=== PATIENT | male | born 1945 | race Caucasian/White ===

== ENCOUNTER 2024-02-25 10:53 | Outpatient (AMB) | payer OTHER, SELFPAY ==
--- NOTE | 2024-02-25 10:57 | A.OFFVIS_ITS ---
Vital Signs 02/25/24 11:17 Height 5 ft 10.5 in Weight 240 lb 2 oz BMI 34.0 BP 127/60 Blood Pressure Location Lt brachial Position Sitting Pulse 91 Pulse Source Pulse Oximeter Pulse Oximetry (%) 98 Oxygen Delivery Method Room Air Intake Visit Reasons: Back Pain Intake Note: Pain today 2 Imposer Required: No Accompanied by: Self / Same As Patient Allergies No Known Allergies Allergy (Verified 02/25/24 11:16) HPI HPI Back Pain: Details: Patient is a pleasant 78 years old male with history of osteoarthritis, obesity, back pain, bilateral total knee replacements, LUCIO with CPAP use, presents today for initial evaluation for low back pain. This is a Worker Comp case #[id number] due to poor work ergonomic chair without lumbosacral support. 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 Patient reports his low back pain has been increasing since December 2023 with increased stiffness and spasming and pain with prolonged sitting and range of motion, as well we prolonged walking or standing. He attributes this to inadequate support from his work chair. Patient states he requested a new chair from his workplace with lumbar support but this has not been arranged as of yet. Pain affects his daily activities and functioning, work, sleep, mobility, social interactions and quality of life. Pain came on gradually and currently has been intermittent with pain intensity ranging 2-4/10, with pain most severe late afternoon and morning and less severe in the late morning. Denies previous spine injections or surgery. Patient reports remote chiropractic adjustments but denies any recent formal physical therapy, TENS unit, acupuncture, massage therapy, or aqua therapy. He tried activity modifications and muscle relaxant with continued symptoms. He avoids NSAIDs and Tylenol due to adverse effects. Denies any fever or chills, abdominal or groin pain, weakness, foot drop, bladder or bowel dysfunction, or saddle anesthesia. Oswestry Low Back Pain Disability Score=12 (mild disability) Onset: 01/02/24 Location: Lower back pain, non-radiating Duration: 2 months Characteristics of symptom or complaint: Aching, dull, sore, hurting, aching, heavy Aggravating or associated factors: Prolonged sitting, bending forward, prolonged standing or walking, sleep Relieving factors: Resting, activity modifications, back support, tried muscle relaxant Treatment: None [facility] Medical History (Updated 02/25/24 @ 13:06 by JEANNINE Asher) LUCIO on CPAP Hx of colonic polyps History of adenomatous polyp of colon Hypertension Morbid obesity Osteoarthritis History of prostatism Contusion of rib on right side Eczema Back pain Anemia Nasal congestion Sleep apnea Surgical History H/O arthroscopic knee surgery History of knee replacement (~12/2019) Social History Alcohol intake: current Alcohol type: beer Patient Tobacco Use Status: Former Tobacco user Review of Systems Const All systems reviewed & are unremarkable except as noted in HPI and below Physical Exam Vital Signs: Last Vital Signs Pulse 91 02/25/24 11:17 BP 127/60 02/25/24 11:17 Pulse Ox 98 02/25/24 11:17 Oxygen Delivery Method Room Air 02/25/24 11:17 BMI result Body Mass Index 34.0 General: Appears afebrile. Alert and oriented. Mood and affect appropriate. Follows and participates in conversation appropriately. Respiratory effort is unlabored. No cough. Able to transition from sit to stand unassisted. Ambulates with bilaterally normal heel strike and toe off. General: Yes no CVA tenderness Back/Spine/Pelvis Other: Limited lumbar ROM due to pain. Non-antalgic gait. Mild limping. Lumbar flexion, axial rotations and extension is intact but reproduce moderate pain, worse with extension. No midline tenderness to palpation in the thoracic or lumbar spine. Demonstrates 5/5 strength of quadriceps bilaterally as well as flexion/dorsiflexion of bilateral feet against resistance. 2+ pedal pulses bilaterally. Straight leg rise with dorsiflexion negative bilaterally. Diminished patellar and achilles reflexes bilaterally. Facet loading test positive bilaterally. Raymond sign is negative bilaterally. Back: no CVA tenderness Cervical Spine: cervical ROM normal, cervical muscular tenderness and No Cervical spine tenderness Thoracic/Lumbar Spine: thoracic and lumbar spine normal to inspection, No Thoracic/lumbar spine scar(s), Lasegue's sign negative, straight leg raise negative bilaterally, kyphosis, pain with thoraco-lumbar ROM, paraspinal muscle tenderness, thoraco-lumbar ROM limited, No thoracic spinal tenderness and lumbar spinal tenderness at L4 and at L5 Pelvis: no buttock tenderness Sacroiliac joints: bilaterally nontender Extrem General: Yes capillary refill normal, Yes no clubbing, cyanosis or edema and Yes no calf tenderness Results Reviewed Results Reviewed: No imaging reports are available for review. Assessment & Plan Assessment & Plan (1) Lumbosacral spondylosis: Code(s): M47.817 - Spondylosis without myelopathy or radiculopathy, lumbosacral region Category: Medical (2) Low back pain: Code(s): M54.50 - Low back pain, unspecified Category: Medical (3) Muscle spasm of back: Code(s): M62.830 - Muscle spasm of back Category: Medical Plan Lumbar spine imaging to assess degree of degenerative changes, any subluxation, listhesis, compression fractures or pars defects. Discussed interventional treatments for axial low back pain, including diagnostic and therapeutic injections, neuromodulation therapy with Sprint PNS trial and lumbar medial branch RFA procedures. Informational pamphlets were provided to patient. Recommend formal physical therapy and establishment of home exercise program to reduce pain and optimize mobility, improve strength, proprioception, and neuromuscular coordination. Script provided [facility] therapy per patient's request as he previously completed PT for bilateral knee pain there. Discussed adjusting his work ergonomics and pursuing suitable work chair with lumbar support. Patient is retiring soon and is not considering it at this time. All questions and concerns have been answered and patient agreed with the treatment plan. Follow up for xray results/PT therapy and sooner as needed. Orders: Orders PT Evaluation and Treatment Today M47.817 - Spondylosis without myelopathy or radiculopathy, lumbosacral region, M54.50 - Low back pain, unspecified XR lumbar spine 4V min Today M47.817 - Spondylosis without myelopathy or radiculopathy, lumbosacral region, M54.50 - Low back pain, unspecified Medications: New lidocaine 5% 1 patch topically; 30 days 30 ea 0RF pain M47.817 - Spondylosis without myelopathy or radiculopathy, lumbosacral region, M54.50 - Low back pain, unspecified Coding Level of Care Code New Pt Level 4 (05388) Complex EM visit Add On G2211 Diagnoses Lumbosacral spondylosis M47.817 Low back pain M54.50 Muscle spasm of back M62.830
[2024-02-25 11:17] VITALS: BP 127/60; PULSE 91; O2SAT 98; BMI 34.0
--- OUTSIDE RECORDS SUMMARY | 2024-02-25 12:51 | XMS_ITS | Encounter Summary ---
Author Name [facility] [place] Address [address] [place] [address] Care Team Providers Care Pet House Sitter Name Role Phone JESUS WARREN Primary Care Provider Unavailabl e Insurance Providers: All historical and current Section Date Range: From patient's date of to the date document was created. This section includes the names of all active insurance providers for the patient. Insurance Provider Type of Coverage Plan Name Start of Policy Coverage End of Policy Coverage Group Number Member ID Insurance Provider's Telephone Number Policy Chan's Name Patient's Relationship to Policy Chan [facility] Apr 11, 2017 [id number] MADONNA CASILLAS PATIENT [employer] ([id number]) [facility] Aug 11, 2017 [id number] [phone] MADONNA CASILLAS PATIENT [employer] ([id number]) [facility] Aug 11, 2017 [id number] [phone] MADONNA CASILLAS PATIENT MEDICARE (WNR) MEDICARE (M) PART A Sep 12, 2011 PART A [id number] MADONNA CASILLAS PATIENT MEDICARE (WNR) MEDICARE (M) PART A Sep 12, 2011 PART A [id number] MADONNA CASILLAS PATIENT UNICARE PREFERRED PROVIDER ORGANIZAT TRACI (PPO) [employer] [place] [employer] * Aug 11, 2009 [id number] MADONNA CASILLAS PATIENT Selected Encounter This section includes the information on record at [place] for the Encounter. Date/Time Encounter Type Encounter Description Reason Pro vider Source Mar 01, 2023 12:00 PM Outpatient Encounter EVENT (HISTORICAL) IHE Encounter Template Text not used by [place] Plan of Treatment: Future Appointments (+ 6 months) and Future Tests (+/- 45 days) The Plan of Treatment section includes future care activities for the patient from all [place] treatmentfacilities. This section includes future appointments and future orders which are active, pending or scheduled. Future Appointments This section includes appointments that were scheduled to occur 6 months from the date of the Encounter, up to a maximum of 20 appointments. The data comes from all [place] treatment facilities. Appointment Date/Time Appointment Type Appointme nt Facility Name Apr 23, 2023 02:00 PM AMBULATORY - MEDICINE [facility] May 30, 2023 10:00 AM AMBULATORY - NONE [facility] July 04, 2023 02:00 PM AMBULATORY NONE [facility] July 10, 2023 11:00 AM AMBULATORY - PSYCHIATRY [facility] Aug 07, 2023 01:00 PM AMBULATORY - PSYCHIATRY [facility] Social History: Smoking Status (Most current) and Tobacco Use (All prior to encounter date) This section includes the most current, and the historical, smoking and tobacco- related health factors from the [place] facility where the Encounter took place. Current Smoking Status This section includes the most current smoking, or tobacco-related health factor, from the [place] facility where the Encounter took place. Date/Time Current Smoking Status Comment Facil ity Aug 07, 2019 01:20 PM [place]-TOBACCO QUIT 15 YRS OR MORE [facility] Tobacco Use History This section includes a history of the smoking, or tobacco-related health factors, that were collected on or before the date of the Encounter. The data comes from the [place] facility where the Encounter took place. Date/Time Smoking Status/Tobacco Use Comment F acility Aug 07, 2019 01:20 PM VA-TOBACCO QUIT 15 YRS OR MORE [facility] Encounter Notes: All associated encounter notes This section contains the clinical notes associated to the Encounter. Date/Time Encounter Note(s) Provider Source Mar 01, 2023 12:00 PM NONVA NOTE: LOCAL TITLE: NON-VA OUTPATIENT NOTES STANDARD TITLE: NONVA NOTE DATE OF NOTE: MAR 01, 2023@12:00 ENTRY DATE: APR 30, 2023@15:17:51 AUTHOR: JS BROWN EXP COSIGNER: URGENCY: STATUS: COMPLETED VistA Imaging - Scanned Document SCANNED DOCUMENT SIGNATURE NOT REQUIRED Electronically Filed: 04/30/2023 by: JS VALERIO [facility]
--- OUTSIDE RECORDS SUMMARY | 2024-02-25 12:51 | XMS_ITS | Encounter Summary ---
Author Name [facility] [place] Address [address] [place] [address] Care Team Providers Care Career Law Clerk Name Role Phone JESUS WARREN Primary Care [...] Chan's Name Patient's Relationship to Policy Chan [facility] Apr 11, 2017 [id number] [phone] MADONNA CASILLAS PATIENT [employer] ([id number]) [facility] Aug 11, 2017 [id number] MADONNA CASILLAS PATIENT [employer] ([id number]) [facility] Aug 11, 2017 [id number] MADONNA CASILLAS PATIENT MEDICARE (WNR) MEDICARE (M) PART A Sep 12, 2011 PART A [id number] MADONNA CASILLAS PATIENT MEDICARE (WNR) MEDICARE (M) PART A Sep 12, 2011 PART A [id number] MADONNA CASILLAS PATIENT UNICARE PREFERRED PROVIDER ORGANIZAT TRACI (PPO) [place] [employer] * Aug 11, 2009 [id number] MADONNA CASILLAS PATIENT Selected Encounter This section includes the information on record at [place] for the Encounter. Date/Time Encounter Type Encounter Description Reason Pro vider Source May 08, 2023 03:35 PM Outpatient Encounter ADMIN PAT ACTIVTIES (MASNONCT) IHE Encounter Template Text not used by [place] Plan of Treatment: Future Appointments (+ 6 months) and Future Tests (+/- 45 days) The Plan of Treatment section includes future care activities for the patient from all [place] [facility]. This section includes future appointments and future orders which are active, pending or scheduled. Future Appointments This section includes appointments that were scheduled to occur 6 months from the date of the Encounter, up to a maximum of 20 appointments. The data comes from all [place] treatment facilities. Appointment Date/Time Appointment Type Appointme nt Facility Name May 30, 2023 10:00 [facility] July 04, 2023 02:00 PM [facility]ONE [facility] July 10, 2023 11:00 AM AMBULATORY - PSYCHIATRY [facility] Aug 07, 2023 01:00 PM AMBULATORY - PSYCHIATRY [facility] Sep 27, 2023 01:00 PM AMBULATORY - MEDICINE [facility] Oct 17, 2023 09:00 AM AMBULATORY - MEDICINE [facility] NTRL [facility] Nov 07, 2023 01:30 PM AMBULATORY - MEDICINE [facility] Social History: Smoking Status (Most current) and Tobacco Use (All prior to encounter date) This section includes the most current, and the historical, smoking and tobacco- related health factors from the [place] facility where the Encounter took place. Current Smoking Status This section includes the most current smoking, or tobacco-related health factor, from the [place] facility where the Encounter took place. Date/Time Current Smoking Status Eran cary Aug 07, 2019 01:20 PM VA-TOBACCO QUIT 15 YRS OR MORE [facility] Tobacco Use History This section includes a history of the smoking, or tobacco-related health factors, that were collected on or before the date of the Encounter. The data comes from the [place] facility where the Encounter took place. Date/Time Smoking Status/Tobacco Use Comment F acility Aug 07, 2019 01:20 PM [place]-TOBACCO QUIT 15 YRS OR MORE [facility] Encounter Notes: All associated encounter notes This section contains the clinical notes associated to the Encounter. Date/Time Encounter Note(s) Provider Source May 08, 2023 03:35 PM ADMINISTRATIVE NOTE: LOCAL TITLE: CCC: SCHEDULING ADMINISTRATION STANDARD TITLE: ADMINISTRATIVE NOTE DATE OF NOTE: MAY 08, 2023@15:35:24 ENTRY DATE: MAY 08, 2023@15:35:24 AUTHOR: NEO LEDEZMA EXP COSIGNER: URGENCY: STATUS: COMPLETED CCC: SCHEDULING ADMINISTRATION Has ADDENDA Patient Demographics Patient Name: EMILIE CASILLAS Patient Primary Phone: [phone] Patient Primary Address[address] [address] [place] [address] Patient : 1945 Patient Age: 77 Call Back Number: [phone] Caller/Recipient Relation to Patient: Self Administrative Administrative Note Reason: Other Administrative Note Comments: PT IS REQUESTING A CALL BACK TO DISCUSS THE STATUS OF APPROVAL FOR A CPAP. PT CAN BE REACHED AT ABOVE # /emmett/ NEO LEDEZMA VISN1 [facility] AMSA Signed: 05/08/2023 15:35 Receipt Acknowledged By: 05/09/2023 09:14 /es/ LAUREN HERNANDEZ RN REGISTERED NURSE 05/09/2023 09:09 /es/ CLARISSA GRUBER LPN PACT 10 05/09/2023 ADDENDUM STATUS: COMPLETED Senior Project Accountant called Vet and let him know that he has a follow up with Respiratory to talk about the CPAP. /emmett/ CLARISSA GRUBER LPN PACT 10 Signed: 05/09/2023 09:11 NEO LEDEZMA [facility]
--- OUTSIDE RECORDS SUMMARY | 2024-02-25 12:51 | XMS_ITS | Encounter Summary ---
Author Name [place] Address [address] [place] [address] Care Team Providers Care Senior Staff Specialized Employment Name Role Phone JESUS WARREN Primary Care [...] Chan's Name Patient's Relationship to Policy Chan [facility] Apr 11, 2017 [id number] [phone] MADONNA CASILLAS PATIENT [employer] ([id number]) [facility] Aug 11, 2017 [id number] MADONNA CASILLAS PATIENT [employer] ([id number]) [facility] Aug 11, 2017 [id number] [phone] MADONNA CASILLAS PATIENT MEDICARE (WNR) MEDICARE (M) PART A Sep 12, 2011 PART A [id number] MADONNA CASILLAS PATIENT MEDICARE (WNR) MEDICARE (M) PART A Sep 12, 2011 PART A [id number] MADONNA CASILLAS PATIENT UNICARE PREFERRED PROVIDER ORGANIZAT ION (PPO) [place] [employer] * Aug 11, 2009 [id number] MADONNA CASILLAS PATIENT Selected Encounter This section includes the information on record at [place] for the Encounter. Date/Time Encounter Type Encounter Description Reason Provider Source Jun 03, 2023 12:35 PM SPECIAL SUPPLIES PHYS/QHP TELEPHONE/MEDICIN E ICD-10-CM G47.33 Obstructive sleep apnea (adult) (pediatric) KASEY BEY IHE Encounter Template Text not used by CT Assessments - Encounter Diagnoses This section includes the primary and secondary diagnoses documented for the Encounter. Date/Time Primary/Secondary Diagnosis Diagnosis Name Provider Source Jun 03, 2023 12:35 PM PRIMARY Obstructive sleep apnea (adult) (pediatric) [facility] Plan of Treatment: Future Appointments (+ 6 months) and Future Tests (+/- 45 days) The Plan of Treatment section includes future care activities for the patient from all [place] treatmentfacilities. This section includes future appointments and future orders which are active, pending or scheduled. Future Appointments This section includes appointments that were scheduled to occur 6 months from the date of the Encounter, up to a maximum of 20 appointments. The data comes from all [place] treatment facilities. Appointment Date/Time Appointment Type Appointme nt Facility Name July 04, 2023 02:00 PM AMBULATORY - NONE [facility] [place] [facility] July 10, 2023 11:00 AM AMBULATORY - PSYCHIATRY [facility] Aug 07, 2023 01:00 PM AMBULATORY - PSYCHIATRY [facility] Sep 27, 2023 01:00 PM AMBULATORY - MEDICINE [facility] Oct 17, 2023 09:00 AM AMBULATORY - MEDICINE CT C [facility]L [facility] [place] [facility] Nov 07, 2023 01:30 PM AMBULATORY - MEDICINE CT C [facility]TRL [facility] [place] [facility] Nov 27, 2023 10:00 AM AMBULATORY - NONE [facility] [place] [facility] Social History: Smoking Status (Most current) and Tobacco Use (All prior to encounter date) This section includes the most current, and the historical, smoking and tobacco- related health factors from the [place] facility where the Encounter took place. Current Smoking Status This section includes the most current smoking, or tobacco-related health factor, from the [place] facility where the Encounter took place. Date/Time Current Smoking Status Comment Facil ity Aug 07, 2019 01:[address]-TOBACCO QUIT 15 YRS OR MORE [facility] Tobacco Use History This section includes a history of the smoking, or tobacco-related health factors, that were collected on or before the date of the Encounter. The data comes from the [place] facility where the Encounter took place. Date/Time Smoking Status/Tobacco Use Comment F acility Aug 07, 2019 01:[address]-TOBACCO QUIT 15 YRS OR MORE [facility] Encounter Notes: All associated encounter notes This section contains the clinical notes associated to the Encounter. Date/Time Encounter Note(s) Provider Source Jun 03, 2023 12:35 PM RESPIRATORY THERAP Y NOTE: LOCAL TITLE: RESPIRATORY THERAPY NOTE(BLANK) STANDARD TITLE: RESPIRATORY THERAPY NOTE DATE OF NOTE: JUN 03, 2023@12:35 ENTRY DATE: JUN 03, 2023@12:35:11 AUTHOR: KASEY BEY EXP COSIGNER: URGENCY: STATUS: COMPLETED RESPIRATORY THERAPY NOTE(BLANK) Has ADDENDA Telephone Coding and Documentation: Diagnosis: sleep apnea Actual time spent with Patient via telephone: 12 minutes. Gonzales diagnosed with sleep apnea reports he received his CPAP device and used it for the first time last PM. is encouraged by how well it went. feedback from the ap was positive. states he will call with any issues or problems. /emmett/ KASEY BEY RESPIRATORY THERAPIST Signed: 06/03/2023 12:41 06/11/2023 ADDENDUM STATUS: COMPLETED Call 4 minutes. Gonzales diagnosed with sleep panea requests nasal pillow which will be ordered via [facility]. /milka BEY RESPIRATORY THERAPIST Signed: 06/11/2023 16:08 KASEY BEY [facility]
--- OUTSIDE RECORDS SUMMARY | 2024-02-25 12:51 | XMS_ITS | Encounter Summary ---
Author Name [facility] [place] Organization [facility] [place] Address [address] [place] [address] Care Team Providers Care Electrolog Operator Name Role Phone JESUS WARREN Primary Care [...] Name Patient's Relationship to Policy Chan [facility] Apr 11, 2017 [id number] MADONNA CASILLAS PATIENT EXPRESS SCRIPTS ([id number]) [facility]CRIPT [facility] Aug 11, 2017 [id number] [phone] MADONNA CASILLAS PATIENT EXPRESS SCRIPTS ([id number]) [facility] Aug 11, 2017 [id number] MADONNA CASILLAS PATIENT MEDICARE (WNR) MEDICARE (M) PART A Sep 12, 2011 PART A [id number] [phone] MADONNA CASILLAS PATIENT MEDICARE (WNR) MEDICARE (M) PART A Sep 12, 2011 PART A [id number] MADONNA CASILLAS PATIENT UNICARE PREFERRED PROVIDER ORGANIZAT TRACI (PPO) UNICDwight STATE INDEM * Aug 11, 2009 [id number] MADONNA CASILLAS PATIENT Selected Encounter This section includes the information on record at [place] for the Encounter. Date/Time Encounter Type Encounter Description Reason Pro vider Source Apr 24, 2023 10:39 AM Outpatient Encounter SLEEP MEDICINE IHE Encounter Template Text not used by [place] Plan of Treatment: Future Appointments (+ 6 months) and Future Tests (+/- 45 days) The Plan of Treatment section includes future care activities for the patient from all [place] [facility]. This section includes future appointments and future orders which are active, pending or scheduled. Future Appointments This section includes appointments that were scheduled to occur 6 months from the date of the Encounter, up to a maximum of 20 appointments. The data comes from all [place] treatment facilities. Appointment Date/Time Appointment Type Appointme nt Facility Name May 30, 2023 10:00 AM AMBULATORY - NONE [facility] July 04, 2023 02:00 PM AMBULATORY NONE [facility] July 10, 2023 11:00 AM AMBULATORY - PSYCHIATRY [facility] Aug 07, 2023 01:00 PM AMBULATORY - PSYCHIATRY [facility] Sep 27, 2023 01:00 PM AMBULATORY - MEDICINE [facility] Oct 17, 2023 09:00 AM AMBULATORY - MEDICINE [facility] Social History: Smoking Status (Most current) and Tobacco Use (All prior to encounter date) This section includes the most current, and the historical, smoking and tobacco- related health factors from the [place] facility where the Encounter took place. Current Smoking Status This section includes the most current smoking, or tobacco-related health factor, from the [place] facility where the Encounter took place. Date/Time Current Smoking Status Comment Sarah cary Aug 07, 2019 01:20 PM ME-TOBACCO QUIT 15 YRS OR MORE [facility] Tobacco Use History This section includes a history of the smoking, or tobacco-related health factors, that were collected on or before the date of the Encounter. The data comes from the [place] facility where the Encounter took place. Date/Time Smoking Status/Tobacco Use Comment F acility Aug 07, 2019 01:20 PM [facility]-TOBACCO [facility]IT [facility] [place] [facility] Encounter Notes: All associated encounter notes This section contains the clinical notes associated to the Encounter. Date/Time Encounter Note(s) Provider Source Apr 24, 2023 10:39 AM LETTERS: LOCAL TITLE: PATIENT LETTER (B) STANDARD TITLE: LETTERS DATE OF NOTE: APR 24, 2023@10:39 ENTRY DATE: APR 24, 2023@10:39:27 AUTHOR: ALEXIS NUNEZ EXP COSIGNER: URGENCY: STATUS: COMPLETED APR 24, 2023 EMILIE CASILLAS [address], [place] [address] Dear EMILIE CASILLAS We would like to assist you in scheduling a RESPIRATORY THERAPY appointment at the [place]. We have been unable to reach you by phone. To schedule this appointment please call toll free Ext [phone]. Our booking appointment hours are Saturday through Saturday from 8:00 am to 4:00 pm. Please leave a message if you receive voicemail and let us know a good time and telephone number where we can reach you. If we dont hear back from you within 14 days from the date of this letter we will discontinue the request. If you have already scheduled this appointment, please disregard this letter. Your health is important to us. Sincerely, [facility] [address] [facility] [address] [place] [address] [place] [address] ext. [phone] [facility] [address] [place] [address] [place] [address] [phone] [facility] [address] [facility] [address] [place] [address] [place] [address] ext. [phone] [facility] [address] [place] [address] ext. [phone] ALEXIS NUNEZ [facility]
--- OUTSIDE RECORDS SUMMARY | 2024-02-25 12:51 | XMS_ITS | Encounter Summary ---
Author Name [facility] [place] Address [address] [place] [address] Care Team Providers Care Bicycle Repair Technician Name Role Phone JESUS WARREN Primary Care [...] Chan's Name Patient's Relationship to Policy Chan [facility] Apr 11, 2017 [id number] MADONNA CASILLAS PATIENT EXPRESS SCRIPTS ([id number]) PRESCRIPT ION [facility] Aug 11, 2017 [id number] [phone] MADONNA CASILLAS PATIENT EXPRESS SCRIPTS ([id number]) PRESCRIPT ION [facility] Aug 11, 2017 [id number] [phone] MADONNA CASILLAS PATIENT MEDICARE (WNR) MEDICARE (M) PART A Sep 12, 2011 PART A [id number] MADONNA CASILLAS PATIENT MEDICARE (WNR) MEDICARE (M) PART A Sep 12, 2011 PART A [id number] [phone] MADONNA CASILLAS PATIENT UNICARE PREFERRED PROVIDER ORGANIZAT ION (PPO) UNICDwight [facility] INDEM * Aug 11, 2009 [id number] MADONNA CASILLAS PATIENT Selected Encounter This section includes the information on record at [place] for the Encounter. Date/Time Encounter Type Encounter Description Reason Provider Source Apr 23, 2023 02:00 PM OFFICE O/P EST LOW 20 MIN PODIATRY ICD-10-CM L60.3 Nail dystrophy FOREIGN JAUREGUI [place] Encounter Template Text not used by [place] Assessments - Encounter Diagnoses This section includes the primary and secondary diagnoses documented for the Encounter. Date/Time Primary/Secondary Diagnosis Diagnosis Name Provider Source May 17, 2023 03:42 PM PRIMARY Nail dystrophy FOREIGN JAUREGUI KRYSTIAN May 17, 2023 03:42 PM SECONDARY Corns and callosities FOREIGN JAUREGUI KRYSTIAN May 17, 2023 03:42 PM SECONDARY Pain in left foot FOREIGN JAUREGUI KRYSTIAN May 17, 2023 03:42 PM SECONDARY Pain in left toe(s) FOREIGN JAUREGUI KRYSTIAN May 17, 2023 03:42 PM SECONDARY Pain in right foot FOREIGN JAUREGUI KRYSTIAN May 17, 2023 03:42 PM SECONDARY Pain in right toe(s) [facility] JA[facility] May 17, 2023 03:42 PM SECONDARY Peripheral vascular disease, unspecified FOREIGN JAUREGUI Plan of Treatment: Future Appointments (+ 6 months) and Future Tests (+/- 45 days) The Plan of Treatment section includes future care activities for the patient from all [place] treatmentfacilities. This section includes future appointments and future orders which are active, pending or scheduled. Future Appointments This section includes appointments that were scheduled to occur 6 months from the date of the Encounter, up to a maximum of 20 appointments. The data comes from all [place] treatment facilities. Appointment Date/Time Appointment Type Appointme nt Facility Name May 30, 2023 10:00 AM AMBULATORY - NONE [place] [facility] [place] [facility] July 04, 2023 02:00 PM AMBULATORY - NONE [place] [facility] [place] [facility] July 10, 2023 11:00 AM AMBULATORY - PSYCHIATRY [facility] Aug 07, 2023 01:00 PM AMBULATORY - PSYCHIATRY [facility] Sep 27, 2023 01:00 PM AMBULATORY - MEDICINE [facility] Oct 17, 2023 09:00 AM AMBULATORY - MEDICINE [place] [facility] [place] [facility] Social History: Smoking Status (Most current) and Tobacco Use (All prior to encounter date) This section includes the most current, and the historical, smoking and tobacco- related health factors from the [place] facility where the Encounter took place. Current Smoking Status This section includes the most current smoking, or tobacco-related health factor, from the [place] facility where the Encounter took place. Date/Time Current Smoking Status Comment Facil ity Nov 07, 2022 01:30 PM VA-TOBACCO FORMER USER [facility] Tobacco Use History This section includes a history of the smoking, or tobacco-related health factors, that were collected on or before the date of the Encounter. The data comes from the [place] facility where the Encounter took place. Date/Time Smoking Status/Tobacco Use Comment F acility Nov 07, 2022 01:30 PM VA-TOBACCO QUIT 15 YRS OR MORE [facility] Nov 09, 2021 09:00 AM VA-TOBACCO FORMER USER [facility] Nov 09, 2021 09:00 AM VA-TOBACCO QUIT 15 YRS OR MORE [facility] Nov 09, 2020 03:00 PM VA-TOBACCO FORMER USER [facility] Nov 09, 2020 03:00 PM VA-TOBACCO QUIT 15 YRS OR MORE [facility] Encounter Notes: All associated encounter notes This section contains the clinical notes associated to the Encounter. Date/Time Encounter Note(s) Provider Source Apr 23, 2023 08:47 AM PODIATRY NOTE: LOCAL TITLE: PODIATRY NOTE STANDARD TITLE: PODIATRY NOTE DATE OF NOTE: APR 23, 2023@08:47 ENTRY DATE: APR 23, 2023@08:47:08 AUTHOR: FOREIGN JAUREGUI EXP COSIGNER: URGENCY: STATUS: COMPLETED PATIENT IS A 1ST RESPONDER AND HAS RECEIVED BOTH VACCINES + BOOSTER THROUGH WORK WITH THE [facility] LAST SEEN FOR TREATMENT: 12/18/2022 S: Pt. is a 77 yo alert WDWN CAUC MALE who presents for continued podiatric EVALUATION & care for treatment of a presenting complaint of painful thick ingrown toenails 1-2-3-4-5 BILATERAL, DRY SKIN AND HYPERKERATOSIS HEELS AND TOES. Patient has PVD & is at risk of injury with self or other non-professional care. Patient has been referred by: DR. WARREN Location of symptoms are: NAILS 1-2-3-4-5 BILATERAL Onset of symptoms has been several days due to this being a recurrent condition that has been exacerbating over the past few weeks. Duration of symptoms is daily with periods of exacerbation and remission. Description of symptoms is of an aching nature. Contributing factors are: shoes and increased activity. PMH: Active problems - Computerized Problem List is the source for the following: *NOTE: REVIEWED ABOVE NOTING NO CHANGES SINCE PREVIOUS VISIT *PLEASE SEE PROBLEM LIST TEMPLATE FOR COMPLETE LIST NEEDED. Family History: Non-contributory Social History: N/A *DENIES ANY RECENT CHANGES IN MEDS upon questioning today- SEE RECONCILIATION PERFORMED THIS DATE BELOW TOBACCO USE = NONE Allergies:Patient has answered NKA Previous Surgery/Hospitalization: N/A HEIGHT:221 lb [100.5 kg] (08/11/2019 13:34) WEIGHT:69.685 in [177.0 cm] (08/11/2019 13:34) REVIEW OF SYSTEMS: DEFERRED BEING NON-CONTRIBUTORY TO THE CC & I HAVE REVIEWED THE PCP NOTES & PMH O: DERMATOLOGICAL: Exam reveals skin color, temp & text to be WNL. There is absence of hair noted. Nails are thickened yellow-brown discolored and displaying flakiness, crumbling, sub-ungual debris and rubor in the affected nail grooves. The affected nails are 1-2-3-4-5 bilat. There are superficial painful hyperkeratotic lesions noted at this time periphery of heel bilateral, medial hallux bilateral plantar 1st MPJ bilateral and distal RT hallux. There are no rashes, ulcers, indurations or nodules noted. *PAIN LEVEL IS 2-3/10 PRIOR TO TREATMENT AND 0/10 AFTER. VASCULAR: Exam reveals DP & PT pulses to be absent non-palpable bilateral. CFT is < 3 sec x 10. There are no superficial varices noted and there is +2 edema noted. MUSCULOSKELETAL: Exam reveals muscle strength and tone to be equal & symmetrical bilaterally & WNL for an individual of this age and present physical-medical condition. There is pain free ROM at all joints distal to and including the ankle. *NEW COMPLAINT OF A PAINFUL 5TH RT DIGIT IN SHOES-NOTING MILD HYPERKERATOSIS DIPJ & DISPENSED TUBEFOAM FOR THIS PROBLEM AND HE WILL CALL IF NOT IMPROVED NEUROLOGICAL: Exam reveals S/D, vibratory, light touch & proprioception sensations to be equal & symmetrical bilaterally & WNL for an individual of this age and present physical-medical status. Protective sensation utilizing a [place] [employer] lOg monofilament is 05/10 bilateral. BIOMECHANICAL: Exam is deferred at this time as non-contributory to the cc . A: Clinical Impression is painful onychocryptic clinically mycotic dystrophic nails 1-2-3-4-5 bilateral & multiple hypekeratosis in the presence of PVD. P: Treatment consists of debridement-reduction of all nails via manual & electric means with excision of the offending nail borders and thinning of the nail plates to the point of imminent bleeding and paring-debridement of all hyperkeratosis utilizing a sterile # 10 scalpel. All care rendered without complications & the patient is progressing well after podiatric care this date and will be scheduled for periodic podiatric care in an attempt to prevent future complications due to the underlying medical conditions. Treatment by a non-professional could be extremely hazardous to the patient's wellbeing due to the underlying medical conditions. *TUBE FOAM 5TH RT RTC: 24 Weeks *DISCUSSED NEW PROTOCOLS AND CALLED GREGORY ALBRECHT I DISCUSSED THE FINDINGS & PLAN WITH PATIENT (UNCHANGED SINCE PREVIOUS VISIT) &PATIENT AGREES AND UNDERSTANDS PLAN ORDERED AMMONIUMLACTATE 122% BEFORE DISCUSSED A VARIETY OF SOCIAL CONCERNS SUCH EDUCATION, LOSS OF PERSONNEL IN THE MEDICAL PROFESSION, ETC Medication Reconciliation: PERFORMED TODAY - SEE BELOW. Outpatient: Has the patient been taking medications as documented in the EMLR? YES: The patient has been taking medications as documented in the EMLR. Essential Medication List for Review used to complete this medication reconciliation. INCLUDED IN THIS LIST: Alphabetical list of active outpatient prescriptions dispensed from this VA (local) and dispensed from another [place] or Do[place] facility (remote) as well as inpatient orders (local, pending and active), local clinic medications, locally documented non-VA medications, and local prescriptions that have or been discontinued in the past 90 days. - All changes in medications, including all non-VA/Herbal/OTC medications were entered into CPRS. - If there were any medications the patient should no longer take, they were discontinued. - The patient/caregiver was instructed to update this list, discard old lists, and take this list to the next appointment, whether with a VA or non-VA provider. JLV Link Data on this list may not be complete. Please check JLV. Allergies/ADRs (Tool #5) FACILITY ALLERGY/ADR -------- No Remote Allergy/ADR Data available for this patient [place] [facility] No Known Allergies Med Recon NoGloary (Tool #1) INCLUDED IN THIS LIST: Alphabetical list of active outpatient prescriptions dispensed from this [place] (local) and dispensed from another VA or DoD facility (remote) as well as inpatient orders (local pending and active), local clinic medications, locally documented non-VA medications, and local prescriptions that have or been discontinued in the past 90 days. Non-VA Meds Last Documented On: Nov 07, 2022 NOTE The display of VA prescriptions dispensed from another VA or DoD facility (remote) is limited to active outpatient prescription entries matched to National Drug File at the originating site and may not include some items such as investigational drugs, compounds, etc. NOT INCLUDED IN THIS LIST: Medications self-entered by the patient into personal health records (i.e. [employer]) are NOT included in this list. Non-VA medications documented outside this [place], remote inpatient orders (regardless of status) and remote clinic medications are NOT included in this list. The patient and provider must always discuss medications the patient is taking, regardless of where the medication was dispensed or obtained. OUTPT AMMONIUM LACTATE 12% LOTION (Status = ) APPLY SMALL AMOUNT TOPICALLY TWICE DAILY FOR DRY IRRITATED SKIN Rx# [id number] Last Released: 04/18/22 Qty/Days Supply: 240/90 Rx Expiration Date: 04/17/23 Refills Remainin Indication: FOR DRY SKIN Non-VA CLOBETASOL PROPIONATE 0.05% OINT APPLY THIN LAYER TOPICALLY TWICE DAILY Non-VA FLUTICASONE PROP 50MCG 120D NASAL INHL INSTILL 2 SPRAYS INTO EACH NOSTRIL ONCE DAILY Non-VA LOSARTAN 100MG TAB TAKE ONE TABLET BY MOUTH ONCE DAILY Non-VA medication not recommended by VA provider. Medication prescribed by Non-VA provider. Non-VA METOPROLOL SUCCINATE 25MG SA TAB TAKE ONE TABLET BY MOUTH ONCE DAILY Non-VA TAMSULOSIN HCL 0.4MG CAP TAKE 1 CAPSULE BY MOUTH ONCE DAILY SUPPLIES /emmett/ FOREIGN JAUREGUI DPM BOW MAKER Signed: 04/23/2023 14:29 FOREIGN JAUREGUI [facility]
--- OUTSIDE RECORDS SUMMARY | 2024-02-25 12:51 | XMS_ITS | Encounter Summary ---
Author Name [facility] [place] Organization [place] Address [address] [place] [address] Care Team Providers Care Stock Shipper Name Role Phone JESUS WARREN Primary Care [...] Chan's Name Patient's Relationship to Policy Chan [facility] Apr 11, 2017 [id number] [phone] MADONNA CASILLAS PATIENT EXPRESS SCRIPTS ([id number]) PRESCRIPT ION [facility] Aug 11, 2017 [id number] MADONNA CASILLAS PATIENT EXPRESS SCRIPTS ([id number]) PRESCRIPT ION [facility] Aug 11, 2017 [id number] MADONNA CASILLAS PATIENT MEDICARE (WNR) MEDICARE (M) PART A Sep 12, 2011 PART A [id number] MADONNA CASILLAS PATIENT MEDICARE (WNR) MEDICARE (M) PART A Sep 12, 2011 PART A [id number] MADONNA CASILLAS PATIENT UNICARE PREFERRED PROVIDER ORGANIZAT ION (PPO) [place] STATE INDEM * Aug 11, 2009 [id number] MADONNA CASILLAS PATIENT Selected Encounter This section includes the information on record at [place] for the Encounter. Date/Time Encounter Type Encounter Description Reason Pro vider Source Apr 29, 2023 02:55 PM Outpatient Encounter ADMIN PAT ACTIVTIES (MASNONCT) IHE Encounter Template Text not used by [place] Plan of Treatment: Future Appointments (+ 6 months) and Future Tests (+/- 45 days) The Plan of Treatment section includes future care activities for the patient from all [place] [facility] This section includes future appointments and future orders which are active, pending or scheduled. Future Appointments This section includes appointments that were scheduled to occur 6 months from the date of the Encounter, up to a maximum of 20 appointments. The data comes from all [place] treatment facilities. Appointment Date/Time Appointment Type Appointme nt Facility Name May 30, 2023 10:00 AM [facility] July 04, 2023 02:00 PM [facility] [place] [facility] July 10, 2023 11:00 AM AMBULATORY - PSYCHIATRY [facility] Aug 07, 2023 01:00 PM AMBULATORY - PSYCHIATRY [facility] Sep 27, 2023 01:00 PM AMBULATORY - MEDICINE [facility] Oct 17, 2023 09:00 AM AMBULATORY - MEDICINE [facility] Social History: Smoking Status (Most current) and Tobacco Use (All prior to encounter date) This section includes the most current, and the historical, smoking and tobacco- related health factors from the [place] facility where the Encounter took place. Current Smoking Status This section includes the most current smoking, or tobacco-related health factor, from the [place] facility where the Encounter took place. Date/Time Current Smoking Status Eran cary Aug 07, 2019 01:20 PM [place]-TOBACCO QUIT 15 YRS OR MORE [facility] Tobacco Use History This section includes a history of the smoking, or tobacco-related health factors, that were collected on or before the date of the Encounter. The data comes from the [place] facility where the Encounter took place. Date/Time Smoking Status/Tobacco Use Comment F acility Aug 07, 2019 01:20 PM [place]-TOBACCO QUIT 15 YRS OR MORE [facility] Encounter Notes: All associated encounter notes This section contains the clinical notes associated to the Encounter. Date/Time Encounter Note(s) Provider Source Apr 29, 2023 02:55 PM ADMINISTRATIVE NOT E: LOCAL TITLE: CCC: SCHEDULING ADMINISTRATION STANDARD TITLE: ADMINISTRATIVE NOTE DATE OF NOTE: APR 29, 2023@14:55:17 ENTRY DATE: APR 29, 2023@14:55:17 AUTHOR: BELIA ALFARO EXP COSIGNER: URGENCY: STATUS: COMPLETED CCC: SCHEDULING ADMINISTRATION Has ADDENDA Patient Demographics Patient Name: EMILIE CASILLAS Patient Primary Phone: [phone] Patient Primary Address: [address] [place] [address] Patient : 1945 Patient Age: 77 Current Location: Call Back Number: [phone] DAY Caller/Recipient Relation to Patient: Self Scheduling Patient Expects Callback: No Administrative Administrative Note Reason: Medical Equipment Request Administrative Note Comments: REQUESTING RETURN CALL RE: Reorder of compression stockings- needs to be another size /es/ BELIA ALFARO CDA/AMSA Signed: 04/29/2023 14:55 Receipt Acknowledged By: 04/29/2023 15:12 /emmett/ LAUREN HERNANDEZ RN REGISTERED NURSE 04/29/2023 15:08 /emmett/ CLARISSA GRUBER LPN PACT 10 04/29/2023 ADDENDUM STATUS: COMPLETED Spoke with the and he needed the next size up. Consult placed. /emmett/ LAUREN HERNANDEZ RN REGISTERED NURSE Signed: 04/29/2023 15:12 BELIA ALFARO [place] [facility]
--- OUTSIDE RECORDS SUMMARY | 2024-02-25 12:51 | XMS_ITS | Encounter Summary ---
Author Name [facility] [place] Address [address] [place] [address] Care Team Providers Care Timber Cruiser Name Role Phone JESUS WARREN Primary Care [...] Chan's Name Patient's Relationship to Policy Chan [facility] Apr 11, 2017 [id number] MADONNA CASILLAS PATIENT EXPRESS SCRIPTS ([id number]) PRESCRIPT ION [facility] Aug 11, 2017 [id number] MADONNA CASILLAS PATIENT EXPRESS SCRIPTS ([id number]) PRESCRIPT ION [facility] Aug 11, 2017 [id number] MADONNA CASILLAS PATIENT MEDICARE (WNR) MEDICARE (M) PART A Sep 12, 2011 PART A [id number] MADONNA CASILLAS PATIENT MEDICARE (WNR) MEDICARE (M) PART A Sep 12, 2011 PART A [id number] MADONNA CASILLAS PATIENT UNICARE PREFERRED PROVIDER ORGANIZAT TRACI (PPO) KALLI STATE INDEM * Aug 11, 2009 [id number] MADONNA CASILLAS PATIENT Selected Encounter This section includes the information on record at [place] for the Encounter. Date/Time Encounter Type Encounter Description Reason Pro vider Source May 31, 2023 03:48 PM Outpatient Encounter SLEEP MEDICINE IHE Encounter Template Text not used by [place] Plan of Treatment: Future Appointments (+ 6 months) and Future Tests (+/- 45 days) The Plan of Treatment section includes future care activities for the patient from all [place] treatmentfacilities. This section includes future appointments and future orders which are active, pending or scheduled. Future Appointments This section includes appointments that were scheduled to occur 6 months from the date of the Encounter, up to a maximum of 20 appointments. The data comes from all [place] treatment facilities. Appointment Date/Time Appointment Type Appointme nt Facility Name July 04, 2023 02:00 PM [facility] July 10, 2023 11:00 AM AM[facility]ULAT[facility] - [facility]RY [facility] Aug 07, 2023 01:00 PM AMBULATORY - PSYCHIATRY [facility] Sep 27, 2023 01:00 PM AMBULATORY - MEDICINE [facility] Oct 17, 2023 09:00 AM AM[facility]UL[facility]ORY - [facility]INE [facility] Nov 07, 2023 01:30 PM [facility] Nov 27, 2023 10:00 AM AMBULATORY - NONE [facility] Social History: Smoking Status (Most current) and Tobacco Use (All prior to encounter date) This section includes the most current, and the historical, smoking and tobacco- related health factors from the [place] facility where the Encounter took place. Current Smoking Status This section includes the most current smoking, or tobacco-related health factor, from the [place] facility where the Encounter took place. Date/Time Current Smoking Status Comment Facil [facility] Aug 07, 2019 01:20 PM [place]-TO[place]ACCO QUIT 15 YRS OR MORE [facility] Tobacco Use History This section includes a history of the smoking, or tobacco-related health factors, that were collected on or before the date of the Encounter. The data comes from the [place] facility where the Encounter took place. Date/Time Smoking Status/Tobacco Use Comment F acility Aug 07, 2019 01:20 PM [place]-TOBACCO QUIT 15 YRS OR MORE [facility] Encounter Notes: All associated encounter notes This section contains the clinical notes associated to the Encounter. Date/Time Encounter Note(s) Provider Source May 31, 2023 03:48 PM ADMINISTRATIVE NOT E: LOCAL TITLE: ADMINISTRATIVE NOTE STANDARD TITLE: ADMINISTRATIVE NOTE DATE OF NOTE: MAY 31, 2023@15:48 ENTRY DATE: MAY 31, 2023@15:48:11 AUTHOR: GREGORY DELACRUZ EXP COSIGNER: URGENCY: STATUS: COMPLETED [place] would like a phone call back to see if it's okay to start using CPAP device before his follow up appointment (07/04/2023). Please outreach and advise. Thank you! /emmett/ GREGORY SCHWARTZ Signed: 05/31/2023 15:48 Receipt Acknowledged By: 06/03/2023 12:34 /emmett/ KASEY BEY RESPIRATORY THERAPIST 06/03/2023 16:07 /emmett/ [place], ON AIR TALENT RESPIRATORY THERAPIST GREGORY DELACRUZ [facility]
--- OUTSIDE RECORDS SUMMARY | 2024-02-25 12:51 | XMS_ITS | Encounter Summary ---
Author Name [facility] [place] [facility] [place] Address [address] [place] [address] Care Team Providers Care Rumper Name Role Phone JESUS WARREN Primary Care [...] Chan's Name Patient's Relationship to Policy Chan [facility] Apr 11, 2017 [id number] MADONNA CASILLAS PATIENT EXPRESS SCRIPTS ([id number]) PRESCRIPT ION [facility] Aug 11, 2017 [id number] MADONNA CASILLAS PATIENT EXPRESS SCRIPTS ([id number]) PRESCRIPT ION [facility] Aug 11, 2017 [id number] MADONNA CASILLAS PATIENT MEDICARE (WNR) MEDICARE (M) PART A Sep 12, 2011 PART A [id number] MADONNA CASILLAS PATIENT MEDICARE (WNR) MEDICARE (M) PART A Sep 12, 2011 PART A [id number] MADONNA CASILLAS PATIENT UNICARE PREFERRED PROVIDER ORGANIZAT ION (PPO) [place] RE STATE INDEM * Aug 11, 2009 [id number] MADONNA CASILLAS PATIENT Selected Encounter This section includes the information on record at [place] for the Encounter. Date/Time Encounter Type Encounter Description Reason Provider Source May 30, 2023 10:00 AM POS AIRWAY PRESSURE FILTER SLEEP MEDICINE ICD-10-CM G47.33 Obstructive sleep apnea (adult) (pediatric) KASEY BEY IHE Encounter Template Text not used by [place] Assessments - Encounter Diagnoses This section includes the primary and secondary diagnoses documented for the Encounter. Date/Time Primary/Secondary Diagnosis Diagnosis Name Provider Source Oct 21, 2023 10:32 AM PRIMARY Obstructive sleep apnea (adult) (pediatric) KASEY BEY [facility] Plan of Treatment: Future Appointments (+ 6 months) and Future Tests (+/- 45 days) The Plan of Treatment section includes future care activities for the patient from all [place] treatmentfacilities. This section includes future appointments and future orders which are active, pending or scheduled. Future Appointments This section includes appointments that were scheduled to occur 6 months from the date of the Encounter, up to a maximum of 20 appointments. The data comes from all [place] treatment facilities. Appointment Date/Time Appointment Type Appointme nt Facility Name July 04, 2023 02:00 PM [facility] [place] [facility] July 10, 2023 11:00 AM AMBULATORY - PSYCHIATRY [facility] Aug 07, 2023 01:00 PM AMBULATORY - PSYCHIATRY [facility] Sep 27, 2023 01:00 PM AMBULATORY - MEDICINE [facility] Oct 17, 2023 09:00 AM AMBULATORY - MEDICINE [facility]L [place] [facility] Nov 07, 2023 01:30 PM AMBULATORY - MEDICINE [place] [facility] [place] [facility] Nov 27, 2023 10:00 AM [facility] [place] [facility] Social History: Smoking Status (Most current) and Tobacco Use (All prior to encounter date) This section includes the most current, and the historical, smoking and tobacco- related health factors from the [place] facility where the Encounter took place. Current Smoking Status This section includes the most current smoking, or tobacco-related health factor, from the [place] facility where the Encounter took place. Date/Time Current Smoking Status Comment Sarah ity Aug 07, 2019 01:20 PM [place]-TOBACCO QUIT 15 YRS OR MORE [facility] Tobacco Use History This section includes a history of the smoking, or tobacco-related health factors, that were collected on or before the date of the Encounter. The data comes from the [place] facility where the Encounter took place. Date/Time Smoking Status/Tobacco Use Comment F acility Aug 07, 2019 01:20 PM [place]-TOBACCO QUIT 15 YRS OR MORE [facility] Encounter Notes: All associated encounter notes This section contains the clinical notes associated to the Encounter. Date/Time Encounter Note(s) Provider Source May 30, 2023 09:59 AM RESPIRATORY THERAPY CONSULT: LOCAL TITLE: CONSULT REPORT/RESPIRATORY THERAPY STANDARD TITLE: RESPIRATORY THERAPY CONSULT DATE OF NOTE: MAY 30, 2023@09:59 ENTRY DATE: MAY 30, 2023@10:00 AUTHOR: KASEY BEY COSIGNER: URGENCY: STATUS: COMPLETED diagnosed with sleep apnea had VVC visit to discuss recommendations from sleep specialist. [place] was offered and is agreeable to VVC visit. [place] had a HST at [facility] on 03/01/2023 and has an HST-RYU 39 with recommendations from [facility] sleep specialist for APAP 8-20 cmH2O. We discussed sleep study findings and the dangers of untreated sleep apnea. is agreeable to begin therapy. A ResMed Airsense 11 set to APAP 8-20 cmH2O with filters, N30-i with chinstrap will be shipped to [facility]. [place] has follow up at [facility] sleep clinic [place] gives consent for appointment. Equipment properly set and sized during this phone call will be sent to 's address, phone and email confirmed Time: [facility] to call and schedule follow-up will need to purchase distilled water [place] will be sent e-mail link for VVC visit [place] will receive an invitation to [facility] Video Connect (VVC) Standard Documentation VVC Clinician Resources Only: E911 (Emergency Call Relay Center): [phone] National Veterans Crisis Line - 988 then press #1. PRABHJOT Suicide Coordinator [phone], Ext. [phone]; Back-up Ext. [phone] [place] Police, [place] RICK [phone] Introduction: Visit is being conducted by [place] Video Connect. identified with 2 identifiers: [X] Full Name [X] Date of [ ] VA ID Card Emergency Plan: [place] confirmed and/or provided the following information in case of emergency or technology failure. PATIENT PHONE - [phone] PHONE NUMBER [CELLULAR] - Is patient phone number correct, if not, enter below: [place]'s phone number: EMILIE CASILLAS [address], [place], [address] [place]'s present location and address for appointment: as above 's emergency contact name and phone number: Mariah Lozano [phone] [place] reported that location is private and safe: Yes Informed Consent: [place] informed of the risks and benefits of Telehealth video care. [place] has the right to refuse video services. If refuses video visit, a tpan-yg-edac visit will be scheduled. [place] verbalized consent for this video visit: Yes [place] provided consent for any other persons present for visit: Yes If yes, who and relationship to patient: Secure visit: Visit was locked for security and privacy:Yes /emmett/ KASEY BEY RESPIRATORY THERAPIST Signed: 05/30/2023 10:43 KASEY BEY [facility]
--- OUTSIDE RECORDS SUMMARY | 2024-02-25 12:51 | XMS_ITS ---
Author Name [facility] [place] Address [address] [place] [address] Care Team Providers Care Mold Breaker Name Role Phone JESUS WARREN Primary Care [...] Chan's Name Patient's Relationship to Policy Chan [facility] Apr 11, 2017 [id number] MADONNA CASILLAS PATIENT EXPRESS SCRIPTS ([id number]) PRESCRIPT ION [facility] Aug 11, 2017 [id number] [phone] MADONNA CASILLAS PATIENT EXPRESS SCRIPTS ([id number]) PRESCRIPT ION [facility] Aug 11, 2017 [id number] MADONNA CASILLAS PATIENT MEDICARE (WNR) MEDICARE (M) PART A Sep 12, 2011 PART A [id number] MADONNA CASILLAS PATIENT MEDICARE (WNR) MEDICARE (M) PART A Sep 12, 2011 PART A [id number] MADONNA CASILLAS PATIENT UNICARE PREFERRED PROVIDER ORGANIZAT TRACI (PPO) [place]I STATE INDEM * Aug 11, 2009 [id number] MADONNA CASILLAS PATIENT Selected Encounter This section includes the information on [place] for the Encounter. Date/Time Encounter Type Encounter Description Reason Pro vider Source Apr 10, 2023 01:57 PM Outpatient Encounter COMMUNITY CARE CONSULT IHE Encounter Template Text not used by [place] Plan of Treatment: Future Appointments (+ 6 months) and Future Tests (+/- 45 days) The Plan of Treatment section includes future care activities for the [facility] [place] [facility] This section includes future appointments and future orders which are active, pending or scheduled. Future Appointments This section includes appointments that were scheduled to occur 6 months from the date of the Encounter, up to a maximum of 20 appointments. The data comes from all [facility] facilities. Appointment Date/Time Appointment Type Appointme nt Facility Name Apr 23, 2023 02:00 PM AMBULATORY - MEDICINE [facility] May 30, 2023 10:00 AM AMBULATORY - NONE [facility] July 04, 2023 02:00 PM AMBULATORY NONE [facility] July 10, 2023 11:00 AM AMBULATORY - PSYCHIATRY [facility] Aug 07, 2023 01:00 PM AMBULATORY - PSYCHIATRY [facility] Sep 27, 2023 01:00 PM AMBULATORY - MEDICINE [facility] Social History: Smoking Status (Most current) and Tobacco Use (All prior to encounter date) This section includes the most current, and the historical, smoking and tobacco- related health factors from the [place] facility where the Encounter took place. Current Smoking Status This section includes the most current smoking, or tobacco-related health factor, from the [place] facility where the Encounter took place. Date/Time Current Smoking Status Comment Facil ity Aug 07, 2019 01:20 PM [place]-TOBACCO QUIT 15 YRS OR MORE [facility] Tobacco Use History This section includes a history of the smoking, or tobacco-related health factors, that were collected on or before the date of the Encounter. The data comes from the [place] facility where the Encounter took place. Date/Time Smoking Status/Tobacco Use Comment F acility Aug 07, 2019 01:20 PM [place]-TO[place]ACCO [place] 15 [place]RS [place] MORE [place] [facility] [facility] [place] [facility] Encounter Notes: All associated encounter notes This section contains the clinical notes associated to the Encounter. Date/Time Encounter Note(s) Provider Source Apr 11, 2023 08:54 AM ADDENDUM: LOCAL TITLE: Addendum STANDARD TITLE: ADDENDUM DATE OF NOTE: APR 11, 2023@08:54:52 ENTRY DATE: APR 11, 2023@08:54:53 AUTHOR: KASEY BEY EXP COSIGNER: URGENCY: STATUS: COMPLETED A consult will need to be placed for CPAP set up and the sleep study will need to be available in [place]. /emmett/ KASEY BEY RESPIRATORY THERAPIST Signed: 04/11/2023 08:59 Receipt Acknowledged By: 04/11/2023 09:22 /emmett/ LAUREN HERNANDEZ RN REGISTERED NURSE 04/11/2023 09:43 /es/ JESUS WARREN MD Primary Care Physician --- Original Document --- 04/10/23 ADMINISTRATIVE NOTE: [facility] is trying to fax CPAP orders. Please contact Cristal at [phone] to joeiss. Thank you. /emmett/ ASHKAN HUNTER [facility] Care RN Signed: 04/10/2023 14:00 Receipt Acknowledged By: 04/10/2023 14:51 /milka HERNANDEZ RN REGISTERED NURSE 04/11/2023 08:06 /emmett/ CLARISSA GRUBER LPN PACT 10 04/10/2023 ADDENDUM STATUS: COMPLETED Left a secure VM with Cristal stating that the provider did not order this sleep study and the orders should go to the 's Non-VA PCP as that provider most likely ordered the study. /emmett/ LAUREN HERNANDEZ RN REGISTERED NURSE Signed: 04/10/2023 14:53 04/10/2023 ADDENDUM STATUS: COMPLETED [place] [facility] of [facility] however he is looking to have [place]AP provided by [place]. I will alert [place] Resp. to advise. /emmett/ ASHKAN HUNTER [facility] RN Signed: 04/10/2023 15:13 Receipt Acknowledged By: 04/11/2023 08:54 /milka BEY RESPIRATORY THERAPIST * AWAITING SIGNATURE * [place] 04/10/2023 15:34 /emmett/ LAUREN HERNANDEZ RN REGISTERED NURSE 04/11/2023 ADDENDUM STATUS: COMPLETED Consult placed and held for provider signature. /emmett/ LAUREN HERNANDEZ RN REGISTERED NURSE Signed: 04/11/2023 09:22 [facility] [place] [facility] Apr 10, 2023 03:11 PM ADDENDUM: LOCAL TITLE: Addendum STANDARD TITLE: ADDENDUM DATE OF NOTE: APR 10, 2023@15:11:38 ENTRY DATE: APR 10, 2023@15:11:39 AUTHOR: ASHKAN HUNTER COSIGNER: URGENCY: STATUS: COMPLETED [place] [facility] done [facility] of [facility] however he is looking [place] provided by [place]. I will alert [place] Resp[place] to advise. /emmett/ ASHKAN HUNTER [facility] Care RN Signed: 04/10/2023 15:13 Receipt Acknowledged By: 04/11/2023 08:54 /milka BEY RESPIRATORY THERAPIST 04/12/2023 09:44 /emmett/ GREY [place] CRT RESPIRATORY THERAPIST 04/10/2023 15:34 /milka HERNANDEZ RN REGISTERED NURSE --- Original Document --- 04/10/23 ADMINISTRATIVE NOTE: [facility] is trying to fax CPAP orders. Please contact Cristal at [phone] to assiss. Thank you. /milka HUNTER [facility] Care RN Signed: 04/10/2023 14:00 Receipt Acknowledged By: 04/10/2023 14:51 /milka HERNANDEZ RN REGISTERED NURSE 04/11/2023 08:06 /emmett/ CLARISSA GRUBER, BARBERING INSTRUCTOR PACT 10 04/10/2023 ADDENDUM STATUS: COMPLETED Left a secure VM with Cristal stating that the provider did not order this sleep study and the orders should go to the 's Non-VA PCP as that provider most likely ordered the study. /milka HERNANDEZ RN REGISTERED NURSE Signed: 04/10/2023 14:53 04/11/2023 ADDENDUM STATUS: COMPLETED A consult will need to be placed for CPAP set up and the sleep study will need to be available in [place]. /emmett/ KASEY BEY RESPIRATORY THERAPIST Signed: 04/11/2023 08:59 Receipt Acknowledged By: 04/11/2023 09:22 /milka HERNANDEZ RN REGISTERED NURSE 04/11/2023 09:43 /emmett/ JESUS WARREN MD Primary Care Physician 04/11/2023 ADDENDUM STATUS: COMPLETED Consult placed and held for provider signature. /milka HERNANDEZ RN REGISTERED NURSE Signed: 04/11/2023 09:22 ASHKAN HUNTER [place] [facility] [facility] Apr 10, 2023 01:57 PM ADMINISTRATIVE NOTE: LOCAL TITLE: ADMINISTRATIVE NOTE STANDARD TITLE: ADMINISTRATIVE NOTE DATE OF NOTE: APR 10, 2023@13:57 ENTRY DATE: APR 10, 2023@13:57:47 AUTHOR: ASHKAN HUNTER [facility] EXP COSIGNER: URGENCY: STATUS: COMPLETED ADMINISTRATIVE NOTE Has ADDENDA [facility] is trying to fax CPAP orders. Please contact Cristal at [phone] to gloria. Thank you. /milka HUNTER [facility] Care RN Signed: 04/10/2023 14:00 Receipt Acknowledged By: 04/10/2023 14:51 /milka HERNANDEZ RN REGISTERED NURSE 04/11/2023 08:06 /emmett/ CLARISSA GRUBER, BARBERING INSTRUCTOR PACT 10 04/10/2023 ADDENDUM STATUS: COMPLETED Left a secure VM with Cristal stating that the provider did not order this sleep study and the orders should go to the 's Non-VA PCP as that provider most likely ordered the study. /milka HERNANDEZ RN REGISTERED NURSE Signed: 04/10/2023 14:53 04/10/2023 ADDENDUM STATUS: COMPLETED had sleep study done outside of [facility] however he is looking [place] provided by [place]. I will alert [place] Resp. to advise. /emmett/ ASHKAN HUNTER [facility] RN Signed: 04/10/2023 15:13 Receipt Acknowledged By: 04/11/2023 08:54 /milka BEY RESPIRATORY THERAPIST * AWAITING SIGNATURE * [place] 04/10/2023 15:34 /emmett/ LAUREN HERNANDEZ RN REGISTERED NURSE 04/11/2023 ADDENDUM STATUS: COMPLETED A consult will need to be placed for CPAP set up and the sleep study will need to be available in [place]. /milka BEY RESPIRATORY THERAPIST Signed: 04/11/2023 08:59 Receipt Acknowledged By: 04/11/2023 09:22 /emmett/ LAUREN HERNANDEZ RN REGISTERED NURSE * AWAITING SIGNATURE * JESUS WARREN 04/11/2023 ADDENDUM STATUS: COMPLETED Consult placed and held for provider signature. /milka HERNANDEZ RN REGISTERED NURSE Signed: 04/11/2023 09:22 ASHKAN HUNTER [facility]
--- OUTSIDE RECORDS SUMMARY | 2024-02-25 12:51 | XMS_ITS ---
Author Name [facility] [facility] [place] Address [address] [place] [address] Care Team Providers Care Curriculum Director Name Role Phone JESUS WARREN Primary Care [...] Chan's Name Patient's Relationship to Policy Chan [facility] PENDING SALE TO [facility] Apr 11, 2017 [id number] MADONNA CASILLAS PATIENT [employer] ([id number]) PRESCRIPT ION [facility] Aug 11, 2017 [id number] [phone] MADONNA CASILLAS PATIENT [employer] ([id number]) PRESCRIPT ION [facility] Aug 11, 2017 [id number] MADONNA CASILLAS PATIENT MEDICARE (WNR) MEDICARE (M) PART A Sep 12, 2011 PART A [id number] MADONNA CASILLAS PATIENT MEDICARE (WNR) MEDICARE (M) PART A Sep 12, 2011 PART A [id number] MADONNA CASILLAS PATIENT UNICARE PREFERRED PROVIDER ORGANIZAT TRACI (PPO) [employer] STATE INDEM * Aug 11, 2009 [id number] MADONNA CASILLAS PATIENT Selected Encounter This section includes the information on record at [place] for the Encounter. Date/Time Encounter Type Encounter Description Reason Pro vider Source Apr 23, 2023 03:46 PM Outpatient Encounter PRIMARY CARE/MEDICINE IHE Encounter Template Text not used by [place] Plan of Treatment: Future Appointments (+ 6 months) and Future Tests (+/- 45 days) The Plan of Treatment section includes future care activities for the patient from all [place] treatmentfacilities. This section includes future appointments and future orders which are active, pending or scheduled. Future Appointments This section includes appointments that were scheduled to occur 6 months from the date of the Encounter, up to a maximum of 20 appointments. The data comes from all [place] treatment facilities. Appointment Date/Time Appointment Type Appointme nt Facility Name May 30, 2023 10:00 AM AMBULATORY - NONE [facility] July 04, 2023 02:00 PM AMBULATORY NONE [facility] July 10, 2023 11:00 AM AMBULATORY - PSYCHIATRY [facility] Aug 07, 2023 01:00 PM AMBULATORY - PSYCHIATRY [facility] Sep 27, 2023 01:00 PM AMBULATORY - MEDICINE [facility] Oct 17, 2023 09:00 AM AMBULATORY - MEDICINE [facility] Social History: Smoking Status (Most current) and Tobacco Use (All prior to encounter date) This section includes the most current, and the historical, smoking and tobacco- related health factors from the [place] facility where the Encounter took place. Current Smoking Status This section includes the most current smoking, or tobacco-related health factor, from the [place] facility where the Encounter took place. Date/Time Current Smoking Status Comment Sarah cary Aug 07, 2019 01:20 PM [place]-TOBACCO QUIT 15 YRS OR MORE [facility] Tobacco Use History This section includes a history of the smoking, or tobacco-related health factors, that were collected on or before the date of the Encounter. The data comes from the [place] facility where the Encounter took place. Date/Time Smoking Status/Tobacco Use Comment F acility Aug 07, 2019 01:20 PM [place]-TOBACCO QUIT 15 YRS OR MORE [place] [facility] [place] [facility] Encounter Notes: All associated encounter notes This section contains the clinical notes associated to the Encounter. Date/Time Encounter Note(s) Provider Source Apr 24, 2023 08:41 AM ADDENDUM: LOCAL TITLE: Addendum STANDARD TITLE: ADDENDUM DATE OF NOTE: APR 24, 2023@08:41:43 ENTRY DATE: APR 24, 2023@08:41:45 AUTHOR: CLAIRSSA GRUBER EXP COSIGNER: URGENCY: STATUS: COMPLETED Vet had a home sleep study completed on 03/01/2023. Interpretation below. Interpretation The oxygen saturation generally was 90-93%. In response to the respiratory events it declined to as low as 71%. Frequent obstructive respiratory events with associated oxygen desaturations were noted during the study. Limited channel sleep studies do not monitor sleep staging or arousals, so the degree of sleep disordered breathing may be underestimated. Diagnostic Classification Diagnosis: 1. Obstructive sleep apnea, severe (G47.33). Study Type: 1. Home Sleep Apnea Test. Comorbidities: 1. Hypertension, BPH, LUCIO, obesity Recommendations 1. Patient should be started on AutoCPAP 8-20 cm H2O with compliance data followed. Orders will be sent to [place]. 2. Patient should sleep in non-supine position. A positional device (E0190) could be ordered. 3. Patient should avoid alcohol and sedative containing medications which may worsen sleep apnea. 4. Weight loss is recommended since significant weight loss of at least I 0% of total body weight can lead to improvement of obstructive sleep apnea. 5. The patient should be counseled to not drive if feeling drowsy. /emmett/ CLARISSA GRUBER LPN PACT 10 Signed: 04/24/2023 08:47 Receipt Acknowledged By: 04/24/2023 09:03 /emmett/ JESUS WARREN MD Primary Care Physician --- Original Document --- 04/23/23 WALK-IN NOTE PRIMARY CARE (T): <====Click to Start Advanced [facility] Support [place] presents to the Primary Care clinic with the following request: [ ]Medication Renewal/Refill [ ]Consultation with Team RN [ ]Symptoms [ X ]Other The [place] states they are: [ ]Waiting [ X ]Not Waiting No Walk in visit scheduled with PACT Nurse [ X ] At this encounter the 's demographics were verified. [ X ] At this encounter the [place]'s Insurance information was verified. [ ] At this encounter the below scheduled visits for the were discussed and appointment reminder card was offered. Future appointments: 09/27/2023 13:00 CWM/SO/PODIATRY/SHANIA 11/07/2023 13:30 CWM/SO/PACT 10 walked into clinic and dropped off Home Sleep Study Report from [facility],placed into provider's mailbox for review. /emmett/ JULIA BRADSHAW ADVANCED STAMP CLERK Signed: 04/23/2023 15:50 Receipt Acknowledged By: 04/24/2023 08:40 /milka GRUBER LPN PACT 10 for LAUREN HERNANDEZ 04/24/2023 08:40 /milka GRUBER LPN PACT 10 04/24/2023 ADDENDUM STATUS: COMPLETED Home sleep study and interpretation scanned to chart and sent to provider. /milka GRUBER LPN PACT 10 Signed: 04/24/2023 08:41 04/24/2023 ADDENDUM STATUS: COMPLETED Sleep study has been scanned and sent to respiratory. /milka GRUBER LPN PACT 10 Signed: 04/24/2023 08:50 CLARISSA GRUBER KRYSTIAN Apr 23, 2023 03:46 PM PRIMARY CARE NOTE: LOCAL TITLE: WALK-IN NOTE PRIMARY CARE (T) STANDARD TITLE: PRIMARY CARE NOTE DATE OF NOTE: APR 23, 2023@15:46 ENTRY DATE: APR 23, 2023@15:47:18 AUTHOR: JULIA BRADSHAW COSIGNER: URGENCY: STATUS: COMPLETED WALK-IN NOTE PRIMARY CARE (T) Has ADDENDA <====Click to Start Advanced Medical Support [place] presents to the Primary Care clinic with the following request: [ ]Medication Renewal/Refill [ ]Consultation with Team RN [ ]Symptoms [ X ]Other The states they are: [ ]Waiting [ X ]Not Waiting No Walk in visit scheduled with PACT Nurse [ X ] At this encounter the 's demographics were verified. [ X ] At this encounter the [place]'s Insurance information was verified. [ ] At this encounter the below scheduled visits for the were discussed and appointment reminder card was offered. Future appointments: 09/27/2023 13:00 CWM/SO/PODIATRY/SHANIA 11/07/2023 13:30 CWM/SO/PACT 10 [place] walked into clinic and dropped off Home Sleep Study Report from [facility],placed into provider's mailbox for review. /milka BRADSHAW ADVANCED STAMP CLERK Signed: 04/23/2023 15:50 Receipt Acknowledged By: 04/24/2023 08:40 /milka GRUBER LPN PACT 10 for LAUREN HERNANDEZ 04/24/2023 08:40 /milka GRUBER LPN PACT 10 04/24/2023 ADDENDUM STATUS: COMPLETED Home sleep study and interpretation scanned to chart and sent to provider. /milka GRUBER LPN PACT 10 Signed: 04/24/2023 08:41 04/24/2023 ADDENDUM STATUS: COMPLETED Vet had a home sleep study completed on 03/01/2023. Interpretation below. Interpretation The oxygen saturation generally was 90-93%. In response to the respiratory events it declined to as low as 71%. Frequent obstructive respiratory events with associated oxygen desaturations were noted during the study. Limited channel sleep studies do not monitor sleep staging or arousals, so the degree of sleep disordered breathing may be underestimated. Diagnostic Classification Diagnosis: 1. Obstructive sleep apnea, severe (G47.33). Study Type: 1. Home Sleep Apnea Test. Comorbidities: 1. Hypertension, BPH, LUCIO, obesity Recommendations 1. Patient should be started on AutoCPAP 8-20 cm H2O with compliance data followed. [facility] 2. Patient should sleep in non-supine position. A positional device (E0190) could be ordered. 3. Patient should avoid alcohol and sedative containing medications which may worsen sleep apnea. 4. Weight loss is recommended since significant weight loss of at least I 0% of total body weight can lead to improvement of obstructive sleep apnea. 5. The patient should be counseled to not drive if feeling drowsy. /emmett/ CLARISSA GRUBER LPN PACT 10 Signed: 04/24/2023 08:47 Receipt Acknowledged By: * AWAITING SIGNATURE * JESUS WARREN 04/24/2023 ADDENDUM STATUS: COMPLETED Sleep study has been scanned and sent to respiratory. /milka GRUBER LPN PACT 10 Signed: 04/24/2023 08:50 JULIA BRADSHAW
--- OUTSIDE RECORDS SUMMARY | 2024-02-25 12:51 | XMS_ITS | Continuity of Care Document ---
Author Name [facility] Organization [facility] Care Team Providers Care Barrel Racer Name Role Phone [facility] Unavailable Unavailable Problems Combined list of problems from Department of Defense and Veterans Affairs facilities. It does not include entries that were removed or entered in error. Problem Status Onset Date Problem Type Date of Resolution Comments Source Allergic rhinitis Active [facility] Benign prostatic hypertrophy Active Condition [facility] Chronic post-traumatic stress disorder Active Condition Dec 29, 2015 Entered By: KAM BAUTISTA Comment: with associated depression and anxiety [place] Colonoscopy Screening Active Condition Aug 11, 2019 Entered By: JESUS WARREN Comment: 01/21/19 - 5mm polyp in transverse colon, internal hemorrhoids - repeat 2023 - Dr. Whitaker [facility] Eczema Active Condition [facility] Exposure to potentially hazardous substance Active Condition Apr 24, 2023 Entered By: NAGA HOOKS EN A Comment: Connect Snomed Code to ICD 10 Code refer to note dated 11/07/22 [facility] HTN - Hypertension (SCT [id number]) Active Condition [facility] NON [facility] PCP Active Condition Aug 06 Entered By: JESUS WARREN Comment: Dr. Bobby Pedersen [phone] [facility] OA - Osteoarthritis (SCT [id number]) Active Condition Aug 11, 2019 Entered By: JESUS WARREN Comment: Right >> Left Knee [facility] Obesity Active Condition [place] Obstructive sleep apnea Active Condition Apr 24, 2023 Entered By: JESUS WARREN Comment: Last sleep study 03/01/23 ordered by nonVA PCP - dxed as severe [place] Sensorineural hearing loss, bilateral Active Condition [facility] Tinnitus Active Condition [facility] Diagnosis: ICD-10-CM J30.0 Vasomotor rhinitis Active Diagnosis [facility] Diagnosis: ICD-10-CM 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 [facility] Diagnosis: ICD-10-CM G47.33 Obstructive sleep apnea (adult) (pediatric) Active Diagnosis [facility] Diagnosis: ICD-10-CM I10 Essential (primary) hypertension Active Diagnosis [facility] Diagnosis: ICD-10-CM J30.9 Allergic rhinitis, unspecified Active Diagnosis [facility] Diagnosis: ICD-10-CM F43.12 Post-traumatic stress disorder, chronic Active Diagnosis [facility] Diagnosis: ICD-10-CM Z71.89 Other specified counseling Active Diagnosis [facility] Diagnosis: ICD-10-CM Z46.1 Encounter for fitting and adjustment of hearing aid Active Diagnosis [facility] Diagnosis: ICD-10-CM H90.3 Sensorineural hearing loss, bilateral Active Diagnosis [facility] Medications Combined list of outpatient medications from Department of Defense and [facility] facilities.Medications provided include 1) outpatient medications from the last 15 months, and 2) patient-reported medications. Medication Details Route Status Patient Instructions Prescription Expires Prescription Number Last Dispense Date Ordering Provider Order Date Order Qty Source AMMONIUM LACTATE 12% LOTION APPLY SMALL AMOUNT TOPICALL Y TWICE DAILY FOR DRY IRRITATE D SKIN TOPICA L ACTIVE 04/23/2024 [id number] GHISLAINE JAUREGUI F 2023 240 [place] GUAIFENESIN 200MG TAB TAKE TWO TABLETS BY MOUTH THREE TIMES A DAY FOR COUGH AND MUCUS ORAL SUSPEND ED 02/24/2025 [id number] 5 TRENT NOGUEIRA R 2024 540 [facility] [place] [facility] IPRATROPIUM BR 0.03% SOLN,SPRAY, NASAL INSTILL 2 SPRAYS INTO EACH NOSTRIL 1-3 TIMES/DA Y FOR NASAL IRRITATI ON/CONGE STION NASAL ACTIVE 10/17/2024 [id number] 4 TRENT NOGUEIRA R 2023 90 [facility] LORATADINE 10MG TAB TAKE ONE TABLET BY MOUTH ONCE DAILY ORAL ACTIVE KELVIN,LI SA JIMMIE 2023 [facility] IELD [place] POTASSIUM 100MG TAB TAKE ONE TABLET BY MOUTH ONCE DAILY ORAL ACTIVE RYLIE WARREN SA spring IELD METOPROLOL SUCCINATE 25MG TAB,SA TAKE ONE TABLET BY MOUTH ONCE DAILY ORAL ACTIVE RYLIE WARREN SA 2019 [facility] Immunizations Combined list of available immunizations from the Department of Defense and Veterans Affairs facilities. Immunization Series Date Given Administered By Site Reaction Lot Number CVX Code Drug Purchasing Clerk Status Comments Source COVID-19 (MODERNA), MRNA, LNP-S, PF, 50 MCG/0.5 ML (AGES 12+ YEARS) 2023 VANESA GRUBER ON M RIGHT DELTO ID [id number] 312 complet [address] [facility] IELD INFLUENZA, HIGH-DOSE, TRIVALENT, PF 2023 VANESA GRUBER ON M LEFT DELTO ID [id number] [address] [facility] IELD TDAP 2022 JIMMY ASHTON RIGHT DELTO ID [id number] 115 complet ed [facility] INFLUENZA, HIGH-DOSE, QUADRIVALENT 2022 JIMMY ASHTON RIGHT DELTO ID [id number] 197 complet ed [facility] [place] PNEUMOCOCCAL POLYSACCHARID E PPV23 2022 JIMMY ASHTON LEFT DELTO ID [id number] 33 complet ed [facility] COVID-19, MRNA, LNP-S, BIVALENT BOOSTER, PF, 50 MCG/0.5 ML OR 25MCG/0.25 ML DOSE 1 2021 229 complet ed [facility] INFLUENZA VACCINE, QUADRIVALENT, ADJUVANTED [address] [facility] IELD COVID-19 (MODERNA), MRNA, LNP-S, PF, 100 MCG/0.5 ML DOSE 2 2020 207 complet ed [facility] COVID-19 (MODERNA), MRNA, LNP-S, PF, 100 MCG/0.5 ML DOSE 1 2020 207 complet ed [facility] ZOSTER RECOMBINANT 2 2019 187 complet ed [employer] [facility] INFLUENZA, SEASONAL, INJECTABLE 2018 141 complet ed [facility] jacki Macedo / Dr.James Pedersen [facility] ZOSTER RECOMBINANT 1 2018 187 complet ed [employer] [facility] FLU,3 YRS (HISTORICAL) 2014 88 complet ed Site: Left Deltoid [facility] PNEUMOCOCCAL CONJUGATE PCV 13 2014 133 complet ed yes, Dr. Fernandes Office [facility] FLU,3 YRS (HISTORICAL) 2013 88 complet ed Site: Right Deltoid [facility] Vital Signs Combined list of inpatient and outpatient Vital Signs from Department of Defense and Veterans Affairs, ranging from 12 months to all on record, depending upon the facility. Vital Sign Value Date Comments Source SYSTOLIC BLOOD PRESSURE 147 02/23/19 25 15:00:00 [facility] DIASTOLIC BLOOD PRESSURE 95 025 15:00:00 [facility] [facility] PULSE OXIMETRY 96 02/24/2024 15:00:00 [facility] [place] [facility] WEIGHT 241.4 02/24/2024 15:00:00 [facility] BMI 35kg/m2 02/24/2024 15:00:00 [facility] PAIN 0 02/24/2024 15:00:00 [facility] TEMPERATURE 97.8 02/24/2024 15:00:00 [facility] PULSE 71 02/24/2024 15:00:00 [facility] RESPIRATION 18 02/24/2024 15:00:00 [facility] SYSTOLIC BLOOD PRESSURE 138 11/07/19 24 13:48:09 [facility] DIASTOLIC BLOOD PRESSURE 78 024 13:48:09 [facility] PULSE OXIMETRY 93 11/07/2023 13:48:09 [facility] WEIGHT 243.2 11/07/2023 13:48:09 [facility] BMI 35kg/m2 11/07/2023 13:48:09 [facility] PAIN 0 11/07/2023 13:48:09 [facility] HEIGHT 70 11/07/2023 13:48:09 [facility] TEMPERATURE 98.5 11/07/2023 13:48:09 [facility] PULSE 93 11/07/2023 13:48:09 [facility] RESPIRATION 18 11/07/2023 13:48:09 [facility] SYSTOLIC BLOOD PRESSURE 127 10/17/19 24 09:03:09 [facility] DIASTOLIC BLOOD PRESSURE 77 024 09:03:09 [facility] PULSE OXIMETRY 97 10/17/2023 09:03:09 [facility] WEIGHT 244.9 10/17/2023 09:03:09 [facility] BMI 35kg/m2 10/17/2023 09:03:09 [facility] PAIN 0 10/17/2023 09:03:09 [facility] TEMPERATURE 97.2 10/17/2023 09:03:09 [facility] PULSE 84 10/17/2023 09:03:09 [facility] RESPIRATION 16 10/17/2023 09:03:09 [facility] Encounters Combined list of: 1) Encounters from Department of Veterans Affairs facilities going back up to thelast 18 months. 2) Encounters from the Department of Defense facilities going back up to 280 months. Location Location Details Encounter Type Encounter Number Reason For Visit Attending Provider ADM Date DC Date Status Disposition Source [facility] Out[facility] Encounter [id number] 10/04 [facility] HEARING AID REPAIR/MOD IFYING [id number] Diagnos is: ICD-10- CM H90.3 Sensori neural hearing loss, bilater al
,SESAR OLE L 10/29 [facility] [place] OFF[place] O/P EST MOD 30-39 MIN [id number] Diagnos is: ICD-10- CM I10 Essenti al (primar y) hyperte nsion<b r/> HENNA WARREN 11/07 [facility] [place] [facility] IMMUNIZATI ON ADMIN EACH ADD [id number] HENNA WARREN 11/07 [facility] [place] CONFORMITY EVALUATION [id number] Diagnos is: ICD-10- CM Z46.1 Encount er for fitting and adjustm ent of hearing aid<br/ > ,SESAR OLE L 11/27 [facility] [place] O/P EST LOW 20-29 MIN [id number] Diagnos is: ICD-10- CM L60.3 Nail dystrop hy
NATHAN JAUREGUI F 12/18 [place] [facility] Outpatient Encounter [id number] 12/25 [facility] En[facility] [id number] 12/28 [facility] Encounter [id number] 01/17 [facility] Out[facility] Encounter [id number] 03/01 [facility] Out[facility] Encounter [id number] 04/10 [facility] OFFICE O/P EST LOW 20 MIN [id number] Diagnos is: ICD-10- CM L60.3 Nail dystrop hy
NATHAN JAUREGUI F 04/22 [facility] [place] [facility] En[facility] [id number] 04/22 [facility] Encounter [id number] 04/23 [facility] Out[facility] Encounter [id number] 04/28 [facility] Out[facility] Encounter [id number] 05/07 [facility] POS AIRWAY PRESSURE FILTER [id number] Diagnos is: ICD-10- CM G47.33 Obstruc tive sleep apnea (adult) (pediat marisol)
DELPHINE BEY P 05/29 [facility] En[facility] [id number] HENNA WARREN 05/29 [facility] Out[facility] Encounter [id number] 05/30 [facility] SPECIAL SUPPLIES PHYS/QHP [id number] Diagnos is: ICD-10- CM G47.33 Obstruc tive sleep apnea (adult) (pediat marisol)
ST AMANT,DELPHINE E P 06/02 [facility] En[facility] [id number] HENNA WARREN 06/11 [facility] REPLACEMEN T NASAL CUSHION [id number] Diagnos is: ICD-10- CM G47.33 Obstruc tive sleep apnea (adult) (pediat marisol)
ST AMANTDELPHINE E P 06/12 [facility] En[facility] [id number] HENNA WARREN 06/13 [facility] Out[facility] Encounter [id number] 06/23 [facility] Out[facility] Encounter [id number] 06/25 [facility] Out[facility] Encounter [id number] 07/01 [facility] POS AIRWAY PRESS CHINSTRAP [id number] Diagnos is: ICD-10- CM G47.33 Obstruc tive sleep apnea (adult) (pediat marisol)
ST AM, E P 07/03 [facility] [place] OFF/OP EST JUNE X REQ PHY/QHP [id number] Diagnos is: ICD-10- CM Z71.89 Other specifi ed counselor supervisor ing<br/ > [place] REST[place]PO [place] [facility] Outpatient Encounter [id number] HENNA WARREN 07/09 [facility] Outpatient Encounter [id number] 07/15 [facility] COLLJ & INTERPJ DATA EA 30 D [id number] Diagnos is: ICD-10- CM G47.33 Obstruc tive sleep apnea (adult) (pediat marisol)
E P 07/21 [facility] [place] En[facility] [id number] 08/04 [facility] [place] PSYCH DIAGNOSTIC EVALUATION [id number] Diagnos is: ICD-10- CM F43.12 Post-tr aumatic stress disorde r, chronic
Anne-Marie [place] 08/06 [place] [facility] En[facility] [id number] 08/11 [facility] TUBING WITH HEATING ELEMENT [id number] Diagnos is: ICD-10- CM G47.33 Obstruc tive sleep apnea (adult) (pediat marisol)
ST AMANT,DELPHINE E P 08/11 [facility] Outpatient Encounter [id number] HENNA WARREN 08/13 [facility] COLLJ & INTERPJ DATA EA 30 D [id number] Diagnos is: ICD-10- CM G47.33 Obstruc tive sleep apnea (adult) (pediat marisol)
ST AM, E P 09/01 [facility] Outpatient Encounter [id number] 09/03 [facility] [place] O/P EST LOW 20 MIN [id number] 1BY. 35 Diagnos is: ICD-10- CM L60.3 Nail dystrop hy
NATHAN JAUREGUI F 09/26 [place] [facility] OFF/OP CONSLTJ NEW/EST HI 55 [id number] Diagnos is: ICD-10- CM G47.33 Obstruc tive sleep apnea (adult) (pediat marisol)
ENRIQUE NOGUEIRA 10/16 [facility] [place] QNHP OL DIG ASSMT&MGMT 5-10 [id number] Diagnos is: ICD-10- CM J30.9 Allergi c rhiniti s, unspeci fied
VANDANA SETHI 10/16 [place] [facility] Outpatient Encounter [id number] 11/06 [facility] OFF[facility] O/P EST LOW 20 MIN [id number] 1BY. 09 Diagnos is: ICD-10- CM I10 Essenti al (primar y) hyperte nsion<b r/> HENNA WARREN 11/06 [facility] PATIENT EDUCATION MATERIALS [id number] Diagnos is: ICD-10- CM G47.33 Obstruc tive sleep apnea (adult) (pediat marisol)
DELPHINE BEY P 11/26 [facility] LOW 20 MIN [id number] Diagnos is: ICD-10- CM L60.3 Nail dystrop hy
NATHAN JAUREGUI ES F 02/20 [facility] MOD 30 MIN [id number] 1. Diagnos is: ICD-10- CM J30.0 Vasomot or rhiniti s
ENRIQUE NOGUEIRA 02/23 [facility] Social History Combined list of available smoking, tobacco, and other social history from Department of Defense and Veterans Affairs facilities. Social History Type Response Date Comment Sourc e Tobacco smoking status [facility] VA-TOBACCO FORMER USER 11/07/2023 [place] History of tobacco use CA-TOBACCO QUIT 15 YRS OR MORE 11/07/2023 [place] History of tobacco use CA-TOBACCO QUIT 15 YRS OR MORE 11/07/2022 [place] History of tobacco use CA-TOBACCO FORMER USER 11/09/2021 [place] History of tobacco use VA-TOBACCO FORMER USER 11/09/2020 [place] History of tobacco use CA-TOBACCO QUIT 15 YRS OR MORE 08/07/2019 [facility] Plan of Care List of future care activities from Department of Veterans Affairs facilities. Additional future care activities may be listed in the Assessment and Plan section. Date/Time Care Activity Care Activity Detail Facili 06/11/2024 AMBULATORY - MEDICINE AMBULATORY - MEDICI [facility] 08/17/2024 AMBULATORY - MEDICINE [facility]
--- OUTSIDE RECORDS SUMMARY | 2024-02-25 12:52 | XMS_ITS | Encounter Summary ---
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 Name Role Phone JESUS WARREN Primary [...] Chan's Name Patient's Relationship to Policy Chan [facility] Apr 11, [phone] [id number] MADONNA CASILLAS PATIENT [employer] ([id number]) PRESCRIPT ION [facility] Aug 11, 2017 [id number] MADONNA CASILLAS PATIENT [employer] ([id number]) PRESCRIPT ION [facility] Aug 11, 2017 [id number] MADONNA CASILLAS PATIENT MEDICARE (WNR) MEDICARE (M) PART A Sep 12, 2011 PART A [id number] MADONNA CASILLAS PATIENT MEDICARE (WNR) MEDICARE (M) PART A Sep 12, 2011 PART A [id number] MADONNA CASILLAS PATIENT [employer] PREFERRED PROVIDER ORGANIZAT ION (PPO) [facility] * Aug 11, 2009 [id number] MADONNA CASILLAS PATIENT Selected Encounter This section includes the information on record at [place] for the Encounter. Date/Time Encounter Type Encounter Description Reason Provider Source May 30, 2023 12:42 PM Outpatient Encounter PROSTHETICS/ORTHOTI JESUS FLOWERS [place] Encounter Template Text not used by [place] Plan of Treatment: Future Appointments (+ 6 months) and Future Tests (+/- 45 days) The Plan of Treatment section includes future care activities for the patient [facility] This section includes future appointments and future orders which are active, pending or scheduled. Future Appointments This section includes appointments that were scheduled to occur 6 months from the date of the Encounter, up to a maximum of 20 appointments. The data comes from all [place] treatment facilities. Appointment Date/Time Appointment Type Appointme nt Facility Name July 04, 2023 02:00 PM [facility] July 10, 2023 11:00 AM AMBULATORY - PSYCHIATRY [facility] Aug 07, 2023 01:00 PM AMBULATORY - PSYCHIATRY [facility] Sep 27, 2023 01:00 PM AMBULATORY - MEDICINE [facility] Oct 17, 2023 09:00 AM AMBULATORY - [facility] Nov 07, 2023 01:30 PM [facility] Nov 27, 2023 10:00 AM AMBULATORY - NONE [facility] Social History: Smoking Status (Most current) and Tobacco Use (All prior to encounter date) This section includes the most current, and the historical, smoking and tobacco- related health factors from the [place] facility where the Encounter took place. Current Smoking Status This section includes the most current smoking, or tobacco-related health factor, from the [place] facility where the Encounter took place. Date/Time Current Smoking Status Comment Sarah pyle Aug 07, 2019 01:20 PM [place]-TOBACCO QUIT 15 YRS OR MORE [facility] Tobacco Use History This section includes a history of the smoking, or tobacco-related health factors, that were collected on or before the date of the Encounter. The data comes from the [place] facility where the Encounter took place. Date/Time Smoking Status/Tobacco Use Comment F acility Aug 07, 2019 01:20 PM [place]-TOBACCO QUIT 15 YRS OR MORE [facility]
--- OUTSIDE RECORDS SUMMARY | 2024-02-25 12:52 | XMS_ITS | Encounter Summary ---
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 Name Role Phone JESUS WARREN Primary Care [...] Chan's Name Patient's Relationship to Policy Chan [facility] Apr 11, [phone] [id number] [phone] MADONNA CASILLAS PATIENT [employer] S[employer] ([id number]) PRESCRIPT ION [facility] Aug 11, 2017 [id number] MADONNA CASILLAS PATIENT [employer] ([id number]) PRESCRIPT ION [facility] Aug 11, 2017 [id number] MADONNA CASILLAS PATIENT MEDICARE (WNR) MEDICARE (M) PART A Sep 12, 2011 PART A [id number] MADONNA CASILLAS PATIENT MEDICARE (WNR) MEDICARE (M) PART A Sep 12, 2011 PART A [id number] MADONNA CASILLAS PATIENT UNICARE PREFERRED PROVIDER ORGANIZAT ION (PPO) [facility] * Aug 11, 2009 [id number] MADONNA CASILLAS PATIENT Selected Encounter This section includes the information on record at [place] for the Encounter. Date/Time Encounter Type Encounter Description Reason Provider Source July 04, 2023 02:00 PM POS [employer] [facility] SLEEP MEDICINE ICD-10-CM G47.33 Obstructive sleep apnea (adult) (pediatric) KASEY BEY IHE Encounter Template Text not used by [place] Assessments - Encounter Diagnoses This section includes the primary and secondary diagnoses documented for the Encounter. Date/Time Primary/Secondary Diagnosis Diagnosis Name Provider Source Jul 30, 2023 01:42 PM PRIMARY Obstructive sleep apnea (adult) (pediatric) KASEY BEY [facility] Plan of Treatment: Future Appointments (+ 6 months) and Future Tests (+/- 45 days) The Plan of Treatment section includes future care activities for the patient from all [place] treatmentfacilities. This section includes future appointments and future orders which are active, pending or scheduled. Future Appointments This section includes appointments that were scheduled to occur 6 months from the date of the Encounter, up to a maximum of 20 appointments. The data comes from all [place] treatment facilities. Appointment Date/Time Appointment Type Appointme nt Facility Name July 10, 2023 11:00 AM AMBULATORY - PSY[facility]IATRY [facility] Aug 07, 2023 01:00 PM AMBULATORY - PS[facility]CHIATRY [facility] Sep 27, 2023 01:00 PM AMBULATORY - MEDICINE [facility] Oct 17, 2023 09:00 AM AMBULATORY [place]ICINE [place] [facility] [place] [facility] Nov 07, 2023 01:30 PM AMBULATORY - [place]ICINE [place] [facility] [place] [facility] Nov 27, 2023 10:00 AM [facility] [place] [facility] Active, Pending, and Scheduled Orders This section includes a listing of several types of active, pending, and scheduled orders, including clinic medications orders, diagnostic test orders, procedure orders and consult orders; where the start date of the order is 45 days before the date of the Encounter or 45 days after the date of theEncounter. The data comes from all [place] treatment facilities. 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 Current Smoking Status This section includes the most current smoking, or tobacco-related health factor, from the [place] facility where the Encounter took place. Date/Time Current Smoking Status Comment Facil ity Aug 07, 2019 01:20 PM [place]-TOBACCO QUIT 15 YRS OR MORE [facility] Tobacco Use History This section includes a history of the smoking, or tobacco-related health factors, that were collected on or before the date of the Encounter. The data comes from the [place] facility where the Encounter took place. Date/Time Smoking Status/Tobacco Use Comment F acility Aug 07, 2019 01:20 PM [place]-TOBACCO QUIT 15 YRS OR MORE [facility] Encounter Notes: All associated encounter notes This section contains the clinical notes associated to the Encounter. Date/Time Encounter Note(s) Provider Source July 04, 2023 02:01 PM RESPIRATORY THERAP Y NOTE: LOCAL TITLE: RESPIRATORY THERAPY NOTE(BLANK) STANDARD TITLE: RESPIRATORY THERAPY NOTE DATE OF NOTE: JULY 04, 2023@14:01 ENTRY DATE: JULY 04, 2023@14:01:19 AUTHOR: KASEY BEY EXP COSIGNER: URGENCY: STATUS: COMPLETED [facility] Connect (VVC) Standard Documentation VVC Clinician Resources Only: E911 (Emergency Call Relay Center): [phone] National Veterans Crisis Line - 988 then press #1. [facility] Suicide Coordinator [phone], Ext. [phone]; Back-up Ext. [phone] [facility] Police, Salvador RICK [phone] Introduction: Visit is being conducted by [place] [facility]. [place] identified with 2 identifiers: [X] Full Name [X] Date of [ ] VA ID Card Emergency Plan: [place] confirmed and/or provided the following information in case of emergency or technology failure. PATIENT PHONE - [phone] PHONE NUMBER [CELLULAR] - Is patient phone number correct, if not, enter below: 's phone number: EMILIE CASILLAS [address], [place], [address] 's present location and address for appointment: as above 's emergency contact name and phone number: Maritza Lozano [phone] reported that location is private and safe: Yes Informed Consent: [place] informed of the risks and benefits of Telehealth video care. has the right to refuse video services. If refuses video visit, a pesr-qb-vjri visit will be scheduled. verbalized consent for this video visit: Yes provided consent for any other persons present for visit: Yes If yes, who and relationship to patient: Secure visit: Visit was locked for security and privacy:Yes As above this is a video visit: [place] diagnosed with sleep apnea had VVC visit after equipment was shipped to . received Airsense 11 set to APAP 5-20 cmH2O with mask and supplies. We reviewed operation of device, My options and sleep report menu and care and cleaning. We reviewed how to apply and adjust the interface. Kervin was able to demonstrate understanding of all we reviewed. He received written handout on care and cleaning, schedule for replacement supplies, clinic contact information and operating manual. Kervin was urged to reach out to the clinic for any issues or problems. We reviewed ways to acclimate to CPAP. was reminded that consistent use > 4 hours a night yield the best benefit. He was also cautioned regarding the dangers of untreated apnea. He attempted use see AirView Report following note. He will be followed up in 1 & 4 weeks. Airview Compliance Report Usage 06/05/2023 - 07/04/2023 Usage days 22/30 days (73%) >= 4 hours 17 days (57%) < 4 hours 5 days (17%) Usage hours 131 hours 55 minutes Average usage (total days) 4 hours 24 minutes Average usage (days used) 6 hours 0 minutes Median usage (days used) 6 hours 10 minutes Total used hours (value since last reset - 07/04/2023) 153 hours AirSense 11 AutoSet Serial number [id number] Mode AutoSet Min Pressure 5 cmH2O Max Pressure 20 cmH2O EPR Fulltime EPR level 3 Response Soft Therapy Pressure - cmH2O Median: 7.6 95th percentile: 12.1 Maximum: 13.5 Leaks - L/min Median: 6.1 95th percentile: 19.1 Maximum: 25.5 Events per hour AI: 2.4 HI: 0.5 AHI: 2.9 Apnea Index Central: 0.0 Obstructive: 1.9 Unknown: 0.4 RERA Index 0.5 Yrn-Gutierres respiration (average duration per night) 0 minutes (0%) /emmett/ KASEY EBY RESPIRATORY THERAPIST Signed: 07/04/2023 14:55 KASEY BEY [place] [facility]
--- OUTSIDE RECORDS SUMMARY | 2024-02-25 12:52 | XMS_ITS | Encounter Summary ---
Author Name [facility] [place] Address [address] [place] [address] Care Team Providers Care Training And Development Specialist Name Role Phone JESUS WARREN Primary Care [...] Chan's Name Patient's Relationship to Policy Chan [facility] Apr 11, [phone] [id number] MADONNA CASILLAS PATIENT [employer] S[employer]IPTS ([id number]) PRESCRIPT ION [facility] Aug 11, 2017 [id number] MADONNA CASILLAS PATIENT [employer]TS ([id number]) PRESCRIPT ION [facility] Aug 11, 2017 [id number] [phone] MADONNA CASILLAS PATIENT MEDICARE (WNR) MEDICARE (M) PART A Sep 12, 2011 PART A [id number] MADONNA CASILLAS PATIENT MEDICARE (WNR) MEDICARE (M) PART A Sep 12, 2011 PART A [id number] MADONNA CASILLAS PATIENT UNICARE PREFERRED PROVIDER ORGANIZAT ION (PPO) KALLI [facility] * Aug 11, 2009 [id number] MADONNA CASILLAS PATIENT Selected Encounter This section includes the information on record at [place] for the Encounter. Date/Time Encounter Type Encounter Description Reason Provider Source June 12, 2023 12:39 PM Outpatient Encounter PROSTHETICS/ORTHOTI JESUS FLOWERS [place] Encounter Template Text not used by [place] Plan of Treatment: Future Appointments (+ 6 months) and Future Tests (+/- 45 days) The Plan of Treatment section includes future care activities for the patient [facility] [place] [facility]. This section includes future appointments and future orders which are active, pending or scheduled. Future Appointments This section includes appointments that were scheduled to occur 6 months from the date of the Encounter, up to a maximum of 20 appointments. The data comes from all [place] treatment facilities. Appointment Date/Time Appointment Type Appointme nt Facility Name July 04, 2023 02:00 PM [facility] July 10, 2023 11:00 AM AMBULATORY - PS[facility]CHIATRY [facility] Aug 07, 2023 01:00 PM AMBULATORY - PSYCHIATRY [facility] Sep 27, 2023 01:00 PM AMBULATORY - MEDICINE [facility] Oct 17, 2023 09:00 AM [facility]UL[facility]ORY - [facility] Nov 07, 2023 01:30 PM [facility] Nov 27, 2023 10:00 AM AMBULATORY - NONE [facility] Social History: Smoking Status (Most current) and Tobacco Use (All prior to encounter date) This section includes the most current, and the historical, smoking and tobacco- related health factors from the [place] facility where the Encounter took place. Current Smoking Status This section includes the most current smoking, or tobacco-related health factor, from the [place] facility where the Encounter took place. Date/Time Current Smoking Status Comment Sarah pyle Aug 07, 2019 01:20 PM [place]-TOBACCO QUIT 15 YRS OR MORE [facility] Tobacco Use History This section includes a history of the smoking, or tobacco-related health factors, that were collected on or before the date of the Encounter. The data comes from the [place] facility where the Encounter took place. Date/Time Smoking Status/Tobacco Use Comment F acility Aug 07, 2019 01:20 PM [place]-TOBACCO QUIT 15 YRS OR MORE [place] [facility] [place] [facility]
--- OUTSIDE RECORDS SUMMARY | 2024-02-25 12:52 | XMS_ITS | Encounter Summary ---
Author Name [facility] [place] [facility] [place] [place] Address [address] [place] [id number] Care Team Providers Care Manager Of Care Name Role Phone JESUS WARREN Primary Care [...] Name Patient's Relationship to Policy Chan [facility] Apr 11, 2017 [id number] MADONNA HERRERA PATIENT [employer] ([id number]) PRESCRIPT ION [facility] Aug 11, 2017 [id number] MADONNA HERRERA PATIENT [employer] ([id number]) PRESCRIPT ION [facility] Aug 11, 2017 [id number] MADONNA HERRERA PATIENT MEDICARE (WNR) MEDICARE (M) PART A Sep 12, 2011 PART A [id number] [phone] MADONNA HERRERA PATIENT MEDICARE (WNR) MEDICARE (M) PART A Sep 12, 2011 PART A [id number] MADONNA HERRERA PATIENT UNICARE PREFERRED PROVIDER ORGANIZAT ION (PPO) UNICDwight RE STATE INDEM * Aug 11, 2009 [id number] MADONNA HERRERA PATIENT Selected Encounter This section includes the information on record at [place] for the Encounter. Date/Time Encounter Type Encounter Description Reason Provider Source Aug 07, 2023 01:00 PM PSYCH DIAGNOSTIC EVALUATION MENTAL [facility] - [facility] ICD-10-CM F43.12 Post-traumati c stress disorder, chronic VINOCOUR,MADELINU Dwight JUAN MANUEL [facility] Encounter Template Text not used by [place] Assessments - Encounter Diagnoses This section includes the primary and secondary diagnoses documented for the Encounter. Date/Time Primary/Secondary Diagnosis Diagnosis Name Provider Source Aug 12, 2023 12:40 PM PRIMARY Post-traumatic stress disorder, chronic MONIQUEPOLOUR,CLAUDIODEWEY ZAMBRANO KRYSTIAN Aug 12, 2023 12:40 PM SECONDARY Adjustment disorder with anxiety MONIQUETAMMY GREGORIOSHUA [facility] Aug 12, 2023 12:40 PM SECONDARY Primary insomnia MONIQUEJGCLAUDIO [facility] Plan of Treatment: Future Appointments (+ 6 [...] Date/Time Appointment Type Appointme nt Facility Name Sep 27, 2023 01:00 PM [facility] Oct 17, 2023 09:00 AM [place]IC[place] [facility] [place] [facility] Nov 07, 2023 01:30 PM AM[place]ORY - [place]ICINE [place] [facility] [place] [facility] [place] Nov 27, 2023 10:00 AM AMBULATORY - NONE [place] [facility] [place] [facility] [place] Active, Pending, and Scheduled Orders This section includes a listing of several types of active, pending, and scheduled orders, including clinic medications orders, diagnostic test orders, procedure orders and consult orders; where the start date of the order is 45 days before the date of the Encounter or 45 days after the date of theEncounter. The data comes from all [place] treatment facilities. Test Date/Time Test Type Test Details Facility Name Aug 12, 2023 12:42 PM Consult Order PSYCHOTHER JOEY TREJO OUTPT Cons Implementation Analyst's Choice [facility] Social History: Smoking Status (Most current) and [...] 07, 2022 01:30 PM VA-TOBACCO FORMER USER [facility] Tobacco Use History This section includes a history of the smoking, or tobacco-related health factors, that were collected on or before the date of the Encounter. The data comes from the [place] facility where the Encounter took place. Date/Time Smoking Status/Tobacco Use Comment F acility Nov 07, 2022 01:30 PM VA-TOBACCO QUIT 15 YRS OR MORE [facility] Nov 09, 2021 09:00 AM VA-TOBACCO FORMER USER [facility] Nov 09, 2021 09:00 AM VA-TOBACCO QUIT 15 YRS OR MORE [facility] Nov 09, 2020 03:00 PM VA-TOBACCO FORMER USER [facility] Nov 09, 2020 03:00 PM VA-TOBACCO QUIT 15 YRS OR MORE [facility] Encounter Notes: All associated encounter notes This section contains the clinical notes associated to the Encounter. Date/Time Encounter Note(s) Provider Source Aug 08, 2023 10:04 AM MENTAL HEALTH DIAG NOSTIC STUDY NOTE: LOCAL TITLE: MENTAL HEALTH DIAGNOSTIC STUDY STANDARD TITLE: MENTAL HEALTH DIAGNOSTIC STUDY NOTE DATE OF NOTE: AUG 08, 2023@10:04:02 ENTRY DATE: AUG 08, 2023@10:04:02 AUTHOR: CLAUDIO PHOENIX EXP COSIGNER: URGENCY: STATUS: COMPLETED Assessments were sent to the via text/email. These assessments were completed by EMILIE HERRERA on their own device on 08/07/2023 2:23:49 PM. PATIENT HEALTH QUESTIONNAIRE-9 (PHQ-9) The patient reported some symptoms of depression; symptoms are not consistent with a major depressive episode. Patient reported being bothered by the following over the last 2 weeks: 1. Little interest or pleasure: Several Days 2. Feeling down, depressed or hopeless: Several Days 3. Trouble sleeping: More than half the days 4. Tired, low energy: Several Days 5. Poor appetite, over-eating: Not at all 6. Feelings of failure, guilt: Several Days 7. Trouble concentrating: Not at all 8. Motor retardation, agitation: Not at all 9. Thoughts better off /hurting self: Not at all PHQ-9 total score = 6 1-4 = minimal symptoms 5-9= mild symptoms 10-14= moderate symptoms 15-19= moderately severe symptoms 20-27= severe depressive symptoms The patient stated that the depressive symptoms made it somewhat difficult to work, take care of things at home, or get along with others. GENERAL ANXIETY DISORDER-7 (MICHAEL-7) Patient reported being bothered by the following over the last two weeks: 1. Feeling nervous, anxious or on edge: Not at all 2. Not being able to stop or control worrying: Not at all 3. Worrying too much about different things: Several days 4. Trouble relaxing: Not at all 5. Feeling restless (hard to sit still): Not at all 6. Becoming easily annoyed or irritable: Not at all 7. Afraid as if something awful might happen: Not at all MICHAEL-7 total score = 1 0-4=minimal symptoms 5-9=mild symptoms 10-14=moderate symptoms 15-21=severe symptoms The patient stated that the anxiety symptoms made it not at all difficult to work, take care of things at home, or get along with others. PTSD CHECKLIST (PCL-5) - MONTHLY Patient reported being bothered by the following over the past month: 1. Disturbing memories: A little bit 2. Disturbing dreams: A little bit 3. Re-experiencing events: Not at all 4. Cued distress: A little bit 5. Cued physical symptoms: Not at all 6. Avoiding internal reminders: A little bit 7. Avoiding external reminders: A little bit 8. Trouble with recall: A little bit 9. Negative beliefs: Not at all 10. Blaming self/others: A little bit 11. Negative feelings: Not at all 12. Loss of interest: Not at all 13. Feeling distant from others: Not at all 14. Feeling numb: Not at all 15. Feeling irritable: Not at all 16. Reckless behavior: Not at all 17. Being super-alert : A little bit 18. Feeling easily startled: Moderately 19. Difficulty concentrating: A little bit 20. Trouble sleeping: Quite a bit PCL-5 total score = 14 This measure assesses an individual's perception of the distress associated with possible PTSD symptoms. It is not used to diagnose PTSD. Symptoms are rated from 0-4 in terms of distress they cause the individual. Scores that are greater than or equal to 31-33 suggest that the may meet the criteria for a PTSD diagnosis. However, it is important to use caution when using this cutoff since it is possible for some Veterans with scores lower than 31-33 to meet criteria for PTSD. Additional testing using a structured diagnostic interview, such as the Clinician Administered PTSD Scale for DSM-5, is recommended to confirm diagnostic status. INSOMNIA SEVERITY INDEX (BRADLEY) Patient reported the severity of insomnia problems in the last two weeks as follows: 1. Difficulty falling asleep: Mild 2. Difficulty staying asleep: Moderate 3. Problems waking up too early: Moderate 4. Satisfaction with sleep: Moderately Satisfied 5. Impaired quality of life noticeable to others: Somewhat 6. Distressed by sleep problems: Somewhat 7. Interference with daily functioning: Somewhat BRADLEY total score = 13 0-7 = No clinically significant insomnia 8-14 = Subthreshold insomnia 15-21 = Clinical insomnia (moderate severity) 22-28 = Clinical insomnia (severe) /emmett/ CLAUDIO PHOENIX, PH.D. PSYCHOLOGIST Signed: 08/08/2023 11:17 CLAUDIO PHOENIX [facility] Aug 07, 2023 01:00 PM MENTAL HEALTH CONS ULT: LOCAL TITLE: CONSULT REPORT/UNIFORM OUTPATIENT MENTAL HEALTH ASS STANDARD TITLE: MENTAL HEALTH CONSULT DATE OF NOTE: AUG 07, 2023@13:00 ENTRY DATE: AUG 07, 2023@13:00:37 AUTHOR: CLAUDIO PHOENIX WAR EXP COSIGNER: URGENCY: STATUS: COMPLETED INFORMED CONSENT TO PARTICIPATE IN ASSESSMENT: At beginning of session reviewed rights and limits of confidentiality, mandatory reporting situations, duty to warn and protect, Servin Warning, (if treatment team finds patient to be an acute danger to himself or others, that this information could be relayed to a court of law and presented to a lining baster), and DOD access for active duty service members. Provided Suicide Prevention Hotline number, and other contact numbers as necessary. Uniform Outpatient Mental Health Assessment I. IDENTIFYING INFORMATION: EMILIE HERRERA Sep [phone] SERVICE CONNECTED % - 71 MARITAL STATUS - Referral source: Self referral Present at time of intake: [ ] Family member [ ] Supportive person(s) Name: Language Preference:Tunisian Language Spoken:Tunisian II. PRESENTING SITUATION: A. What brings you into Mental Health at this time: Work conflict. PTSD. Possible memory difficulties. No problems outside of work. B. What are some of your goals for treatment: Find out if my PTSD is getting worse and contributing to my problems at work. Am I missing something? Am I doing things that I'm not even aware of? C. What are some of your strengths: I'm outgoing, a team player. Cooperative. D. What are the obstacles or challenges preventing you from meeting your goals?: Not understanding what I'm doing at work that's apparently causing interpersonal problems. Some physical issues - knee injury, prevents exercising/moving the way I want. III: ASSESSMENT: A. Do you have concerns about past or current mental health symptoms or problems: Yes [X] No [ ] If yes, please describe: Previously diagnosed with PTSD (5-6 years ago, at the [place]). Worried about getting depressed regarding his physical limitations. Concern about his memory - forgetting names of close relatives. Some sleep difficulties, due to sleep apnea as well as anxious rumination (about work and his memory) How do you see these concerns impacting past and current quality of life (School, Work, Family, Housing, Finances, Social life, Legal): Might contribute to problems at work. Wants to lose weight, too. B. Have you previously been involved in Mental Health treatment: Yes [ ] No [X] If yes, please check all that apply and describe: [ ] Hospitalizations (when, where, etc.): [ ] Medication trials (what, when, doses, etc.): [ ] Therapy trials (type, when, etc.): C. Do you have concerns about current or past substance use: Yes [X] No [ ] If yes, please identify 's primary and secondary substances of choice: excessive alcohol use in college and after getting home from [place] ALCOHOL Age of onset: college Method of aquiring substance: Means of use: Pattern of use: Duration (how long have you been using for the most recent episode): Frequency: 2-3 beers per week Amount: 1 beer, occasionally 2 Last use: Last Saturday What was you longest period of sobriety?: n/a Check all that apply with respect to this substance: Depending on how many boxes were checked above, indicate the severity level: Regarding the motivation for treatment, estimate Benton's stage of change with respect to this substance: Which withdrawl symptoms have you had when you tried to stop using substance? TOBACCO Age of onset: [age], occasionally Method of aquiring substance: Means of use: smoking cigarettes Pattern of use: only occasionally at first, never smoked every day Duration (how long have you been using for the most recent episode): Frequency: Amount: 2-3 cigarettes a week Last use: quit when my son was born in 1976 What was you longest period of sobriety?: Check all that apply with respect to this substance: Depending on how many boxes were checked above, indicate the severity level: Regarding the motivation for treatment, estimate Benton's stage of change with respect to this substance: Which withdrawl symptoms have you had when you tried to stop using substance? IV: PERSONAL HISTORY/INFORMATION: A. Biological/Social History (including: relevant developmental history, family of origin, sexual/physical/emotional traumas, cultural factors, applicable sexual history): Dad was in the [employer], he enlisted during WWII (combat ). Mom worked as a teacher's aid. Two sisters - one older, one younger. Got along well with my parents. We had our arguments and stuff. Denies parental substance abuse or major mental health problems. Parents got along very well. Denies physical discipline. Denies physical/sexual abuse. in 1971. Still . One son (46), two daughters (44 and 42). Gets along well with his kids. Several grandchildren. Sees them often. Gets along well with his . Denies significant conflict. I can be grumpy sometimes. B. History (including actual duties, combat/war zone duty, trauma exposure, exposure to environmental contaminants): Joined [employer] my first year of college (1964). Activated in 1969 (before finishing undergrad degree). 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 Not many casualties on our side, but we dealt with the Faro[place] casualties in the aftermath. 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 Frequent fungal infections (feet and other areas). Reports exposure to Agent [place]. C. What provides you with sense of value or quality of life: My family. Helping the kids and grandkids out. D. What are some accomplishments that you feel a sense of pride about: Helping the family out during tough times, acknowledging when they do something positive. Really like teaching/training. E. What brings you enjoyment: Not as much as I used to. Repairing things. Building things. Watching TV. Going to the [employer] center. Looking forward to playing [employer] ball. F. Are you comfortable with your current living arrangement (Have you ever been homelessness or at risk for homelessness): Lives in home with his , no one else. Never homeless. G. What are your social or community Supports, your healthy or positive relationships: My family. Also have some friends, though we don't socialize as much as we used to. H: What is your educational history or current goals: [employer]. Almost completed four year college degree but had to stop when activated. Finished his degree at [employer] in 1973. Got MA in [employer]. I. 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 J. Do you have a legal history (incarcerations, probation, parole, divorce, child custody issues): Denies K. What is your level of bahai or spiritual fulfillment: Congregational, but not observant. L. How do you culturally identify? Can you anticipate any particular cultural on treatment? I don't really. Half Bangladeshi/Bruneian. M. Is there anybody you would like involved in the planning or delivery of your care: My - Maritza Butt. Do you have concerns for your safety or the safety of others (domestic violence, abuse/neglect, etc): Denies O. Have you ever been in a situation where you felt you were taken advantage of or exploited, particularly by someone in a position of power? Not really. But this latest episode at work feels pretty unfair. P. Income source: Salary from work, 79% [place], my gets nursing home and social security. V. PHYSICAL HEALTH SCREENING A. Do you have any past or current medical concerns: Yes [X] No [ ] Active Problem Obstructive sleep apnea G47.33 04/24/2023 JESUS WARREN Exposure to potentially hazardous s 04/24/2023 NEVANAVYA INIGUEZ A Obesity E66.9 11/09/2021 JESUS WARREN Tinnitus R69. 08/11/2019 JESUS WARREN Sensorineural hearing loss, bilater 08/11/2019 JESUS WARREN Allergic rhinitis J30.9 11/09/2020 JESUS WARREN HTN - Hypertension ([facility] [id number]) I 08/07/2019 JESUS WARREN OA - Osteoarthritis ([facility] [id number]) 08/11/2019 JESUS WARREN Benign prostatic hypertrophy N40.1 08/11/2019 JESUS WARREN Colonoscopy Screening R69. 08/11/2019 JESUS WARREN Eczema L20.9 08/11/2019 JESUS WARREN NON VA PCP R69. 08/07/2019 JESUS WARREN Chronic post-traumatic stress disor 08/11/2019 JESUS WARREN Other medical problems not listed above: B. Date of last physical exam:2023[X}Unknown C.Are you experiencing pain: Rating (0-10: 3 Comment on pain rating: Left knee D. Nutritional screening - Have you experienced any of the following: Food Allergies? No, describe: Significant (+/- 10lbs) gain or loss in the last three months? No, describe: I wish it would! (go down) Decrease in food intake/appetite? No, describe: Notable Dental problems? No, describe: Significant change in eating habits (purging, restricting, etc.)? No, describe: E. How do you see these concerns impacting on past and current quality of life (School, Work, Family, Housing, Finances, Social life, Legal, etc): The knee pain/injury limits his mobility Active Outpatient Medications (including Supplies): AMMONIUM LACTATE 12% LOTION APPLY SMALL AMOUNT TOPICALLY ACTIVE TWICE DAILY FOR DRY IRRITATED SKIN Non-VA CLOBETASOL PROPIONATE 0.05% OINT THIN LAYER ACTIVE TOPICALLY TWICE DAILY Non-VA FLUTICASONE PROP 50MCG 120D NASAL INHL 2 SPRAYS ACTIVE INTO EACH NOSTRIL ONCE DAILY Non-VA LOSARTAN 100MG TAB 100MG BY MOUTH ONCE DAILY ACTIVE Non-VA METOPROLOL SUCCINATE 25MG SA TAB 25MG BY MOUTH ONCE ACTIVE DAILY Non-VA TAMSULOSIN HCL 0.4MG CAP 0.4MG BY MOUTH ONCE DAILY ACTIVE : MENTAL STATUS / SUBJECTIVE COMPLAINTS: (check all that apply): Appearance:Neatly groomed, Appropriate to season Behavior:Appropriate, Pleasant, Maintained good eye contact Mood/Affect:Normal, Bright, Responsive and Congruent w/mood Energy:Normal Sleep:Sleep onset insomnia, Frequent disruption Orientation: Oriented to person: Yes Oriented to place: Yes Oriented to time: Yes Stream of thought:Normal, No evidence of thought disorder, No overt psychosis Speech:Normal Insight / Judgment:Normal Other cognitive problems:Cognition intact, Logical and Linear, Memory sufficient for interview Relevant Observations, other notes: : DSM5 DIAGNOSES: Adjustment Disorder with Anxiety, Provisional Insomnia Disorder, Provisional Rule Out PTSD VII: SUMMARY AND IMPRESSIONS: Mr. Herrera is a 77-year old, , cis-gendered [employer] . He presents with adjustment difficulties related to interpersonal problems at work, which have resulted in disciplinary actions. He He also describes sleeping difficulties, including sleep onset problems and frequent disruption. Moreover, he reports experiencing anxious rumination at night. While his PTSD symptoms seem well-controlled and mild, he reports an increase in intrusive ideation. In addition, he expressed mild concern about possible short-term memory difficulties. He expressed curiosity about whether he might be missing something regarding his interpersonal relationships at work, and inadvertently contributing to the difficulties. He denies substance abuse and suicidal thoughts. 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 He has never been in treatment before and takes no psychotropic medication. VIII: NEXT STEPS: A: How can we work to meet your goals: He is interested in individual therapy to comprehensively assess his PTSD symptoms, to explore his work difficulties and to address his insomnia. He would also like to assess/monitor his short-term memory. B: What would like to see happen next: He'd like to be referred to [facility] for individual psychotherapy; he declines [facility] at this time. He'd also like to be referred for the [facility] program. He declines a referal to psychiatry at this time. C: Recommendations: Individual, short-term psychotherapy is recommended. A psychoeducational sleep approach to his sleep difficulties is warrented. He may consider a neurocognitive disorder in the futre if his memory concerns continue. [X]Provided psychoeducation on the role of Measurement Based Care (MBC)and administered the following measures: AUDIT-C, PCL-Monthly, GAD7, PHQ9, C-SSRS [X]Based on measurement outcomes, the following plan was discussed and agreed upon: See above. /emmett/ CLAUDIO PHOENIX, PH.D. PSYCHOLOGIST Signed: 08/12/2023 12:39 Receipt Acknowledged By: 08/22/2023 08:36 /emmett/ Shaheen Fall Psy.D. STOCK SAW OPERATOR, CLINICAL PSYCHOLOGIST CLAUDIO PHOENIX [facility]
--- OUTSIDE RECORDS SUMMARY | 2024-02-25 12:52 | XMS_ITS | Encounter Summary ---
Author Name [facility] [place] Address [address] [place] [address] Care Team Providers Care Senior Ssis Developer Name Role Phone JESUS WARREN Primary Care [...] Chan's Name Patient's Relationship to Policy Chan [facility] Apr 11, 2017 [id number] MADONNA CASILLAS PATIENT EXPRESS SCRIPTS ([id number]) PRESCRIPT ION [facility] Aug 11, 2017 [id number] MADONNA CASILLAS PATIENT EXPRESS SCRIPTS ([id number]) PRESCRIPT ION [facility] Aug 11, 2017 [id number] MADONNA CASILLAS PATIENT MEDICARE (WNR) MEDICARE (M) PART A Sep 12, 2011 PART A [id number] MADONNA CASILLAS PATIENT MEDICARE (WNR) MEDICARE (M) PART A Sep 12, 2011 PART A [id number] MADONNA CASILLAS PATIENT UNICARE PREFERRED PROVIDER ORGANIZAT TRACI (PPO) [facility]ALLI [facility] IN[facility] * Aug 11, 2009 [id number] MADONNA CASILLAS PATIENT Selected Encounter This section includes the information on record at [place] for the Encounter. Date/Time Encounter Type Encounter Description Reason Pro vider Source June 26, 2023 12:00 AM Outpatient Encounter EVENT (HISTORICAL) IHE Encounter Template Text not used by [place] Plan of Treatment: Future Appointments (+ 6 months) and Future Tests (+/- 45 days) The Plan of Treatment section includes future care activities for the patient from all [place] treatmentfacilities. This section includes future appointments and future orders which are active, pending or scheduled. Future Appointments This section includes appointments that were scheduled to occur 6 months from the date of the Encounter, up to a maximum of 20 appointments. The data comes from all [place] treatment facilities. Appointment Date/Time Appointment Type Appointme nt Facility Name July 04, 2023 02:00 PM [facility] July 10, 2023 11:00 AM AMBULATORY - PSYCHIATRY [facility] Aug 07, 2023 01:00 PM AMBULATORY - PSYCHIATRY [facility] Sep 27, 2023 01:00 PM AMBULATORY - MEDICINE [facility] Oct 17, 2023 09:00 AM [facility] Nov 07, 2023 01:30 PM [facility]UL[facility] - [facility]ICINE [facility] Nov 27, 2023 10:00 AM AMBULATORY - NONE [facility] Social History: Smoking Status (Most current) and Tobacco Use (All prior to encounter date) This section includes the most current, and the historical, smoking and tobacco- related health factors from the [place] facility where the Encounter took place. Current Smoking Status This section includes the most current smoking, or tobacco-related health factor, from the [place] facility where the Encounter took place. Date/Time Current Smoking Status Comment Sarah cary Aug 07, 2019 01:20 PM [place]-TOBACCO QUIT 15 YRS OR MORE [facility] Tobacco Use History This section includes a history of the smoking, or tobacco-related health factors, that were collected on or before the date of the Encounter. The data comes from the [place] facility where the Encounter took place. Date/Time Smoking Status/Tobacco Use Comment F acility Aug 07, 2019 01:20 PM VA-TOBACCO QUIT 15 YRS OR MORE [facility] Encounter Notes: All associated encounter notes This section contains the clinical notes associated to the Encounter. Date/Time Encounter Note(s) Provider Source June 26, 2023 12:00 AM NONVA DIAGNOSTIC Fredi NEWMAN REPORT: LOCAL TITLE: NON-VA DIAGNOSTICS STANDARD TITLE: NONVA DIAGNOSTIC STUDY REPORT DATE OF NOTE: JUNE 26, 2023 ENTRY DATE: JUL 22, 2023@14:33:23 AUTHOR: ROXI LONG EXP COSIGNER: URGENCY: STATUS: COMPLETED VistA Imaging - Scanned Document SCANNED DOCUMENT SIGNATURE NOT REQUIRED Electronically Filed: 07/22/2023 by: ROXI CALDERON [facility]
--- OUTSIDE RECORDS SUMMARY | 2024-02-25 12:52 | XMS_ITS | Encounter Summary ---
Author Name Department of [place] Organization [place] Address [address] [place] [address] Care Team Providers Care Scientist Immunology Name Role Phone JESUS WARREN Primary Care [...] Chan's Name Patient's Relationship to Policy Chan [facility] Apr 11, 2017 [id number] [phone] MADONNA CASILLAS PATIENT EXPRESS SCRIPTS ([id number]) PRESCRIPT ION [facility] Aug 11, 2017 [id number] MADONNA CASILLAS PATIENT EXPRESS SCRIPTS ([id number]) PRESCRIPT ION [facility] Aug 11, 2017 [id number] MADONNA CASILLAS PATIENT MEDICARE (WNR) MEDICARE (M) PART A Sep 12, 2011 PART A [id number] MADONNA CASILLAS PATIENT MEDICARE (WNR) MEDICARE (M) PART A Sep 12, 2011 PART A [id number] MADONNA CASILLAS PATIENT UNICARE PREFERRED PROVIDER ORGANIZAT ION (PPO) HARSHADDwight [facility] INDEM * Aug 11, 2009 [id number] MADONNA CASILLAS PATIENT Selected Encounter This section includes the information on record at [place] for the Encounter. Date/Time Encounter Type Encounter Description Reason Provider Source Jul 22, 2023 07:54 AM COLLJ & INTERPJ DATA EA 30 D SLEEP MEDICINE ICD-10-CM G47.33 Obstructive sleep apnea (adult) (pediatric) KASEY BEY IHE Encounter Template Text not used by [place] Assessments - Encounter Diagnoses This section includes the primary and secondary diagnoses documented for the Encounter. Date/Time Primary/Secondary Diagnosis Diagnosis Name Provider Source Aug 14, 2023 03:23 PM PRIMARY Obstructive sleep apnea (adult) (pediatric) KASEY BEY [facility] Plan of Treatment: Future Appointments (+ 6 months) and Future Tests (+/- 45 days) The Plan of Treatment section includes future care activities for the patient from all [place] [facility]. This section includes future appointments and future orders which are active, pending or scheduled. Future Appointments This section includes appointments that were scheduled to occur 6 months from the date of the Encounter, up to a maximum of 20 appointments. The data comes from all [place] treatment facilities. Appointment Date/Time Appointment Type Appointme nt Facility Name Aug 07, 2023 01:00 PM AMBULATORY - [facility]ATRY [facility] Sep 27, 2023 01:00 PM AMBULATORY - MEDICINE [facility] Oct 17, 2023 09:00 AM [facility] [place] [facility] Nov 07, 2023 01:30 PM AMBULATORY - MEDICINE [facility] NTR [place] [facility] Nov 27, 2023 10:00 AM [facility]ULATORY - [facility] Active, Pending, and Scheduled Orders This section includes a listing of several types of active, pending, and scheduled orders, including clinic medications orders, diagnostic test orders, procedure orders and consult orders; where the start date of the order is 45 days before the date of the Encounter or 45 days after the date of theEncounter. The data comes from all [place] treatment facilities. Test Date/Time Test Type Test Details Facility Name Aug 12, 2023 12:42 PM Consult Order PSYCHOTHER JOEY TREJO OUTPT Cons Senior Consulting Manager's Jean [place] Social History: Smoking Status (Most current) and [...] Facil ity Aug 07, 2019 01:20 PM OR-TOBACCO QUIT 15 YRS OR MORE [facility] Tobacco Use History This section includes a history of the smoking, or tobacco-related health factors, that were collected on or before the date of the Encounter. The data comes from the [place] facility where the Encounter took place. Date/Time Smoking Status/Tobacco Use Comment F acility Aug 07, 2019 01:20 PM OR-TOBACCO QUIT 15 YRS OR MORE [facility] Encounter Notes: All associated encounter notes This section contains the clinical notes associated to the Encounter. Date/Time Encounter Note(s) Provider Source Jul 22, 2023 07:54 AM RESPIRATORY THERAP Y NOTE: LOCAL TITLE: RESPIRATORY THERAPY NOTE(BLANK) STANDARD TITLE: RESPIRATORY THERAPY NOTE DATE OF NOTE: JUL 22, 2023@07:54 ENTRY DATE: JUL 22, 2023@07:54:07 AUTHOR: KASEY BEY EXP COSIGNER: URGENCY: STATUS: COMPLETED [place] diagnosed with sleep apnea had initial Airview data download after set up appointment. AirView Compliance Report Usage 07/15/2023 - 07/21/2023 Usage days 6/7 days (86%) >= 4 hours 6 days (86%) < 4 hours 0 days (0%) Usage hours 44 hours 52 minutes Average usage (total days) 6 hours 25 minutes Average usage (days used) 7 hours 29 minutes Median usage (days used) 7 hours 54 minutes Total used hours (value since last reset - 07/21/2023) 278 hours AirSense 11 AutoSet Serial number [id number] Mode AutoSet Min Pressure 8 cmH2O Max Pressure 20 cmH2O EPR Fulltime EPR level 3 Response Soft Therapy Pressure - cmH2O Median: 10.2 95th percentile: 13.6 Maximum: 15.3 Leaks - L/min Median: 7.0 95th percentile: 20.2 Maximum: 28.2 Events per hour AI: 2.2 HI: 0.5 AHI: 2.7 Apnea Index Central: 0.1 Obstructive: 2.1 Unknown: 0.0 RERA Index 0.9 Yrn-Gutierres respiration (average duration per night) 0 minutes (0%) /emmett/ KASEY BEY RESPIRATORY THERAPIST Signed: 07/22/2023 07:55 KASEY BEY OR [facility]L [facility]
--- OUTSIDE RECORDS SUMMARY | 2024-02-25 12:52 | XMS_ITS ---
Author Name [place] Address [address] [place] [address] Care Team Providers Care De Ionizer Operator Name Role Phone JESUS WARREN Primary [...] Chan's Name Patient's Relationship to Policy Chan [facility] Apr 11, 2017 [id number] [phone] MADONNA CASILLAS PATIENT EXPRESS SCRIPTS ([id number]) PRESCRIPT ION [facility] Aug 11, 2017 [id number] [phone] AMDONNA CASILLAS PATIENT EXPRESS SCRIPTS ([id number]) PRESCRIPT ION [facility] Aug 11, 2017 [id number] [phone] MADONNA CASILLAS PATIENT MEDICARE (WNR) MEDICARE (M) PART A Sep 12, 2011 PART A [id number] [phone] MADONNA CASILLAS PATIENT MEDICARE (WNR) MEDICARE (M) PART A Sep 12, 2011 PART A [id number] MADONNA CASILLAS PATIENT UNICARE PREFERRED PROVIDER ORGANIZAT ION (PPO) [facility] * Aug 11, 2009 [id number] MADONNA CASILLAS PATIENT Selected Encounter This section includes the information on record at [place] for the Encounter. Date/Time Encounter Type Encounter Description Reason Pro vider Source Jul 16, 2023 02:45 PM Outpatient Encounter [facility] Encounter Template Text not used by CA [...] 07, 2023 01:00 PM AMBULATORY - PSYCHIATRY [facility] Sep 27, 2023 01:00 PM AMBULATORY - MEDICINE [facility] Oct 17, 2023 09:00 AM AMBULATORY - MEDICINE [place]TRL [place] [facility] Nov 07, 2023 01:30 PM AMBULATORY - MEDICINE [place] C NTRL [place] [facility] Nov 27, 2023 10:00 AM [facility] Active, Pending, and Scheduled Orders This section includes a listing of several types of active, pending, and scheduled orders, including clinic medications orders, diagnostic test orders, procedure orders and consult orders; where the start date of the order is 45 days before the date of the Encounter or 45 days after the date of theEncounter. The data comes from all [place] treatment facilities. Test Date/Time Test Type Test Details Facility Name Aug 12, 2023 12:42 PM Consult Order PSYCHOTHER APGeovanna SOPC OUTPT Cons Roentgenology Teacher's Choice [place] Social History: Smoking Status (Most current) and [...] Sarah ity Aug 07, 2019 01:20 PM VA-TOBACCO QUIT 15 YRS OR MORE [facility] Tobacco Use History This section includes a history of the smoking, or tobacco-related health factors, that were collected on or before the date of the Encounter. The data comes from the [place] facility where the Encounter took place. Date/Time Smoking Status/Tobacco Use Comment F acility Aug 07, 2019 01:20 PM [place]-TOBACCO QUIT 15 YRS OR MORE [facility] Encounter Notes: All associated encounter notes This section contains the clinical notes associated to the Encounter. Date/Time Encounter Note(s) Provider Source Jul 16, 2023 02:45 PM ADMINISTRATIVE NOT E: LOCAL TITLE: ADMINISTRATIVE NOTE STANDARD TITLE: ADMINISTRATIVE NOTE DATE OF NOTE: JUL 16, 2023@14:45 ENTRY DATE: JUL 16, 2023@14:45:24 AUTHOR: FATOUMATA MCCRARY COSIGNER: URGENCY: STATUS: COMPLETED advertising writer received a voicemail from stating he hasn't heard from anyone regarding the next steps in te process for him for MH appointments. /emmett/ FATOUMATA MCCRARY MASTER CRAFTSMAN Signed: 07/16/2023 14:48 Receipt Acknowledged By: 07/16/2023 15:30 /emmett/ ZANE Velez MACHINIST TOOL AND DIE FATOUMATA MCCRARY
--- OUTSIDE RECORDS SUMMARY | 2024-02-25 12:52 | XMS_ITS | Encounter Summary ---
Author Name [place] Address [address] [place] [address] Care Team Providers Care Waist Presser Name Role Phone JESUS WARREN Primary Care [...] Chan's Name Patient's Relationship to Policy Chan [facility] Apr 11, 2017 [id number] [phone] MADONNA CASILLAS PATIENT EXPRESS SCRIPTS ([id number]) PRESCRIPT ION [facility] Aug 11, 2017 [id number] MADONNA CASILLAS PATIENT EXPRESS SCRIPTS ([id number]) PRESCRIPT ION [facility] Aug 11, 2017 [id number] [phone] MADONNA CASILLAS PATIENT MEDICARE (WNR) MEDICARE (M) PART A Sep 12, 2011 PART A [id number] MADONNA CASILLAS PATIENT MEDICARE (WNR) MEDICARE (M) PART A Sep 12, 2011 PART A [id number] MADONNA CASILLAS PATIENT UNICARE PREFERRED PROVIDER ORGANIZAT ION (PPO) [place] RE [facility] INDEM * Aug 11, 2009 [id number] MADONNA CASILLAS PATIENT Selected Encounter This section includes the information on record at [place] for the Encounter. Date/Time Encounter Type Encounter Description Reason Provider Source July 10, 2023 11:00 AM OFF/OP EST JUNE X REQ PHY/QHP [facility] - IND ICD-10-CM Z71.89 Other specified counseling NILES RESTREPO [place] Encounter Template Text not used by [place] Assessments - Encounter Diagnoses This section includes the primary and secondary diagnoses documented for the Encounter. Date/Time Primary/Secondary Diagnosis Diagnosis Name Provider Source July 11, 2023 04:40 PM PRIMARY Other specified counseling NILES RESTREPO Plan of Treatment: Future Appointments (+ 6 months) and Future Tests (+/- 45 days) The Plan of Treatment section includes future care activities for the patient from all [place] [facility]. This section includes future appointments and future orders which are active, pending or scheduled. Future Appointments This section includes appointments that were scheduled to occur 6 months from the date of the Encounter, up to a maximum of 20 appointments. The data comes from all [place] treatment facilities. Appointment Date/Time Appointment Type Appointme nt Facility Name Aug 07, 2023 01:00 PM AMBULATORY - PSYCHIATRY [facility] Sep 27, 2023 01:00 PM AMBULATORY - MEDICINE [facility] Oct 17, 2023 09:00 AM AMBULATORY - [facility]ICINE [facility] Nov 07, 2023 01:30 PM AMBULATORY - MEDICINE [place] [facility] Nov 27, 2023 10:00 AM [facility] Active, Pending, and Scheduled Orders This section includes a listing of several types of active, pending, and scheduled orders, including clinic medications orders, diagnostic test orders, procedure orders and consult orders; where the start date of the order is 45 days before the date of the Encounter or 45 days after the date of theEncounter. The data comes from all [place] treatment [facility]. Test Date/Time Test Type Test Details Facility Name Aug 12, 2023 12:42 PM Consult Order PSYCHOTHER JOEY TREJO OUTPT Cons Back Roll Lathe Operator's Choice [place] Social History: Smoking Status (Most current) and Tobacco Use (All prior to encounter date) This section includes the most current, and the historical, smoking and tobacco- related health factors from the [place] facility where the Encounter took place. Current Smoking Status This section includes the most current smoking, or tobacco-related health factor, from the [place] facility where the Encounter took place. Date/Time Current Smoking Status Comment Facil ity Nov 07, 2022 01:30 PM VA-TOBACCO FORMER USER [place] Tobacco Use History This section includes a history of the smoking, or tobacco-related health factors, that were collected on or before the date of the Encounter. The data comes from the [place] facility where the Encounter took place. Date/Time Smoking Status/Tobacco Use Comment F acility Nov 07, 2022 01:30 PM VA-TOBACCO QUIT 15 YRS OR MORE [place] Nov 09, 2021 09:00 AM VA-TOBACCO FORMER USER [place] Nov 09, 2021 09:00 AM VA-TOBACCO QUIT 15 YRS OR MORE [place] Nov 09, 2020 03:00 PM VA-TOBACCO FORMER USER [place] Nov 09, 2020 03:00 PM VA-TOBACCO QUIT 15 YRS OR MORE [place] Encounter Notes: All associated encounter notes This section contains the clinical notes associated to the Encounter. Date/Time Encounter Note(s) Provider Source July 10, 2023 11:00 AM SOCIAL WORK NOTE: LOCAL TITLE: SOCIAL WORK NOTE STANDARD TITLE: SOCIAL WORK NOTE DATE OF NOTE: JULY 10, 2023@11:00 ENTRY DATE: JULY 11, 2023@16:37:54 AUTHOR: NILES RESTREPO COSIGNER: URGENCY: STATUS: COMPLETED is seen at his initiation. 77 y/o, w/m, , employed, [employer], . He is rated at 70%, 50% for PTSD. He shares that he has been employed by the [employer] for 52 yrs, he now works in [employer]. He has been having ongoing difficulties w his stewarding supervisor, Deanna, since June 2021. He was accused of speaking rudely and mocking a new employee who was seeking assistance, and was given a 5 day suspension which he served earlier this month. He doesn't remember speaking rudely or mocking another. He asked to be given the name of the person who accused him of this, I just wanted to speak w the person so I know what I was doing, but no, they said it was confidential, for all I know it could be Deanna... He works w 4 other staff, denies any difficulty w his co-workers. He thinks they want him to retire but he is not ready yet- he had an OTJ and he is wanting to make sure he gets all of the needed treatment, then he may consider long term. He has involved the union, it was suggested he consider EEO. is cooperative, pleasant, able to explain himself well. He is nicely dressed, good attention to his personal care. Overall reports to be in good health. His is retired 5yrs, she would like him to retire also. He is agreeable to trying therapy, consult placed. /emmett/ ZAEN Velez PATTERN CHECKER Signed: 07/16/2023 15:45 NILES RESTREPO [place]
--- OUTSIDE RECORDS SUMMARY | 2024-02-25 12:52 | XMS_ITS | Encounter Summary ---
Author Name Department [place] Organization [place] Address [address] [place] [address] Care Team Providers Care Tobacco Sample Puller Name Role Phone JESUS WARREN Primary Care [...] Chan's Name Patient's Relationship to Policy Chan [facility] Apr 11, 2017 [id number] MADONNA CASILLAS PATIENT EXPRESS SCRIPTS ([id number]) PRESCRIPT ION [facility] Aug 11, 2017 [id number] MADONNA CASILLAS PATIENT EXPRESS SCRIPTS ([id number]) PRESCRIPT ION [facility] Aug 11, 2017 [id number] [phone] MADONNA CASILLAS PATIENT MEDICARE (WNR) MEDICARE (M) PART A Sep 12, 2011 PART A [id number] [phone] MADONNA CASILLAS PATIENT MEDICARE (WNR) MEDICARE (M) PART A Sep 12, 2011 PART A [id number] MADONNA CASILLAS PATIENT UNICARE PREFERRED PROVIDER ORGANIZAT TRACI (PPO) KALLI [facility] INDEM * Aug 11, 2009 [id number] MADONNA CASILLAS PATIENT Selected Encounter This section includes the information on record at [place] for the Encounter. Date/Time Encounter Type Encounter Description Reason Pro vider Source June 24, 2023 10:10 AM Outpatient Encounter [facility] Encounter Template Text not used by [place] Plan of Treatment: Future Appointments (+ 6 months) and Future Tests (+/- 45 days) The Plan of Treatment section includes future care activities for the patient from all [place] [facility]. This section includes future appointments and future [...] 04, 2023 02:00 PM [facility] July 10, 2023 11:00 AM AMBULATORY - PS[facility]IATRY [facility] Aug 07, 2023 01:00 PM AMBULATORY - PSYCHIATRY [facility] Sep 27, 2023 01:00 PM AMBULATORY - MEDICINE [facility] Oct 17, 2023 09:00 AM [facility] Nov 07, 2023 01:30 PM [facility] Nov 27, 2023 10:00 AM AMBULATORY - NONE [facility] Social History: Smoking Status (Most current) [...] Sarah cary Aug 07, 2019 01:20 PM [place]-TOBACCO QUIT 15 YRS OR MORE [facility] Tobacco Use History This section includes a history of the smoking, or tobacco-related health factors, that were collected on or before the date of the Encounter. The data comes from the [place] facility where the Encounter took place. Date/Time Smoking Status/Tobacco Use Comment F acility Aug 07, 2019 01:20 PM [place]-TOBACCO QUIT 15 YRS OR MORE [place] [facility] Encounter Notes: All associated encounter notes This section contains the clinical notes associated to the Encounter. Date/Time Encounter Note(s) Provider Source June 24, 2023 10:10 AM ADMINISTRATIVE NOT E: LOCAL TITLE: ADMINISTRATIVE NOTE STANDARD TITLE: ADMINISTRATIVE NOTE DATE OF NOTE: JUNE 24, 2023@10:10 ENTRY DATE: JUNE 24, 2023@10:10:58 AUTHOR: PAUL RODRIGUEZ EXP COSIGNER: URGENCY: STATUS: COMPLETED called office and requested mh services. next avail appt scd'd 07/10/2023 @ 1100 f2f. reminder letter sent at this time. /emmett/ PAUL RODRIGUEZ ADVANCED FRONT LOAD TRASH TRUCK DRIVER Signed: 06/24/2023 10:12 Receipt Acknowledged By: 06/25/2023 08:11 /emmett/ ZANE Velez MEDICAL SALES ASSOCIATE PAUL RODRIGUEZ
--- OUTSIDE RECORDS SUMMARY | 2024-02-25 12:52 | XMS_ITS ---
Author Name [facility] [place] Address [address] [place] [address] Care Team Providers Care Manager Automotive Name Role Phone JESUS WARREN Primary Care [...] Chan's Name Patient's Relationship to Policy Chan [facility] Apr 11, 2017 [id number] MADONNA CASILLAS PATIENT EXPRESS SCRIPTS ([id number]) PRESCRIPT ION [facility] Aug 11, 2017 [id number] [phone] MADONNA CASILLAS PATIENT EXPRESS SCRIPTS ([id number]) PRESCRIPT ION [facility] Aug 11, 2017 [id number] MADONNA CASILLAS PATIENT MEDICARE (WNR) MEDICARE (M) PART A Sep 12, 2011 PART A [id number] MADONNA CASILLAS PATIENT MEDICARE (WNR) MEDICARE (M) PART A Sep 12, 2011 PART A [id number] MADONNA CASILLAS PATIENT UNICARE PREFERRED PROVIDER ORGANIZAT ION (PPO) [facility] * Aug 11, 2009 [id number] MADONNA CASILLAS PATIENT Selected Encounter This section includes the information on record at [place] for the Encounter. Date/Time Encounter Type Encounter Description Reason Provider Source June 13, 2023 04:27 PM REPLACEMENT NASAL CUSHION TELEPHONE/MEDICIN E ICD-10-CM G47.33 Obstructive sleep apnea (adult) (pediatric) KASEY BEY E Encounter Template Text not used by [place] Assessments - Encounter Diagnoses This section includes the primary and secondary diagnoses documented for the Encounter. Date/Time Primary/Secondary Diagnosis Diagnosis Name Provider Source June 13, 2023 04:27 PM PRIMARY Obstructive sleep apnea (adult) (pediatric) [facility]Y [facility] Plan of Treatment: Future Appointments (+ 6 months) and Future Tests (+/- 45 days) The Plan of Treatment section includes future care activities for the patient from all [place] treatmentfacilities. This section includes future appointments and [...] 04, 2023 02:00 PM AMBULATORY - NONE [place] [facility] [place] [facility] July 10, 2023 11:00 AM AMBULATORY - PSYCHIATRY [facility] Aug 07, 2023 01:00 PM AMBULATORY - PSYCHIATRY [facility] Sep 27, 2023 01:00 PM AMBULATORY - MEDICINE [facility] Oct 17, 2023 09:00 AM AMBULATORY - MEDICINE [place] [facility] [place] [facility] Nov 07, 2023 01:30 PM AMBULATORY - MEDICINE [place] [facility] [place] [facility] Nov 27, 2023 10:00 AM AMBULATORY - NONE [place] [facility] [place] [facility] Social History: Smoking Status (Most current) [...] Facil ity Aug 07, 2019 01:20 PM [place]-TOBACCO QUIT 15 YRS OR MORE [facility] Tobacco Use History This section includes a history of the smoking, or tobacco-related health factors, that were collected on or before the date of the Encounter. The data comes from the [place] facility where the Encounter took place. Date/Time Smoking Status/Tobacco Use Comment F acility Aug 07, 2019 01:20 PM [place]-TOBACCO QUIT 15 YRS OR MORE [facility] Encounter Notes: All associated encounter notes This section contains the clinical notes associated to the Encounter. Date/Time Encounter Note(s) Provider Source June 13, 2023 04:27 PM RESPIRATORY THERAP Y NOTE: LOCAL TITLE: RESPIRATORY THERAPY NOTE(BLANK) STANDARD TITLE: RESPIRATORY THERAPY NOTE DATE OF NOTE: JUNE 13, 2023@16:27 ENTRY DATE: JUNE 13, 2023@16:27:52 AUTHOR: KASEY BEY EXP COSIGNER: URGENCY: STATUS: COMPLETED Telephone Coding and Documentation: Diagnosis: Sleep Apnea Actual time spent with Patient via telephone: 15 minutes. [place] diagnosed with sleep apnea called because he damaged his nose piece. A mask system and a additional nose pieces were ordered via [facility]. /emmett/ KASEY BEY RESPIRATORY THERAPIST Signed: 06/13/2023 16:32 KASEY BEY [facility]
--- OUTSIDE RECORDS SUMMARY | 2024-02-25 12:52 | XMS_ITS | Encounter Summary ---
Author Name [place] Address [address] [place] [address] Care Team Providers Care Setter Cold Rolling Machine Name Role Phone JESUS WARREN Primary Care [...] Chan's Name Patient's Relationship to Policy Chan [facility] Apr 11, [phone] [id number] MADONNA CASILLAS PATIENT EXPRESS SCRIPTS ([id number]) PRESCRIPT ION [facility] Aug 11, 2017 [id number] MADONNA CASILLAS PATIENT EXPRESS SCRIPTS ([id number]) PRESCRIPT ION [facility] Aug 11, 2017 [id number] MADONNA CASILLAS PATIENT MEDICARE (WNR) MEDICARE (M) PART A Sep 12, 2011 PART A [id number] MADONNA CASILLAS PATIENT MEDICARE (WNR) MEDICARE (M) PART A Sep 12, 2011 PART A [id number] MADONNA CASILLAS PATIENT UNICARE PREFERRED PROVIDER ORGANIZAT ION (PPO) [place] RE [employer] INDEM * Aug 11, 2009 [id number] MADONNA CASILLAS PATIENT Selected Encounter This section includes the information on record at [place] for the Encounter. Date/Time Encounter Type Encounter Description Reason Provider Source July 10, 2023 02:05 PM Outpatient Encounter PROSTHETICS/ORTHOTI JESUS FLOWERS IHDestini Encounter Template Text not used by [place] Plan of Treatment: Future Appointments (+ 6 months) and Future Tests (+/- 45 days) The Plan of Treatment section includes future care activities for the [facility] [place] [facility] This section includes future appointments and future orders which are active, pending or scheduled. Future Appointments This section includes appointments that were scheduled to occur 6 months from the date of the Encounter, up to a maximum of 20 appointments. The data comes from all [place] treatment facilities. Appointment Date/Time Appointment Type Appointme nt Facility Name Aug 07, 2023 01:00 PM AMBULATORY - PSYCHIATRY [facility] Sep 27, 2023 01:00 PM AMBULATORY - MEDICINE [facility] Oct 17, 2023 09:00 AM AMBULATORY - [facility]ICINE [place] [facility] Nov 07, 2023 01:30 PM AMBULATORY - MEDICINE [place] [facility] Nov 27, 2023 10:00 AM AMBULATORY - NONE [facility] Active, Pending, and Scheduled Orders This section includes a listing of several types of active, pending, and scheduled orders, including clinic medications orders, diagnostic test orders, procedure orders and consult orders; where the start date of the order is 45 days before the date of the Encounter or 45 days after the date of theEncounter. The data comes from all [place] treatment facilities. Test Date/Time Test Type Test Details Facility Name Aug 12, 2023 12:42 PM Consult Order PSYCHOTHER JOEY TREJO OUTPT Cons [facility] Social History: Smoking Status (Most current) and Tobacco Use (All prior to encounter date) This section includes the most current, and the historical, smoking and tobacco- related health factors from the [place] facility where the Encounter took place. Current Smoking Status This section includes the most current smoking, or tobacco-related health factor, from the [place] facility where the Encounter took place. Date/Time Current Smoking Status Comment Facil ity Aug 07, 2019 01:20 PM [place]-TOBACCO QUIT 15 YRS OR MORE [facility] Tobacco Use History This section includes a history of the smoking, or tobacco-related health factors, that were collected on or before the date of the Encounter. The data comes from the [place] facility where the Encounter took place. Date/Time Smoking Status/Tobacco Use Comment F acility Aug 07, 2019 01:20 PM [place]-TOBACCO QUIT 15 YRS OR MORE [facility]
--- OUTSIDE RECORDS SUMMARY | 2024-02-25 12:52 | XMS_ITS | Encounter Summary ---
Author Name [place] Address [address] [place] [address] Care Team Providers Care Stitcher Utility Name Role Phone JESUS WARREN Primary Care [...] Chan's Name Patient's Relationship to Policy Chan [facility] Apr 11, 2017 [id number] MADONNA CASILLAS PATIENT EXPRESS SCRIPTS ([id number]) PRESCRIPT ION [facility] Aug 11, 2017 [id number] [phone] MADONNA CASILLAS PATIENT EXPRESS SCRIPTS ([id number]) PRESCRIPT ION [facility] Aug 11, 2017 [id number] MADONNA CASILLAS PATIENT MEDICARE (WNR) MEDICARE (M) PART A Sep 12, 2011 PART A [id number] MADONNA CASILLAS PATIENT MEDICARE (WNR) MEDICARE (M) PART A Sep 12, 2011 PART A [id number] MADONNA CASILLAS PATIENT UNICARE PREFERRED PROVIDER ORGANIZAT ION (PPO) [facility]ALLI [facility] * Aug 11, 2009 [id number] MADONNA CASILLAS PATIENT Selected Encounter This section includes the information on record at [place] for the Encounter. Date/Time Encounter Type Encounter Description Reason Provider Source June 14, 2023 12:42 PM Outpatient Encounter PROSTHETICS/ORTHOTI JESUS FLOWERS [place] Encounter Template Text not used by [place] Plan of Treatment: Future Appointments (+ 6 months) and Future Tests (+/- 45 days) The Plan of Treatment section includes future care activities for the patient from all [place] [facility]. This section includes future appointments and future orders which are active, pending or scheduled. Future Appointments This section includes appointments that were scheduled to occur 6 months from the date of the Encounter, up to a maximum of 20 appointments. The data comes from all [place] treatment facilities. Appointment Date/Time Appointment Type Appointme nt Facility Name July 04, 2023 02:00 PM [facility] July 10, 2023 11:00 AM AMBULATORY - PS[facility]CHIATRY [facility] Aug 07, 2023 01:00 PM AMBULATORY - PSYCHIATRY [facility] Sep 27, 2023 01:00 PM AMBULATORY - MEDICINE [facility] Oct 17, 2023 09:00 AM AMBULATORY - MEDICINE [facility] Nov 07, 2023 01:30 PM [facility] Nov 27, 2023 10:00 AM AMBULATORY - NONE [facility] Social History: Smoking Status (Most current) and Tobacco Use (All prior to encounter date) This section includes the most current, and the historical, smoking and tobacco- related health factors from the [place] facility where the Encounter took place. Current Smoking Status This section includes the most current smoking, or tobacco-related health factor, from the [place] facility where the Encounter took place. Date/Time Current Smoking Status Comment Sarah pyle Aug 07, 2019 01:20 PM [place]-TOBACCO QUIT 15 YRS OR MORE [facility] Tobacco Use History This section includes a history of the smoking, or tobacco-related health factors, that were collected on or before the date of the Encounter. The data comes from the [place] facility where the Encounter took place. Date/Time Smoking Status/Tobacco Use Comment F acility Aug 07, 2019 01:20 PM [place]-TOBACCO QUIT 15 YRS OR MORE [place] [facility] [place] [facility]
--- OUTSIDE RECORDS SUMMARY | 2024-02-25 12:53 | XMS_ITS | Encounter Summary ---
Author Name [facility] [place] Address [address] [place] [address] Care Team Providers Care Web Development Intern Name Role Phone JESUS WARREN Primary Care [...] Patient's Relationship to Policy Chan [facility] Apr 11, 2017 [id number] MADONNA CASILLAS PATIENT EXPRESS SCRIPTS ([id number]) PRESCRIPT ION [facility] Aug 11, 2017 [id number] [phone] MADONNA CASILLAS PATIENT EXPRESS SCRIPTS ([id number]) PRESCRIPT ION [facility] Aug 11, 2017 [id number] MADONNA CASILLAS PATIENT MEDICARE (WNR) MEDICARE (M) PART A Sep 12, 2011 PART A [id number] MADONNA CASILLAS PATIENT MEDICARE (WNR) MEDICARE (M) PART A Sep 12, 2011 PART A [id number] MADONNA CASILLAS PATIENT UNICARE PREFERRED PROVIDER ORGANIZAT TRACI (PPO) [facility] * Aug 11, 2009 [id number] MADONNA CASILLAS PATIENT Selected Encounter This section includes the information on record at [place] for the Encounter. Date/Time Encounter Type Encounter Description Reason Pro vider Source Nov 07, 2023 12:00 AM Outpatient Encounter EVENT (HISTORICAL) IHE Encounter Template Text not used by [place] [...] Date/Time Appointment Type Appointme nt Facility Name Nov 27, 2023 10:00 AM [facility] Feb 21, 2024 01:00 PM [facility] Feb 24, 2024 03:00 PM [facility] Vital Signs: All taken on the encounter date This section contains inpatient and outpatient Vital Signs collected on the date of the Encounter. Date/Time Temperature Pulse Blood Pressure Respiratory Rate SP02 Pain Height Weight Body Mass Index Source Nov 07, 2023 01:48 PM 98.5 93 138/78 18 93 0 70 243.2 35 [facility] Social History: Smoking Status (Most current) and [...] PM [place]-TOBACCO QUIT 15 YRS OR [facility] Tobacco Use History This section includes a history of the smoking, or tobacco-related health factors, that were collected on or before the date of the Encounter. The data comes from the [place] facility where the Encounter took place. Date/Time Smoking Status/Tobacco Use Comment F acility Aug 07, 2019 01:20 PM [place]-TOBACCO QUIT 15 YRS OR MORE [place] [facility] [place] [facility]
--- OUTSIDE RECORDS SUMMARY | 2024-02-25 12:53 | XMS_ITS | Encounter Summary ---
Author Name [place] Address [address] [place] [address] Care Team Providers Care Brush Clearing Laborer Name Role Phone JESUS WARREN Primary Care [...] Chan's Name Patient's Relationship to Policy Chan [facility] Apr 11, 2017 [id number] MADONNA CASILLAS PATIENT EXPRESS SCRIPTS ([id number]) PRESCRIPT ION [facility] Aug 11, 2017 [id number] MADONNA CASILLAS PATIENT EXPRESS SCRIPTS ([id number]) PRESCRIPT ION [facility] Aug 11, 2017 [id number] [phone] MADONNA CASILLAS PATIENT MEDICARE (WNR) MEDICARE (M) PART A Sep 12, 2011 PART A [id number] [phone] MADONNA CASILLAS PATIENT MEDICARE (WNR) MEDICARE (M) PART A Sep 12, 2011 PART A [id number] [phone] MADONNA CASILLAS PATIENT UNICARE PREFERRED PROVIDER ORGANIZAT ION (PPO) UNICDwight RE STATE INDEM * Aug 11, 2009 [id number] 28 MADONNA CASILLAS PATIENT Selected Encounter This section includes the information on record at [place] for the Encounter. Date/Time Encounter Type Encounter Description Reason Provider Source Oct 17, 2023 10:20 AM QNHP OL DIG ASSMT&MGMT 5-10 CLINICAL PHARMACY ICD-10-CM J30.9 Allergic rhinitis, unspecified JOSE SETHI [place] Encounter Template Text not used by [place] Assessments - Encounter Diagnoses This section includes the primary and secondary diagnoses documented for the Encounter. Date/Time Primary/Secondary Diagnosis Diagnosis Name Provider Source Nov 09, 2023 07:48 AM PRIMARY Allergic rhinitis, unspecified JOSE SETHI [place] Plan of Treatment: Future Appointments (+ 6 months) and Future Tests (+/- 45 days) The Plan of Treatment section includes future care activities for the patient from all [place] treatmentfacilities. This section includes future appointments and future orders which are active, pending or scheduled. Future Appointments This section includes appointments that were scheduled to occur 6 months from the date of the Encounter, up to a maximum of 20 appointments. The data comes from all [place] treatment facilities. Appointment Date/Time Appointment Type Appointme nt Facility Name Nov 07, 2023 01:30 PM AMBULATORY [place] [facility] [place] [facility] Nov 27, 2023 10:00 AM [facility] Feb 21, 2024 01:00 PM AMBULATORY - MEDICINE [facility] Feb 24, 2024 03:00 PM AMBULATORY - [facility]ICINE [facility] Social History: Smoking Status (Most current) and Tobacco Use (All prior to encounter date) This section includes the most current, and the historical, smoking and tobacco- related health factors from the [place] facility where the Encounter took place. Current Smoking Status This section includes the most current smoking, or tobacco-related health factor, from the [place] facility where the Encounter took place. Date/Time Current Smoking Status Eran cary Nov 07, 2022 01:30 PM [facility] [place] Tobacco Use History This section includes a history of the smoking, or tobacco-related health factors, that were collected on or before the date of the Encounter. The data comes from the [place] facility where the Encounter took place. Date/Time Smoking Status/Tobacco Use Comment F acility Nov 07, 2022 01:30 PM [place]-TOBACCO QUIT 15 YRS OR MORE [place] Nov 09, 2021 09:00 AM VA-TOBACCO FORMER USER [place] Nov 09, 2021 09:00 AM VA-TOBACCO QUIT 15 YRS OR MORE [place] Nov 09, 2020 03:00 PM VA-TOBACCO FORMER USER [place] Nov 09, 2020 03:00 PM VA-TOBACCO QUIT 15 YRS OR MORE [place] Encounter Notes: All associated encounter notes This section contains the clinical notes associated to the Encounter. Date/Time Encounter Note(s) Provider Source Oct 17, 2023 10:20 AM MEDICATION MGT CON SULT: LOCAL TITLE: CONSULT REPORT/NON FORMULARY PADR STANDARD TITLE: MEDICATION MGT CONSULT DATE OF NOTE: OCT 17, 2023@10:20 ENTRY DATE: OCT 17, 2023@10:20:58 AUTHOR: JOSE SETHI EXP COSIGNER: URGENCY: STATUS: COMPLETED The medical record has been reviewed with regard to this restricted drug request. Medication requested: BREATHE RIGHT EXTRA NASAL STRIPS Medication indication: Nasal Valve Collapse Medical history relevant to this request: -Nasal valve collapse, followed by Otolaryngology The request is approved - No formulary-preferred alternative /emmett/ Jose Sethi PharmD, BCPS Clinical Pharmacist Practitioner (PACT) Signed: 10/17/2023 10:23 JOSE SETHI [place]
--- OUTSIDE RECORDS SUMMARY | 2024-02-25 12:53 | XMS_ITS | Encounter Summary ---
Author Name [facility] [place] [facility] [place] Address [address] [place] [id number] Care Team Providers Care Grip Name Role Phone KELVINJESUS Primary Care Provider Unavailabl e Insurance Providers: [...] Chan's Name Patient's Relationship to Policy Chan [facility] Apr 11, 2017 [id number] MADONNA CASILLAS PATIENT [employer] S[employer]IPTS ([id number]) PRESCRIPT [facility]ON [facility] Aug 11, 2017 [id number] MADONNA CASILLAS PATIENT [employer] ([id number]) [facility]CRIPT [facility] Aug 11, 2017 [id number] [phone] MADONNA CASILLAS PATIENT MEDICARE (WNR) MEDICARE (M) PART A Sep 12, 2011 PART A [id number] MADONNA CASILLAS PATIENT MEDICARE (WNR) MEDICARE (M) PART A Sep 12, 2011 PART A [id number] MADONNA CASILLAS PATIENT UNICARE PREFERRED PROVIDER ORGANIZAT ION (PPO) [place] [employer] * Aug 11, 2009 [id number] MADONNA CASILLAS PATIENT Selected Encounter This section includes the information on record at [place] for the Encounter. Date/Time Encounter Type Encounter Description Reason Provider Source Feb 24, 2024 03:00 PM OFFICE O/P EST MOD 30 MIN OTOLARYNGOLOGY/EN T ICD-10-CM J30.0 Vasomotor rhinitis F[facility]Y DUPREE [facility] Encounter Template Text not used by [place] Assessments - Encounter Diagnoses This section includes the primary and secondary diagnoses documented for the Encounter. Date/Time Primary/Secondary Diagnosis Diagnosis Name Provider Source Feb 24, 2024 04:52 PM PRIMARY Vasomotor rhinitis RICARDO DUPREE [facility] [place] [facility] Feb 24, 2024 04:52 PM SECONDARY Nasal valve collapse, unspecified RICARDO DUPREE [facility] [place] [facility] Feb 24, 2024 04:52 PM SECONDARY Obstructive sleep apnea (adult) (pediatric) RICARDO DUPREE [facility] [place] [facility] Feb 24, 2024 04:52 PM SECONDARY Sensorineural hearing loss, bilateral RICARDO DUPREE [facility] [place] [facility] Plan of Treatment: Future Appointments (+ [...] Date/Time Appointment Type Appointme nt Facility Name June 11, 2024 01:30 PM [facility] Aug 17, 2024 08:30 AM AM[place]UL[place]ORY [place] [facility] [place] [facility] Vital Signs: All taken on the encounter date This section contains inpatient and outpatient Vital Signs collected on the date of the Encounter. Date/Time Temperature Pulse Blood Pressure Respiratory Rate SP02 Pain Height Weight Body Mass Index Source Feb 24, 2024 03:00 PM 97.8 71 147/95 18 96 0 241.4 35 [facility] Social History: Smoking Status (Most current) and Tobacco Use (All prior to encounter date) This section includes the most current, and the historical, smoking and tobacco- related health factors from the [place] facility where the Encounter took place. Current Smoking Status This section includes the most current smoking, or tobacco-related health factor, from the [place] facility where the Encounter took place. Date/Time Current Smoking Status Comment Facil ity Aug 07, 2019 01:20 PM [place] QU[place] 15 YRS OR MORE [facility] Tobacco Use History This section includes a history of the smoking, or tobacco-related health factors, that were collected on or before the date of the Encounter. The data comes from the [place] facility where the Encounter took place. Date/Time Smoking Status/Tobacco Use Comment F acility Aug 07, 2019 01:20 PM [place]TO[place] 15 YRS OR MORE [facility] Encounter Notes: All associated encounter notes This section contains the clinical notes associated to the Encounter. 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 Patient followed up again with respiratory and was complaining of his left nasal obstruction. He is using nasal pillows CPAP with a chinstrap. His left nostril remains clogged. He does use the Breathe Right strips and the ipratropium bromide. He was using Mucinex which he thinks helped with the rhinitis but he ran out. Patient did stop drinking coffee altogether after discussion of our last visit. Patient is planning to retire next week after 54 years working for the [employer]. PV: 78-year-old male referred secondary to left nasal obstruction with CPAP and postnasal drip. Patient states that he recently got CPAP about 3 months ago. He likes it and definitely sees that it is useful. His AHI was 39.1. He uses nasal pillows. However throughout the night he will feel as though the left nose collapses and he will need to adjust it. In addition he feels as though he is always clearing his throat. He has a lot of mucus. He was recently started on loratadine 2 months ago. He takes guaifenesin twice daily. He was prescribed Flonase but his eye doctor told him to stop it due to glaucoma. His eye doctor then told him to use Afrin. He tried Afrin but thankfully he found that it was burning and he stopped it. He has no history of nasal trauma. He has no hoarseness, dysphagia, or ear pain. He is very careful to not sleep on his back he sleeps on his side. He has had no weight loss. Patient states that he drinks very little water. He drinks 42 ounces of coffee which is decaf daily. He also did have sinus surgery in [place] [address] Leos. 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 No evidence of malignancy. Patient states that he feels constant postnasal drip. His nose runs a lot although it does not run when he eats. PMHx: Active problems - Computerized Problem List is the source for the followin. Obstructive sleep apnea 2. Exposure to potentially hazardous substance 3. Obesity 4. Tinnitus 5. Sensorineural hearing loss, bilateral 6. Allergic rhinitis 7. HTN - Hypertension ([facility] [id number]) 8. OA - Osteoarthritis ([facility] [id number]) 9. Benign prostatic hypertrophy 10. Colonoscopy Screening 11. Eczema 12. NON VA PCP 13. Chronic post-traumatic stress disorder MEDS: Active Outpatient Medications (including Supplies): AMMONIUM LACTATE 12% LOTION APPLY SMALL AMOUNT TOPICALLY ACTIVE TWICE DAILY FOR DRY IRRITATED SKIN Indication: FOR DRY SKIN BREATHE RIGHT EXTRA NASAL STRIPS USE ONE NIGHTLY TOPICALLY ACTIVE AT BEDTIME Indication: FOR NASAL VALVE COLLAPSE GUAIFENESIN 200MG TAB TAKE TWO TABLETS BY MOUTH THREE PENDING TIMES A DAY Indication: FOR COUGH IPRATROPIUM BR 0.03% NASAL SPRAY INSTILL 2 SPRAYS INTO ACTIVE EACH NOSTRIL 1-3 TIMES/DAY FOR NASAL IRRITATION/CONGESTION Indication: RHINITIS Non-VA LORATADINE 10MG TAB 10MG BY MOUTH ONCE DAILY ACTIVE Non-VA LOSARTAN 100MG TAB 100MG BY MOUTH ONCE DAILY ACTIVE Non-VA METOPROLOL SUCCINATE 25MG SA TAB 25MG BY MOUTH ONCE ACTIVE DAILY ALL: Patient has answered NKA Fam Hx: Non - contributory Soc Hx: FORMER SMOKER ROS: Denies any other relavent ROS CONSTITUTION: GENERAL APPEARANCE:Well developed, well nourished and groomed. No apparent acute or chronic distress. OBESE, NO HOARSENESS HEAD, FACE, SALIVARY GLANDS AND TMJ: Palpation of Parotid and Submandibular glands: Normal. Facial Mobility: Normal. Nasal exterior: BILATERAL NASAL VALVULAR COLLAPSE, SIGNIFICANT WITH POSITIVE TAMIKA MANEUVER MORE SPECIFICALLY WHEN PULLED LATERAL AND SUPERIOR EAR, NOSE, MOUTH AND THROAT: Pinnas - normal. Otoscopic exam: HEARING AIDS REMOVED FOR THE EXAMINATION RIGHT EAR: External auditory canal normal, tympanic membrane mobile LEFT EAR: External auditory canal normal, tympanic membrane mobile HEARING LOSS Nasal Interior: Turbinates and middle meatus - Inferior turbinates normal. +3 DEVIATION TO THE LEFT Normal mucosa with no swelling, polyps, active bleeding or evidence of bleeding. Lips, Teeth and Gums: Lips normal. Oral Cavity and Oropharynx: Oral mucosa with normal color and moisture. Anterior 2/3rds of tongue normal. Breath quality normal. Hard palate normal. Normal floor of mouth, Posterior pharynx normal. MALLAMPATI 3, ABSENT TONSILS Assessment/Plan FEB 24, 2024: 78-year-old male here for follow-up of his left nasal obstruction with CPAP and postnasal drip. Patient followed up again with respiratory and was complaining of his left nasal obstruction. He is using nasal pillows CPAP with a chinstrap. His left nostril remains clogged. He does use the Breathe Right strips and the ipratropium bromide. He was using Mucinex which he thinks helped with the rhinitis but he ran out. Patient did stop drinking coffee altogether after discussion of our last visit. Patient is planning to retire next week after 54 years working for the [employer]. Physical exam shows bilateral nasal valvular collapse with a positive Tamika maneuver. Patient has a +3 deviation to the left with no evidence of nasal masses. Oral cavity shows Mallampati 3 with absent tonsils. Patient was scoped at the last visit. 1. Nasal obstruction -patient does have a +3 septal deviation to the left as well as bilateral nasal valvular collapse. I again discussed these findings with the patient. I would NOT recommend a septoplasty at his age as it is highly elective and is very painful recovery. I have recommended continuing the use of BreatheRight strips. He expressed understanding. 2. Chronic rhinitis - patient has very thick mucus throughout the larynx as well as evidence of chronic rhinitis. Patient has stopped coffee. He will continue with the ipratropium bromide which is safe for his glaucoma. I have also prescribed guaifenesin. 3. LUCIO - patient has severe LUCIO. I congratulated him for taking care of himself and using his CPAP. 4. Sensorineural hearing loss\tinnitus - patient has bilateral sensorineural hearing loss and tinnitus. Patient was wearing his hearing aids today. I wished the patient luck in his mcc. He asks to follow-up in 6 months. This order was placed. All questions were answered. Complete encounter includes: Review of past medical records Time spent with patient including obtaining history, physical exam, shared decision making, procedures Counseling and answering questions Post visit documentation to include but not limited to medication and lab ordering. Total time = Minimum 25 min MEDICATION RECONCILIATION Outpatient: Has the patient been taking medications as documented in the EMLR? YES: The patient has been taking medications as documented in the EMLR. Essential Medication List for Review used to complete this medication reconciliation. INCLUDED IN THIS LIST: Alphabetical list of active outpatient prescriptions dispensed from this VA (local) and dispensed from another VA or [...] Remote Allergy/ADR Data available for this patient [place] [facility] [place] [facility] No Known Allergies Med Recon NoGlossary (Tool #1) INCLUDED IN THIS LIST: Alphabetical list of active outpatient prescriptions dispensed from this VA (local) and dispensed from another VA or DoD facility (remote) as well as inpatient orders (local pending and active), local clinic medications, locally documented non-VA medications, and local prescriptions that have or been discontinued in the past 90 days. Non-VA Meds Last Documented On: Nov 07, 2023 NOTE The display of VA prescriptions dispensed from another VA or DoD facility (remote) is limited to active outpatient prescription entries matched to National Drug File at the originating site and may not include some items such as investigational drugs, compounds, etc. NOT INCLUDED IN THIS LIST: Medications self-entered by the patient into personal health records (i.e. [facility]) are NOT included in this list. Non-VA medications documented outside this VA, remote inpatient orders (regardless of status) and remote clinic medications are NOT included in this list. The patient and provider must always discuss medications the patient is taking, regardless of where the medication was dispensed or obtained. OUTPT AMMONIUM LACTATE 12% LOTION (Status = Active) APPLY SMALL AMOUNT TOPICALLY TWICE DAILY FOR DRY IRRITATED SKIN Rx# [id number] Last Released: 04/25/23 Qty/Days Supply: 240/30 Rx Expiration Date: 04/23/24 Refills Remainin Indication: FOR DRY SKIN OUTPT GUAIFENESIN 200MG TAB (Status = Pending) TAKE TWO TABLETS BY MOUTH THREE TIMES A DAY Take TID for cough and mucous Login Date: 02/24/24 Qty/Days Supply: 540/90 Refills Ordered: 1 OUTPT IPRATROPIUM BR 0.03% NASAL SPRAY (Status = Active) INSTILL 2 SPRAYS INTO EACH NOSTRIL 1-3 TIMES/DAY FOR NASAL IRRITATION/CONGESTION Rx# [id number] Last Released: 01/20/24 Qty/Days Supply: 90/90 Rx Expiration Date: 10/17/24 Refills Remainin Indication: RHINITIS Non-VA LORATADINE 10MG TAB TAKE ONE TABLET BY MOUTH ONCE DAILY Medication prescribed by Non-VA provider. Non-VA LOSARTAN 100MG TAB TAKE ONE TABLET BY MOUTH ONCE DAILY Non-VA medication not recommended by VA provider. Medication prescribed by Non-VA provider. Non-VA METOPROLOL SUCCINATE 25MG SA TAB TAKE ONE TABLET BY MOUTH ONCE DAILY SUPPLIES OUTPT BREATHE RIGHT EXTRA NASAL STRIPS (Status = Active) USE ONE NIGHTLY TOPICALLY AT BEDTIME FOR NASAL VALVE COLLAPSE Rx# [id number] Last Released: 10/21/23 Qty/Days Supply: Rx Expiration Date: 10/17/24 Refills Remainin Indication: FOR NASAL VALVE COLLAPSE /es/ Ferny Dupree MD Otolaryngology Signed: 02/24/2024 16:53 [facility] DUP[facility] [place]
--- OUTSIDE RECORDS SUMMARY | 2024-02-25 12:53 | XMS_ITS ---
Author Name [facility] [place] [facility] [place] [facility] [place] Address [address] [place] [address] Care Team Providers Care Medical Billing Supervisor Name Role Phone JESUS WARREN Primary Care [...] Relationship to Policy Chan [facility] Apr 11, 2017 [id number] MADONNA CASILLAS PATIENT [employer]TS ([id number]) PRESCRIPT ION [facility] Aug 11, 2017 [id number] MADONNA CASILLAS PATIENT [employer] ([id number]) PRESCRIPT ION [facility] Aug 11, 2017 [id number] MADONNA CASILLAS PATIENT MEDICARE (WNR) MEDICARE (M) PART A Sep 12, 2011 PART A [id number] MADONNA CASILLAS PATIENT MEDICARE (WNR) MEDICARE (M) PART A Sep 12, 2011 PART A [id number] MADONNA CASILLAS PATIENT UNICARE PREFERRED PROVIDER ORGANIZAT TRACI (PPO) [employer] [place] [employer] * Aug 11, 2009 [id number] MADONNA CASILLAS PATIENT Selected Encounter This section includes the information on record at [place] for the Encounter. Date/Time Encounter Type Encounter Description Reason Pro vider Source Aug 12, 2023 02:27 PM Outpatient Encounter TELEPHONE PRIMARY CARE IHE Encounter Template Text not used by [place] Plan of Treatment: Future Appointments (+ 6 months) and Future Tests (+/- 45 days) The Plan of Treatment section includes future care activities for the [facility] [place] [facility] This section includes future appointments and future [...] 2023 01:00 PM [facility] Oct 17, 2023 09:00 AM [facility] [place] [place] [facility] [place] [facility] Nov 07, 2023 01:30 PM AMBULATORY - MEDICINE [facility] [place] [facility] Nov 27, 2023 10:00 AM [facility]ORY - NONE [facility] Active, Pending, and Scheduled Orders This section includes a listing of several types of active, pending, and scheduled orders, including clinic medications orders, diagnostic test orders, procedure orders and consult orders; where the start date of the order is 45 days before the date of the Encounter or 45 days after the date of theEncounter. The data comes from all [facility]. Test Date/Time Test Type Test Details Facility Name Aug 12, 2023 12:42 PM Consult Order PSYCHOTHER JOEY TREJO OUTPT Cons [employer] [facility] Social History: Smoking Status (Most current) and [...] Facil ity Aug 07, 2019 01:20 PM [place]-TO[place]AC[place] 15 YRS OR MORE [facility] Tobacco Use History This section includes a history of the smoking, or tobacco-related health factors, that were collected on or before the date of the Encounter. The data comes from the [place] facility where the Encounter took place. Date/Time Smoking Status/Tobacco Use Comment F acility Aug 07, 2019 01:20 PM [place]-TOBACCO QUIT 15 YRS OR MORE [facility] Encounter Notes: All associated encounter notes This section contains the clinical notes associated to the Encounter. Date/Time Encounter Note(s) Provider Source Aug 12, 2023 02:27 PM TELEPHONE ENCOUNTE R NOTE: LOCAL TITLE: TELEPHONE NOTE/SPECIALTY CLINIC STANDARD TITLE: TELEPHONE ENCOUNTER NOTE DATE OF NOTE: AUG 12, 2023@14:27 ENTRY DATE: AUG 12, 2023@14:27:47 AUTHOR: MAGO GALDAMEZ EXP COSIGNER: URGENCY: STATUS: COMPLETED called stating he Dr Barrera and she recommended to switch to the face mask model # F30i Veterans address and phone numbe have been confirmed. Cell phone is the best phone number to reach the /milka GALDAMEZ GAS STATION CLERK Signed: 08/12/2023 14:29 Receipt Acknowledged By: 08/13/2023 07:26 /milka HOWARD,LEA RESPIRATORY THERAPIST 08/12/2023 15:54 /milka BEY RESPIRATORY THERAPIST 08/12/2023 15:55 /milka BEY RESPIRATORY THERAPIST for MAGO BRUCE [facility]
--- OUTSIDE RECORDS SUMMARY | 2024-02-25 12:53 | XMS_ITS | Encounter Summary ---
Author Name [facility] [place] Address [address] [place] [address] Care Team Providers Care Credit Advisor Name Role Phone JESUS WARREN Primary Care [...] Chan's Name Patient's Relationship to Policy Chan [facility] Apr 11, 2017 [id number] MADONNA CASILLAS PATIENT EXPRESS SCRIPTS ([id number]) PRESCRIPT ION [facility] Aug 11, 2017 [id number] [phone] MADONNA CASILLAS PATIENT EXPRESS SCRIPTS ([id number]) PRESCRIPT ION [facility] Aug 11, 2017 [id number] MADONNA CASILLAS PATIENT MEDICARE (WNR) MEDICARE (M) PART A Sep 12, 2011 PART A [id number] MADONNA CASILLAS PATIENT MEDICARE (WNR) MEDICARE (M) PART A Sep 12, 2011 PART A [id number] MADONNA CASILLAS PATIENT UNICARE PREFERRED PROVIDER ORGANIZAT ION (PPO) [place] RE [employer] INDEM * Aug 11, 2009 [id number] MADONNA CASILLAS PATIENT Selected Encounter This section includes the information on record at [place] for the Encounter. Date/Time Encounter Type Encounter Description Reason Pro vider Source Sep 04, 2023 02:14 PM Outpatient Encounter SLEEP MEDICINE IHE Encounter Template Text not used by [place] Plan of Treatment: Future Appointments (+ 6 months) and Future Tests (+/- 45 days) The Plan of Treatment section includes future care activities for the patient from all [place] treatmentfacilst. [facility]. This section includes future appointments and future orders which are active, pending or scheduled. Future Appointments This section includes appointments that were scheduled to occur 6 months from the date of the Encounter, up to a maximum of 20 appointments. The data comes from all [facility]. Appointment Date/Time Appointment Type Appointme nt Facility Name Sep 27, 2023 01:00 PM AMBULATORY - MEDICINE [facility] Oct 17, 2023 09:00 AM AMBULATORY - MEDICINE [place] [facility] Nov 07, 2023 01:30 PM AMBULATORY - MEDICINE [place] [facility] Nov 27, 2023 10:00 AM AMBULATORY - NONE [place] [facility] Feb 21, 2024 01:00 PM AMBULATORY - MEDICINE [facility] Feb 24, 2024 03:00 PM AMBULATORY - [facility]ICINE [facility] Active, Pending, and Scheduled Orders This section includes a listing of several types of active, pending, and scheduled orders, including clinic medications orders, diagnostic test orders, procedure orders and consult orders; where the start date of the order is 45 days before the date of the Encounter or 45 days after the date of theEncounter. The data comes from all [facility]. Test Date/Time Test Type Test Details Facility Name Aug 12, 2023 12:42 PM Consult Order PSYCHOTHER JOEY TREJO OUTPT Cons Director [employer] [place] Social History: Smoking Status (Most current) and Tobacco Use (All prior to encounter date) This section includes the most current, and the historical, smoking and tobacco- related health factors from the [place] facility where the Encounter took place. Current Smoking Status This section includes the most current smoking, or tobacco-related health factor, from the [place] facility where the Encounter took place. Date/Time Current Smoking Status Comment Facil ity Aug 07, 2019 01:20 PM [place]-TOBACCO QUIT 15 YRS OR MORE [facility] Tobacco Use History This section includes a history of the smoking, or tobacco-related health factors, that were collected on or before the date of the Encounter. The data comes from the [place] facility where the Encounter took place. Date/Time Smoking Status/Tobacco Use Comment F acility Aug 07, 2019 01:20 PM [place]-TOBACCO QUIT 15 YRS OR MORE [facility] Encounter Notes: All associated encounter notes This section contains the clinical notes associated to the Encounter. Date/Time Encounter Note(s) Provider Source Sep 04, 2023 02:14 PM TELEPHONE ENCOUNTE R NOTE: LOCAL TITLE: TELEPHONE NOTE/SPECIALTY CLINIC STANDARD TITLE: TELEPHONE ENCOUNTER NOTE DATE OF NOTE: SEP 04, 2023@14:14 ENTRY DATE: SEP 04, 2023@14:14:34 AUTHOR: GREGORY DELACRUZ EXP COSIGNER: URGENCY: STATUS: COMPLETED RTC orders: Unable to contact patient: Attempts to contact: 1st attempt: Left voicemail 2nd attempt: Letter mailedDisposition onSep 3rd attempt: 4th attempt: /emmett/ GREGORY SCHWARTZ Signed: 09/04/2023 14:14 GREGORY DELACRUZ [place] Sep 04, 2023 02:14 PM PRIMARY CARE LETTE RS: LOCAL TITLE: PATIENT LETTER - SPECIALTY [facility] STANDARD TITLE: PRIMARY CARE LETTERS DATE OF NOTE: SEP 04, 2023@14:14 ENTRY DATE: SEP 04, 2023@14:15:13 AUTHOR: GREGORY DELACRUZ EXP COSIGNER: URGENCY: STATUS: COMPLETED [facility] Telephone number: [phone] EMILIE CASILLAS [address] [place] [address], [phone] SEP 04, 2023 Dear , We would like to assist you in scheduling a Respiratory Therapy appointment at the [place]. We have been unable to reach you by phone. To schedule this appointment please call us at ext. [phone]. Our booking appointment hours are Saturday through Saturday from 8:00 am to 4:00 pm. Please leave a message if you receive voicemail and let us know a good time and telephone number where we can reach you. If we don't hear back from you within 14 days from the date of this letter we will discontinue the request. If you have already scheduled this appointment, please disregard this letter. Your health is important to us. Sincerely, [facility] [address] [place] [address] [place] [address] [facility] [address] [facility] [address] [place] [address] [place] [address] ext. [phone] [facility] [address] [facility] [address] [place] [address] [place] [address] ext. [phone] [facility] [address] [place] [address] ext. [phone] Specialty Outpatient Clinic [address] [place] [address] GREGORY DELACRUZ
--- OUTSIDE RECORDS SUMMARY | 2024-02-25 12:53 | XMS_ITS | Encounter Summary ---
Author Name [facility] [place] Organization [facility] Address [address] [place] [address] Care Team Providers Care Cleaner Wall Name Role Phone JESUS WARREN Primary Care [...] Chan's Name Patient's Relationship to Policy Chan [facility] Apr 11, 2017 [id number] MADONNA CASILLAS PATIENT EXPRESS SCRIPTS ([id number]) PRESCRIPT ION [facility] Aug 11, 2017 [id number] MADONNA CASILLAS PATIENT EXPRESS SCRIPTS ([id number]) PRESCRIPT ION [facility] Aug 11, 2017 [id number] MADONNA CASILLAS PATIENT MEDICARE (WNR) MEDICARE (M) PART A Sep 12, 2011 PART A [id number] MADONNA CASILLAS PATIENT MEDICARE (WNR) MEDICARE (M) PART A Sep 12, 2011 PART A [id number] MADONNA CASILLAS PATIENT UNICARE PREFERRED PROVIDER ORGANIZAT ION (PPO) [place] RE [employer] INDEM * Aug 11, 2009 [id number] MADONNA CASILLAS PATIENT Selected Encounter This section includes the information on record at [place] for the Encounter. Date/Time Encounter Type Encounter Description Reason Provider Source Nov 27, 2023 10:00 AM PATIENT EDUCATION MATERIALS SLEEP MEDICINE ICD-10-CM G47.33 Obstructive sleep apnea (adult) (pediatric) KASEY BEY [facility] Encounter Template Text not used by [place] Assessments - Encounter Diagnoses This section includes the primary and secondary diagnoses documented for the Encounter. Date/Time Primary/Secondary Diagnosis Diagnosis Name Provider Source Dec 12, 2023 12:58 PM PRIMARY Obstructive sleep apnea (adult) (pediatric) KASEY BEY KRYST[place] Plan of Treatment: Future Appointments (+ 6 months) and Future Tests (+/- 45 days) The Plan of Treatment section includes future care activities for the patient from all [place] treatmentfacilities. This section includes future appointments and future orders which are active, pending or scheduled. Future Appointments This section includes appointments that were scheduled to occur 6 months from the date of the Encounter, up to a maximum of 20 appointments. The data comes from all [place] treatment facilities. Appointment Date/Time Appointment Type Appointme nt Facility Name Feb 21, 2024 01:00 PM AMBULATORY - MEDICINE [facility] Feb 24, 2024 03:00 PM AMBULATORY - MEDICINE [place] [facility] [place] [facility] Social History: Smoking Status (Most current) and Tobacco Use (All prior to encounter date) This section includes the most current, and the historical, smoking and tobacco- related health factors from the [place] facility where the Encounter took place. Current Smoking Status This section includes the most current smoking, or tobacco-related health factor, from the [place] facility where the Encounter took place. Date/Time Current Smoking Status Comment Sarah ity Nov 07, 2023 01:30 PM [place]-TOBACCO FORMER USER [facility] Tobacco Use History This section includes a history of the smoking, or tobacco-related health factors, that were collected on or before the date of the Encounter. The data comes from the [place] facility where the Encounter took place. Date/Time Smoking Status/Tobacco Use Comment F acility Nov 07, 2023 01:30 PM VA-TOBACCO QUIT 15 YRS OR MORE [facility] Nov 07, 2022 01:30 PM VA-TOBACCO FORMER USER [facility] Nov 07, 2022 01:30 PM VA-TOBACCO QUIT 15 YRS OR MORE [facility] Nov 09, 2021 09:00 AM VA-TOBACCO FORMER USER [facility] Nov 09, 2021 09:00 AM VA-TOBACCO QUIT 15 YRS OR MORE [facility] Nov 09, 2020 03:00 PM VA-TOBACCO FORMER USER [facility] Nov 09, 2020 03:00 PM VA-TOBACCO QUIT 15 YRS OR MORE [facility] Encounter Notes: All associated encounter notes This section contains the clinical notes associated to the Encounter. Date/Time Encounter Note(s) Provider Source Nov 27, 2023 10:34 AM SLEEP MEDICINE NOT E: LOCAL TITLE: CPAP CLINIC NOTE STANDARD TITLE: SLEEP MEDICINE NOTE DATE OF NOTE: NOV 27, 2023@10:34 ENTRY DATE: NOV 27, 2023@10:34:21 AUTHOR: KASEY BEY COSIGNER: URGENCY: STATUS: COMPLETED diagnosed with sleep apnea had follow up visit after 11/16/2023 for APAP [id number]. Kervin is doing well with use and is 100% compliant, 4 hours or more 67% of the time. Full Airview report follows this note. Kervin is using N30-i medium cushion mask and was fit tested. The issue may be with restricted airflow through nare as he reports waking with an increase in pressure. We discussed alternative masks but he likes the minimal design of the N30-i and the tubing at the top of head. Kervin saw ENT and is using nasal breathe right strips, he is not sure if they help. He reports he was changed to Ipratropium [place] nasal spray but states he uses more than recommended and does not feel it works as well as Afrin. He reports continued frustration over narrowed nasal passage. He is not sure if he was to have follow up with ENT. Kervin was reminded that consistent use > 4 hours a night yield the best benefit. was also cautioned regarding the dangers of untreated apnea. He reports cleaning as recommended. Supplies ordered via [facility] ordering instructions given. He was reminded of the replacement schedule for supplies. He will be followed using AirView and in clinic as needed. Kervin was encouraged to call or email with any issues or concerns. AirView Compliance Report Usage 10/28/2023 - 11/26/2023 Usage days 30/30 days (100%) >= 4 hours 20 days (67%) < 4 hours 10 days (33%) Usage hours 175 hours 30 minutes Average usage (total days) 5 hours 51 minutes Average usage (days used) 5 hours 51 minutes Median usage (days used) 6 hours 45 minutes Total used hours (value since last reset - 11/26/2023) 880 hours AirSense 11 AutoSet Serial number [id number] Mode AutoSet Min Pressure 8 cmH2O Max Pressure 20 cmH2O EPR Fulltime EPR level 3 Response Soft Therapy Pressure - cmH2O Median: 9.9 95th percentile: 13.2 Maximum: 14.6 Leaks - L/min Median: 3.6 95th percentile: 13.6 Maximum: 19.4 Events per hour AI: 1.3 HI: 0.7 AHI: 2.0 Apnea Index Central: 0.0 Obstructive: 1.3 Unknown: 0.0 RERA Index 1.2 Yrn-Gutierres respiration (average duration per night) 0 minutes (0%) /emmett/ KASEY BEY RESPIRATORY THERAPIST Signed: 11/27/2023 10:46 Receipt Acknowledged By: 11/27/2023 11:42 /emmett/ Aurora Dupree MD Otolaryngology KASEY [place]
--- OUTSIDE RECORDS SUMMARY | 2024-02-25 12:53 | XMS_ITS | Encounter Summary ---
Author Name [facility] [place] Organization [place] Address [address] [place] [address] Care Team Providers Care Calf Skinner Name Role Phone JESUS WARREN Primary Care [...] Name Patient's Relationship to Policy Chan [facility] Apr 11, 2017 [id number] [phone] MADONNA CASILLAS PATIENT EXPRESS SCRIPTS ([id number]) PRESCRIPT ION [facility] Aug 11, 2017 [id number] MADONNA CASILLAS PATIENT EXPRESS SCRIPTS ([id number]) PRESCRIPT ION [facility] Aug 11, 2017 [id number] [phone] MADONNA CASILLAS PATIENT MEDICARE (WNR) MEDICARE (M) PART A Sep 12, 2011 PART A [id number] MADONNA CASILLAS PATIENT MEDICARE (WNR) MEDICARE (M) PART A Sep 12, 2011 PART A [id number] MADONNA CASILLAS PATIENT UNICARE PREFERRED PROVIDER ORGANIZAT ION (PPO) [place] RE STATE INDEM * Aug 11, 2009 [id number] MADONNA CASILLAS PATIENT Selected Encounter This section includes the information on record at [place] for the Encounter. Date/Time Encounter Type Encounter Description Reason Pro vider Source Aug 05, 2023 12:00 AM Outpatient Encounter EVENT (HISTORICAL) IHE Encounter Template Text not used by [place] Plan of Treatment: Future Appointments (+ 6 months) and Future Tests (+/- 45 days) The Plan of Treatment section includes future care activities for the patient from all [place] treatmentfacilities. This section includes future appointments and future orders which are active, pending or scheduled. Future Appointments This section includes appointments that were scheduled to occur 6 months from the date of the Encounter, up to a maximum of 20 appointments. The data comes from all [place] treatment facilities. Appointment Date/Time Appointment Type Appointme nt Facility Name Aug 07, 2023 01:00 PM AMBULATORY - PSYCHIATRY [facility] Sep 27, 2023 01:00 PM AMBULATORY - MEDICINE [facility] Oct 17, 2023 09:00 AM AMBULATORY - MEDICINE [place] [facility] Nov 07, 2023 01:30 PM AMBULATORY - MEDICINE [place] [facility] Nov 27, 2023 10:00 AM [facility] [place] [facility] Active, Pending, and Scheduled Orders This section includes a listing of several types of active, pending, and scheduled orders, including clinic medications orders, diagnostic test orders, procedure orders and consult orders; where the start date of the order is 45 days before the date of the Encounter or 45 days after the date of theEncounter. The data comes from all [place] treatment facilities. Test Date/Time Test Type Test Details Facility Name Aug 12, 2023 12:42 PM Consult Order PSYCHOTHER JOEY TREJO OUTPT Cons Mid Teacher's Choice [place] Social History: Smoking Status (Most current) and Tobacco Use (All prior to encounter date) This section includes the most current, and the historical, smoking and tobacco- related health factors from the [place] facility where the Encounter took place. Current Smoking Status This section includes the most current smoking, or tobacco-related health factor, from the [place] facility where the Encounter took place. Date/Time Current Smoking Status Comment Sarah ity Aug 07, 2019 01:20 PM VA-TOBACCO QUIT 15 YRS OR MORE [facility] Tobacco Use History This section includes a history of the smoking, or tobacco-related health factors, that were collected on or before the date of the Encounter. The data comes from the [place] facility where the Encounter took place. Date/Time Smoking Status/Tobacco Use Comment F acchristy Aug 07, 2019 01:20 PM VA-TOBACCO QUIT 15 YRS OR MORE [facility] Encounter Notes: All associated encounter notes This section contains the clinical notes associated to the Encounter. Date/Time Encounter Note(s) Provider Source Aug 05, 2023 12:00 AM NONVA NOTE: LOCAL TITLE: NON-[place] OUTPATIENT NOTES STANDARD TITLE: NONVA NOTE DATE OF NOTE: AUG 05, 2023 ENTRY DATE: AUG 23, 2023@11:07:49 AUTHOR: ANN BONNER EXP COSIGNER: URGENCY: STATUS: COMPLETED VistA Imaging - Scanned Document SCANNED DOCUMENT SIGNATURE NOT REQUIRED Electronically Filed: 08/23/2023 by: ANN BONNER CORPORATE DEVELOPMENT ANALYST ANN BONNER [facility] Aug 05, 2023 12:00 AM NONVA NOTE: LOCAL TITLE: NON-VA OUTPATIENT NOTES STANDARD TITLE: NONVA NOTE DATE OF NOTE: AUG 05, 2023 ENTRY DATE: AUG 23, 2023@11:09:21 AUTHOR: ANN BONNER EXP COSIGNER: URGENCY: STATUS: COMPLETED VistA Imaging - Scanned Document SCANNED DOCUMENT SIGNATURE NOT REQUIRED Electronically Filed: 08/23/2023 by: ANN BONNER CORPORATE DEVELOPMENT ANALYST ANN BONNER [facility]
--- OUTSIDE RECORDS SUMMARY | 2024-02-25 12:53 | XMS_ITS | Encounter Summary ---
Author Name [facility] [place] [facility] Address [address] [place] [address] Care Team Providers Care Can Runner Name Role Phone JESUS WARREN Primary Care [...] Chan's Name Patient's Relationship to Policy Chan [facility] Apr 11, 2017 [id number] [phone] MADONNA CASILLAS PATIENT EXPRESS SCRIPTS ([id number]) PRESCRIPT ION [facility] [address] [address] Aug 11, 2017 [id number] MADONNA CASILLAS PATIENT EXPRESS SCRIPTS ([id number]) PRESCRIPT ION [facility] [address] Aug 11, 2017 [id number] MADONNA CASILLAS PATIENT MEDICARE (WNR) MEDICARE (M) PART A Sep 12, 2011 PART A [id number] MADONNA CASILLAS PATIENT MEDICARE (WNR) MEDICARE (M) PART A Sep 12, 2011 PART A [id number] MADONNA CASILLAS PATIENT UNICARE PREFERRED PROVIDER ORGANIZAT ION (PPO) [place] RE [employer] IN[employer]M * Aug 11, 2009 [id number] MADONNA CASILLAS PATIENT Selected Encounter This section includes the information on record at [place] for the Encounter. Date/Time Encounter Type Encounter Description Reason Pro vider Source IHE Encounter Template Text not used by [place]
--- OUTSIDE RECORDS SUMMARY | 2024-02-25 12:53 | XMS_ITS | Encounter Summary ---
Author Name [facility] [place] Organization [place] Address [address] [place] [address] Care Team Providers Care Tape Editor Name Role Phone JESUS WARREN Primary Care [...] Chan's Name Patient's Relationship to Policy Chan [facility] Apr 11, 2017 [id number] [phone] MADONNA CASILLAS PATIENT EXPRESS SCRIPTS ([id number]) PRESCRIPT ION [facility] Aug 11, 2017 [id number] MADONNA CASILLAS PATIENT EXPRESS SCRIPTS ([id number]) PRESCRIPT ION [facility] Aug 11, 2017 [id number] [phone] MADONNA CASILLAS PATIENT MEDICARE (WNR) MEDICARE (M) PART A Sep 12, 2011 PART A [id number] MADONNA CASILLAS PATIENT MEDICARE (WNR) MEDICARE (M) PART A Sep 12, 2011 PART A [id number] MADONNA CASILLAS PATIENT UNICARE PREFERRED PROVIDER ORGANIZAT ION (PPO) [place] [employer] IN[place]M * Aug 11, 2009 [id number] MADONNA CASILLAS PATIENT Selected Encounter This section includes the information on record at [place] for the Encounter. Date/Time Encounter Type Encounter Description Reason Provider Source Sep 02, 2023 04:22 PM COLLJ & INTERPJ DATA EA 30 D TELEPHONE/MEDICIN E ICD-10-CM G47.33 Obstructive sleep apnea (adult) (pediatric) KASEY BEY IHE Encounter Template Text not used by [place] Assessments - Encounter Diagnoses This section includes the primary and secondary diagnoses documented for the Encounter. Date/Time Primary/Secondary Diagnosis Diagnosis Name Provider Source Sep 02, 2023 04:22 PM PRIMARY Obstructive sleep apnea (adult) (pediatric) KASEY BEY [facility] Plan of Treatment: Future Appointments [...] 2023 01:00 PM AM[facility]ULATORY - [facility]ICINE [facility] Oct 17, 2023 09:00 AM AMBULATORY - MEDICINE [place] [facility] Nov 07, 2023 01:30 PM AMBULATORY - MEDICINE [place] [facility] Nov 27, 2023 10:00 AM AMBULATORY - NONE [place] [facility] Feb 21, 2024 01:00 PM AMBULATORY - MEDICINE [facility] Feb 24, 2024 03:00 PM AMBULATORY - MEDICINE [place] [facility] Active, Pending, and Scheduled Orders [...] Consult Order PSYCHOTHER JOEY TREJO OUTPT Cons Alteration Tailor Apprentice's [facility] Social History: Smoking Status (Most current) and [...] Facil ity Aug 07, 2019 01:20 PM [place]-TOBACCO QUIT 15 YRS OR MORE [facility] Tobacco Use History This section includes a history of the smoking, or tobacco-related health factors, that were collected on or before the date of the Encounter. The data comes from the [place] facility where the Encounter took place. Date/Time Smoking Status/Tobacco Use Comment F acility Aug 07, 2019 01:20 PM [place]-TOBACCO QUIT 15 YRS OR MORE [facility] Encounter Notes: All associated encounter notes This section contains the clinical notes associated to the Encounter. Date/Time Encounter Note(s) Provider Source Sep 02, 2023 04:22 PM RESPIRATORY THERAP Y NOTE: LOCAL TITLE: RESPIRATORY THERAPY NOTE(BLANK) STANDARD TITLE: RESPIRATORY THERAPY NOTE DATE OF NOTE: SEP 02, 2023@16:22 ENTRY DATE: SEP 02, 2023@16:22:38 AUTHOR: KASEY BEY EXP COSIGNER: URGENCY: STATUS: COMPLETED Telephone Coding and Documentation: Diagnosis: Sleep Apnea Actual time spent with Patient via telephone: 15 minutes. diagnosed with sleep apnea is working through a few issues. He attempted FFM but finds he gets better seal, lower AHI and a better sleep score with the nasal mask. He however still experiences a ramp up of pressure and he does not know why. RTC will be placed for vet to come to clinic for mask fit/seal. states something closes in his left nostril and he wonders if this is where his difficulty come in. He was on Flonase but his manager transmission suggested he switch to Afrin but it does not work as well he is requesting to see ENT I will alert PCP. AirView Compliance Report Usage 08/03/2023 - 09/01/2023 Usage days 27/30 days (90%) >= 4 hours 24 days (80%) < 4 hours 3 days (10%) Usage hours 185 hours 23 minutes Average usage (total days) 6 hours 11 minutes Average usage (days used) 6 hours 52 minutes Median usage (days used) 7 hours 9 minutes Total used hours (value since last reset - 09/01/2023) 538 hours AirSense 11 AutoSet Serial number [id number] Mode AutoSet Min Pressure 8 cmH2O Max Pressure 20 cmH2O EPR Fulltime EPR level 3 Response Soft Therapy Pressure - cmH2O Median: 9.7 95th percentile: 12.8 Maximum: 14.2 Leaks - L/min Median: 7.4 95th percentile: 22.4 Maximum: 29.9 Events per hour AI: 1.6 HI: 0.5 AHI: 2.1 Apnea Index Central: 0.1 Obstructive: 1.4 Unknown: 0.1 RERA Index 0.6 Yrn-Gutierres respiration (average duration per night) 0 minutes (0%) /emmett/ KASEY BEY RESPIRATORY THERAPIST Signed: 09/02/2023 16:37 Receipt Acknowledged By: 09/04/2023 14:13 /es/ GREGORY SCHWARTZ 09/02/2023 23:19 /emmett/ JESUS WARREN MD Primary Care Physician 09/02/2023 16:39 /emmett/ Aurora Dupree MD Otolaryngology KASEY BEY [place] [facility]
--- OUTSIDE RECORDS SUMMARY | 2024-02-25 12:53 | XMS_ITS | Encounter Summary ---
Author Name [facility] Organization [facility] Address [address] [place] [address] Care Team Providers Care Metal Burrer Name Role Phone JESUS WARREN Primary Care [...] Chan's Name Patient's Relationship to Policy Chan [facility] Apr 11, 2017 [id number] MADONNA CASILLAS PATIENT [employer] ([id number]) PRESCRIPT ION [facility] Aug 11, 2017 [id number] [phone] MADONNA CASILLAS PATIENT [employer] ([id number]) [facility] Aug 11, 2017 [id number] MADONNA CASILLAS PATIENT MEDICARE (WNR) MEDICARE (M) PART A Sep 12, 2011 PART A [id number] [phone] MADONNA CASILLAS PATIENT MEDICARE (WNR) MEDICARE (M) PART A Sep 12, 2011 PART A [id number] MADONNA CASILLAS PATIENT UNICARE PREFERRED PROVIDER ORGANIZAT ION (PPO) [employer] STATE INDEM * Aug 11, 2009 [id number] MADONNA CASILLAS PATIENT Selected Encounter This section includes the information on record at ID for the Encounter. Date/Time Encounter Type Encounter Description Reason Provider Source Feb 21, 2024 01:00 PM OFFICE O/P EST LOW 20 MIN PODIATRY ICD-10-CM L60.3 Nail dystrophy FOREIGN JA[facility] Encounter Template Text not used by ID Assessments - Encounter Diagnoses This section includes the primary and secondary diagnoses documented for the Encounter. Date/Time Primary/Secondary Diagnosis Diagnosis Name Provider Source Feb 21, 2024 01:34 PM PRIMARY Nail dystrophy [facility] Feb 21, 2024 01:34 PM SECONDARY Corns and callosities [facility] [place] Feb 21, 2024 01:34 PM SECONDARY Pain in left foot [facility] [place] Feb 21, 2024 01:34 PM SECONDARY Pain in left toe(s) [facility]EIGN JA[facility]GUI [facility] Feb 21, 2024 01:34 PM SECONDARY Pain in right foot [facility] [place] Feb 21, 2024 01:34 PM SECONDARY Pain in right toe(s) [facility] [place] Feb 21, 2024 01:34 PM SECONDARY Peripheral vascular disease, unspecified SHANIAFOREIGN Olivia KRYSTIAN Plan of Treatment: Future Appointments (+ 6 months) and Future Tests (+/- 45 days) The Plan of Treatment section includes future care activities for the patient from all ID treatmentfacilities. This section includes future appointments and future orders which are active, pending or scheduled. Future Appointments This section includes appointments that were scheduled to occur 6 months from the date of the Encounter, up to a maximum of 20 appointments. The data comes from all ID treatment facilities. Appointment Date/Time Appointment Type Appointme nt Facility Name Feb 24, 2024 03:00 PM AMBULATORY - MEDICINE [facility] [place] [facility] June 11, 2024 01:30 PM [facility] Aug 17, 2024 08:30 AM AMBULATORY - MEDICINE [facility] [place] [facility] Social History: Smoking Status (Most current) and Tobacco Use (All prior to encounter date) This section includes the most current, and the historical, smoking and tobacco- related health factors from the [facility] where the Encounter took place. Current Smoking Status This section includes the most current smoking, or tobacco-related health factor, from the ID facility where the Encounter took place. Date/Time Current Smoking Status Comment Sarah ity Nov 07, 2023 01:30 PM VA-TOBACCO QUIT 15 YRS OR MORE [facility] Tobacco Use History This section includes a history of the smoking, or tobacco-related health factors, that were collected on or before the date of the Encounter. The data comes from the [facility] where the Encounter took place. Date/Time Smoking Status/Tobacco Use Comment F acility Nov 07, 2023 01:30 PM VA-TOBACCO QUIT 15 YRS OR MORE [facility] Nov 07, 2022 01:30 PM VA-TOBACCO FORMER USER [facility] Nov 07, 2022 01:30 PM VA-TOBACCO QUIT 15 YRS OR MORE [place] Nov 09, 2021 09:00 AM VA-TOBACCO FORMER USER [facility] 29, 2022 09:00 AM VA-TOBACCO QUIT 15 YRS OR MORE [facility] 29, 2021 03:00 PM VA-TOBACCO FORMER USER [facility] 29, 2021 03:00 PM VA-TOBACCO QUIT 15 YRS OR MORE [facility] Encounter Notes: All associated encounter notes This section contains the clinical notes associated to the Encounter. Date/Time Encounter Note(s) Provider Source Feb 21, 2024 10:19 AM PODIATRY NOTE: LOCAL TITLE: PODIATRY NOTE STANDARD TITLE: PODIATRY NOTE DATE OF NOTE: FEB 21, 2024@10:19 ENTRY DATE: FEB 21, 2024@10:19:32 AUTHOR: FOREIGN JAUREGUI EXP COSIGNER: URGENCY: STATUS: COMPLETED PATIENT IS A 1ST RESPONDER AND HAS RECEIVED BOTH VACCINES +2 BOOSTERS THROUGH WORK WITH THE [facility] LAST SEEN FOR TREATMENT: 09/27/2023 S: Pt. is a 78 yo alert WDWN CAUC MALE who presents [...] varices noted and there is +2 edema noted BILAT. MUSCULOSKELETAL: Exam reveals muscle strength and tone [...] present physical-medical status. Protective sensation utilizing a [place] lOg monofilament is 05/10 bilateral. NOTE: NEW CONCERN OF A NUMBNESS ANAD SHARP PAIN TOES 2-3-4 AND UPON PALPATION NOTE A + ROSI'S SIGN AND THIS IS INTERMITTENTLY I HAVE ADVSIED THAT HE CALL IF THIS INCREASES IN TIME AND SEVERITY. BIOMECHANICAL: Exam is deferred at this time as non-contributory to the cc . 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 P: Treatment [...] underlying medical conditions. *TUBE FOAM 5TH RT DISCUSSED [employer] AND [employer] RTC: 24 Weeks *DISCUSSED NEW PROTOCOLS AND CALLED GREGORY ALBRECHT I DISCUSSED THE FINDINGS & PLAN WITH PATIENT (UNCHANGED SINCE PREVIOUS VISIT) & PATIENT AGREES AND UNDERSTANDS PLAN Medication Reconciliation: PERFORMED TODAY - SEE BELOW. Outpatient: Has the patient been taking medications as documented in the EMLR? YES: The patient has been taking medications as documented in the EMLR. Essential Medication List for Review used to complete this medication reconciliation. INCLUDED IN THIS LIST: Alphabetical list of active outpatient prescriptions dispensed from this [facility] (local) and dispensed from another ID or DoD facility (remote) as well as [...] Remote Allergy/ADR Data available for this patient [facility] [place] [facility] No Known Allergies Med [facility] [place] (Tool #1) INCLUDED IN THIS LIST: Alphabetical list of active outpatient prescriptions dispensed from this ID (local) and dispensed from another VA or [...] the patient into personal health records (i.e. [employer]) are NOT included in this list. Non-VA medications documented outside this ID, remote inpatient orders (regardless of status) and remote clinic medications are NOT included in this list. The patient and provider must always discuss medications the patient is taking, regardless of where the medication was dispensed or obtained. OUTPT AMMONIUM LACTATE 12% LOTION (Status = Active) APPLY SMALL AMOUNT TOPICALLY TWICE DAILY FOR DRY IRRITATED SKIN Rx# [id number] Last Released: 04/25/23 Qty/Days Supply: Rx Expiration Date: 04/23/24 Refills Remainin Indication: FOR DRY SKIN OUTPT IPRATROPIUM BR 0.03% NASAL SPRAY (Status = Active) INSTILL 2 SPRAYS INTO EACH NOSTRIL 1-3 TIMES/DAY FOR NASAL IRRITATION/CONGESTION Rx# [id number] Last Released: 01/20/24 Qty/Days Supply: Rx Expiration Date: 10/17/24 Refills [...] AT BEDTIME FOR NASAL VALVE COLLAPSE Rx# [id number] Last Released: 10/21/23 Qty/Days Supply: Rx Expiration Date: 10/17/24 Refills Remainin Indication: FOR NASAL VALVE COLLAPSE /es/ FOREIGN JAUREGUI DPM [employer] WORKER Signed: 02/21/2024 13:36 FOREIGN JAUREGUI [place]
--- OUTSIDE RECORDS SUMMARY | 2024-02-25 12:53 | XMS_ITS | Encounter Summary ---
Author Name [facility] Organization [facility] [place] Address [address] [place] [address] Care Team Providers Care Clinical Outcomes Manager Name Role Phone JESUS WARREN Primary Care [...] Chan's Name Patient's Relationship to Policy Chan [facility] Apr 11, 2017 [id number] [phone] MADONNA CASILLAS PATIENT [employer] ([id number]) [facility] Aug 11, 2017 [id number] [phone] MADONNA CASILLAS PATIENT [employer] ([id number]) [facility] Aug 11, 2017 [id number] MADONNA CASILLAS PATIENT MEDICARE (WNR) MEDICARE (M) PART A Sep 12, 2011 PART A [id number] [phone] MADONNA CASILLAS PATIENT MEDICARE (WNR) MEDICARE (M) PART A Sep 12, 2011 PART A [id number] MADONNA CASILLAS PATIENT UNICARE PREFERRED PROVIDER ORGANIZAT ION (PPO) [facility] RE STATE INDEM * Aug 11, 2009 [id number] MADONNA CASILLAS PATIENT Selected Encounter This section includes the information on record at OR for the Encounter. Date/Time Encounter Type Encounter Description Reason Provider Source Nov 07, 2023 01:30 PM OFFICE O/P EST LOW 20 MIN PRIMARY CARE/MEDICINE ICD-10-CM I10 Essential (primary) hypertension JESUS WARREN [place] Encounter Template Text not used by OR Assessments - Encounter Diagnoses This section includes the primary and secondary diagnoses documented for the Encounter. Date/Time Primary/Secondary Diagnosis Diagnosis Name Provider Source Nov 24, 2023 12:53 PM PRIMARY Essential (primary) hypertension MILKA MONTGOMERY Nov 24, 2023 12:53 PM SECONDARY Encounter for immunization MILKA MONTGOMERY Plan of Treatment: Future Appointments (+ 6 [...] Nov 27, 2023 10:00 AM [facility] Feb 21, 2024 01:00 PM [facility] - [facility] Feb 24, 2024 03:00 PM AMBULATORY - MEDICINE [place] [facility] Immunizations: All administered on the encounter date This section contains immunizations associated to the Encounter. Immunization Series Date Issued Reaction Comments COVID-19 (MODERNA), MRNA, LN P-S, PF, 50 MCG/0.5 ML (AGES 12+ YEARS) Nov 07, 2023 wants INFLUENZA, HIGH-DOSE, TRIVALENT, PF Nov 06 Social History: Smoking Status (Most current) and Tobacco Use (All prior to encounter date) This section includes the most current, and the historical, smoking and tobacco- related health factors from the [facility] facility where the Encounter took place. Current Smoking Status This section includes the most current smoking, or tobacco-related health factor, from the [facility] where the Encounter took place. Date/Time Current Smoking Status Comment Sraah ity Nov 07, 2023 01:30 PM VA-TOBACCO FORMER USER [place] Tobacco Use History This section includes a history of the smoking, or tobacco-related health factors, that were collected on or before the date of the Encounter. The data comes from the [place] facility where the Encounter took place. Date/Time Smoking Status/Tobacco Use Comment F acility Nov 07, 2023 01:30 PM VA-TOBACCO QUIT 15 YRS OR MORE [place] Nov 07, 2022 01:30 PM VA-TOBACCO FORMER USER [place] Nov 07, 2022 01:30 PM VA-TOBACCO QUIT 15 YRS OR MORE [place] Nov 09, 2021 09:00 AM VA-TOBACCO FORMER USER [place] Nov 09, 2021 09:00 AM VA-TOBACCO QUIT 15 YRS OR MORE [place] Nov 09, 2020 03:00 PM VA-TOBACCO FORMER USER [facility] 29, 2021 03:00 PM VA-TOBACCO QUIT 15 YRS OR MORE [place] Encounter Notes: All associated encounter notes This section contains the clinical notes associated to the Encounter. Date/Time Encounter Note(s) Provider Source Nov 07, 2023 01:49 PM PREVENTIVE MEDICIN E NURSING NOTE: LOCAL TITLE: CLINICAL REMINDERS/NURSING STANDARD TITLE: PREVENTIVE MEDICINE NURSING NOTE DATE OF NOTE: NOV 07, 2023@13:49 ENTRY DATE: NOV 07, 2023@13:49:08 AUTHOR: LAURA MONTGOMERY COSIGNER: URGENCY: STATUS: COMPLETED CLINICAL REMINDERS/NURSING Has ADDENDA Advance Directive Screen MH AD: Patient does not have a completed advance directive on file at any facility, OR or outside. S/he is not interested in completing one at this time. The patient received education about Advance Directives and written notification of his/her rights. Suicide Screen: C-SSRS Screening [place] Suicide Severity Rating Scale (C-SSRS) screener 1. Over the past month, have you wished you were or wished you could go to sleep and not wake up? No 2. Over the past month, have you had any actual thoughts of killing yourself? No 3. Over the past month, have you been thinking about how you might do this? Response not required due to responses to other questions. 4. Over the past month, have you had these thoughts and had some intention of acting on them? Response not required due to responses to other questions. 5. Over the past month, have you started to work out or worked out the details of how to kill yourself? Response not required due to responses to other questions. 6. If yes, at any time in the past month did you intend to carry out this plan? Response not required due to responses to other questions. 7. In your lifetime, have you ever done anything, started to do anything, or prepared to do anything to end your life (for example, collected pills, obtained a gun, gave away valuables, went to the roof but didn't jump)? No 8. If YES, was this within the past 3 months? Response not required due to responses to other questions. Follow Up Colonoscopy: Colonoscopy is due based on information available to this reminder. Patient has arranged or is choosing to arrange a Colonoscopy independent of and w/out assistance from this VA. Depression Screening: Perform PHQ-2 A PHQ-2 screen was performed. The score was 0 which is a negative screen for depression. Over the past two weeks, how often have you been bothered by the following problems? 1. Little interest or pleasure in doing things Not at all 2. Feeling down, depressed, or hopeless Not at all Falls & Incontinence Screen: Falls Screen: 4. No falls within the past year. Incontinence Screen No incontinence. Tobacco Use Screening: The patient is a former tobacco user. The patient quit fifteen or more years ago. Influenza Immunization: Deferral / Refusal The patient declines to receive the recommended dose of seasonal influenza vaccine. Immunization: INFLUENZA, UNSPECIFIED FORMULATION Refusal Reason: PATIENT DECISION Patient refuses all immunization(s) in the FLU group Date Documented: 11/07/23 13:51 Alcohol Use Screen (AUDIT-C): Alcohol Screen: SCREEN FOR ALCOHOL (AUDIT-C) An alcohol screening test (AUDIT-C) was negative (score=0). 1. How often did you have a drink containing alcohol in the past year? Consider a drink to be a 12 ounce can or bottle of regular beer, 8 ounces of malt liquor, a 5 ounce glass of table wine, or a 1.5 ounce shot of liquor (like scotch, gin, or vodka). Never 2. How many drinks containing alcohol did you have on a typical day when you were drinking in the past year? Response not required due to responses to other questions. 3. How often did you have six or more drinks on one occasion in the past year? Response not required due to responses to other questions. COVID-19 Immunization: Referred to another clinic for immunization (desired vaccine unavailable at this location) Sexual Orientation: The patient thinks of their sexual orientation as: Straight or Heterosexual RHS Screen: RHS Screen Session Format: Face to Face Environmental Check Upon inquiry, the individual reports that the environment is safe to proceed. Informed Consent to Screen and Document The individual consents to proceed with screening. The individual consents to documentation of responses. PRIMARY SCREEN: In the past 12 months, how often did a current or former intimate partner (e.g., boyfriend, girlfriend, , , sexual partner): 1. Scream or curse at you Never 2. Insult or talk down to you Never 3. Threaten you with harm Never 4. Physically hurt you Never 5. Force or pressure you to have sexual contact against your will, or when you were unable to say no Never ?? The HITS tool (items 1-4 above) is US copyright protected by Ha Torres MD, and the user has full rights to use it throughout the [place] system. PRIMARY SCREEN RESULT: The Primary Screen is NEGATIVE. The individual answered never to all forms of IPV above (i.e., answered never to all 5 items) The individual accepts education and/or resources: No EDUCATION: The individual indicated readiness to learn. Education offered during this session as noted above. The individual indicated understanding by asking relevant questions and making appropriate comments. No barriers to learning were observed or identified. /emmett/ LAURA MONTGOMERY LPN PACY[place]abel 10 Signed: 11/07/2023 13:52 11/07/2023 ADDENDUM STATUS: COMPLETED Influenza Immunization: Influenza, High-Dose, Trivalent, Preservative Free (Fluzone-Syringe) Administered: INFLUENZA, HIGH-DOSE, TRIVALENT, PF Date Administered: Nov 07, 2023 13:30 Machine Shop Inspector: SANOFI PASTEUR Lot: [id number] Exp Date: Aug 10, 2024 [facility]: [id number] Admin Route/Site: INTRAMUSCULAR/LEFT DELTOID Dosage: 0.5mL Vaccine Information Statement(s): INFLUENZA(FLU) VACC(INACTIVATED OR RECOMBINANT)VIS Sep 16, 2020 ([place]) Order By: Policy Administered By: Laura Montgomery Override Reason: wants The Influenza Vaccine Information Statement (VIS) was reviewed with the patient/caregiver which lists the benefits and risks of the vaccine and the risks of not receiving the Influenza vaccine. The patient/caregiver denied any prior severe reaction to this vaccine or its components or a severe allergic reaction, such as anaphylaxis, to any vaccine or any injectable therapy. The patient/caregiver gave verbal consent to receive the vaccine. COVID-19 Immunization: Moderna Monovalent (Spikevax) Administered: COVID-19 (MODERNA), MRNA, LNP-S, PF, 50 MCG/0.5 ML (AGES 12+ YEARS) Date Administered: Nov 07, 2023 13:30 Series: Booster Machine Shop Inspector: [id number]. Lot: [id number] Exp Date: Dec 15, 2023 [facility]: [phone] Admin Route/Site: INTRAMUSCULAR/RIGHT DELTOID Dosage: 0.5mL Vaccine Information Statement(s): COVID-19 MRNA VACCINE (12+ YRS) VACCINE VIS Nov 29, 2022 ([place]) Order By: Policy Administered By: Laura Montgomery Comment: wants Vaccine administered without complications. /emmett/ LAURA MONTGOMERY LPN PACT 10 Signed: 11/07/2023 14:08 LAURA MONTGOMERY [place] Nov 07, 2023 12:18 PM PHYSICIAN NOTE: LOCAL TITLE: MD NOTE STANDARD TITLE: PHYSICIAN NOTE DATE OF NOTE: NOV 07, 2023@12:18 ENTRY DATE: NOV 07, 2023@12:19:03 AUTHOR: JESUS WARREN EXP COSIGNER: URGENCY: STATUS: COMPLETED HISTORY OF PRESENT ILLNESS: EMILIE CASILLAS is a 78 yo MALE who presents at the [facility] for his annual visit. He maintains a nonVA PCP: Dr Davila at [facility]. He utilizes podiatry, audiology, ENT, and respiratory services at the OR. NonVA Providers: GI: Dr Whitaker Orthopedics: [facility] - Dr Chanel Opthalmologist: Dr Dustin Bright Urologist: Dr Paz ([facility]) Active problems - Computerized Problem List is the source for the followin. Obstructive sleep apnea 2. Exposure to potentially hazardous substance 3. Obesity 4. Tinnitus 5. Sensorineural hearing loss, bilateral 6. Allergic rhinitis 7. HTN - Hypertension 8. OA - Osteoarthritis 9. Benign prostatic hypertrophy 10. Colonoscopy Screening 11. Eczema 12. NON VA PCP 13. Chronic post-traumatic stress disorder Active and Recently Outpatient Medications (including Supplies): Active Outpatient Medications Status ======= 1) AMMONIUM LACTATE 12% LOTION APPLY SMALL AMOUNT ACTIVE TOPICALLY TWICE DAILY FOR DRY IRRITATED SKIN 2) BREATHE RIGHT EXTRA NASAL STRIPS USE ONE NIGHTLY ACTIVE TOPICALLY AT BEDTIME FOR NASAL VALVE COLLAPSE 3) IPRATROPIUM BR 0.03% NASAL SPRAY INSTILL 2 SPRAYS ACTIVE INTO EACH NOSTRIL 1-3 TIMES/DAY FOR NASAL IRRITATION/CONGESTION Active Non-VA Medications Status ======= 1) Non-VA LORATADINE 10MG TAB 10MG BY MOUTH ONCE DAILY ACTIVE 2) Non-VA LOSARTAN 100MG TAB 100MG BY MOUTH ONCE DAILY ACTIVE 3) Non-VA METOPROLOL SUCCINATE 25MG SA TAB 25MG BY MOUTH ACTIVE ONCE DAILY 6 Total Medications ALLERGIES: ========= Patient has answered NKA HISTORY: PERIOD OF SERVICE - [facility] FROM Dec TO Dec COMBAT SERVICE INDICATED: No VITAL SIGNS: Blood Pressure 138/78 (11/07/2023 13:48) Pulse 93 (11/07/2023 13:48) Respiration 18 (11/07/2023 13:48) Pulse Oximetry 93% (11/07/2023 13:48) Temperature 98.5 F [36.9 C] (11/07/2023 13:48) Pain 0 (11/07/2023 13:48) Height 70 in [177.8 cm] (11/07/2023 13:48) Weight 243.2 lb [110.31 kg] (11/07/2023 13:48) BMI BMI: 35.0 REVIEW OF SYSTEMS: CARDIOVASCULAR: No chest pain, no palpitations RESPIRATORY: No SOB, no wheezing GASTROINTESTINAL: No abd pain, no N/V/D MUSCULOSKELETAL: No joint pain EXAMINATION: GENERAL: WD/WN in NAD HEENT: Moist mucosa NECK: Supple HEART: RRR, S1-S2 LUNGS: CTA B/L ABDOMEN: Soft, NT/ND EXTREMITIES: FROM x 4, no edema ASSESSMENT/PLAN: 1. Hypertension: well controlled on losartan 100mg/day and metoprolol succinate 25mg/day 2. Edema B/L LE's: wears compression stockings 20-30mm 3. Sleep Apnea: on CPAP 4. Eczema: on clobetasol 0.05% ointment BID prn 5. Allergic Rhinitis: on ipratropium bromide NS and loratidine 10mg/day 6. Hearing Loss: wears hearing aids, followed by [facility] 7. Obesity: BMI 35, encouraged weight loss 8. Sleep Apnea: on CPAP FOLLOW UP 1 year - Annual - vet to bring PCP labs ========= UPCOMING APPOINTMENTS: 11/27/2023 10:00 CWM/SO/SLEEP DME/WITH EDU 02/21/2024 13:00 CWM/SO/PODIATRY/SHANIA No barriers; Patient understands and agrees to current treatment plan. If pt has any questions, concerns, or changes in current health status he/she will call or come in to the VA. Follow Up Colonoscopy: Colonoscopy is due based on information available to this reminder. Patient has arranged or is choosing to arrange a Colonoscopy independent of and w/out assistance from this OR. Medication Reconciliation: Outpatient: Has the patient been taking medications as documented in the EMLR? YES: The patient has been taking medications as documented in the EMLR. Essential Medication List for Review used to complete this medication reconciliation. INCLUDED IN THIS LIST: Alphabetical list of active outpatient prescriptions dispensed from this OR (local) and dispensed from another VA or [...] Remote Allergy/ADR Data available for this patient [place] [facility] [place] No Known Allergies Med Recon NoGlossary (Tool #1) INCLUDED IN THIS LIST: Alphabetical list of active outpatient prescriptions dispensed from this OR (local) and dispensed from another VA or [...] the patient into personal health records (i.e. [facility]) are NOT included in this list. Non-VA medications documented outside this OR, remote inpatient orders (regardless of status) and remote clinic medications are NOT included in this list. The patient and provider must always discuss medications the patient is taking, regardless of where the medication was dispensed or obtained. ------ OUTPT AMMONIUM LACTATE 12% LOTION (Status = Active) APPLY SMALL AMOUNT TOPICALLY TWICE DAILY FOR DRY IRRITATED SKIN Rx# [id number] Last Released: 04/25/23 Qty/Days Supply: 240/30 Rx Expiration Date: 04/23/24 Refills Remainin Indication: FOR DRY SKIN OUTPT IPRATROPIUM BR 0.03% NASAL SPRAY (Status = Active) INSTILL 2 SPRAYS INTO EACH NOSTRIL 1-3 TIMES/DAY FOR NASAL IRRITATION/CONGESTION Rx# [id number] Last Released: 10/24/23 Qty/Days Supply: 90/90 Rx Expiration Date: 10/17/24 Refills Remainin Indication: RHINITIS Non-VA LORATADINE 10MG TAB TAKE ONE TABLET BY MOUTH ONCE DAILY Medication prescribed by Non-VA provider. Non-VA LOSARTAN 100MG TAB TAKE ONE TABLET BY MOUTH ONCE DAILY Non-VA medication not recommended by VA provider. Medication prescribed by Non-VA provider. Non-VA METOPROLOL SUCCINATE 25MG SA TAB TAKE ONE TABLET BY MOUTH ONCE DAILY ------ SUPPLIES ------ OUTPT BREATHE RIGHT EXTRA NASAL STRIPS (Status = Active) USE ONE NIGHTLY TOPICALLY AT BEDTIME FOR NASAL VALVE COLLAPSE Rx# [id number] Last Released: 10/21/23 Qty/Days Supply: Rx Expiration Date: 10/17/24 Refills Remainin Indication: FOR NASAL VALVE COLLAPSE /es/ JESUS WARREN MD Primary Care Physician Signed: 11/07/2023 14:06 JESUS WARREN
--- OUTSIDE RECORDS SUMMARY | 2024-02-25 12:53 | XMS_ITS | Encounter Summary ---
Author Name [facility] [facility] [place] [facility] [place] Address [address] [place] [address] Care Team Providers Care Surface Water Manager Name Role Phone JESUS WARREN Primary [...] Patient's Relationship to Policy Chan [facility] Apr 11, 2017 [facility] [id number] MADONNA CASILLAS PATIENT [employer] S[employer] ([id number]) PRESCRIPT ION [facility] Aug 11, 2017 [id number] [phone] MADONNA CASILLAS PATIENT [employer] S[employer] ([id number]) PRESCRIPT ION [facility] Aug 11, 2017 [id number] [phone] MADONNA CASILLAS PATIENT MEDICARE (WNR) MEDICARE (M) PART A Sep 12, 2011 PART A [id number] [phone] MADONNA CASILLAS PATIENT MEDICARE (WNR) MEDICARE (M) PART A Sep 12, 2011 PART A [id number] MADONNA CASILLAS PATIENT UNICARE PREFERRED PROVIDER ORGANIZAT ION (PPO) [facility] * Aug 11, 2009 [id number] [phone] MADONNA CASILLAS PATIENT Selected Encounter This section includes the information on record at [place] for the Encounter. Date/Time Encounter Type Encounter Description Reason Provider Source Oct 17, 2023 09:00 AM OFF/OP CONSLTJ NEW/EST [place] 55 OTOLARYNGOLOGY/EN T ICD-10-CM G47.33 Obstructive sleep apnea (adult) (pediatric) FERNY DUPREE [facility] Encounter Template Text not used by [place] Assessments - Encounter Diagnoses This section includes the primary and secondary diagnoses documented for the Encounter. Date/Time Primary/Secondary Diagnosis Diagnosis Name Provider Source Jan 06, 2024 10:35 AM PRIMARY Obstructive sleep apnea (adult) (pediatric) RICARDO DUPREE [place] [facility] [place] [facility] Jan 06, 2024 10:35 AM SECONDARY Chronic rhinitis RICARDO DURPEE [place] [facility] [place] [facility] Jan 06, 2024 10:35 AM SECONDARY Sensorineural hearing loss, bilateral RICARDO DUPREE [facility] [place] [facility] Plan of Treatment: Future Appointments (+ 6 months) and Future Tests (+/- 45 days) The Plan of Treatment section includes future care activities for the patient from all [place] treatmentfacilities. This section includes future appointments and future orders which are active, pending or scheduled. Future Appointments This section includes appointments that were scheduled to occur 6 months from the date of the Encounter, up to a maximum of 20 appointments. The data comes from all [place] treatment facilities. Appointment Date/Time Appointment Type Appointme nt Facility Name Nov 07, 2023 01:30 PM AMBULATORY - MEDICINE [place] [facility] [place] [facility] Nov 27, 2023 10:00 AM AMBULATORY - NONE [place] [facility] [place] [facility] Feb 21, 2024 01:00 PM [facility] Feb 24, 2024 03:00 PM AMBULATORY - MEDICINE [facility] [place] [facility] Vital Signs: All taken on the encounter date This section contains inpatient and outpatient Vital Signs collected on the date of the Encounter. Date/Time Temperature Pulse Blood Pressure Respiratory Rate SP02 Pain Height Weight Body Mass Index Source Oct 17, 2023 09:03 AM 97.2 84 127/77 16 97 0 244.9 35 [facility] Social History: Smoking Status (Most current) and Tobacco Use (All prior to encounter date) This section includes the most current, and the historical, smoking and tobacco- related health factors from the [place] facility where the Encounter took place. Current Smoking Status This section includes the most current smoking, or tobacco-related health factor, from the [place] facility where the Encounter took place. Date/Time Current Smoking Status Comment Facil ity Aug 07, 2019 01:20 PM HI-TOBACCO QUIT 15 YRS OR MORE [facility] Tobacco Use History This section includes a history of the smoking, or tobacco-related health factors, that were collected on or before the date of the Encounter. The data comes from the [place] facility where the Encounter took place. Date/Time Smoking Status/Tobacco Use Comment F acility Aug 07, 2019 01:20 PM HI-TOBACCO QUIT 15 YRS OR MORE [facility] Encounter Notes: All associated encounter notes This section contains the clinical notes associated to the Encounter. Date/Time Encounter Note(s) Provider Source Oct 17, 2023 09:06 AM OTOLARYNGOLOGY CONSULT: [facility] TITLE: CONSULT REPORT/OTOLARYNGOLOGY STANDARD TITLE: OTOLARYNGOLOGY CONSULT DATE OF NOTE: OCT 17, 2023@09:06 ENTRY DATE: OCT 17, 2023@09:07:01 AUTHOR: FERNY DUPREE COSIGNER: URGENCY: STATUS: COMPLETED CONSULT REPORT/OTOLARYNGOLOGY Has ADDENDA CONSULT REQUESTED FROM JESUS WARREN OCT 17, 2023 EMILIE CASILLAS ESTEVAN is a 78 y/o FORMER smoker [employer], previously in [employer] FROM Dec TO Dec from [facility] [place], w/chief complaint of LEFT NOSTRIL COLLAPSES HAVING DIFFICULTY WITH CPAP 78-year-old male referred secondary to left nasal [...] 6. Allergic rhinitis 7. HTN - Hypertension ([facility] [id number]) 8. OA - Osteoarthritis ([facility] [id number]) 9. Benign prostatic hypertrophy 10. Colonoscopy Screening 11. Eczema 12. NON VA PCP 13. Chronic post-traumatic stress disorder Service Connected Disabilities with % Eligibility: SERVICE CONNECTED 50% to 100% VERIFIED Total S/C %: 70 2ND DEGREE GILES 0% S/C VARICOSE VEINS 10% S/C TINNITUS 10% S/C VARICOSE VEINS 10% S/C POST-TRAUMATIC STRESS DISORDER 50% S/C ECZEMA 10% S/C IMPAIRED HEARING 0% S/C MEDS: Active Outpatient Medications (including Supplies): AMMONIUM [...] CAP 0.4MG BY MOUTH ONCE DAILY ACTIVE ALL: Patient has answered NKA Fam Hx: Non - contributory Soc Hx: FORMER SMOKER, STOPPED IN 1976 ROS: Denies any other relavent ROS 10/17/23 09:03 T: 97.2 F (36.2 C) P: 84 R: 16 B/P: 127/77 Wt: 244.90 lb (111.08 kg) Body Mass Index: 35* Pulse Oximetry: 97% via AT REST Pain: 0 - No pain CONSTITUTION: GENERAL APPEARANCE:Well developed, well nourished and groomed. No apparent acute or chronic distress. OBESE, NO HOARSENESS HEAD, FACE, SALIVARY GLANDS AND TMJ: Palpation of Parotid and Submandibular glands: Normal. Facial Mobility: Normal. Nasal exterior: BILATERAL NASAL VALVULAR COLLAPSE, SIGNIFICANT WITH POSITIVE RAFAEL MANEUVER MORE SPECIFICALLY WHEN PULLED LATERAL AND SUPERIOR EAR, NOSE, MOUTH AND THROAT: Pinnas - normal. Otoscopic exam: RIGHT EAR: External auditory canal normal, tympanic [...] Posterior pharynx normal. MALLAMPATI 3, ABSENT TONSILS NECK AND THYROID: Neck: no adenopathy; no neck masses. RESPIRATORY: Respiratory effort normal. LYMPH NODES: Neck nodes: normal. NEUROLOGIC: Higher integrative functions: Normal orientation, memory, attention span and concentration, language, and fund of knowledge. Cranial nerves: Cranial nerves II-XII grossly intact and symmetrical. PSYCHIATRIC: Mood and affect: normal and appropriate to the situation. Polysomnogram dated 03-01-2023 [facility] Overall AHI: 39.1 Mean oxygen saturation: 92% Lowest oxygen saturation 71% Heavy snoring Time with SaO2 less than 88% equals 22.5 BMI equal 33.7 The oxygen saturation generally was 90 to 93%. In response to the respiratory events a decline to as low as 71%. Frequent obstructive respiratory events with associated oxygen desaturation were noted during the study. The sleep questionnaire noted acting out dreams, daytime fatigue, difficulty falling asleep, dream during short naps, dry mouth, frequent urination at night, gasping arousals, grinding teeth, leg jerks, loud snoring that bothers others, mouth breathing, nasal congestion. [id number] Nasal Endoscopy; Diagnostic Modifiers: -50 Bilateral Procedure Informed consent was obtained. Risks, benefits, and alternatives were discussed. ANESTHESIA: Topical 4% Lidocaine and oxymetazoline PROCEDURE NOTE: FINDINGS: NO POLYPS Nasal septum -+3 DEVIATION TO THE LEFT Right inferior turbinate - normal Right middle turbinate - normal Right middle meatus -SURGICAL MEATUS Right sphenoethmoid recess - normal Right posterior choanae - normal Left inferior turbinate - normal Left middle turbinate - normal Left middle meatus - normal Left sphenoethmoid recess -normal Left posterior chonae - normal Adenoid - ABSENT, POSTSURGICAL SCARRING FINDINGS: SIGNIFICANT MUCUS THROUGHOUT THE LARYNX, THICK POSITIVE RAND'S MANEUVER Base of Tongue: GENEROUS Posterior Pharynx: COBBLESTONING Lateral Pharynx: Normal Vallecula: Normal Epiglottis: Normal Pyriform Sinus: Normal Arytenoids: Normal Interarytenoid Space: Normal False Cord: Normal True Cord Mucosa: Normal Larynx Mobility: Normal Subglottic Space: Normal TOLERANCE: Good ESTIMATED BLOOD LOSS: nil PROCEDURE: After vasoconstriction and topical anesthesia was establish the endoscope was introduced into the right nasal airway and structures from the nares to the posterior choanae were evaluated. The scope was then removed and the same procedure repeated on the opposite side. The findings are noted above. TOLERANCE: Good Assessment/Plan OCT 16, 2023: 78-year-old male referred secondary to left nasal [...] states that he drinks very little water. Physical exam shows obese male with no hoarseness or stridor. Patient has bilateral nasal valvular collapse with a positive Rafael maneuver. Patient has a +3 deviation to the left with no evidence of nasal masses. Oral cavity shows Mallampati 3 with absent tonsils. Endoscopy shows +3 deviation to the left, no evidence of polyps or masses. Generous base of tongue with a positive Rand's maneuver. Vocal folds are symmetrically mobile with significant thick mucus throughout the larynx and cobblestoning in the posterior pharynx. 1. Nasal obstruction -patient does have a +3 septal deviation to the left as well as bilateral nasal valvular collapse. I discussed these findings with the patient. I would not recommend a septoplasty at his age as it is highly elective and is very painful recovery. I have recommended the use of Breathe Right strips which should definitely help with his nasal valvular collapse. I discussed that proper placement is essential. He expressed understanding. 2. Chronic rhinitis -patient has very thick mucus throughout the larynx as well as evidence of chronic rhinitis. We discussed the importance of increasing his hydration. I also strongly recommended decreasing his coffee intake as it can be dehydrating even though it is noncaffeinated. He agrees to do this. I also prescribed ipratropium bromide which is safe in glaucoma and should help with his rhinitis. 3. LUCIO - patient has severe LUCIO. I congratulated him for taking care of himself and using his CPAP. 4. Sensorineural hearing loss\tinnitus - patient has bilateral sensorineural hearing loss and tinnitus. He does have hearing aids which he states he wears sometimes . He is not wearing them today. I have strongly reinforced to him the importance of wearing his hearing aids. Patient will follow-up as needed. All questions were answered. Complete encounter includes: Review of past medical records Time spent with patient including obtaining history, physical exam, shared decision making, procedures Counseling and answering questions Post visit documentation to include but not limited to medication and lab ordering. Total time = Minimum 60 min MEDICATION RECONCILIATION Outpatient: Has the patient been taking medications as documented in the EMLR? YES: The patient has been taking medications as documented in the EMLR. Essential Medication List for Review used to complete this medication reconciliation. INCLUDED IN THIS LIST: Alphabetical list of active outpatient prescriptions dispensed from this [facility] (local) and dispensed from another [place] or DoD facility (remote) as well as [...] Remote Allergy/ADR Data available for this patient [place] [facility] [place] [facility] No Known Allergies Med [facility] [place] (Tool #1) INCLUDED IN THIS LIST: Alphabetical list of active outpatient prescriptions dispensed from this VA (local) and dispensed from another [place] or DoD facility (remote) as well as [...] the patient into personal health records (i.e. [employer]) are NOT included in this list. Non-VA medications documented outside this [place], remote inpatient orders (regardless of status) and remote clinic medications are NOT included in this list. The patient and provider must always discuss medications the patient is taking, regardless of where the medication was dispensed or obtained. OUTPT AMMONIUM LACTATE 12% LOTION (Status = Active) APPLY SMALL AMOUNT TOPICALLY TWICE DAILY FOR DRY IRRITATED SKIN Rx# [id number] Last Released: 04/25/23 Qty/Days Supply: 240/30 Rx Expiration Date: 04/23/24 Refills Remainin Indication: FOR DRY SKIN Non-VA [...] 1 CAPSULE BY MOUTH ONCE DAILY SUPPLIES /milka Dupree MD Otolaryngology Signed: 10/17/2023 09:53 11/27/2023 ADDENDUM STATUS: COMPLETED Patient saw respiratory therapy and continues to complain of nasal obstruction and mucus. I therefore placed a return to clinic for 3 months to discuss the symptoms. Unfortunately the symptoms are likely to be chronic in nature that will need to be managed medically. /emmett/ Ferny Dupree MD Otolaryngology Signed: 11/27/2023 11:08 FERNY DUPREE [facility]
--- OUTSIDE RECORDS SUMMARY | 2024-02-25 12:53 | XMS_ITS | Encounter Summary ---
Author Name [facility] [place] Address [address] [place] [address] Care Team Providers Care Tail Board Worker Name Role Phone JESUS WARREN Primary Care [...] Patient's Relationship to Policy Chan [facility] Apr 11, 2017 [id number] [phone] MADONNA CASILLAS PATIENT [employer] ([id number]) PRESCRIPT ION [facility] Aug 11, 2017 [id number] MADONNA CASILLAS PATIENT [employer] ([id number]) PRESCRIPT ION [facility] Aug 11, 2017 [id number] MADONNA CASILLAS PATIENT MEDICARE (WNR) MEDICARE (M) PART A Sep 12, 2011 PART A [id number] MADONNA CASILLAS PATIENT MEDICARE (WNR) MEDICARE (M) PART A Sep 12, 2011 PART A [id number] MADONNA CASILLAS PATIENT UNICARE PREFERRED PROVIDER ORGANIZAT ION (PPO) [facility] [facility] * Aug 11, 2009 [id number] MADONNA CASILLAS PATIENT Selected Encounter This section includes the information on record at [place] for the Encounter. Date/Time Encounter Type Encounter Description Reason Provider Source Sep 27, 2023 01:00 PM OFFICE O/P EST LOW 20 MIN PODIATRY ICD-10-CM L60.3 Nail dystrophy SHANIAFOREIGN Olivia [facility] Encounter Template Text not used by [place] Assessments - Encounter Diagnoses This section includes the primary and secondary diagnoses documented for the Encounter. Date/Time Primary/Secondary Diagnosis Diagnosis Name Provider Source Nov 11, 2023 06:25 AM PRIMARY Nail dystrophy SHANIAFOREIGN Olivia [facility] Nov 11, 2023 06:25 AM SECONDARY Corns and callosities SHANIAFOREIGN Olivia [facility] Nov 11, 2023 06:25 AM SECONDARY Pain in left foot SHANIAFOREIGN Olivia [facility] Nov 11, 2023 06:25 AM SECONDARY Pain in left toe(s) SHANIAFOREIGN Olivia [facility] Nov 11, 2023 06:25 AM SECONDARY Pain in right foot FOREIGN JAUREGUI [facility] Nov 11, 2023 06:25 AM SECONDARY Pain in right toe(s) SHANIAFOREIGN Olivia [facility] Nov 11, 2023 06:25 AM SECONDARY Peripheral vascular disease, unspecified SHANIAFOREIGN Corwin [facility] Plan of Treatment: Future Appointments (+ 6 months) and Future Tests (+/- 45 days) The Plan of Treatment section includes future care activities for the patient from all [place] treatmentfacilities. This section includes future appointments and future orders which are active, pending or scheduled. Future Appointments This section includes appointments that were scheduled to occur 6 months from the date of the Encounter, up to a maximum of 20 appointments. The data comes from all [place] treatment facilities. Appointment Date/Time Appointment Type Appointme nt Facility Name Oct 17, 2023 09:00 AM AMBULATORY - MEDICINE [place] [facility] [place] [facility] Nov 07, 2023 01:30 PM AMBULATORY - MEDICINE [place] [facility] [place] [facility] Nov 27, 2023 10:00 AM AMBULATORY - NONE [place] [facility] [place] [facility] Feb 21, 2024 01:00 PM AMBULATORY - MEDICINE [facility] Feb 24, 2024 03:00 PM AMBULATORY - MEDICINE [place] [facility] [place] [facility] Social History: [...] 07, 2022 01:30 PM VA-TOBACCO FORMER USER [facility] Tobacco Use History This section includes a history of the smoking, or tobacco-related health factors, that were collected on or before the date of the Encounter. The data comes from the [place] facility where the Encounter took place. Date/Time Smoking Status/Tobacco Use Comment F acility Nov 07, 2022 01:30 PM VA-TOBACCO QUIT 15 YRS OR MORE [facility] Nov 09, 2021 09:00 AM VA-TOBACCO FORMER USER [facility] Nov 09, 2021 09:00 AM VA-TOBACCO QUIT 15 YRS OR MORE [facility] Nov 09, 2020 03:00 PM VA-TOBACCO FORMER USER [facility] Nov 09, 2020 03:00 PM VA-TOBACCO QUIT 15 YRS OR MORE [facility] Encounter Notes: All associated encounter notes This section contains the clinical notes associated to the Encounter. Date/Time Encounter Note(s) Provider Source Sep 27, 2023 07:54 AM PODIATRY NOTE: LOCAL TITLE: PODIATRY NOTE STANDARD TITLE: PODIATRY NOTE DATE OF NOTE: SEP 27, 2023@07:54 ENTRY DATE: SEP 27, 2023@07:54:48 AUTHOR: FOREIGN JAUREGUI EXP COSIGNER: URGENCY: STATUS: COMPLETED PATIENT IS A 1ST RESPONDER AND HAS RECEIVED BOTH VACCINES + BOOSTER THROUGH WORK WITH [facility] LAST SEEN FOR TREATMENT: 04/23/2023 S: Pt. is a 77 yo alert [...] present physical-medical status. Protective sensation utilizing a Thaxton-Juan Carlos lOg monofilament is 05/10 bilateral. BIOMECHANICAL: [...] *TUBE FOAM 5TH RT RTC: 24 Weeks DISCUSSED MY SWIMMING POOL PROBLEM AND HIS VACATION AT [facility] WITH [facility] *DISCUSSED NEW PROTOCOLS AND CALLED GREGORY TRENA I DISCUSSED THE FINDINGS & PLAN WITH [...] this VA (local) and dispensed from another [place] or DoD facility (remote) as well as [...] Remote Allergy/ADR Data available for this patient [place] [facility] No Known Allergies Med [facility] (Tool #1) INCLUDED IN THIS LIST: Alphabetical list of active outpatient prescriptions dispensed from this [place] (local) and dispensed from another [place] or [facility] facility (remote) as well as inpatient orders (local pending and active), local clinic medications, locally documented non-VA medications, and local prescriptions that have or been discontinued in the past 90 days. Non-VA Meds Last Documented On: Nov 07, 2022 NOTE The display of VA prescriptions dispensed from another [place] or DoD facility (remote) is limited to active outpatient prescription entries matched to National Drug File at the originating site and may not include some items such as investigational drugs, compounds, etc. NOT INCLUDED IN THIS LIST: Medications self-entered by the patient into personal health records (i.e. [facility]) are NOT included in this list. Non-VA medications documented outside this [place], remote inpatient orders (regardless of status) and remote clinic medications are NOT included in this list. The patient and provider must always discuss medications the patient is taking, regardless of where the medication was dispensed or obtained. OUTPT AMMONIUM LACTATE 12% LOTION (Status = Active) APPLY SMALL AMOUNT TOPICALLY TWICE DAILY FOR DRY IRRITATED SKIN Rx# [id number] Last Released: 04/25/23 Qty/Days Supply: 240/30 Rx [...] ONCE DAILY SUPPLIES /emmett/ FOREIGN JAUREGUI DPM FENCE MANUFACTURE SUPERVISOR Signed: 09/27/2023 13:34 FOREIGN JAUREGUI [facility]
--- OUTSIDE RECORDS SUMMARY | 2024-02-25 12:53 | XMS_ITS | Encounter Summary ---
Author Name [place] Address [address] [place] [address] Care Team Providers Care Yard Jockey Name Role Phone JESUS WARREN Primary Care [...] Patient's Relationship to Policy Chan [facility] Apr 11, 2017 [id number] MADONNA CASILLAS PATIENT EXPRESS SCRIPTS ([id number]) PRESCRIPT ION [facility] Aug 11, 2017 [id number] MADONNA CASILLAS PATIENT EXPRESS SCRIPTS ([id number]) PRESCRIPT ION [facility] Aug 11, 2017 [id number] MADONNA CASILLAS PATIENT MEDICARE (WNR) MEDICARE (M) PART A Sep 12, 2011 PART A [id number] MADONNA CASILLAS PATIENT MEDICARE (WNR) MEDICARE (M) PART A Sep 12, 2011 PART A [id number] MADONNA CASILLAS PATIENT UNICARE PREFERRED PROVIDER ORGANIZAT ION (PPO) [place] RE STATE INDEM * Aug 11, 2009 [id number] MADONNA CASILLAS PATIENT Selected Encounter This section includes the information on record at [place] for the Encounter. Date/Time Encounter Type Encounter Description Reason Pro vider Source July 02, 2023 12:00 AM Outpatient Encounter EVENT (HISTORICAL) IHE Encounter Template Text not used by [place] Plan of Treatment: Future Appointments (+ 6 months) and Future Tests (+/- 45 days) The Plan of Treatment section includes future care activities for the patient from all [place] [facility] This section includes future appointments and future orders which are active, pending or scheduled. Future Appointments This section includes appointments that were scheduled to occur 6 months from the date of the Encounter, up to a maximum of 20 appointments. The data comes from all [facility]. Appointment Date/Time Appointment Type Appointme nt Facility Name July 04, 2023 02:00 PM AMBULATORY - NONE [facility] July 10, 2023 11:00 AM AMBULATORY - PSYCHIATRY [facility] Aug 07, 2023 01:00 PM AMBULATORY - PSYCHIATRY [facility] Sep 27, 2023 01:00 PM AMBULATORY - MEDICINE [facility] Oct 17, 2023 09:00 AM AM[facility]ULATORY - [facility]IC[facility] Nov 07, 2023 01:30 PM [facility] Nov 27, 2023 10:00 AM AMBULATORY - NONE [facility] Active, Pending, and Scheduled Orders This section includes a listing of several types of active, pending, and scheduled orders, including clinic medications orders, diagnostic test orders, procedure orders and consult orders; where the start date of the order is 45 days before the date of the Encounter or 45 days after the date of theEncounter. The data comes from all [facility]. Test Date/Time Test Type Test Details Facility Name Aug 12, 2023 12:42 PM Consult Order PSYCHOTHER APY SOPC OUTPT Cons Shot Lighter's Choice [place] Social History: Smoking Status (Most current) and Tobacco Use (All prior to encounter date) This section includes the most current, and the historical, smoking and tobacco- related health factors from the [place] facility where the Encounter took place. Current Smoking Status This section includes the most current smoking, or tobacco-related health factor, from the [place] facility where the Encounter took place. Date/Time Current Smoking Status Comment Facil ity Aug 07, 2019 01:20 PM [place]-TOBACCO QUIT 15 YRS OR MORE [facility] Tobacco Use History This section includes a history of the smoking, or tobacco-related health factors, that were collected on or before the date of the Encounter. The data comes from the [place] facility where the Encounter took place. Date/Time Smoking Status/Tobacco Use Comment F acility Aug 07, 2019 01:20 PM [place]-TOBACCO QUIT 15 YRS OR MORE [facility] Encounter Notes: All associated encounter notes This section contains the clinical notes associated to the Encounter. Date/Time Encounter Note(s) Provider Source July 02, 2023 12:00 AM NONVA NOTE: LOCAL TITLE: NON-VA OUTPATIENT NOTES STANDARD TITLE: NONVA NOTE DATE OF NOTE: JULY 02, 2023 ENTRY DATE: NOV 18, 2023@07:53:45 AUTHOR: KARY SPARKS COSIGNER: URGENCY: STATUS: COMPLETED VistA Imaging - Scanned Document SCANNED DOCUMENT SIGNATURE NOT REQUIRED Electronically Filed: 11/18/2023 by: JOE SPARKS Laborer Electroplating JOE SPARKS [facility]
--- OUTSIDE RECORDS SUMMARY | 2024-02-25 12:53 | XMS_ITS | Encounter Summary ---
Author Name [facility] [place] Address [address] [place] [address] Care Team Providers Care Stake Driver Name Role Phone JESUS WARREN Primary Care [...] Chan's Name Patient's Relationship to Policy Chan [facility] Apr 11, 2017 [id number] MADONNA CASILLAS PATIENT EXPRESS SCRIPTS ([id number]) PRESCRIPT ION [facility] Aug 11, 2017 [id number] [phone] MADONNA CASILLAS PATIENT EXPRESS SCRIPTS ([id number]) PRESCRIPT ION [facility] Aug 11, 2017 [id number] [phone] MADONNA CASILLAS PATIENT MEDICARE (WNR) MEDICARE (M) PART A Sep 12, 2011 PART A [id number] MADONNA CASILLAS PATIENT MEDICARE (WNR) MEDICARE (M) PART A Sep 12, 2011 PART A [id number] MADONNA CASILLAS PATIENT UNICARE PREFERRED PROVIDER ORGANIZAT ION (PPO) [place] RE [employer] IN[place]M * Aug 11, 2009 [id number] MADONNA CASILLAS PATIENT Selected Encounter This section includes the information on record at [place] for the Encounter. Date/Time Encounter Type Encounter Description Reason Provider Source Aug 14, 2023 06:54 AM Outpatient Encounter PROSTHETICS/ORTHOTI JESUS FLOWERS IHDestini Encounter Template Text not used by [place] Plan of Treatment: Future Appointments (+ 6 months) and Future Tests (+/- 45 days) The Plan of Treatment section includes future care activities for the patient [facility] [place] [facility]. This section includes future appointments [...] 27, 2023 01:00 PM [facility] Oct 17, 2023 09:00 AM [facility] [place] [facility] Nov 07, 2023 01:30 PM [facility]UL[facility] - MEDICINE [place] [facility] [place] [facility] Nov 27, 2023 10:00 AM [facility]ORY - NONE [facility] Active, Pending, and Scheduled Orders This section includes a listing of several types of active, pending, and scheduled orders, including clinic medications orders, diagnostic test orders, procedure orders and consult orders; where the start date of the order is 45 days before the date of the Encounter or 45 days after the date of theEncounter. The data comes from all [place] treatment [facility]. Test Date/Time Test Type Test Details Facility Name Aug 12, 2023 12:42 PM Consult Order PSYCHOTHER JOEY TREJO OUTPT [facility] Bottle Line Worker's Choice [place] Social History: Smoking Status (Most current) and [...] PM [place]-TOBACCO QUIT 15 YRS OR MORE [facility] Tobacco Use History This section includes a history of the smoking, or tobacco-related health factors, that were collected on or before the date of the Encounter. The data comes from the [place] facility where the Encounter took place. Date/Time Smoking Status/Tobacco Use Comment F acility Aug 07, 2019 01:20 PM [place]-TOBACCO QUIT 15 YRS OR MORE [facility]
--- OUTSIDE RECORDS SUMMARY | 2024-02-25 12:53 | XMS_ITS | Encounter Summary ---
Author Name [place] Address [address] [place] [address] Care Team Providers Care Pelletising Extruder Operator Name Role Phone JESUS WARREN Primary [...] Chan's Name Patient's Relationship to Policy Chan [facility] Apr 11, 2017 [id number] [phone] MADONNA CASILLAS PATIENT EXPRESS SCRIPTS ([id number]) PRESCRIPT ION [facility] Aug 11, 2017 [id number] MADONNA CASILLAS PATIENT EXPRESS SCRIPTS ([id number]) PRESCRIPT ION [facility] Aug 11, 2017 [id number] MADONNA CASILLAS PATIENT MEDICARE (WNR) MEDICARE (M) PART A Sep 12, 2011 PART A [id number] MADONNA CASILLAS PATIENT MEDICARE (WNR) MEDICARE (M) PART A Sep 12, 2011 PART A [id number] MADONNA CASILLAS PATIENT UNICARE PREFERRED PROVIDER ORGANIZAT ION (PPO) [employer] RE [employer]M * Aug 11, 2009 [id number] MADONNA CASILLAS PATIENT Selected Encounter This section includes the information on record at [place] for the Encounter. Date/Time Encounter Type Encounter Description Reason Provider Source Aug 12, 2023 03:56 PM TUBING WITH HEATING ELEMENT TELEPHONE/MEDICIN E ICD-10-CM G47.33 Obstructive sleep apnea (adult) (pediatric) KASEY BEY IHE Encounter Template Text not used by [place] Assessments - Encounter Diagnoses This section includes the primary and secondary diagnoses documented for the Encounter. Date/Time Primary/Secondary Diagnosis Diagnosis Name Provider Source Aug 12, 2023 03:56 PM PRIMARY Obstructive sleep apnea (adult) (pediatric) KASEY BEY [facility] Plan of Treatment: Future Appointments (+ 6 months) and Future Tests (+/- 45 days) The Plan of Treatment section includes future care activities for the patient from all [place] [facility]. This section includes future appointments and future orders which are active, pending or scheduled. Future Appointments This section includes appointments that were scheduled to occur 6 months from the date of the Encounter, up to a maximum of 20 appointments. The data comes from all [place] treatment facilities. Appointment Date/Time Appointment Type Appointme nt Facility Name Sep 27, 2023 01:00 PM AMBULATORY - MEDICINE [facility] Oct 17, 2023 09:00 AM AMBULATORY - MEDICINE [facility] Nov 07, 2023 01:30 PM [facility] Nov 27, 2023 10:00 AM AMBULATORY - NONE [facility] Active, Pending, and Scheduled Orders This section includes a listing of several types of active, pending, and scheduled orders, including clinic medications orders, diagnostic test orders, procedure orders and consult orders; where the start date of the order is 45 days before the date of the Encounter or 45 days after the date of theEncounter. The data comes from all [place] treatment facilities. Test Date/Time Test Type Test Details Facility Name Aug 12, 2023 12:42 PM Consult Order PSYCHOTHER JOEY TREJO OUTPT Cons Air Control/Anti Air Warfare [facility] Social History: Smoking Status (Most current) and Tobacco Use (All prior to encounter date) This section includes the most current, and the historical, smoking and tobacco- related health factors from the [place] facility where the Encounter took place. Current Smoking Status This section includes the most current smoking, or tobacco-related health factor, from the [place] facility where the Encounter took place. Date/Time Current Smoking Status Comment Facil ity Aug 07, 2019 01:20 PM [place]-TOBACCO QUIT 15 YRS OR MORE [facility] Tobacco Use History This section includes a history of the smoking, or tobacco-related health factors, that were collected on or before the date of the Encounter. The data comes from the [place] facility where the Encounter took place. Date/Time Smoking Status/Tobacco Use Comment F acility Aug 07, 2019 01:20 PM [place]-TOBACCO QUIT 15 YRS OR MORE [facility] Encounter Notes: All associated encounter notes This section contains the clinical notes associated to the Encounter. Date/Time Encounter Note(s) Provider Source Aug 12, 2023 03:56 PM RESPIRATORY THERAP Y NOTE: LOCAL TITLE: RESPIRATORY THERAPY NOTE(BLANK) STANDARD TITLE: RESPIRATORY THERAPY NOTE DATE OF NOTE: AUG 12, 2023@15:56 ENTRY DATE: AUG 12, 2023@15:56:13 AUTHOR: KASEY BEY EXP COSIGNER: URGENCY: STATUS: COMPLETED Telephone Coding and Documentation: Diagnosis: Sleep Apnea Actual time spent with Patient via telephone: 15 minutes. diagnosed with sleep apnea was called regarding mask change. F30-i fit pack will be sent to . [employer] Compliance Report Usage 07/13/2023 - 08/11/2023 Usage days 28/30 days (93%) >= 4 hours 27 days (90%) < 4 hours 1 days (3%) Usage hours 201 hours 58 minutes Average usage (total days) 6 hours 44 minutes Average usage (days used) 7 hours 13 minutes Median usage (days used) 7 hours 33 minutes Total used hours (value since last reset - 08/11/2023) 419 hours [employer] 11 AutoSet Serial number [id number] Mode AutoSet Min Pressure 8 cmH2O Max Pressure 20 cmH2O EPR Fulltime EPR level 3 Response Soft Therapy Pressure - cmH2O Median: 9.9 95th percentile: 13.4 Maximum: 15.1 Leaks - L/min Median: 7.1 95th percentile: 20.1 Maximum: 30.4 Events per hour AI: 1.8 HI: 0.4 AHI: 2.2 Apnea Index Central: 0.1 Obstructive: 1.7 Unknown: 0.0 RERA Index 0.7 Yrn-Gutierres respiration (average duration per night) 0 minutes (0%) /emmett/ KASEY BEY RESPIRATORY THERAPIST Signed: 08/12/2023 16:05 KASEY BEY [place] [facility] [place] [facility]
== END 2024-02-25 11:45 | disposition home or self-care (01) ==
PROVIDERS: PCP Internal Medicine; Referring Provider Physician Assistant Medical; Visit Provider Nurse Practitioner Family
DX: M47.817 Spondylosis without myelopathy or radiculopathy, lumbosacral region (principal); M54.50 Low back pain, unspecified; M62.830 Muscle spasm of back
CPT/HCPCS: 99204; G2211

== ENCOUNTER → 2024-02-25 10:53 | Outpatient (BNVA) | payer OTHER, SELFPAY | PROVIDERS: PCP Internal Medicine; Referring Provider Physician Assistant Medical; Visit Provider Nurse Practitioner Family | DX: M47.817 Spondylosis without myelopathy or radiculopathy, lumbosacral region (principal); M54.50 Low back pain, unspecified; M62.830 Muscle spasm of back | CPT/HCPCS: 99202 ==

== ENCOUNTER 2024-05-28 10:46 | Outpatient (AMB) | payer OTHER, SELFPAY ==
--- NOTE | 2024-05-28 10:53 | A.OFFVIS_ITS ---
Vital Signs 05/28/24 10:57 Height 5 ft 10.5 in Weight 245 lb BMI 34.7 BP 135/64 Blood Pressure Location Lt brachial Position Sitting Pulse 75 Pulse Source Pulse Oximeter Pulse Oximetry (%) 99 Oxygen Delivery Method Room Air Intake Visit Reasons: Follow Up After PT Intake Note: Pain today 2/10 Infrastructure Tech Required: No Accompanied by: Self / Same As Patient Allergies No Known Allergies Allergy (Verified 05/28/24 10:57) HPI Comments Details: The patient is a 78-year-old male presenting with chronic low back pain after completing course of physical therapy at [facility]. Over the past few months, he has experienced consistent pain localized to the lower back, with no radiation to the legs. His history suggests a gradual onset tied to occupational stressors, exacerbated by daily activities such as sitting for extended periods and walking on hard surfaces and daily activities. Physical therapy concentrating on the lower back provided partial relief. Methocarbamol taken at 500 mg twice daily as needed has reduced partial pain with certain activities. Issues sleeping have been complicated by CPAP use, although he mentions avoiding sleeping on his back helps prevent exacerbations. - Pain onset: Gradual since December 2023 - Quality: Non-radiating lower back pain - Primary location: Lower back - Radiation: None - Pain level: 2/10 currently, peaks at 4/10 - Exacerbating factors: Extended sitting, prolonged walking on hard surfaces - Relieving factors: Physical therapy, muscle relaxants - Interference with activities: Prolonged sitting or walking increases pain - Affect: Pain impacts his ability to perform extended physical activities - Analgesia: Taking methocarbamol 500 mg twice daily; current pain level 2/10 - Adverse Effects: None reported from medications - Activities of Daily Living: Engages in light exercises like chair yoga and walking; avoids excessive walking to prevent pain increase - Aberrant Drug Related Behaviors: None reported PRIOR: Patient is a pleasant 78 years old male with history of osteoarthritis, obesity, back pain, bilateral total knee replacements, LUCIO with CPAP use, presents today for initial evaluation for low back pain. This is a Worker Comp case #[id number] due to poor work ergonomic chair without lumbosacral support. 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 Patient reports his low back pain has been increasing since December 2023 with increased stiffness and spasming and pain with prolonged sitting and range of motion, as well we prolonged walking or standing. He attributes this to inadequate support from his work chair. Patient states he requested a new chair from his workplace with lumbar support but this has not been arranged as of yet. Pain affects his daily activities and functioning, work, sleep, mobility, social interactions and quality of life. Pain came on gradually and currently has been intermittent with pain intensity ranging 2-4/10, with pain most severe late afternoon and morning and less severe in the late morning. Denies previous spine injections or surgery. Patient reports remote chiropractic adjustments but denies any recent formal physical therapy, TENS unit, acupuncture, massage therapy, or aqua therapy. He tried activity modifications and muscle relaxant with continued symptoms. He avoids NSAIDs and Tylenol due to adverse effects. Denies any fever or chills, abdominal or groin pain, weakness, foot drop, bladder or bowel dysfunction, or saddle anesthesia. Oswestry Low Back Pain Disability Score=12 (mild disability) Onset: 01/02/24 Location: Lower back pain, non-radiating Duration: 2 months Characteristics of symptom or complaint: Aching, dull, sore, hurting, aching, heavy Aggravating or associated factors: Prolonged sitting, bending forward, prolonged standing or walking, sleep Relieving factors: Resting, activity modifications, back support, tried muscle relaxant Treatment: [facility] History (Updated 02/25/24 @ 13:06 by JEANNINE Asher) LUCIO on CPAP Hx of colonic polyps History of adenomatous polyp of colon Hypertension Morbid obesity Osteoarthritis History of prostatism Contusion of rib on right side Eczema Back pain Anemia Nasal congestion Sleep apnea Surgical History H/O arthroscopic knee surgery History of knee replacement (~12/2019) Social History Alcohol intake: current Alcohol type: beer Patient Tobacco Use Status: Former Tobacco user Review of Systems Const Details: - Musculoskeletal: Reports persistent lower back pain; denies lower extremity radiating pain - Respiratory: Denies respiratory issues apart from sleep apnea on CPAP - Sleep: Reports disrupted sleep, impacted by CPAP usage All systems reviewed & are unremarkable except as noted in HPI and below Physical Exam Vital Signs: Last Vital Signs Pulse 75 05/28/24 10:57 BP 135/64 05/28/24 10:57 Pulse Ox 99 05/28/24 10:57 Oxygen Delivery Method Room Air 05/28/24 10:57 BMI result Body Mass Index 34.7 General: Appears afebrile. Alert and oriented. Mood and affect appropriate. Follows and participates in conversation appropriately. Respiratory effort is unlabored. No cough. Able to transition from sit to stand unassisted. Ambulates with bilaterally normal heel strike and toe off. General: Yes no CVA tenderness Back/Spine/Pelvis Other: Limited lumbar ROM due to pain. Non-antalgic gait. Mild limping. Lumbar flexion is intact and does not reproduce pain, axial rotations and extension reproduce moderate pain. No midline tenderness to palpation in the thoracic or lumbar spine. Demonstrates 5/5 strength of quadriceps bilaterally as well as flexion/dorsiflexion of bilateral feet against resistance. 2+ pedal pulses bilaterally. Straight leg rise with dorsiflexion negative bilaterally. Diminished patellar and achilles reflexes bilaterally. Facet loading test positive bilaterally. Raymond sign is negative bilaterally. Back: no CVA tenderness Cervical Spine: cervical ROM normal, cervical muscular tenderness and No Cervical spine tenderness Thoracic/Lumbar Spine: thoracic and lumbar spine normal to inspection, No Thoracic/lumbar spine scar(s), Lasegue's sign negative, straight leg raise negative bilaterally, kyphosis, pain with thoraco-lumbar ROM, paraspinal muscle tenderness, thoraco-lumbar ROM limited, No thoracic spinal tenderness and lumbar spinal tenderness at L4 and at L5 Pelvis: no buttock tenderness Sacroiliac joints: bilaterally nontender Extrem General: Yes capillary refill normal, Yes no clubbing, cyanosis or edema and Yes no calf tenderness Results Reviewed Results Reviewed: No imaging reports are available for review. Assessment & Plan Assessment & Plan (1) Lumbosacral spondylosis: Code(s): M47.817 - Spondylosis without myelopathy or radiculopathy, lumbosacral region Category: Medical (2) Low back pain: Code(s): M54.50 - Low back pain, unspecified Category: Medical (3) Muscle spasm of back: Code(s): M62.830 - Muscle spasm of back Category: Medical Plan Patient encouraged to complete a lumbar x-ray to evaluate for lumbar arthritis, assess degree of degenerative changes, any subluxation, listhesis, compression fractures or pars defects. Depending on findings, interventional procedures such as nerve blocks or radiofrequency ablation or Sprint PNS trial may be considered for pain management. Continuing home exercises and moderating physical activities are essential to managing discomfort. The Patient Portal will be also used to ensure efficient communication regarding diagnostic results and future planning. All questions and concerns have been answered and patient agreed with the treatment plan. Follow up for xray results and sooner as needed. Patient was informed and verbally consented to the use of an ambient scribe for clinic note documentation during this visit. Medications: Refilled methocarbamol 500 mg PO BID 30 days PRN 60 tabs 3RF muscle spasm M47.817 - Spondylosis without myelopathy or radiculopathy, lumbosacral region, M62.830 - Muscle spasm of back Patient Instructions: During the consultation, I discussed with the patient the chronic nature of his low back pain potentially related to lumbar arthritis. We explored the benefits and risks of interventional pain management options, such as nerve blocks, neuromodulation with Sprint PNS trial and radiofrequency ablation, which may offer up to 10-12 months or longer of pain relief if confirmed to be suitable based on x-ray findings. Today's back exam is consistent with axial low back pain with painful facet loading. - Complete the lumbar x-ray as discussed today. - Continue prescribed muscle relaxants as needed for pain management. - Avoid prolonged walking on hard surfaces to reduce pain exacerbations. - Monitor pain levels and report any significant changes in symptoms. - Discuss additional interventional procedures with family as necessary. Coding Level of Care Code Est Pt Level 4 (84544) Complex EM visit Add On G2211 Diagnoses Lumbosacral spondylosis M47.817 Low back pain M54.50 Muscle spasm of back M62.830
[2024-05-28 10:57] VITALS: BP 135/64; PULSE 75; O2SAT 99; BMI 34.7
--- OUTSIDE RECORDS SUMMARY | 2024-05-28 13:04 | XMS_ITS | Encounter Summary ---
Author Name [place] Address [address] [place] [id number] Care Team Providers Care Health Education Specialist Name Role Phone JESUS WARREN Primary [...] Chan's Name Patient's Relationship to Policy Chan [facility] Apr 11, 2017 [id number] MADONNA HERRERA PATIENT EXPRESS SCRIPTS ([id number]) PRESCRIPT ION [facility] Aug 11, 2017 [id number] [phone] MADONNA HERRERA PATIENT MEDICARE (WNR) MEDICARE (M) PART A Sep 12, 2011 PART A [id number] [phone] MADONNA HERRERA PATIENT MEDICARE (WNR) MEDICARE (M) PART A Sep 12, 2011 PART A [id number] MADONNA HERRERA PATIENT WELLPOINT PREFERRED PROVIDER ORGANIZAT ION (PPO) [facility] * Aug 11, 2009 [id number] [phone] MADONNA HERRERA PATIENT Selected Encounter This section includes the information on record at [place] for the Encounter. Date/Time Encounter Type Encounter Description Reason Provider Source Aug 07, 2023 01:00 PM PSYCH DIAGNOSTIC EVALUATION [facility] - [facility] ICD-10-CM F43.12 Post-traumati c stress disorder, chronic ALBAN,IVAN ZAMBRANO [place] Encounter Template Text not used by [place] Assessments - Encounter Diagnoses This section includes the primary and secondary diagnoses documented for the Encounter. Date/Time Primary/Secondary Diagnosis Diagnosis Name Provider Source Aug 12, 2023 12:40 PM PRIMARY Post-traumatic stress disorder, chronic DAVEUR,CLAUDIO ZAMBRANO [place] Aug 12, 2023 12:40 PM SECONDARY Adjustment disorder with anxiety MONIQUEPOLOCLAUDIO ESPINAL [place] Aug 12, 2023 12:40 PM SECONDARY Primary insomnia MONIQUEJGCLAUDIO JUAN MANUEL [place] Plan of Treatment: Future Appointments (+ 6 months) and Future Tests (+/- 45 days) The Plan of Treatment section includes future care activities for the patient [facility] [place] [facility]. This section includes future appointments and [...] 17, 2023 09:00 AM AMBULATORY - [place]ICINE [place] [facility] Nov 07, 2023 01:30 PM AM[place]ORY [place]ICINE [place] [facility] Nov 27, 2023 10:00 AM AMBULATORY - NONE [place] [facility] Social History: Smoking Status (Most current) [...] Eran cary Nov 07, 2022 01:30 PM VA-TOBACCO FORMER USER [place] Tobacco Use History This section includes a history of the smoking, or tobacco-related health factors, that were collected on or before the date of the Encounter. The data comes from the [place] facility where the Encounter took place. Date/Time Smoking Status/Tobacco Use Comment F acility Nov 07, 2022 01:30 PM VA-TOBACCO QUIT 15 YRS OR MORE [place] Nov 09, 2021 09:00 AM VA-TOBACCO FORMER USER [place] Nov 09, 2021 09:00 AM VA-TOBACCO QUIT 15 YRS OR MORE [place] Nov 09, 2020 03:00 PM VA-TOBACCO FORMER USER [place] Nov 09, 2020 03:00 PM VA-TOBACCO QUIT 15 YRS OR MORE [place] Encounter Notes: All associated encounter notes This [...] PH.D. PSYCHOLOGIST Signed: 08/08/2023 11:17 CLAUDIO PHOENIX [place] Aug 07, 2023 01:00 PM MENTAL HEALTH CONS ULT: LOCAL TITLE: CONSULT REPORT/UNIFORM OUTPATIENT MENTAL HEALTH ASS STANDARD TITLE: MENTAL HEALTH CONSULT DATE OF NOTE: AUG 07, 2023@13:00 ENTRY DATE: AUG 07, 2023@13:00:37 AUTHOR: CLAUDIO PHOENIX EXP COSIGNER: URGENCY: STATUS: COMPLETED INFORMED CONSENT TO PARTICIPATE IN ASSESSMENT: At beginning of session reviewed rights and limits of confidentiality, mandatory reporting situations, duty to warn and protect, Servin Warning, (if treatment team finds patient to be an acute danger to himself or others, that this information could be relayed to a court of law and presented to a parking enforcement technician), and [facility] access for active duty service members. Provided Suicide Prevention Hotline number, and other contact numbers as necessary. [facility] Outpatient Mental Health Assessment I. IDENTIFYING INFORMATION: EMILIE HERRERA Sep [phone] SERVICE CONNECTED % - 70 MARITAL STATUS - Referral source: Self referral Present at time of intake: [ ] Family member [ ] Supportive person(s) Name: Language Preference:Italian Language Spoken:Italian II. PRESENTING SITUATION: A. What brings you [...] with PTSD (5-6 years ago, at the [place]). Worried about getting depressed regarding his physical [...] level: Regarding the motivation for treatment, estimate 's stage of change with respect to this [...] level: Regarding the motivation for treatment, estimate [place]'s stage of change with respect to this [...] trauma exposure, exposure to environmental contaminants): Joined [employer] my first year of college (1964). Activated in 1969 (before finishing undergrad degree). 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 Not many casualties on our side, but we dealt with the Italian casualties in the aftermath. 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 Frequent fungal infections (feet and other areas). Reports exposure to Agent [place]ana. C. What provides you with sense of [...] Building things. Watching TV. Going to the [place]. Looking forward to playing pickel ball. F. Are you comfortable with your [...] stop when activated. Finished his degree at [employer] in 1973. 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 I. 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 J. Do you have a legal history (incarcerations, probation, parole, divorce, child custody issues): Denies K. What is your level of voodoo or spiritual fulfillment: Mormonism, but not observant. L. How do you culturally identify? Can you anticipate any particular cultural on treatment? I don't really. Half Slovenian/Scottish. M. Is there anybody you would like [...] WARREN Exposure to potentially hazardous s 04/24/2023 NAVYA HOOKS A Obesity E66.9 11/09/2021 JESUS WARREN Tinnitus R69. 08/11/2019 JESUS WARREN Sensorineural hearing loss, bilater 08/11/2019 JESUS WARREN Allergic rhinitis J30.9 11/09/2020 JESUS WARREN HTN - Hypertension ([facility] [id number]) I 08/07/2019 JESUS WARREN OA - Osteoarthritis ([facility] [id number]) 08/11/2019 JESUS WARREN Benign prostatic hypertrophy N40.1 [...] Herrera is a 77-year old, , cis-gendered [email or web address] combat . He presents with adjustment difficulties [...] abuse and suicidal thoughts. He is employed time recorder, is financially secure and has a supportive [...] next: He'd like to be referred to [facility] for individual psychotherapy; he declines [facility] [...] By: 08/22/2023 08:36 /emmett/ Shaheen Fall Psy.D. [employer], CLINICAL PSYCHOLOGIST CLAUDIO PHOENIXFIELD
--- OUTSIDE RECORDS SUMMARY | 2024-05-28 13:04 | XMS_ITS | Encounter Summary ---
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 Name Role Phone JESUS WARREN [...] Chan's Name Patient's Relationship to Policy Chan ROSEBUD pocketfungames [facility] Apr 11, 2017 [id number] VINNYMADONNA ANTHONY PATIENT EXPRESS SCRIPTS ([id number]) PRESCRIPT ION [facility] Aug 11, 2017 [id number] VINNYMADONNA ANTHONY PATIENT MEDICARE (WNR) MEDICARE (M) PART A Sep 12, 2011 PART A [id number] MADONNA CASILLAS PATIENT MEDICARE (WNR) MEDICARE (M) PART A Sep 12, 2011 PART A [id number] VINNYMADONNA ANTHONY PATIENT WELLPOINT PREFERRED PROVIDER ORGANIZAT ION (PPO) [facility] * Aug 11, 2009 [id number] MADONNA CASILLAS PATIENT Selected Encounter This section includes the information on record at [place] for the Encounter. Date/Time Encounter Type Encounter Description Reason Pro vider Source May 21, 2024 10:14 PM Outpatient Encounter ADMIN PAT ACTIVTIES (MASNONCT) IHE Encounter Template Text not used by [place] Plan of Treatment: Future Appointments (+ 6 months) and Future Tests (+/- 45 days) The Plan of Treatment section includes future care activities for the patient from all [place] [facility]. This section includes future appointments and future orders which are active, pending or scheduled. Future Appointments This section includes appointments that were scheduled to occur 6 months from the date of the Encounter, up to a maximum of 20 appointments. The data comes from all [place] treatment facilities. Appointment Date/Time Appointment Type Appointme nt Facility Name Jun 10, 2024 03:30 PM AMBULATORY - MEDICINE [facility] June 11, 2024 01:30 PM AMBULATORY - MEDICINE [facility] Aug 17, 2024 08:30 AM AMBULATORY - MEDICINE [facility] [place] [place] [facility] Nov 09, 2024 01:00 PM [facility] Social History: Smoking Status (Most current) and Tobacco Use (All prior to encounter date) This section includes the most current, and the historical, smoking and tobacco- related health factors from the [place] facility where the Encounter took place. Current Smoking Status This section includes the most current smoking, or tobacco-related health factor, from the [place] facility where the Encounter took place. Date/Time Current Smoking Status Comment Facil ity Aug 07, 2019 01:20 PM [place]-TOBACCO QUIT 15 YRS OR MORE [facility] Tobacco Use History This section includes a history of the smoking, or tobacco-related health factors, that were collected on or before the date of the Encounter. The data comes from the [place] facility where the Encounter took place. Date/Time Smoking Status/Tobacco Use Comment F acchristy Aug 07, 2019 01:20 PM [place]-TOBACCO QUIT 15 YRS OR MORE [facility] Encounter Notes: All associated encounter notes This section contains the clinical notes associated to the Encounter. Date/Time Encounter Note(s) Provider Source May 21, 2024 10:14 PM PHARMACY NOTE: LOCAL TITLE: V1 PHARMACY CUSTOMER CARE MEDICATION RENEWAL STANDARD TITLE: PHARMACY NOTE DATE OF NOTE: MAY 21, 2024@22:14 ENTRY DATE: MAY 21, 2024@22:14:52 AUTHOR: KAMILLE BENAVIDES EXP COSIGNER: URGENCY: STATUS: COMPLETED Date: May Division: [facility] referred by Pharmacy Call Center for medication renewal: Non-controlled/maintenan ce medication Medications requested: [id number] AMMONIUM LACTATE 12% LOTION This prescription was last released 04/25/2023, but the requested to renew it. Please review. Defer to specialty clinic To be mailed . Please review and renew if appropriate. *This note was generated by [facility]/[place] Pharmacy Customer Care. If you have any questions or need assistance, do not contact this author. Please refer all questions to your local, on-site pharmacy departments. /emmett/ KAMILLE BENAVIDES CPhT [employer], [place]/Pharmacy Customer Care Signed: 05/21/2024 22:16 Receipt Acknowledged By: 05/25/2024 06:52 /emmett/ FOREIGN JAUREGUI DPM CHAR DUST CLEANER AND SALVAGER KAMILLE BENAVIDES [place] [facility]
--- OUTSIDE RECORDS SUMMARY | 2024-05-28 13:04 | XMS_ITS | Encounter Summary ---
Author Name [place] Address [address] [place] [address] Care Team Providers Care Marble Coper Name Role Phone JESUS WARREN Primary Care [...] Name Patient's Relationship to Policy Chan [facility] Apr 11, 2017 [id number] VINNYMADONNA ANTHONY PATIENT EXPRESS SCRIPTS ([id number]) PRESCRIPT ION [facility] Aug 11, 2017 [id number] VINNYMADONNA ANTHONY PATIENT MEDICARE (WNR) MEDICARE (M) PART A Sep 12, 2011 PART A [id number] VINNYMADONNA ANTHONY PATIENT MEDICARE (WNR) MEDICARE (M) PART A Sep 12, 2011 PART A [id number] VINNYMADONNA ANTHONY PATIENT WELLPOINT PREFERRED PROVIDER ORGANIZAT ION (PPO) [facility] * Aug 11, 2009 [id number] MADONNA CASILLAS PATIENT Selected Encounter This section includes the information on record at [place] for the Encounter. Date/Time Encounter Type Encounter Description Reason Provider Source Feb 21, 2024 01:00 PM OFFICE O/P EST LOW 20 MIN PODIATRY ICD-10-CM L60.3 Nail dystrophy FOREIGN JAUREGUI [place] Encounter Template Text not used by [place] Assessments - Encounter Diagnoses This section includes the primary and secondary diagnoses documented for the Encounter. Date/Time Primary/Secondary Diagnosis Diagnosis Name Provider Source Mar 17, 2024 04:13 PM PRIMARY Nail dystrophy FOREIGN JAUREGUI [place] Mar 17, 2024 04:13 PM SECONDARY Corns and callosities FOREIGN JAUREGUI [place] Mar 17, 2024 04:13 PM SECONDARY Pain in left foot FOREIGN JAUREGUI [place] Mar 17, 2024 04:13 PM SECONDARY Pain in left toe(s) FOREIGN JAUREGUI [place] Mar 17, 2024 04:13 PM SECONDARY Pain in right foot FOREIGN JAUREGUI [place] Mar 17, 2024 04:13 PM SECONDARY Pain in right toe(s) FOREIGN JAUREGUI [place] Mar 17, 2024 04:13 PM SECONDARY Peripheral vascular disease, unspecified FOREIGN JAUREGUI [place] Plan of Treatment: Future Appointments (+ 6 [...] 24, 2024 03:00 PM AM[facility]ULATORY [facility] [place] [facility] Jun 10, 2024 03:30 PM [facility] [place] [facility] June 11, 2024 01:30 PM AMBULATORY - MEDICINE [facility] Aug 17, 2024 08:30 AM [facility] Social History: Smoking Status (Most current) and Tobacco Use (All prior to encounter date) This section includes the most current, and the historical, smoking and tobacco- related health factors from the [facility] where the Encounter took place. Current Smoking Status This section includes the most current smoking, or tobacco-related health factor, from the [facility] where the Encounter took place. Date/Time Current Smoking Status Comment Facil ity Nov 07, 2023 01:30 PM VA-TOBACCO FORMER USER [place] Tobacco Use History This section includes a history of the smoking, or tobacco-related health factors, that were collected on or before the date of the Encounter. The data comes from the [facility] where the Encounter took place. Date/Time Smoking Status/Tobacco Use Comment F acility Nov 07, 2023 01:30 PM VA-TOBACCO QUIT 15 YRS OR MORE [place] Nov 07, 2022 01:30 PM VA-TOBACCO FORMER USER [place] Nov 07, 2022 01:30 PM VA-TOBACCO QUIT 15 YRS OR MORE [place] Nov 09, 2021 09:00 AM VA-TOBACCO FORMER USER [place] Nov 09, 2021 09:00 AM VA-TOBACCO QUIT 15 YRS OR MORE [facility] 29, 2021 03:00 PM VA-TOBACCO FORMER USER [facility] 29, 2021 03:00 PM VA-TOBACCO QUIT 15 YRS OR MORE [place] Encounter Notes: All associated encounter notes This [...] VACCINES +2 BOOSTERS THROUGH WORK WITH THE [facility] LAST SEEN FOR TREATMENT: 09/27/2023 S: Pt. [...] present physical-medical status. Protective sensation utilizing a [place] lOg monofilament is 05/10 bilateral. NOTE: [...] available for this patient [place] [facility] No Known Allergies Med Recon NoGloary (Tool #1) INCLUDED IN THIS LIST: Alphabetical list of active outpatient prescriptions dispensed from this [place] (local) and dispensed from another [place] or [...] the patient into personal health records (i.e. [employer]) are NOT included in this list. Non-VA [...] TWICE DAILY FOR DRY IRRITATED SKIN Rx# [id number] Last Released: 04/25/23 Qty/Days Supply: 30 Rx Expiration Date: 04/23/24 Refills Remainin Indication: FOR DRY SKIN OUTPT IPRATROPIUM BR 0.03% NASAL SPRAY (Status = Active) INSTILL 2 SPRAYS INTO EACH NOSTRIL 1-3 TIMES/DAY FOR NASAL IRRITATION/CONGESTION Rx# [id number] Last Released: 01/20/24 Qty/Days Supply: 90 Rx Expiration Date: 10/17/24 Refills Remainin Indication: [...] AT BEDTIME FOR NASAL VALVE COLLAPSE Rx# [id number] Last Released: 10/21/23 Qty/Days Supply: Rx Expiration Date: 10/17/24 Refills Remainin Indication: FOR NASAL VALVE COLLAPSE /es/ FOREIGN JAUREGUI DPM SEARCH ENGINE OPTIMIZATION SPECIALIST Signed: 02/21/2024 13:36 FOREIGN JAUREGUI [place]
--- OUTSIDE RECORDS SUMMARY | 2024-05-28 13:04 | XMS_ITS | Encounter Summary ---
Author Name Department [place] Organization [facility] Address [address] [place] [address] Care Team Providers Care Hearing Aide Technician Name Role Phone JESUS WARREN Primary [...] [facility] Apr 11, 2017 [id number] VINNYMADONNA ANTHONY PATIENT EXPRESS SCRIPTS ([id number]) PRESCRIPT ION [facility] Aug 11, 2017 [id number] VINNYMADONNA ANTHONY PATIENT MEDICARE (WNR) MEDICARE (M) PART A Sep 12, 2011 PART A [id number] MADONNA CASILLAS PATIENT MEDICARE (WNR) MEDICARE (M) PART A Sep 12, 2011 PART A [id number] [phone] VINNYMADONNA ANTHONY PATIENT WELLPOINT PREFERRED PROVIDER ORGANIZAT ION (PPO) [facility] * Aug 11, 2009 [id number] MADONNA CASILLAS PATIENT Selected Encounter This section includes the information on record at [place] for the Encounter. Date/Time Encounter Type Encounter Description Reason Pro vider Source IHE Encounter Template Text not used by VA
--- OUTSIDE RECORDS SUMMARY | 2024-05-28 13:04 | XMS_ITS | Continuity of Care Document ---
Author Name [facility] Organization [facility] Care Team Providers Care Machine Zipper Trimmer Name Role Phone [facility] Unavailable Unavailable Problems Combined list of problems [...] BAUTISTA Comment: with associated depression and anxiety [facility] Colonoscopy Screening Active Condition Aug 11, 2019 Entered By: JSEUS WARREN Comment: 01/21/19 - 5mm polyp in transverse colon, internal hemorrhoids - repeat 2023 - Dr. Whitaker [facility] Eczema Active Condition [facility] Exposure to potentially hazardous substance Active Condition Apr 24, 2023 Entered By: NAGA HOOKS EN A Comment: Connect Snomed Code to ICD 10 Code refer to note dated 11/07/22 [facility] HTN - Hypertension (SCT [id number]) Active Condition [facility] NON VA PCP Active Condition Aug 06 Entered By: JESUS WARREN Comment: Dr. Bobby Pedersen [phone] [facility] OA - Osteoarthritis (SCT [id number]) Active Condition Aug 11, 2019 Entered By: JESUS WARREN Comment: Right >> Left Knee [facility] Obesity Active Condition [place] Obstructive sleep apnea Active Condition Apr 24, 2023 Entered By: JESUS WARREN Comment: Last sleep study 03/01/23 ordered by nonVA PCP - dxed as severe [place] Sensorineural hearing loss, bilateral Active Condition [facility] Tinnitus Active Condition [facility] Diagnosis: ICD-10-CM G47.33 Obstructive sleep apnea (adult) (pediatric) Active Diagnosis [facility] Diagnosis: ICD-10-CM J30.0 Vasomotor rhinitis [facility] Diagnosis: ICD-10-CM 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 [facility] Diagnosis: ICD-10-CM I10 Essential (primary) hypertension Active Diagnosis [place] Diagnosis: ICD-10-CM J30.9 Allergic rhinitis, unspecified Active Diagnosis [place] Diagnosis: ICD-10-CM F43.12 Post-traumatic stress disorder, chronic Active Diagnosis [place] Diagnosis: ICD-10-CM Z71.89 Other specified counseling Active Diagnosis [place] Diagnosis: ICD-10-CM Z46.1 Encounter for fitting and adjustment of hearing aid Active Diagnosis [facility] Medications Combined list of outpatient medications from Department of Defense and [facility] Affairs facilities.Medications provided include 1) outpatient medications from the last 15 months, and 2) patient-reported medications. Medication Details Route Status Patient Instructions Prescription Expires Prescription Number Last Dispense Date Ordering Provider Order Date Order Qty Source AMMONIUM LACTATE 12% LOTION APPLY SMALL AMOUNT TOPICALL Y TWICE DAILY FOR DRY SKIN FOR DRY IRRITATE D SKIN TOPICA L ACTIVE 05/26/2025 [id number] 5 GHISLAINE JAUREGUI F 2024 240 [place] AMMONIUM LACTATE 12% LOTION APPLY SMALL AMOUNT TOPICALL Y TWICE DAILY FOR DRY IRRITATE D SKIN TOPICA L 04/23/2024 [id number] 4 GHISLAINE JAUREGUI 2023 240 [place] GUAIFENESIN 200MG TAB TAKE SIX TABLETS BY MOUTH TWICE DAILY ORAL ACTIVE 07/06/2024 [id number] 5 TRENT NOGUEIRA R 2024 1080 [facility] GUAIFENESIN 200MG TAB TAKE TWO TABLETS BY MOUTH THREE TIMES A DAY FOR COUGH AND MUCUS ORAL DISCONT INUED 02/24/2025 [id number] 5 TRENT NOGUEIRA R 2024 540 [facility] IPRATROPIUM BR 0.03% SOLN,SPRAY, NASAL INSTILL 2 SPRAYS INTO EACH NOSTRIL 1-3 TIMES/DA Y FOR NASAL IRRITATI ON/CONGE STION NASAL ACTIVE 10/17/2024 [id number] 4 TRENT NOGUEIRA Hector 2023 90 [facility] LORATADINE 10MG TAB TAKE ONE TABLET BY MOUTH ONCE DAILY ORAL ACTIVE RYLIE WARREN SA [place] POTASSIUM 100MG TAB TAKE ONE TABLET BY MOUTH ONCE DAILY ORAL ACTIVE RYLIE WARREN SA 2022 [facility] IELD METOPROLOL SUCCINATE 25MG TAB,SA TAKE ONE TABLET BY MOUTH ONCE DAILY ORAL ACTIVE RYLIE WARREN SA 2019 [facility] Immunizations Combined list of available immunizations from the Department of Defense and [facility] Affairs facilities. Immunization Series Date Given Administered By Site Reaction Lot Number CVX Code Drug Adoption Services Manager Status Comments Source COVID-19 (MODERNA), MRNA, LNP-S, PF, 50 MCG/0.5 ML (AGES 12+ YEARS) 2023 VANESA GRUBER ON M RIGHT DELTO ID [id number] 312 complet ed Booster for Series, ADMINISTE RED AT [facility] IELD INFLUENZA, HIGH-DOSE, TRIVALENT, PF 2023 VANESA GRUBER ON M LEFT DELTO ID [id number] 135 complet ed ADMINISTE RED AT [facility] IELD TDAP 2022 JIMMY ASHTON RIGHT DELTO ID [id number] 115 complet ed ADMINISTE [facility] AT [facility] INFLUENZA, HIGH-DOSE, QUADRIVALENT 2022 JIMMY ASHTON RIGHT DELTO ID [id number] 197 complet ed ADMINISTE [facility] AT [facility] PNEUMOCOCCAL POLYSACCHARID E PPV23 2022 JIMMY ASHTON LEFT DELTO ID [id number] 33 complet ed [facility]E [facility] AT [facility] COVID-19, MRNA, LNP-S, BIVALENT BOOSTER, PF, 50 MCG/0.5 ML OR 25MCG/0.25 ML DOSE 1 2021 229 complet ed [facility] INFLUENZA VACCINE, QUADRIVALENT, ADJUVANTED 2020 205 complet ed [place] COVID-19 (MODERNA), MRNA, LNP-S, PF, 100 MCG/0.5 ML DOSE 2 2020 207 complet ed [facility] COVID-19 (MODERNA), MRNA, LNP-S, PF, 100 MCG/0.5 ML DOSE 1 2020 207 complet ed [facility] ZOSTER RECOMBINANT 2 2019 187 complet ed [employer] [facility] INFLUENZA, SEASONAL, INJECTABLE 2018 141 complet ed [facility] s / Dr.James Pedersen [facility] Right Deltoid [facility] Vital Signs Combined list of inpatient and outpatient Vital Signs from Department of Defense and Veterans Affairs, ranging from 12 months to all on record, depending upon the facility. Vital Sign Value Date Comments Source SYSTOLIC BLOOD PRESSURE 147 02/23/19 25 15:00:00 [facility] DIASTOLIC BLOOD PRESSURE 95 025 15:00:00 [facility] PULSE OXIMETRY 96 02/24/2024 15:00:00 [facility] WEIGHT 241.4 02/24/2024 15:00:00 [facility] BMI 35 kg/m2 02/24/2024 15:00:00 [facility] [...] 13:48:09 [facility] BMI 35 kg/m2 11/07/2023 13:48:09 [facility] [...] 09:03:09 [facility] BMI 35 kg/m2 10/17/2023 09:03:09 [facility] PAIN 0 10/17/2023 09:03:09 [facility] TEMPERATURE 97.2 10/17/2023 09:03:09 [facility] PULSE 84 10/17/2023 09:03:09 [facility] RESPIRATION 16 10/17/2023 09:03:09 [facility] Encounters Combined list of: 1) Encounters from Department of Veterans Affairs facilities going backup to the last 18 months, not all VA inpatient encounters are included; 2) Encounters from the Department of [facility] facilities going backup to 280 months. Location Location Details Encounter Type Encounter Number Reason For Visit Attending Provider ADM Date DC Date Status Disposition Source [facility] CONFORMITY EVALUATION [id number] Diagnos is: ICD-10- CM Z46.1 Encount er for fitting and adjustm ent of hearing aid SENIOR,SESAR OLE L 11/27 [facility] [place] OFFICE O/P EST LOW 20-29 MIN [id number] Diagnos is: ICD-10- CM L60.3 Nail dystrop hy ROSS,CHARL ES F 12/18 [place] [facility] Outpatient Encounter [id number] 12/25 [facility] Encounter [id number] 12/28 [facility] Out[facility] Encounter [id number] 01/17 [facility] Out[facility] Encounter [id number] 03/01 [facility] Out[facility] Encounter [id number] 04/10 [facility] OFFICE O/P EST LOW 20 MIN [id number] Diagnos is: ICD-10- CM L60.3 Nail dystrop hy SHANIA,CHARL ES F 04/22 [place] [facility] Out[facility] Encounter [id number] 04/22 [facility] Encounter [id number] 04/23 [facility] Out[facility] Encounter [id number] 04/28 [facility] Out[facility] Encounter [id number] 05/07 [facility] POS AIRWAY PRESSURE FILTER [id number] Diagnos is: ICD-10- CM G47.33 Obstruc tive sleep apnea (adult) (pediat marisol) DELPHINE BEY 05/29 [facility] Out[facility] Encounter [id number] HENNA WARREN 05/29 [facility] Out[facility] Encounter [id number] 05/30 [facility] SPECIAL SUPPLIES PHYS/QHP [id number] Diagnos is: ICD-10- CM G47.33 Obstruc tive sleep apnea (adult) ([facility]) DELPHINE BEY 06/02 [facility] Out[facility] Encounter [id number] HENNA WARREN 06/11 [facility] REPLACEMEN T NASAL CUSHION [id number] Diagnos is: ICD-10- CM G47.33 Obstruc tive sleep apnea (adult) ([facility]) DELPHINE BEY P 06/12 [facility] Out[facility] Encounter [id number] HENNA WARREN 06/13 [facility] Out[facility] Encounter [id number] 06/23 [facility] Outpatient Encounter [id number] 06/25 [facility] Outpatient Encounter [id number] 07/01 [facility] POS AIRWAY PRESS CHINSTRAP [id number] Diagnos is: ICD-10- CM G47.33 Obstruc tive sleep apnea (adult) ([facility]) DELPHINE BEY P 07/03 [facility] [place] OFF/OP EST JUNE X REQ PHY/QHP [id number] Diagnos is: ICD-10- CM Z71.89 Other specifi ed savings counselor ing KAYE,ESPITIA DIANA O 07/09 [place] [facility] Outpatient Encounter [id number] HENNA WARREN 07/09 [facility] Out[facility] Encounter [id number] 07/15 [facility] COLLJ & INTERPJ DATA EA 30 D [id number] Diagnos is: ICD-10- CM G47.33 Obstruc tive sleep apnea (adult) (pediat marisol) DELPHINE BEY E P 07/21 [facility] Out[facility] Encounter [id number] 08/04 [facility] PSYCH DIAGNOSTIC EVALUATION [id number] Diagnos is: ICD-10- CM F43.12 Post-tr aumatic stress disorde r, chronic Anne-Marie [place] 08/06 [facility] [place] [facility] Out[facility] Encounter [id number] 08/11 [facility] TUBING WITH HEATING ELEMENT [id number] Diagnos is: ICD-10- CM G47.33 Obstruc tive sleep apnea (adult) (pediat marisol) DELPHINE BEY P 08/11 [facility] Out[facility] Encounter [id number] HENNA WARREN 08/13 [facility] COLLJ & INTERPJ DATA EA 30 D [id number] Diagnos is: ICD-10- CM G47.33 Obstruc tive sleep apnea (adult) ([facility]) DELPHINE BEY E P 09/01 [facility] [place] [facility] Outpatient Encounter [id number] 09/03 [place] [facility] [place] [facility] [facility] [place] OFFICE O/P EST LOW 20 MIN [id number] Diagnos is: ICD-10- CM L60.3 Nail dystrop hy SHANIANATHAN ES F 09/26 [place] [facility] OFF/OP CONSLTJ NEW/EST HI 55 [id number] Diagnos is: ICD-10- CM G47.33 Obstruc tive sleep apnea (adult) ([facility]) ENRIQUE NOGUEIRA 10/16 [place] [facility] [place] [facility] [facility] [place] QNHP OL DIG ASSMT&MGMT 5-10 [id number] Diagnos is: ICD-10- CM J30.9 Allergi c rhiniti s, unspeci VANDANA Syed 10/16 [place] [facility] Outpatient Encounter [id number] 11/06 [place] [facility] [place] [facility] [facility] [place] OFF[place] O/P EST LOW 20 MIN [id number] [id number]. [id number] Diagnos is: ICD-10- CM I10 Essenti al (primar y) hyperte HENNA Hall 11/06 [place] PATIENT EDUCATION MATERIALS [id number] Diagnos is: ICD-10- CM G47.33 Obstruc tive sleep apnea (adult) ([facility]) DELPHINE PARSONS E P 11/26 [place] OFF[place] O/P EST LOW 20 MIN [id number] Diagnos is: ICD-10- CM L60.3 Nail dystrop hy NATHAN JAUREGUI F 02/20 [place] [facility] OFFICE O/P EST LOW 20 MIN [id number] Diagnos is: ICD-10- CM J30.0 Vasomot or rhiniti s NOGUEIRAENRIQUE R 02/23 [facility] [facility] COLLJ & INTERPJ DATA EA 30 D [id number] Diagnos is: ICD-10- CM G47.33 Obstruc tive sleep apnea (adult) ([facility]) DELPHINE BEY P 03/05 [place] [facility] POS AIRWAY PRESSURE CPAP [id number] Diagnos is: ICD-10- CM G47.33 Obstruc tive sleep apnea (adult) ([facility] marisol) DELPHINE BEY P 05/06 [place] [facility] [place] [facility] [facility] Outpatient Encounter [id number] 05/12 [place] [facility] [place] [facility] Outpatient Encounter [id number] 05/21 [place] [facility] [place] [facility] Social History Combined list of available smoking, tobacco, and other social history from Department of Defense and Veterans Affairs facilities. Social History Type Response Date Comment Sourc e Tobacco smoking status [facility] VA-TOBACCO FORMER USER 11/07/2023 [place] History of tobacco use [place]-TOBACCO QUIT 15 YRS OR MORE 11/07/2023 [place] History of tobacco use [place]-TOBACCO FORMER USER 11/07/2022 [place] History of tobacco use [place]-TOBACCO FORMER USER 11/09/2021 [place] History of tobacco use [place]-TOBACCO QUIT 15 YRS OR MORE 11/09/2020 [place] History of tobacco use VA-TOBACCO QUIT 15 YRS OR MORE 08/07/2019 [facility] Plan of Care List of future care activities from Department of Veterans Affairs facilities. Additional future care activities may be listed in the Assessment and Plan section. Date/Time Care Activity Care Activity Detail Facili ty 06/10/2024 AMBULATORY - MEDICINE AMBULATORY - MEDICI NE [facility]
--- OUTSIDE RECORDS SUMMARY | 2024-05-28 13:04 | XMS_ITS | Encounter Summary ---
Author Name [facility] [place] [facility] [facility] [place] Address [address] [place] [id number] Care Team Providers Care Sterile Tech Name Role Phone JESUS WARREN Primary Care [...] Chan's Name Patient's Relationship to Policy Chan [facility] Apr 11, 2017 [facility] [id number] MADONNA CASILLAS PATIENT [employer] ([id number]) PRESCRIPT ION [facility] Aug 11, 2017 [id number] [phone] VINNYMADONNA ANTHONY PATIENT MEDICARE (WNR) MEDICARE (M) PART A Sep 12, 2011 PART A [id number] MADONNA CASILLAS PATIENT MEDICARE (WNR) MEDICARE (M) PART A Sep 12, 2011 PART A [id number] VINNYMADONNA ANTHONY PATIENT [employer] PREFERRED PROVIDER ORGANIZAT ION (PPO) UNICA RE [facility] * Aug 11, 2009 [id number] MARIA TERESAElvisMADONNA ANTHONY PATIENT Selected Encounter This section includes the information on record at [place] for the Encounter. Date/Time Encounter Type Encounter Description Reason Provider Source Oct 17, 2023 09:00 AM OFF/OP CONSLTJ NEW/EST HI 55 OTOLARYNGOLOGY/EN T ICD-10-CM G47.33 Obstructive sleep apnea (adult) (pediatric) FERNY DUPREE [facility] Encounter Template Text not used by [place] Assessments - Encounter Diagnoses This section includes the primary and secondary diagnoses documented for the Encounter. Date/Time Primary/Secondary Diagnosis Diagnosis Name Provider Source Jan 06, 2024 10:35 AM PRIMARY Obstructive sleep apnea (adult) (pediatric) RICARDO DUPREE [facility] Jan 06, 2024 10:35 AM SECONDARY Chronic rhinitis RICARDO DUPREE [facility] Jan 06, 2024 10:35 AM SECONDARY Sensorineural hearing loss, bilateral [facility]ICARDO [facility]UPREE [facility] Plan of Treatment: Future Appointments (+ 6 months) and Future Tests (+/- 45 days) The Plan of Treatment section includes future care activities for the patient from all [place] treatmentfacilities. This section includes future appointments and future orders which are active, pending or scheduled. Future Appointments This section includes appointments that were scheduled to occur 6 months from the date of the Encounter, up to a maximum of 20 appointments. The data comes from all [place] treatment facilities. Appointment Date/Time Appointment Type Appointme nt Facility Name Nov 07, 2023 01:30 PM AMBULATORY - MEDICINE [place] [facility] [place] [facility] Nov 27, 2023 10:00 AM AMBULATORY - NONE [place] [facility] [place] [facility] Feb 21, 2024 01:00 PM [facility] Feb 24, 2024 03:00 PM AMBULATORY - MEDICINE [facility] [place] [facility] Vital Signs: All taken on the encounter date This section contains inpatient and outpatient Vital Signs collected on the date of the Encounter. Date/Time Temperature Pulse Blood Pressure Respiratory Rate SP02 Pain Height Weight Body Mass Index Source Oct 17, 2023 09:03 AM 97.2 84 127/77 16 97 0 244.9 35 [facility] Social History: Smoking Status (Most [...] PM [place]-TOBACCO QUIT 15 YRS OR MORE [facility] Tobacco Use History This section includes a history of the smoking, or tobacco-related health factors, that were collected on or before the date of the Encounter. The data comes from the [place] facility where the Encounter took place. Date/Time Smoking Status/Tobacco Use Comment F acility Aug 07, 2019 01:20 PM [place]-TOBACCO QUIT 15 YRS OR MORE [facility] Encounter Notes: All associated encounter notes This section contains the clinical notes associated to the Encounter. Date/Time Encounter Note(s) Provider Source Oct 17, 2023 09:06 AM OTOLARYNGOLOGY CONSULT: [facility] TITLE: CONSULT REPORT/OTOLARYNGOLOGY STANDARD TITLE: OTOLARYNGOLOGY CONSULT DATE OF NOTE: OCT 17, 2023@09:06 ENTRY DATE: OCT 17, 2023@09:07:01 AUTHOR: FERNY DUPREE COSIGNER: URGENCY: STATUS: COMPLETED CONSULT REPORT/OTOLARYNGOLOGY Has ADDENDA CONSULT REQUESTED FROM JESUS WARREN OCT 17, 2023 EMILIE CASILLAS ESTEVAN is a 78 y/o FORMER smoker WHITE MALE, previously in [employer] FROM Dec TO Dec from PERIOD OF [...] 6. Allergic rhinitis 7. HTN - Hypertension ([facility] [id number]) 8. OA - Osteoarthritis ([facility] [id number]) 9. Benign prostatic hypertrophy 10. Colonoscopy Screening [...] appropriate to the situation. Polysomnogram dated 03-01-2023 [facility] Overall AHI: 39.1 Mean oxygen saturation: 92% [...] that bothers others, mouth breathing, nasal congestion. 33988 Nasal Endoscopy; Diagnostic Modifiers: -50 Bilateral Procedure [...] of active outpatient prescriptions dispensed from this [place] (local) and dispensed from another [place] or [facility] facility (remote) as well as inpatient [...] Remote Allergy/ADR Data available for this patient [place] [facility] No Known Allergies Med [facility] Palmiraaundrea (Tool #1) INCLUDED IN THIS LIST: Alphabetical list of active outpatient prescriptions dispensed from this [place] (local) and dispensed from another [place] or [facility] facility (remote) as well as inpatient orders (local pending and active), local clinic medications, locally documented non-VA medications, and local prescriptions that have or been discontinued in the past 90 days. Non-VA Meds Last Documented On: Nov 07, 2022 NOTE The display of VA prescriptions dispensed from another [place] or [facility] facility (remote) is limited to active outpatient prescription entries matched to National Drug File at the originating site and may not include some items such as investigational drugs, compounds, etc. NOT INCLUDED IN THIS LIST: Medications self-entered by the patient into personal health records (i.e. Roadmap) are NOT included in this list. Non-VA medications documented outside this [place], remote inpatient orders (regardless of status) and remote clinic medications are NOT included in this list. The patient and provider must always discuss medications the patient is taking, regardless of where the medication was dispensed or obtained. OUTPT AMMONIUM LACTATE 12% LOTION (Status = Active) APPLY SMALL AMOUNT TOPICALLY TWICE DAILY FOR DRY IRRITATED SKIN Rx# [id number] Last Released: 04/25/23 Qty/Days Supply: 240/30 Rx [...] CAPSULE BY MOUTH ONCE DAILY SUPPLIES /emmett/ Ferny Dupree MD Otolaryngology Signed: 10/17/2023 09:53 11/27/2023 [...] Signed: 11/27/2023 11:08 [facility]ERN[facility]UPREE [facility]
--- OUTSIDE RECORDS SUMMARY | 2024-05-28 13:04 | XMS_ITS | Encounter Summary ---
Author Name [place] Organization [place] Address [address] [place] [address] Care Team Providers Care Mining Analyst Name Role Phone JESUS WARREN Primary Care [...] Name Patient's Relationship to Policy Chan [facility] Apr 11, 2017 [id number] VINNYMADONNA ANTHONY PATIENT EXPRESS SCRIPTS ([id number]) PRESCRIPT ION [facility] Aug 11, 2017 [id number] [phone] VINNYMADONNA ANTHONY PATIENT MEDICARE (WNR) MEDICARE (M) PART A Sep 12, 2011 PART A [id number] VINNYMADONNA ANTHONY PATIENT MEDICARE (WNR) MEDICARE (M) PART A Sep 12, 2011 PART A [id number] VINNYMADONNA ANTHONY PATIENT WELLPOINT PREFERRED PROVIDER ORGANIZAT ION (PPO) [facility] * Aug 11, 2009 [id number] MADONNA CASILLAS PATIENT Selected Encounter This section includes the information on record at [place] for the Encounter. Date/Time Encounter Type Encounter Description Reason Provider Source Sep 27, 2023 01:00 PM OFFICE O/P EST LOW 20 MIN PODIATRY ICD-10-CM L60.3 [address] [facility]E[address] JAUREGUI [facility] Encounter Template Text not used by [place] Assessments - Encounter Diagnoses This section includes the primary and secondary diagnoses documented for the Encounter. Date/Time Primary/Secondary Diagnosis Diagnosis Name Provider Source Nov 11, 2023 06:25 AM PRIMARY Nail dystrophy [facility] Nov 11, 2023 06:25 AM SECONDARY Corns and callosities [facility] Nov 11, 2023 06:25 AM SECONDARY Pain in left foot [facility]IGN [facility] Nov 11, 2023 06:25 AM SECONDARY Pain in left toe(s) [facility]IGN [facility] Nov 11, 2023 06:25 AM SECONDARY Pain in right foot [facility]IGN [facility]GUI [facility] Nov 11, 2023 06:25 AM SECONDARY Pain in right toe(s) [facility]IGN [facility]GUI [facility] Nov 11, 2023 06:25 AM SECONDARY Peripheral vascular disease, unspecified FOREIGN JAUREGUI [facility] Plan of Treatment: Future Appointments (+ 6 months) and Future Tests (+/- 45 days) The Plan of Treatment section includes future care activities for the patient from all [place] treatmentfacilities. This section includes future appointments and future orders which are active, pending or scheduled. Future Appointments This section includes appointments that were scheduled to occur 6 months from the date of the Encounter, up to a maximum of 20 appointments. The data comes from all [place] treatment facilities. Appointment Date/Time Appointment Type Appointme nt Facility Name Oct 17, 2023 09:00 AM AMBULATORY - MEDICINE [place] [facility] [place] [facility] Nov 07, 2023 01:30 PM AMBULATORY - MEDICINE [place] [facility] [place] [facility] Nov 27, 2023 10:00 AM AMBULATORY - NONE [place] [facility] [place] [facility] Feb 21, 2024 01:00 PM [facility]ORY - MEDICINE [facility] Feb 24, 2024 03:00 PM AMBULATORY - MEDICINE [place] [facility] [place] [facility] Social History: Smoking Status (Most current) and Tobacco Use (All prior to encounter date) This section includes the most current, and the historical, smoking and tobacco- related health factors from the [place] facility where the Encounter took place. Current Smoking Status This section includes the most current smoking, or tobacco-related health factor, from the [place] facility where the Encounter took place. Date/Time Current Smoking Status Comment Facil ity Nov 07, 2022 01:30 PM VA-TOBACCO FORMER USER [facility] Tobacco Use History This section includes a history of the smoking, or tobacco-related health factors, that were collected on or before the date of the Encounter. The data comes from the [place] facility where the Encounter took place. Date/Time Smoking Status/Tobacco Use Comment F acility Nov 07, 2022 01:30 PM VA-TOBACCO QUIT 15 YRS OR MORE [facility] Nov 09, 2021 09:00 AM VA-TOBACCO FORMER USER [facility] Nov 09, 2021 09:00 AM VA-TOBACCO QUIT 15 YRS OR MORE [facility] Nov 09, 2020 03:00 PM VA-TOBACCO FORMER USER [facility] Nov 09, 2020 03:00 PM VA-TOBACCO QUIT 15 YRS OR MORE [facility] Encounter Notes: All associated encounter notes This [...] VACCINES + BOOSTER THROUGH WORK WITH THE [facility] LAST SEEN FOR TREATMENT: 04/23/2023 S: Pt. is a 77 yo alert [facility] who presents for continued podiatric EVALUATION [...] present physical-medical status. Protective sensation utilizing a [place] lOg monofilament is 05/10 bilateral. BIOMECHANICAL: [...] SWIMMING POOL PROBLEM AND HIS VACATION AT [facility] WITH [facility] *DISCUSSED NEW PROTOCOLS AND CALLED GREGORY ALBRECHT [...] this VA (local) and dispensed from another [place] or DoD facility (remote) as well as [...] Remote Allergy/ADR Data available for this patient [place] [facility] No Known Allergies Med [facility] ([facility] #[facility]) INCLUDED IN THIS LIST: Alphabetical list of active outpatient prescriptions dispensed from this [place] (local) and dispensed from another [place] or [facility] facility (remote) as well as inpatient orders (local pending and active), local clinic medications, locally documented non-VA medications, and local prescriptions that have or been discontinued in the past 90 days. Non-VA Meds Last Documented On: Nov 07, 2022 NOTE The display of VA prescriptions dispensed from another [place] or [facility] facility (remote) is limited to active outpatient prescription entries matched to National Drug File at the originating site and may not include some items such as investigational drugs, compounds, etc. NOT INCLUDED IN THIS LIST: Medications self-entered by the patient into personal health records (i.e. Synker) are NOT included in this list. Non-VA medications documented outside this [place], remote inpatient orders (regardless of status) and remote clinic medications are NOT included in this list. The patient and provider must always discuss medications the patient is taking, regardless of where the medication was dispensed or obtained. OUTPT AMMONIUM LACTATE 12% LOTION (Status = Active) APPLY SMALL AMOUNT TOPICALLY TWICE DAILY FOR DRY IRRITATED SKIN Rx# [id number] Last Released: 04/25/23 Qty/Days Supply: 240/30 Rx [...] ONCE DAILY SUPPLIES /emmett/ FOREIGN JAUREGUI DPM ACTIVATED SLUDGE ATTENDANT Signed: 09/27/2023 13:34 [facility]GUI [facility]
--- OUTSIDE RECORDS SUMMARY | 2024-05-28 13:04 | XMS_ITS | Encounter Summary ---
Author Name Department [place] Organization [place] Address [address] [place] [address] Care Team Providers Care National Park Ranger Name Role Phone KELVINJESUS Primary Care Provider [...] Chan's Name Patient's Relationship to Policy Chan [facility] Apr 11, 2017 [id number] VINNYMADONNA ANTHONY PATIENT EXPRESS SCRIPTS ([id number]) PRESCRIPT ION [facility] Aug 11, 2017 [id number] [phone] VINNYMADONNA ANTHONY PATIENT MEDICARE (WNR) MEDICARE (M) PART A Sep 12, 2011 PART A [id number] [phone] MADONNA CASILLAS PATIENT MEDICARE (WNR) MEDICARE (M) PART A Sep 12, 2011 PART A [id number] [phone] ANUPALEXANDREElvisMADONNA ANTHONY PATIENT WELLPOINT PREFERRED PROVIDER ORGANIZAT ION (PPO) [facility] * Aug 11, 2009 [id number] MADONNA CASILLAS PATIENT Selected Encounter This section includes the information on record at [place] for the Encounter. Date/Time Encounter Type Encounter Description Reason Provider Source Feb 24, 2024 03:00 PM OFFICE O/P EST LOW 20 MIN OTOLARYNGOLOGY/EN T ICD-10-CM J30.0 Vasomotor rhinitis FERNY DUPREE [facility] Encounter Template Text not used by [place] Assessments - Encounter Diagnoses This section includes the primary and secondary diagnoses documented for the Encounter. Date/Time Primary/Secondary Diagnosis Diagnosis Name Provider Source Mar 15, 2024 07:56 AM PRIMARY Vasomotor rhinitis RICARDO DUPREE [place] [facility] [place] [facility] Mar 15, 2024 07:56 AM SECONDARY Nasal valve collapse, unspecified RICARDO DUPREE [place] [facility] [place] [facility] Mar 15, 2024 07:56 AM SECONDARY Obstructive sleep apnea (adult) (pediatric) RICARDO DUPREE [place] [facility] [place] [facility] Mar 15, 2024 07:56 AM SECONDARY Sensorineural hearing loss, bilateral RICARDO DUPREE [place] [facility] [place] [facility] Plan of Treatment: Future Appointments (+ 6 months) and Future Tests (+/- 45 days) The Plan of Treatment section includes future care activities for the patient from all [place] treatmentfacilities. This section includes future appointments and future orders which are active, pending or scheduled. Future Appointments This section includes appointments that were scheduled to occur 6 months from the date of the Encounter, up to a maximum of 20 appointments. The data comes from all [place] treatment facilities. Appointment Date/Time Appointment Type Appointme nt Facility Name Jun 10, 2024 03:30 PM AMBULATORY - MEDICINE [place] [facility] [place] [facility] June 11, 2024 01:30 PM AMBULATORY - MEDICINE [facility] Aug 17, 2024 08:30 AM AMBULATORY - MEDICINE [place] [facility] [place] [facility] Vital Signs: All taken on the encounter date This section contains inpatient and outpatient Vital Signs collected on the date of the Encounter. Date/Time Temperature Pulse Blood Pressure Respiratory Rate SP02 Pain Height Weight Body Mass Index Source Feb 24, 2024 03:00 PM 97.8 71 147/95 18 96 0 241.4 35 [facility] Social History: Smoking Status (Most current) and Tobacco Use (All prior to encounter date) This section includes the most current, and the historical, smoking and tobacco- related health factors from the [place] facility where the Encounter took place. Current Smoking Status This section includes the most current smoking, or tobacco-related health factor, from the [place] facility where the Encounter took place. Date/Time Current Smoking Status Comment Facil ity Aug 07, 2019 01:20 PM MI-TOBACCO QUIT 15 YRS OR MORE [facility] Tobacco Use History This section includes a history of the smoking, or tobacco-related health factors, that were collected on or before the date of the Encounter. The data comes from the [place] facility where the Encounter took place. Date/Time Smoking Status/Tobacco Use Comment F acility Aug 07, 2019 01:20 PM MI-TOBACCO QUIT 15 YRS OR MORE [facility] Encounter Notes: All associated encounter notes This section contains the clinical notes associated to the Encounter. Date/Time Encounter Note(s) Provider Source Feb 24, 2024 03:22 PM OTOLARYNGOLOGY NOTE: LOCAL TITLE: OTOLARYNGOLOGY CLINIC NOTE STANDARD TITLE: OTOLARYNGOLOGY NOTE DATE OF NOTE: FEB 24, 2024@15:22 ENTRY DATE: FEB 24, 2024@15:22:06 AUTHOR: FERNY DUPREE COSIGNER: URGENCY: STATUS: COMPLETED OTOLARYNGOLOGY CLINIC NOTE Has ADDENDA FEB 24, 2024 EMILIE CASILLAS ESTEVAN is a 78 y/o FORMER smoker WHITE MALE, previously in [employer] FROM Dec TO Dec from PERIOD OF [...] week after 54 years working for the [employer]. PV: 78-year-old male referred secondary to left [...] 6. Allergic rhinitis 7. HTN - Hypertension ([facility] [id number]) 8. OA - Osteoarthritis ([facility] [id number]) 9. Benign prostatic hypertrophy 10. Colonoscopy Screening [...] week after 54 years working for the [employer]. Physical exam shows bilateral nasal valvular collapse [...] I wished the patient luck in his group home. He asks to follow-up in 6 months. [...] Remote Allergy/ADR Data available for this patient [place] [facility] [place] [facility] No Known Allergies Med [place]con [place] (Tool #1) INCLUDED IN THIS LIST: Alphabetical [...] the patient into personal health records (i.e. [employer]) are NOT included in this list. Non-VA medications documented outside this [place], remote inpatient orders (regardless of status) and remote clinic medications are NOT included in this list. The patient and provider must always discuss medications the patient is taking, regardless of where the medication was dispensed or obtained. OUTPT AMMONIUM LACTATE 12% LOTION (Status = Active) APPLY SMALL AMOUNT TOPICALLY TWICE DAILY FOR DRY IRRITATED SKIN Rx# [id number] Last Released: 04/25/23 Qty/Days Supply: 240/30 Rx [...] NOSTRIL 1-3 TIMES/DAY FOR NASAL IRRITATION/CONGESTION Rx# [id number] Last Released: 01/20/24 Qty/Days Supply: 90/90 Rx [...] AT BEDTIME FOR NASAL VALVE COLLAPSE Rx# [id number] Last Released: 10/21/23 Qty/Days Supply: Rx Expiration Date: 10/17/24 Refills Remainin Indication: FOR NASAL VALVE COLLAPSE /emmett/ Ferny Dupree MD Otolaryngology Signed: 02/24/2024 16:53 04/07/2024 ADDENDUM STATUS: COMPLETED Spoke with patient. He was previously using guaifenesin 1200 mg twice daily. He finds it very useful. I adjusted the dose accordingly. Patient will follow- up as scheduled. /emmett/ Ferny Dupree MD Otolaryngology Signed: 04/07/2024 17:12 FERNY DUPREE [facility]
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
--- OUTSIDE RECORDS SUMMARY | 2024-05-28 13:04 | XMS_ITS | Encounter Summary ---
Author Name [place] Address [address] [place] [address] Care Team Providers Care Automotive Electrician Name Role Phone HENNA WARRENA Primary Care Provider Unavailabl e Insurance Providers: [...] Chan's Name Patient's Relationship to Policy Chan [facility] Apr 11, 2017 [id number] VINNYMADONNA ANTHONY PATIENT EXPRESS SCRIPTS ([id number]) PRESCRIPT ION [facility] Aug 11, 2017 [id number] VINNYMADONNA ANTHONY PATIENT MEDICARE (WNR) MEDICARE (M) PART A Sep 12, 2011 PART A [id number] MADONNA CASILLAS PATIENT MEDICARE (WNR) MEDICARE (M) PART A Sep 12, 2011 PART A [id number] [phone] [id number] MARIA TERESAElvisMADONNA ANTHONY PATIENT WELLPOINT PREFERRED PROVIDER ORGANIZAT ION (PPO) [facility] * Aug 11, 2009 [id number] MADONNA CASILLAS PATIENT Selected Encounter This section includes the information on record at [place] for the Encounter. Date/Time Encounter Type Encounter Description Reason Provider Source July 04, 2023 02:00 PM POS AIRWAY PRESS CHINSTRAP SLEEP MEDICINE ICD-10-CM G47.33 Obstructive sleep apnea (adult) (pediatric) KASEY BEY IHE Encounter Template Text not used by [place] Assessments - Encounter Diagnoses This section includes the primary and secondary diagnoses documented for the Encounter. Date/Time Primary/Secondary Diagnosis Diagnosis Name Provider Source Jul 30, 2023 01:42 PM PRIMARY Obstructive sleep apnea (adult) (pediatric) KASEY BEY [facility] Plan of Treatment: Future Appointments (+ 6 months) and Future Tests (+/- 45 days) The Plan of Treatment section includes future care activities for the patient from all [place] treatmentfacilities. This section includes future appointments and [...] 17, 2023 09:00 AM AM[facility]UL[facility]ORY [facility] [place] [facility] Nov 07, 2023 01:30 PM AMBULATORY - MEDICINE [facility] Nov 27, 2023 10:00 AM [facility]ORY - NONE [facility] Social History: Smoking Status (Most current) [...] Eran cary Aug 07, 2019 01:20 PM [place]-TOBACCO QUIT 15 YRS OR MORE [facility] Tobacco Use History This section includes a history of the smoking, or tobacco-related health factors, that were collected on or before the date of the Encounter. The data comes from the [place] facility where the Encounter took place. Date/Time Smoking Status/Tobacco Use Comment F acility Aug 07, 2019 01:20 PM VA-TOBACCO QUIT 15 YRS OR MORE [facility] Encounter Notes: All associated encounter notes This section contains the clinical notes associated to the Encounter. Date/Time Encounter Note(s) Provider Source July 04, 2023 02:01 PM RESPIRATORY THERAP Y NOTE: LOCAL TITLE: RESPIRATORY THERAPY NOTE(BLANK) STANDARD TITLE: RESPIRATORY THERAPY NOTE DATE OF NOTE: JULY 04, 2023@14:01 ENTRY DATE: JULY 04, 2023@14:01:19 AUTHOR: KASEY BEY COSIGNER: URGENCY: STATUS: COMPLETED VA Video Connect (VVC) Standard Documentation VVC Clinician Resources Only: E911 (Emergency Call Relay Center): [phone] [facility] Crisis Line - 988 then press #1. [facility] Suicide Coordinator [phone], Ext. [phone]; Back-up Ext. [phone] [place] Police, ERNST, [place] [phone] Introduction: Visit is being conducted by [place] GROU.[facility]. [place] identified with 2 identifiers: [X] Full Name [X] Date of [ ] [place] ID Card Emergency Plan: confirmed and/or provided the following information in case of emergency or technology failure. PATIENT PHONE - [phone] PHONE NUMBER [CELLULAR] - Is patient phone number correct, if not, enter below: [place]'s phone number: EMILIE CASILLAS [address], [place], [address] [place]'s present location and address for appointment: as above 's emergency contact name and phone number: [place] [phone] reported that location is private and safe: Yes Informed Consent: informed of the risks and benefits of Telehealth video care. [place] has the right to refuse video services. If refuses video visit, a [id number] visit will be scheduled. verbalized consent for this video visit: Yes provided consent for any other persons present for visit: Yes If yes, who and relationship to patient: Secure visit: Visit was locked for security and privacy:Yes As above this is a video visit: Moe diagnosed with sleep apnea had [facility] visit after equipment was shipped to moe. Moe received Airsense 11 set to APAP 5-20 cmH2O with mask and supplies. We reviewed operation of device, My options and sleep report menu and care and cleaning. We reviewed how to apply and adjust the interface. Moe was able to demonstrate understanding of all we reviewed. He received written handout on care and cleaning, schedule for replacement supplies, clinic contact information and operating manual. Moe was urged to reach out to the clinic for any issues or problems. We reviewed ways to acclimate to CPAP. Moe was reminded that consistent use > 4 [...] 153 hours AirSense 11 AutoSet Serial number [id number] Mode AutoSet Min Pressure 5 cmH2O Max [...] (0%) /emmett/ KASEY BEY RESPIRATORY THERAPIST Signed: 07/04/2023 14:55 KASEY BEY [place] [facility]
--- OUTSIDE RECORDS SUMMARY | 2024-05-28 13:04 | XMS_ITS | Encounter Summary ---
Author Name [facility] [place] Organization [place] Address [address] [place] [address] Care Team Providers Care Maintenance Job Titles Name Role Phone JESUS WARREN Primary Care [...] Chan's Name Patient's Relationship to Policy Chan [facility] Apr 11, 2017 [id number] MADONNA CASILLAS PATIENT EXPRESS SCRIPTS ([id number]) PRESCRIPT ION [facility] Aug 11, 2017 [id number] [phone] MADONNA CASILLAS PATIENT MEDICARE (WNR) MEDICARE (M) PART A Sep 12, 2011 PART A [id number] MADONNA CASILLAS PATIENT MEDICARE (WNR) MEDICARE (M) PART A Sep 12, 2011 PART A [id number] [phone] VINNYMADONNA ANTHONY PATIENT WELLPOINT PREFERRED PROVIDER ORGANIZAT ION (PPO) [facility] * Aug 11, 2009 [id number] MADONNA CASILLAS PATIENT Selected Encounter This section includes the information on record at [place] for the Encounter. Date/Time Encounter Type Encounter Description Reason Provider Source May 30, 2023 10:00 AM POS AIRWAY PRESSURE FILTER SLEEP MEDICINE ICD-10-CM G47.33 Obstructive sleep apnea (adult) (pediatric) KASEY BEY IHE Encounter Template Text not used by [place] Assessments - Encounter Diagnoses This section includes the primary and secondary diagnoses documented for the Encounter. Date/Time Primary/Secondary Diagnosis Diagnosis Name Provider Source Oct 21, 2023 10:32 AM PRIMARY Obstructive sleep apnea (adult) (pediatric) [facility] Plan of Treatment: Future Appointments (+ [...] 04, 2023 02:00 PM AMBULATORY - NONE [place] [facility] [place] [facility] July 10, 2023 11:00 AM AMBULATORY - PSYCHIATRY [facility] Aug 07, 2023 01:00 PM AMBULATORY - PSYCHIATRY [facility] Sep 27, 2023 01:00 PM AMBULATORY - MEDICINE [facility] Oct 17, 2023 09:00 AM AMBULATORY - MEDICINE [place] C [facility] [place] [facility] Nov 07, 2023 01:30 PM AMBULATORY - MEDICINE [place] C [facility] [place] [facility] Nov 27, 2023 10:00 AM [facility] [place] [facility] Social History: Smoking Status (Most current) [...] PM VA-TOBACCO QUIT 15 YRS OR MORE [facility] Tobacco Use History This section includes a history of the smoking, or tobacco-related health factors, that were collected on or before the date of the Encounter. The data comes from the [place] facility where the Encounter took place. Date/Time Smoking Status/Tobacco Use Comment F acility Aug 07, 2019 01:20 PM [place]-TOBACCO QUIT 15 YRS OR MORE [facility] Encounter Notes: All associated encounter [...] visit to discuss recommendations from sleep specialist. Sagamore was offered and is agreeable to VVC visit. had a HST at [facility] on 03/01/2023 and has an HST-RUY 39 with recommendations from [facility] sleep specialist for APAP 8-20 cmH2O. We discussed sleep study findings and the dangers of untreated sleep apnea. Sagamore is agreeable to begin therapy. A ResMed Airsense 11 set to APAP 8-20 cmH2O with filters, N30-i with chinstrap [facility]. Sagamore has follow up at [facility] sleep clinic gives consent for appointment. Equipment properly set and sized during this phone call will be sent to Sagamore's address, phone and email confirmed Time: [facility] to call and schedule follow-up will need to purchase distilled water Sagamore will be sent e-mail link for VVC visit Sagamore will receive an invitation to [facility] Video Connect (VVC) Standard Documentation VVC Clinician Resources Only: E911 (Emergency Call Relay Center): [phone] National Veterans Crisis Line - 988 then press #1. PRABHJOT Suicide Coordinator [phone], Ext. [phone]; Back-up Ext. [phone] [place] Police, [place] RICK [phone] Introduction: Visit is being conducted by [place] Video Connect. Sagamore identified with 2 identifiers: [X] Full Name [X] Date of [ ] VA ID Card Emergency Plan: confirmed and/or provided the following information in case of emergency or technology failure. PATIENT PHONE - [phone] PHONE NUMBER [CELLULAR] - Is patient phone number correct, if not, enter below: 's phone number: EMILIE CASILLAS [address], [place], [address] 's present location and address for appointment: as above 's emergency contact name and phone number: Mariah Lozano [phone] Sagamore reported that location is private and safe: Yes Informed Consent: Sagamore informed of the risks and benefits of Telehealth video care. has the right to refuse video services. If refuses video visit, a [id number] visit will be scheduled. verbalized consent for this video visit: Yes Sagamore provided consent for any other persons present for visit: Yes If yes, who and relationship to patient: Secure visit: Visit was locked for security and privacy:Yes /emmett/ KASEY BEY RESPIRATORY THERAPIST Signed: 05/30/2023 10:43 KASEY BEY [place] [facility]
--- OUTSIDE RECORDS SUMMARY | 2024-05-28 13:04 | XMS_ITS | Encounter Summary ---
Author Name Department of [place] ([place]) Organization [facility] Address [address] [place] [address] Care Team Providers Care Engineering Systems Analyst Name Role Phone JESUS WARREN Primary [...] Chan's Name Patient's Relationship to Policy Chan [facility] Apr 11, 2017 [id number] [phone] MADONNA CASILLAS PATIENT EXPRESS SCRIPTS ([id number]) PRESCRIPT ION [facility] Aug 11, 2017 [id number] [phone] MADONNA CASILLAS PATIENT MEDICARE (WNR) MEDICARE (M) PART A Sep 12, 2011 PART A [id number] MADONNA CASILLAS PATIENT MEDICARE (WNR) MEDICARE (M) PART A Sep 12, 2011 PART A [id number] MADONNA CASILLAS PATIENT WELLPOINT PREFERRED PROVIDER ORGANIZAT ION (PPO) [facility] * Aug 11, 2009 [id number] [phone] MADONNA CASILLAS PATIENT Selected Encounter This section includes the information on record at [place] for the Encounter. Date/Time Encounter Type Encounter Description Reason Provider Source Nov 27, 2023 10:00 AM PATIENT EDUCATION MATERIALS SLEEP MEDICINE ICD-10-CM G47.33 Obstructive sleep apnea (adult) (pediatric) KASEY BEY IH Encounter Template Text not used by [place] Assessments - Encounter Diagnoses This section includes the primary and secondary diagnoses documented for the Encounter. Date/Time Primary/Secondary Diagnosis Diagnosis Name Provider Source Mar 03, 2024 11:30 AM PRIMARY Obstructive sleep apnea (adult) (pediatric) KASEY BEY [place] Plan of Treatment: Future Appointments (+ 6 [...] 21, 2024 01:00 PM AMBULATORY - MEDICINE [facility] Feb 24, 2024 03:00 PM AMBULATORY - MEDICINE [place] [facility] Social History: Smoking Status (Most current) and [...] 07, 2023 01:30 PM VA-TOBACCO FORMER USER [place] Tobacco Use History This section includes a history of the smoking, or tobacco-related health factors, that were collected on or before the date of the Encounter. The data comes from the [place] facility where the Encounter took place. Date/Time Smoking Status/Tobacco Use Comment F acility Nov 07, 2023 01:30 PM [place]-TOBACCO QUIT 15 YRS OR MORE [place] Nov 07, 2022 01:30 PM VA-TOBACCO FORMER USER [place] Nov 07, 2022 01:30 PM [place]-TOBACCO QUIT 15 YRS OR MORE [place] Nov 09, 2021 09:00 AM VA-TOBACCO FORMER USER [place] Nov 09, 2021 09:00 AM VA-TOBACCO QUIT 15 YRS OR MORE [place] Nov 09, 2020 03:00 PM VA-TOBACCO FORMER USER [place] Nov 09, 2020 03:00 PM VA-TOBACCO QUIT 15 YRS OR MORE [place] Encounter Notes: All associated encounter notes This [...] follow up visit after 11/16/2023 for APAP [id number]. Kervin is doing well with use and [...] He reports he was changed to Ipratropium [place] nasal spray but states he uses more than recommended and does not feel it works as well as Afrin. He reports continued frustration over narrowed nasal passage. He is not sure if he was to have follow up with ENT. Kervin was reminded that consistent use > 4 hours a night yield the best benefit. Kervin was also cautioned regarding the dangers of untreated apnea. He reports cleaning as recommended. Supplies ordered via [facility]. [facility] ordering instructions given. He was reminded of [...] 880 hours AirSense 11 AutoSet Serial number [id number] Mode AutoSet Min Pressure 8 cmH2O Max [...]
--- OUTSIDE RECORDS SUMMARY | 2024-05-28 13:04 | XMS_ITS | Encounter Summary ---
Author Name [facility] [place] Organization [place] Address [address] [place] [address] Care Team Providers Care Naval Architect Specialist Name Role Phone JESUS WARREN Primary [...] Policy Chan [facility] Apr 11, 2017 [id number] [phone] VINNYMADONNA ANTHONY PATIENT EXPRESS SCRIPTS ([id number]) PRESCRIPT ION [facility] Aug 11, 2017 [id number] VINNYMADONNA ANTHONY PATIENT MEDICARE (WNR) MEDICARE (M) PART A Sep 12, 2011 PART A [id number] [phone] VINNYMADONNA ANTHONY PATIENT MEDICARE (WNR) MEDICARE (M) PART A Sep 12, 2011 PART A [id number] [phone] VINNYMADONNA ANTHONY PATIENT WELLPOINT PREFERRED PROVIDER ORGANIZAT ION (PPO) [facility] * Aug 11, 2009 [id number] MADONNA CASILLAS PATIENT Selected Encounter This section includes the information on record at [place] for the Encounter. Date/Time Encounter Type Encounter Description Reason Provider Source Nov 07, 2023 01:30 PM OFFICE O/P EST LOW 20 MIN PRIMARY CARE/MEDICINE ICD-10-CM I10 Essential (primary) hypertension KELVINJESUS JIMMIE [place] Encounter Template Text not used by [place] Assessments - Encounter Diagnoses This section includes the primary and secondary diagnoses documented for the Encounter. Date/Time Primary/Secondary Diagnosis Diagnosis Name Provider Source Nov 24, 2023 12:53 PM PRIMARY Essential (primary) hypertension MILAK MONTGOMERY Nov 24, 2023 12:53 PM SECONDARY Encounter for immunization MILKA MONTGOMERY Plan of Treatment: Future Appointments (+ 6 months) and Future Tests (+/- 45 days) The Plan of Treatment section includes future care activities for the patient from all [place] treatmentfacilities. This section includes future appointments and future orders which are active, pending or scheduled. Future Appointments This section includes appointments that were scheduled to occur 6 months from the date of the Encounter, up to a maximum of 20 appointments. The data comes from all [place] treatment facilities. Appointment Date/Time Appointment Type Appointme nt Facility Name Nov 27, 2023 10:00 AM AMBULATORY - NONE [place] [facility] Feb 21, 2024 01:00 PM AMBULATORY - MEDICINE [facility] Feb 24, 2024 03:00 PM AMBULATORY - MEDICINE [place] [facility] Immunizations: All administered on the encounter date This section contains immunizations associated to the Encounter. Immunization Series Date Issued Administered By Site Reaction Lot Number CVX Code Drug Production Ski Repairer Comment(s) Source COVID-19 (MODERNA), MRNA, LNP-S, PF, 50 MCG/0.5 ML (AGES 12+ YEARS) Nov 07, 2023 VANESA MONTGOMERY ON M RIGHT DELTO ID [id number] [employer] Booster for Series, ADMINISTERE D AT [facility] IE INFLUENZA, HIGH-DOSE, TRIVALENT, PF Nov 07, 2023 VANESA MONTGOMERY ON M LEFT DELTO ID [id number] SANOFI PASTEUR ADMINISTERE D AT [facility] Social History: Smoking Status (Most current) and Tobacco Use (All prior to encounter date) This section includes the most current, and the historical, smoking and tobacco- related health factors from the [place] facility where the Encounter took place. Current Smoking Status This section includes the most current smoking, or tobacco-related health factor, from the [facility] where the Encounter took place. Date/Time Current Smoking Status Comment Facil ity Nov 07, 2023 01:30 PM VA-TOBACCO FORMER USER [place] Tobacco Use History This section includes a history of the smoking, or tobacco-related health factors, that were collected on or before the date of the Encounter. The data comes from the [place] facility where the Encounter took place. Date/Time Smoking Status/Tobacco Use Comment F acility Nov 07, 2023 01:30 PM VA-TOBACCO QUIT 15 YRS OR MORE [place] Nov 07, 2022 01:30 PM VA-TOBACCO FORMER USER [place] Nov 07, 2022 01:30 PM VA-TOBACCO QUIT 15 YRS OR MORE [facility] 29, 2022 09:00 AM VA-TOBACCO FORMER USER [facility] 29, 2022 09:00 AM VA-TOBACCO QUIT 15 YRS OR MORE [place] Nov 09, 2020 03:00 PM VA-TOBACCO FORMER USER [place] Nov 09, 2020 03:00 PM VA-TOBACCO QUIT 15 YRS OR MORE [place] Encounter Notes: All associated encounter notes This [...] advance directive on file at any facility, [place] or outside. S/he is not interested in completing one at this time. The patient received education about Advance Directives and written notification of his/her rights. Suicide Screen: C-SSRS Screening [place] Suicide Severity Rating Scale (C-SSRS) screener 1. [...] full rights to use it throughout the [place] system. PRIMARY SCREEN RESULT: The Primary Screen [...] to learning were observed or identified. /emmett/ JASON HINES 10 Signed: 11/07/2023 13:52 11/07/2023 ADDENDUM STATUS: COMPLETED Influenza Immunization: Influenza, High-Dose, Trivalent, Preservative Free (Fluzone-Syringe) Administered: INFLUENZA, HIGH-DOSE, TRIVALENT, PF Date Administered: Nov 07, 2023 13:30 Production Ski Repairer: SANOFI PASTEUR Lot: [id number] Exp Date: Aug 10, 2024 NDC: [id number] Admin Route/Site: INTRAMUSCULAR/LEFT DELTOID Dosage: 0.5mL Vaccine Information Statement(s): INFLUENZA(FLU) VACC(INACTIVATED OR RECOMBINANT)VIS Sep 16, 2020 (GHANAIAN) Order By: Policy Administered By: Laura Montgomery [...] Administered: Nov 07, 2023 13:30 Series: Booster Production Ski Repairer: [employer]. Lot: [id number] Exp Date: Dec 15, 2023 NDC: [id number] Admin Route/Site: INTRAMUSCULAR/RIGHT DELTOID Dosage: 0.5mL Vaccine Information Statement(s): COVID-19 MRNA VACCINE (12+ YRS) VACCINE VIS Nov 29, 2022 (GHANAIAN) Order By: Policy Administered By: Laura Montgomery Comment: wants Vaccine administered without complications. /emmett/ LAURA MONTGOMERY LPN PACT 10 Signed: 11/07/2023 14:08 LAURA MONTGOMERY [place] Nov 07, 2023 12:18 PM PHYSICIAN NOTE: LOCAL TITLE: MD NOTE STANDARD TITLE: PHYSICIAN NOTE DATE OF NOTE: NOV 07, 2023@12:18 ENTRY DATE: NOV 07, 2023@12:19:03 AUTHOR: JESUS WARREN EXP COSIGNER: URGENCY: STATUS: COMPLETED HISTORY OF PRESENT ILLNESS: EMILIE CASILLAS is a 78 yo MALE who presents at the [facility] for his annual visit. He maintains a nonVA PCP: Dr Davila at [facility]. He utilizes podiatry, audiology, ENT, and respiratory services at the [place]. NonVA Providers: GI: Dr Whitaker Orthopedics: DAYANNA - Dr Chanel Opthalmologist: Dr Dustin Bright Urologist: Dr Paz ([facility]) Active problems - Computerized Problem List [...] answered NKA HISTORY: PERIOD OF SERVICE - [place] [facility] [employer] FROM Dec TO Dec COMBAT SERVICE INDICATED: [...] independent of and w/out assistance from this [place]. Medication Reconciliation: Outpatient: Has the patient been taking medications as documented in the EMLR? YES: The patient has been taking medications as documented in the EMLR. Essential Medication List for Review used to complete this medication reconciliation. INCLUDED IN THIS LIST: Alphabetical list of active outpatient prescriptions dispensed from this [place] (local) and dispensed from another [place] or [facility] facility (remote) as well as inpatient [...] list may not be complete. Please check [employer]. Allergies/ADRs (Tool #5) FACILITY ALLERGY/ADR -------- No Remote Allergy/ADR Data available for this patient [place] [facility] No Known Allergies Med Recon NoGlossary (Tool #1) INCLUDED IN THIS LIST: Alphabetical list of active outpatient prescriptions dispensed from this [place] (local) and dispensed from another [place] or [facility] facility (remote) as well as inpatient orders (local pending and active), local clinic medications, locally documented non-VA medications, and local prescriptions that have or been discontinued in the past 90 days. Non-VA Meds Last Documented On: Nov 07, 2023 NOTE The display of VA prescriptions dispensed from another [place] or [facility] facility (remote) is limited to active outpatient prescription entries matched to National Drug File at the originating site and may not include some items such as investigational drugs, compounds, etc. NOT INCLUDED IN THIS LIST: Medications self-entered by the patient into personal health records (i.e. [employer]) are NOT included in this list. Non-VA medications documented outside this [place], remote inpatient orders (regardless of status) and remote clinic medications are NOT included in this list. The patient and provider must always discuss medications the patient is taking, regardless of where the medication was dispensed or obtained. ------ OUTPT AMMONIUM LACTATE 12% LOTION (Status = Active) APPLY SMALL AMOUNT TOPICALLY TWICE DAILY FOR DRY IRRITATED SKIN Rx# [id number] Last Released: 04/25/23 Qty/Days Supply: 240/30 Rx Expiration Date: 04/23/24 Refills Remainin Indication: FOR DRY SKIN OUTPT IPRATROPIUM BR 0.03% NASAL SPRAY (Status = Active) INSTILL 2 SPRAYS INTO EACH NOSTRIL 1-3 TIMES/DAY FOR NASAL IRRITATION/CONGESTION Rx# [id number] Last Released: 10/24/23 Qty/Days Supply: [id number] Rx Expiration Date: 10/17/24 Refills Remainin Indication: [...] AT BEDTIME FOR NASAL VALVE COLLAPSE Rx# [id number] Last Released: 10/21/23 Qty/Days Supply: Rx Expiration Date: 10/17/24 Refills Remainin Indication: FOR NASAL VALVE COLLAPSE /es/ JESUS WARREN MD Primary Care Physician Signed: 11/07/2023 14:06 JESUS WARREN [place]
== END 2024-05-28 11:11 | disposition home or self-care (01) ==
LOC: HO.PMC 10:47
PROVIDERS: PCP Internal Medicine; Visit Provider Nurse Practitioner Family
DX: M47.817 Spondylosis without myelopathy or radiculopathy, lumbosacral region (principal); M54.50 Low back pain, unspecified; M62.830 Muscle spasm of back
CPT/HCPCS: 99214; G2211

== ENCOUNTER 2024-05-28 10:46 | Outpatient (REF) | payer OTHER, SELFPAY ==
--- NOTE | ~2024-05-28 | XR_ITS ---
EXAMINATION: XR LUMBOSACRAL SPINE CLINICAL INFORMATION: M47.817 - Spondylosis without myelopathy or radiculopathy, lumbosacral r... COMPARISON: None available. TECHNIQUE: 6 views of the lumbar spine, inclusive of flexion and extension views, were obtained. FINDINGS: Syndesmophyte formation and marginal osteophyte formation throughout the lower thoracic and upper lumbar spine. Superior endplate compression deformity resulting in 20% volume loss at L2. Grade 1 anterolisthesis L4-5 which persists during flexion and extension position. Grade 1 retrolisthesis L2-3 which persists during flexion and extension position. Facet joint hypertrophy bilaterally at L5-S1 and to a lesser extent L4-5. No acute cortical disruption. Vascular calcifications, likely aorta. Sclerosis at the articular surface of the acetabulum, bilaterally. Osteopenia versus osteoporosis. XR/XR lumbar spine 6V w bending IMPRESSION: Multilevel thoracolumbar spondylosis resulting in grade 1 anterolisthesis L4-5 and grade 1 retrolisthesis L2-3 without gross instability. Old superior compression deformity at L2. Electronically signed by: Kieran Dumont MD 05/29/2024 07:59 AM EDT
--- OUTSIDE RECORDS SUMMARY | 2024-05-28 14:09 | XMS_ITS | Clinical Summary ---
Author Organization [facility] Address [address] [place] [address] Phone Care Team Providers Care Senior Accounting Manager Name Role Phone Louie Davila MD Primary Care Provider [phone] Allergies No known active allergies Medications metoprolol [...] patient's age to complete this topic Insurance [facility] Care Teams Senior Accounting Manager Relationship Specialty Start Date End Date Louie Davila MD [address] [facility] [address] [place] PCP - General Internal Medicine 01/30/24
--- OUTSIDE RECORDS SUMMARY | 2024-05-28 14:09 | XMS_ITS | Data Portability ---
Author Organization [facility], [facility] [place] Address [address] [place] [address] Care Team Providers Care Hair Dryer Name Role Phone ERWIN ALVAREZ Sas Programmer Analyst Assessment No assessment recorded. Plan of Treatment Reminders Order Date Submit Date Provider Last Modified By Organization Details Last Modified Time Details Appointments None record ed. Lab None record ed. Referral None record ed. Procedures None record ed. Surgeries None record ed. Imaging XR, knee, 3 view - ROOM 315, [place] 024 07/23/19 [facility] [address], [facility] [address], [place], [address], 4 08:20:35 Medication Orders None record ed. Patient TargetsNo targets recorded. Patient InstructionsNo instructions recorded. Reason for Referral None Reported. Results Created Date Observation Date Name Description Value Unit Range Abnormal Flag Note LastModifiedBy Organization Detail LastModifiedTime 06/26/19 24 06/26/2023 CBC WITH DIFFE RENTI AL/PL ATELE T WBC 3.9 x10e3 /uL 3.4-10 .8 Not Available [facility] ([facility]) [address] [facility], [place], [address], 06/27/2023 08:09:02 06/26/19 24 06/26/2023 CBC WITH DIFFE RENTI AL/PL ATELE T RBC 4.06 x10e6 /uL 3.77-5 .28 Not Available [facility] ([facility]) [address] [facility], [place], [address], 06/27/2023 08:09:02 06/26/19 24 06/26/2023 CBC WITH DIFFE RENTI AL/PL ATELE T hemoglobin 13.5 g/dL 11.1-1 5.9 Not Available [facility] ([facility]) [address] [place], [address], 06/27/2023 08:09:02 06/26/19 24 06/26/2023 CBC WITH DIFFE RENTI AL/PL ATELE T hematocrit 38.9 % 34.0-4 6.6 Not Available [facility] ([facility]) [address] [place], [address], 06/27/2023 08:09:02 06/26/19 24 06/26/2023 CBC WITH DIFFE RENTI AL/PL ATELE T MCV 96 fL 79-97 Not Available [facility] ([facility]) [address] [place], [address], 06/27/2023 08:09:02 06/26/19 24 06/26/2023 CBC WITH DIFFE RENTI AL/PL ATELE T MCH 33.3 pg 26.6-3 3.0 above high normal Not Available [facility] ([facility]) [address] [place], [address], 06/27/2023 08:09:02 06/26/19 24 06/26/2023 CBC WITH DIFFE RENTI AL/PL ATELE T MCHC 34.7 g/dL 31.5-3 5.7 Not Available [facility] ([facility]) [address] [place], [address], 06/27/2023 08:09:02 06/26/19 24 06/26/2023 CBC WITH DIFFE RENTI AL/PL ATELE T RDW 12.0 % 11.7-1 5.4 Not Available [facility] ([facility]) [address] [facility] [place], [address], 06/27/2023 08:09:02 06/26/19 24 06/26/2023 CBC WITH DIFFE RENTI AL/PL ATELE T platelets 217 x10e3 /uL 150-45 0 Not Available [facility] ([facility]) [address] [facility], [place], [address], 06/27/2023 08:09:02 06/26/19 24 06/26/2023 CBC WITH DIFFE RENTI AL/PL ATELE T neutrophils 64 % not estab. Not Available [facility] ([facility]) [address] [facility], [place], [address], 06/27/2023 08:09:02 06/26/19 24 06/26/2023 CBC WITH DIFFE RENTI AL/PL ATELE T lymphs 24 % not estab. Not Available [facility] ([facility]) [address] [facility], [place], [address], 06/27/2023 08:09:02 06/26/19 24 06/26/2023 CBC WITH DIFFE RENTI AL/PL ATELE T monocytes 8 % not estab. Not Available [facility] ([facility]) [address] [facility], [place], [address], 06/27/2023 08:09:02 06/26/19 24 06/26/2023 CBC WITH DIFFE RENTI AL/PL ATELE T eos 3 % not estab. Not Available [facility] ([facility]) [address] [facility], [place], [address], 06/27/2023 08:09:02 06/26/19 24 06/26/2023 CBC WITH DIFFE RENTI AL/PL ATELE T basos 1 % not estab. Not Available [facility] ([facility]) [address] [facility], [place], [address], 06/27/2023 08:09:02 06/26/19 24 06/26/2023 CBC WITH DIFFE RENTI AL/PL ATELE T immature cells OPERATING ROOM ASSISTANT Not Available [facility] ([facility]) [address] [place], [address], 06/27/2023 08:09:02 06/26/19 24 06/26/2023 CBC WITH DIFFE RENTI AL/PL ATELE T neutrophils (absolute) 2.5 x10e3 /uL 1.4-7. 0 Not Available [facility] ([facility]) [address] [place], [address], 06/27/2023 08:09:02 06/26/19 24 06/26/2023 CBC WITH DIFFE RENTI AL/PL ATELE T lymphs (absolute) 0.9 x10e3 /uL 0.7-3. 1 Not Available [facility] ([facility]) [address] [place], [address], 06/27/2023 08:09:02 06/26/19 24 06/26/2023 CBC WITH DIFFE RENTI AL/PL ATELE T monocytes(ab solute) 0.3 x10e3 /uL 0.1-0. 9 Not Available [facility] ([facility]) [address] [place], [address], 06/27/2023 08:09:02 06/26/19 24 06/26/2023 CBC WITH DIFFE RENTI AL/PL ATELE T eos (absolute) 0.1 x10e3 /uL 0.0-0. 4 Not Available [facility] ([facility]) [address] [place], [address], 06/27/2023 08:09:02 06/26/19 24 06/26/2023 CBC WITH DIFFE RENTI AL/PL ATELE T baso (absolute) 0.0 x10e3 /uL 0.0-0. 2 Not Available [facility] ([facility]) [address] [place], [address], 06/27/2023 08:09:02 06/26/19 24 06/26/2023 CBC WITH DIFFE RENTI AL/PL ATELE T immature granulocytes 0 % not estab. Not Available [facility] ([facility]) [address] [facility], [place], [address], 06/27/2023 08:09:02 06/26/19 24 06/26/2023 CBC WITH DIFFE RENTI AL/PL ATELE T immature grans (abs) 0.0 x10e3 /uL 0.0-0. 1 Not Available [facility] ([facility]) [address] [facility], [place], [address], 06/27/2023 08:09:02 06/26/19 24 06/26/2023 CBC WITH DIFFE RENTI AL/PL ATELE T NRBC OPERATING ROOM ASSISTANT Not Available [facility] ([facility]) [address] [facility], [place], [address], 06/27/2023 08:09:02 06/26/19 24 06/26/2023 CBC WITH DIFFE RENTI AL/PL ATELE T hematology comments: OPERATING ROOM ASSISTANT Not Available [facility] ([facility]) [address] [facility], [place], [address], 06/27/2023 08:09:02 06/26/19 24 06/26/2023 SEDIM ENTAT ION RATE- WESTE RGREN sedimentatio n rate-westerg johnathan 7 mm/HR 0-40 Not Available [facility] ([facility]) [address] [facility], [place], [address], 06/27/2023 08:09:03 06/26/19 24 06/27/2023 C-SUSANA CTIVE PROTE IN, QUANT C-reactive protein, quant 1 mg/L 0-10 Not Available [facility] ([facility]) [address] [facility], [place], [address], 06/27/2023 08:09:03 07/23/19 24 07/23/2023 XR, knee, 3 view http:/ [email or web address] ?Encry pted=s hAaTro YD8dLq bEUv6g %2BXZw aYqtaq 0bqfl% 2Fg9IQ a4ajBk vP9nXo QUaueC m3YtLR FvZlgJ JJ8mAn HZtai3 6y2824 AC0Kua XWCVKP eUC8mr 84%3D INTERFACE [facility] [address], [place], [address], 07/23/2023 14:43:58 07/23/19 24 07/23/2023 XR, knee, 3 view [email or web address]:/ [email or web address] ?Encry pted=s hAaTro YD8dLq bEUv6g %2BXZw aYqtaq 0bqfl% 2Fg9IQ a4ajBk vP9nXo QUaueC m3YtLR FvZlgJ JJ8mAn HZtai3 0g5514 AC0Kua XWCVKP eUC8mr 84%3D INTERFACE [facility] [place] [address], [place], [address], 07/23/2023 14:44:00 Result Notes None recorded. 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 Procedures Surgical History None recorded. Imaging Results Imaging Date Name Status LastModified by Organiz ation Details LastModified Time 07/23/2023 XR, knee, 3 view completed [facility]FACE [facility] [place] [address], [place], [address], 07/23/2023 14:43:58 07/23/2023 XR, knee, 3 view completed [facility] [address], [place], [address], 07/23/2023 14:44:00 Procedure Notes None recorded. Medical Equipment None Reported. Medications Name Sig Start Date Stop Date Status Note LastModified by Organization Details LastModified Time amoxicillin 500 mg capsule TAKE 4 CAPSULES 1 HOUR PRIOR TO DENTAL PROCEDURE active Not Available Not Available No t Available metoprolol succinate ER 25 mg tablet,extend ed release 24 hr TAKE 1 TABLET BY MOUTH EVERY DAY active Not Available Not Available No t Available losartan 100 mg tablet TAKE 1 TABLET BY MOUTH EVERY DAY active Not Available Not Available No t Available Vitals None Recorded Social History None recorded. Functional Status None recorded. Mental Status None recorded. Family History Nothing Reported. Medical History No medical history recorded. Gynecological HistoryNo gynecological history recorded. Obstetrics History GPAL:G 0 P 0 0 0 0 Past Encounters Encounter ID Performer Location Encounter Start Date Encounter Closed Date Diagnosis/Indication Diagnosis SNOMED-CT Code Diagnosis ICD10 Code Diagnosis Note [id number] ARTUR[facility] [address] [place] [address] 07/23/2023 14:26:37 08/13/2023 08:20:35 History of left total knee replacement [id number] 982145 Z96.652 Health Concerns Section Related Observation LastModified by Organization Detai ls LastModified Time None Recorded Concern Status LastModified by Organization Details LastModified Time None Recorded Advance Directives Directive None Recorded Payers Encounter Date Sequence Insurance Name Policy Number Policy Chan Covered Member ID Chan Member ID Guarantor Name 07/23/2023 [facility] Irving Herrera Notes Date Note Type Note Provider Name and Address Organization Details Recorded Time 07/23/2023 text/html I am seeing the patient today under the supervision of Dr. Beltran who was available but who did not see the patient. HPI:Patient is a 77-year-old male with a history of a left total knee replacement by Dr. Chanel on 05/12/2021. Patient originally presented to our urgent care clinic after he sustained an injury at work on 08/10/2022. He's continued to experience mild pain in his left knee. He did undergo a course of outpatient physical therapy. His main concern at this point is a little bit of weakness especially with going upstairs. He does feel like he trips occasionally due to having weakness in his knee. Has fallen multiple times in the past. Hasn't been able to utilize anti-inflammatory medications. He does tolerate Tylenol either. Has only tried topical creams for pain relief. Denies any instability. Denies any recent fevers, chills, or any other constitutional symptoms. Past family, medical, social history and review of systems has been reviewed, updated and is located in the patient? s chart. Examination:Well appearing 77-year-old male in no acute distress. He is alert and oriented x3. He ambulates with symmetric gait. Left knee reveals a well healed surgical incision. There is no erythema, warmth, ecchymosis, or swelling noted. No tenderness to palpation over the medial or lateral joint line. Mild tenderness to palpation over the patellar tendon region as well as medial and lateral to this. Full range of motion of the knee from 0-115 degrees. The knee is stable to valgus and varus stress testing. Knee strength 4/5 against resistance with flexion and extension in comparison to 5/5 on the contralateral side. Post is intact. Calf is soft and nontender. 3 views of the left knee obtained and reviewed in the office today reveal left total knee arthroplasty in good alignment. No evidence of any osteolyses or loosening. Patellar tracking centrally. No evidence of fracture. X-rays unchanged from previous. Impression:Left total knee replacement weakness Plan:Patient had labs drawn prior to today's visit which were unremarkable. No concerning signs for infection on physical examination and laboratory findings today. Patient does have some mild weakness in the left lower extremity in comparison to the right. I do believe that this is leading to his difficulties especially with climbing stairs. I do think he is necessary for the patient to continue to focus on quadriceps muscle strengthening. Provided with a home exercise program today. Patient can continue with any [id number] topical creams as-needed. Patient will avoid anti-inflammatory medications. He can follow-up with us on a p.r.n. basis. At this time all patient questions and concerns were answered today. Louie Paul PA-C [address] [facility] [address], [place], [address], [place] - [facility] 07/23/2023 15:58:27 OBGyn Episode No OBEpisode recorded.
--- OUTSIDE RECORDS SUMMARY | 2024-05-28 14:09 | XMS_ITS | Continuity of Care Document ---
Author Name [facility] Organization [facility] Care Team Providers Care Contract Clerk Name Role Phone [facility] Unavailable Unavailable Problems Combined list of problems [...] BAUTISTA Comment: with associated depression and anxiety [place] Colonoscopy Screening Active Condition Aug 11, 2019 Entered By: JESUS WARREN Comment: 01/21/19 - 5mm polyp in transverse colon, internal hemorrhoids - repeat 2023 - Dr. Whitaker [facility] Eczema Active Condition [facility] Exposure to potentially hazardous substance Active Condition Apr 24, 2023 Entered By: NAGA HOOKS EN A Comment: Connect Snomed Code to ICD 10 Code refer to note dated 11/07/22 [facility] HTN - Hypertension (SCT [id number]) Active Condition [facility] NON VA PCP Active Condition Aug 06 Entered By: JESUS WARREN Comment: Dr. Bobby Pedersen [phone] [facility] OA - Osteoarthritis (SCT [id number]) Active Condition Aug 11, 2019 Entered By: JESUS WARREN Comment: Right >> Left Knee [facility] Obesity Active Condition [place] Obstructive sleep apnea Active Condition Apr 24, 2023 Entered By: JESUS WARREN Comment: Last sleep study 03/01/23 ordered by nonVA PCP - dxed as severe [place] Sensorineural hearing loss, bilateral Active Condition [facility] Tinnitus Active Condition [facility] Diagnosis: ICD-10-CM G47.33 Obstructive sleep apnea (adult) (pediatric) Active Diagnosis [facility] Diagnosis: ICD-10-CM J30.0 Vasomotor rhinitis Active Diagnosis [facility] Diagnosis: ICD-10-CM 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 Diagnosis: ICD-10-CM I10 Essential (primary) hypertension Active Diagnosis [place] Diagnosis: ICD-10-CM J30.9 Allergic rhinitis, unspecified Active Diagnosis [place] Diagnosis: ICD-10-CM F43.12 Post-traumatic stress disorder, chronic Active Diagnosis [place] Diagnosis: ICD-10-CM Z71.89 Other specified counseling Active Diagnosis [place] Diagnosis: ICD-10-CM Z46.1 Encounter for fitting and adjustment of hearing aid Active Diagnosis [facility] Medications Combined list of outpatient medications from Department of Defense and [facility] Affairs facilities.Medications provided include 1) outpatient medications from the last 15 months, and 2) patient-reported medications. Medication Details Route Status Patient Instructions Prescription Expires Prescription Number Last Dispense Date Ordering Provider Order Date Order Qty Source AMMONIUM LACTATE 12% LOTION APPLY SMALL AMOUNT TOPICALL Y TWICE DAILY FOR DRY SKIN FOR DRY IRRITATE D SKIN TOPICA L ACTIVE 05/26/2025 [id number] 5 GHISLAINE JAUREGUI F 2024 240 [place] AMMONIUM LACTATE 12% LOTION APPLY SMALL AMOUNT TOPICALL Y TWICE DAILY FOR DRY IRRITATE D SKIN TOPICA L 04/23/2024 [id number] 4 GHISLAINE JAUREGUI 2023 240 [place] GUAIFENESIN 200MG TAB TAKE SIX TABLETS BY MOUTH TWICE DAILY ORAL ACTIVE 07/06/2024 [id number] 5 TRENT NOGUEIRA R 2024 1080 [facility] GUAIFENESIN 200MG TAB TAKE TWO TABLETS BY MOUTH THREE TIMES A DAY FOR COUGH AND MUCUS ORAL DISCONT INUED 02/24/2025 [id number] 5 TRENT NOGUEIRA R 2024 540 [facility] IPRATROPIUM BR 0.03% SOLN,SPRAY, NASAL INSTILL 2 SPRAYS INTO EACH NOSTRIL 1-3 TIMES/DA Y FOR NASAL IRRITATI ON/CONGE STION NASAL ACTIVE 10/17/2024 [id number] 4 TRENT NOGUEIRA Hector 2023 90 [facility] LORATADINE 10MG TAB TAKE ONE TABLET BY MOUTH ONCE DAILY ORAL ACTIVE RYLIE WARREN SA spring IELD [place] POTASSIUM 100MG TAB TAKE ONE TABLET BY MOUTH ONCE DAILY ORAL ACTIVE RYLIE WARREN SA 2022 [facility] IELD METOPROLOL SUCCINATE 25MG TAB,SA TAKE ONE TABLET BY MOUTH ONCE DAILY ORAL ACTIVE RYLIE WARREN SA [address] [facility] Immunizations Combined list of available immunizations from the Department of Defense and [facility] Affairs facilities. Immunization Series Date Given Administered By Site Reaction Lot Number CVX Code Drug Electrician Office Status Comments Source COVID-19 (MODERNA), MRNA, LNP-S, PF, 50 MCG/0.5 ML (AGES 12+ YEARS) 2023 VANESA GRUBER ON M RIGHT DELTO ID [id number] complet ed Booster for Series, ADMINISTE RED AT [facility] IELD INFLUENZA, HIGH-DOSE, TRIVALENT, PF 2023 VANESA GRUBER ON M LEFT DELTO ID [id number] 135 complet ed ADMINISTE RED AT [facility] IELD TDAP 2022 JIMMY ASHTON RIGHT DELTO ID [id number] 115 complet ed ADMINISTE RED AT [facility] SET[facility] INFLUENZA, HIGH-DOSE, QUADRIVALENT 2022 JIMMY ASHTON RIGHT DELTO ID [id number] 197 complet ed ADMINISTE RED AT [facility] SET[facility] PNEUMOCOCCAL POLYSACCHARID E PPV23 2022 JIMMY ASHTON LEFT DELTO ID [id number] 33 complet ed ADMINISTE RED AT [facility], [...] INFLUENZA, SEASONAL, INJECTABLE 2018 141 complet ed [facility] / Dr.James Pedersen [facility] [...] Right Deltoid [facility] Vital Signs Combined list of inpatient and outpatient Vital Signs from Department of Defense and Veterans Affairs, ranging from 12 months to all on record, depending upon the facility. Vital Sign Value Date Comments Source SYSTOLIC BLOOD PRESSURE 147 02/23/19 25 15:00:00 [facility] [place] [facility] DIASTOLIC BLOOD PRESSURE 95 025 15:00:00 [facility] PULSE OXIMETRY 96 02/24/2024 15:00:00 [facility] WEIGHT 241.4 02/24/2024 15:00:00 [facility] [...] included; 2) Encounters from the Department of [facility] facilities going backup to 280 months. Location Location Details Encounter Type Encounter Number Reason For Visit Attending Provider ADM Date DC Date Status Disposition Source [facility] CONFORMITY EVALUATION [id number] Diagnos is: ICD-10- CM Z46.1 Encount er for fitting and adjustm ent of hearing aid SENIOR,SESAR OLE L 11/27 [facility] [place] OFF[place] O/P EST LOW 20-29 MIN [id number] Diagnos is: ICD-10- CM L60.3 Nail dystrop hy ROSS,CHARL ES F 12/18 [place] [facility] Outpatient Encounter [id number] 12/25 [facility] En[facility] [id number] 12/28 [facility] En[facility] [id number] 01/17 [facility] Encounter [id number] 03/01 [facility] Encounter [id number] 04/10 [facility] OFFICE O/P EST LOW 20 MIN [id number] Diagnos is: ICD-10- CM L60.3 Nail dystrop hy SHANIA,CHARL ES F 04/22 [place] [facility] Out[facility] Encounter [id number] 04/22 [facility] En[facility] [id number] 04/23 [facility] Out[facility] Encounter [id number] 04/28 [facility] Out[facility] Encounter [id number] 05/07 [facility] POS AIRWAY PRESSURE FILTER [id number] Diagnos is: ICD-10- CM G47.33 Obstruc tive sleep apnea (adult) (pediat [facility]) DELPHINE BEY 05/29 [facility] En[facility] [id number] HENNA WARREN 05/29 [facility] Out[facility] En[facility] [id number] 05/30 [facility] SPECIAL SUPPLIES PHYS/QHP [id number] Diagnos is: ICD-10- CM G47.33 Obstruc tive sleep apnea (adult) ([facility]) DELPHINE BEY 06/02 [facility] En[facility] [id number] HENNA WARREN 06/11 [facility] REPLACEMEN T NASAL CUSHION [id number] Diagnos is: ICD-10- CM G47.33 Obstruc tive sleep apnea (adult) ([facility]) DELPHINE BEY P 06/12 [facility] Out[facility] Encounter [id number] HENNA WARREN 06/13 [facility] Out[facility] En[facility] [id number] 06/23 [facility] Out[facility] Encounter [id number] 06/25 [facility] Out[facility] Encounter [id number] 07/01 [facility] POS AIRWAY PRESS CHINSTRAP [id number] Diagnos is: ICD-10- CM G47.33 Obstruc tive sleep apnea (adult) ([facility]) DELPHINE BEY P 07/03 [facility] [place] OFF/OP EST JUNE X REQ PHY/QHP [id number] Diagnos is: ICD-10- CM Z71.89 Other specifi ed estate planning counselor ing KAYE,ESPITIA DIANA O 07/09 [place] [facility] Out[facility] Encounter [id number] HENNA WARREN 07/09 [facility] En[facility] [id number] 07/15 [facility] COLLJ & INTERPJ DATA EA 30 D [id number] Diagnos is: ICD-10- CM G47.33 Obstruc tive sleep apnea (adult) (pediat marisol) DELPHINE BEY E P 07/21 [facility] Out[facility] Encounter [id number] 08/04 [facility] DIAGNOSTIC EVALUATION [id number] Diagnos is: ICD-10- CM F43.12 Post-tr aumatic stress disorde r, chronic Anne-Marie PHOENIX 08/06 [facility] [place] [facility] Out[facility] Encounter [id number] 08/11 [facility] TUBING WITH HEATING ELEMENT [id number] Diagnos is: ICD-10- CM G47.33 Obstruc tive sleep apnea (adult) (pediat marisol) DELPHINE BEY P 08/11 [facility] Out[facility] Encounter [id number] HENNA WARREN 08/13 [facility] COLLJ & INTERPJ DATA EA 30 D [id number] Diagnos is: ICD-10- CM G47.33 Obstruc tive sleep apnea (adult) ([facility]) DELPHINE BEY E P 09/01 [facility] Outpatient Encounter [id number] 09/03 [place] [facility] [place] [place] OFFICE O/P EST LOW 20 MIN [id number] Diagnos is: ICD-10- CM L60.3 Nail dystrop hy SHANIANATHAN ES F 09/26 [place] [facility] OFF/OP CONSLTJ NEW/EST HI 55 [id number] Diagnos is: ICD-10- CM G47.33 Obstruc tive sleep apnea (adult) ([facility]) ENRIQUE NOGUEIRA 10/16 [place] [facility] [place] [facility] [place] QNHP OL DIG ASSMT&MGMT 5-10 [id number] Diagnos is: ICD-10- CM J30.9 Allergi c rhiniti s, unspeci VANDANA Syed 10/16 [place] [facility] Outpatient Encounter [id number] 11/06 [place] [facility] [place] [facility] [place] OFF[place] O/P EST LOW 20 MIN [id number] 1BY. [id number] Diagnos is: ICD-10- CM I10 Essenti al (primar y) hyperte HENNA Hall 11/06 [place] PATIENT EDUCATION MATERIALS [id number] Diagnos is: ICD-10- CM G47.33 Obstruc tive sleep apnea (adult) ([facility]) DELPHINE PARSONS E P 11/26 [place] OFF[place] O/P EST LOW 20 MIN [id number] Diagnos is: ICD-10- CM L60.3 Nail dystrop hy NATHAN JAUREGUI F 02/20 [place] [facility] OFFICE O/P EST LOW 20 MIN [id number] Diagnos is: ICD-10- CM J30.0 Vasomot or rhiniti s NOGUEIRAENRIQUE R 02/23 [facility] COLLJ & INTERPJ DATA EA 30 D [id number] Diagnos is: ICD-10- CM G47.33 Obstruc tive sleep apnea (adult) ([facility]) DELPHINE BEY P 03/05 [place] [facility] [place] [facility] POS AIRWAY PRESSURE CPAP [id number] Diagnos is: ICD-10- CM G47.33 Obstruc tive sleep apnea (adult) ([facility]) DELPHINE BEY P 05/06 [place] [facility] [place] [facility] Outpatient Encounter [id number] 05/12 [place] [facility] [place] [facility] Outpatient Encounter [id number] 05/21 [place] [facility] [place] [facility] [facility] Social History Combined list of available smoking, tobacco, and other social history from Department of Defense and Veterans Affairs facilities. Social History Type Response Date Comment Sourc e Tobacco smoking status [facility] VA-TOBACCO FORMER USER 11/07/2023 [place] History of tobacco use IN-TOBACCO QUIT 15 YRS OR MORE 11/07/2023 [place] History of tobacco use IN-TOBACCO FORMER USER 11/07/2022 [place] History of tobacco use IN-TOBACCO FORMER USER 11/09/2021 [place] History of tobacco use IN-TOBACCO QUIT 15 YRS OR MORE 11/09/2020 [place] History of tobacco use VA-TOBACCO QUIT 15 YRS OR MORE 08/07/2019 [facility] Plan of Care List of future care activities from Department of Veterans Affairs facilities. Additional future care activities may be listed in the Assessment and Plan section. Date/Time Care Activity Care Activity Detail Facili ty 06/10/2024 AMBULATORY - MEDICINE AMBULATORY - MEDICI NE [facility]
== END 2024-05-28 10:47 | disposition home or self-care (01) ==
LOC: HO.XRAY 10:46
PROVIDERS: PCP Internal Medicine; Visit Provider Nurse Practitioner Family
DX: M47.817 Spondylosis without myelopathy or radiculopathy, lumbosacral region (principal); M54.50 Low back pain, unspecified; M62.830 Muscle spasm of back
CPT/HCPCS: 72114; 99212

== ENCOUNTER → 2024-05-28 11:28 | Outpatient (BNV) | payer OTHER, SELFPAY | PROVIDERS: PCP Internal Medicine; Visit Provider Radiology Diagnostic Radiology | DX: M47.815 Spondylosis without myelopathy or radiculopathy, thoracolumbar region (principal) | CPT/HCPCS: 72114 ==

== ENCOUNTER 2024-06-19 13:28 | Outpatient (AMB) | payer OTHER, SELFPAY ==
--- OUTSIDE RECORDS SUMMARY | 2024-06-19 13:33 | XMS_ITS | Encounter Summary ---
Author Name [facility] [place] Organization [facility] [place] Address [address] [place] [address] Care Team Providers Care Comic Book Artist Name Role Phone JESUS WARREN Primary Care [...] Policy Chan [facility] Apr 11, 2017 [id number] [phone] VINNYMADONNA ANTHONY PATIENT [employer] SCRIPTS ([id number]) PRESCRIPT ION [facility] Aug 11, 2017 [id number] [phone] VINNYMADONNA ANTHONY PATIENT MEDICARE (WNR) MEDICARE (M) PART A Sep 12, 2011 PART A [id number] VINNYMADONNA ANTHONY PATIENT MEDICARE (WNR) MEDICARE (M) PART A Sep 12, 2011 PART A [id number] VINNYMADONNA ANTHONY PATIENT [employer]POINT PREFERRED PROVIDER ORGANIZAT ION (PPO) [facility] * Aug 11, 2009 [id number] MADONNA CASILLAS PATIENT Selected Encounter This section includes the information on record at [place] for the Encounter. Date/Time Encounter Type Encounter Description Reason Provider Source Nov 07, 2023 01:30 PM OFFICE O/P EST LOW 20 MIN PRIMARY CARE/MEDICINE ICD-10-CM I10 Essential (primary) hypertension KELVINJESUS JIMMIE Destini Encounter Template Text not used by [place] [...] 10:00 AM AMBULATORY - NONE [place] [facility] Feb 21, 2024 01:00 PM AMBULATORY - MEDICINE [facility] Feb 24, 2024 03:00 PM AMBULATORY - MEDICINE [place] [facility] Immunizations: All administered on the encounter date This section contains immunizations associated to the Encounter. Immunization Series Date Issued Administered By Site Reaction Lot Number CVX Code Drug Medical Tech Comment(s) Source COVID-19 (MODERNA), MRNA, LNP-S, PF, 50 MCG/0.5 ML (AGES 12+ YEARS) Nov 07, 2023 VANESA MONTGOMERY ON M RIGHT DELTO ID [id number] [employer] Booster for Series, ADMINISTERE D AT [facility] IE INFLUENZA, HIGH-DOSE, TRIVALENT, PF Nov 07, 2023 VANESA MONTGOMERY ON M LEFT DELTO ID [id number] 135 SANOFI PASTEUR ADMINISTERE D AT [facility] IELD Social History: Smoking Status (Most current) and Tobacco Use (All prior to encounter date) This section includes the most current, and the historical, smoking and tobacco- related health factors from the [place] facility where the Encounter took place. Current Smoking Status This section includes the most current smoking, or tobacco-related health factor, from the [facility] where the Encounter took place. Date/Time Current Smoking Status Comment Facil ity Nov 07, 2023 01:30 PM VA-TOBACCO FORMER USER [place] Tobacco Use History This section includes a history of the smoking, or tobacco-related health factors, that were collected on or before the date of the Encounter. The data comes from the [place] facility where the Encounter took place. Date/Time Smoking Status/Tobacco Use Comment F acility Nov 07, 2023 01:30 PM VA-TOBACCO QUIT 15 YRS OR MORE [place] Nov 07, 2022 01:30 PM VA-TOBACCO FORMER USER [place] Nov 07, 2022 01:30 PM VA-TOBACCO QUIT 15 YRS OR MORE [facility] 29, 2022 09:00 AM VA-TOBACCO FORMER USER [facility] 29, 2022 09:00 AM VA-TOBACCO QUIT 15 YRS OR MORE [place] Nov 09, 2020 03:00 PM VA-TOBACCO FORMER USER [place] Nov 09, 2020 03:00 PM VA-TOBACCO QUIT 15 YRS OR MORE [place] Encounter Notes: All associated encounter notes This [...] advance directive on file at any facility, [place] or outside. S/he is not interested in completing one at this time. The patient received education about Advance Directives and written notification of his/her rights. Suicide Screen: C-SSRS Screening [place] Suicide Severity Rating Scale (C-SSRS) screener 1. [...] full rights to use it throughout the [place] system. PRIMARY SCREEN RESULT: The Primary Screen [...] PF Date Administered: Nov 07, 2023 13:30 Medical Tech: SANOFI PASTEUR Lot: [id number] Exp Date: Aug 10, 2024 NDC: [id number] Admin Route/Site: INTRAMUSCULAR/LEFT DELTOID Dosage: 0.5mL Vaccine Information Statement(s): INFLUENZA(FLU) VACC(INACTIVATED OR RECOMBINANT)VIS Sep 16, 2020 ([place]) Order By: Policy Administered By: Laura Montgomery [...] Administered: Nov 07, 2023 13:30 Series: Booster Medical Tech: XYZE. Lot: [id number] Exp Date: Dec 15, 2023 NDC: [id number] Admin Route/Site: INTRAMUSCULAR/RIGHT DELTOID Dosage: 0.5mL Vaccine Information Statement(s): COVID-19 MRNA VACCINE (12+ YRS) VACCINE VIS Nov 29, 2022 ([place]) Order By: Policy Administered By: Laura Montgomery Comment: wants Vaccine administered without complications. /emmett/ LAURA MONTGOMERY LPN PACT 10 Signed: 11/07/2023 14:08 LAURA MONTGOMERY [place] Nov 07, 2023 12:18 PM PHYSICIAN NOTE: LOCAL TITLE: MD NOTE STANDARD TITLE: PHYSICIAN NOTE DATE OF NOTE: NOV 07, 2023@12:18 ENTRY DATE: NOV 07, 2023@12:19:03 AUTHOR: JESUS WARREN EXP COSIGNER: URGENCY: STATUS: COMPLETED HISTORY OF PRESENT ILLNESS: EMILIE CASILLAS is a 78 yo MALE who presents at the [facility] for his annual visit. He maintains a nonVA PCP: Dr Davila at [facility]. He utilizes podiatry, audiology, ENT, and respiratory services at the [place]. 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 Medication Reconciliation: Outpatient: Has the patient been taking medications as documented in the EMLR? YES: The patient has been taking medications as documented in the EMLR. Essential Medication List for Review used to complete this medication reconciliation. INCLUDED IN THIS LIST: Alphabetical list of active outpatient prescriptions dispensed from this [place] (local) and dispensed from another [place] or [facility] facility (remote) as well as inpatient orders [...] list may not be complete. Please check [employer]. Allergies/ADRs (Tool #5) FACILITY ALLERGY/ADR -------- No Remote Allergy/ADR Data available for this patient [place] [facility] [place] [facility] No Known Allergies Med Recon NoGlossary (Tool #1) INCLUDED IN THIS LIST: Alphabetical list of active outpatient prescriptions dispensed from this [place] (local) and dispensed from another [place] or [facility]D facility (remote) as well as inpatient orders (local pending and active), local clinic medications, locally documented non-VA medications, and local prescriptions that have or been discontinued in the past 90 days. Non-VA Meds Last Documented On: Nov 07, 2023 NOTE The display of VA prescriptions dispensed from another [place] or [facility] facility (remote) is limited to active outpatient prescription entries matched to National Drug File at the originating site and may not include some items such as investigational drugs, compounds, etc. NOT INCLUDED IN THIS LIST: Medications self-entered by the patient into personal health records (i.e. [employer]) are NOT included in this list. Non-VA medications documented outside this [place], remote inpatient orders (regardless of status) and remote clinic medications are NOT included in this list. The patient and provider must always discuss medications the patient is taking, regardless of where the medication was dispensed or obtained. ------ OUTPT AMMONIUM LACTATE 12% LOTION (Status = Active) APPLY SMALL AMOUNT TOPICALLY TWICE DAILY FOR DRY IRRITATED SKIN Rx# [id number] Last Released: 04/25/23 Qty/Days Supply: 240/30 Rx Expiration Date: 04/23/24 Refills Remainin Indication: FOR DRY SKIN OUTPT IPRATROPIUM BR 0.03% NASAL SPRAY (Status = Active) INSTILL 2 SPRAYS INTO EACH NOSTRIL 1-3 TIMES/DAY FOR NASAL IRRITATION/CONGESTION Rx# [id number] Last Released: 10/24/23 Qty/Days Supply: 9090 Rx [...] AT BEDTIME FOR NASAL VALVE COLLAPSE Rx# [id number] Last Released: 10/21/23 Qty/Days Supply: Rx Expiration Date: 10/17/24 Refills Remainin Indication: FOR NASAL VALVE COLLAPSE /es/ JESUS WARREN MD Primary Care Physician Signed: 11/07/2023 14:06 JESUS WARREN [place]
--- OUTSIDE RECORDS SUMMARY | 2024-06-19 13:33 | XMS_ITS | Data Portability ---
Author Organization [facility], [facility] Address [address] [place] [address] Care Team Providers Care Adjunct Teacher Name Role Phone ERWIN ALVAREZ Rotary Drier Assessment No assessment recorded. Plan of Treatment Reminders Order Date Submit Date Provider Last Modified By Organization Details Last Modified Time Details Appointments None record ed. Lab None record ed. Referral None record ed. Procedures None record ed. Surgeries None record ed. Imaging XR, knee, 3 view - ROOM 315, LTKR [place] 024 07/23/19 [facility] [address] [facility] [address], [facility] [address], [place], [address], 4 08:20:35 Medication Orders None record ed. Patient TargetsNo targets recorded. Patient InstructionsNo instructions recorded. Reason for Referral None Reported. Results Created Date Observation Date Name Description Value Unit Range Abnormal Flag Note LastModifiedBy Organization Detail LastModifiedTime 06/26/19 24 06/26/2023 CBC WITH DIFFE RENTI AL/PL ATELE T WBC 3.9 x10e3 /uL 3.4-10 .8 Not Available [facility] ([facility]) [address] [facility], [place], [address], 06/27/2023 08:09:02 06/26/19 24 06/26/2023 CBC WITH DIFFE RENTI AL/PL ATELE T RBC 4.06 x10e6 /uL 3.77-5 .28 Not Available [facility] ([facility]) [address] [facility], [place], [address], 06/27/2023 08:09:02 06/26/19 24 06/26/2023 CBC WITH DIFFE RENTI AL/PL ATELE T hemoglobin 13.5 g/dL 11.1-1 5.9 Not Available [facility] ([facility]) [address] [place], [address], 06/27/2023 08:09:02 06/26/19 24 06/26/2023 CBC WITH DIFFE RENTI AL/PL ATELE T hematocrit 38.9 % 34.0-4 6.6 Not Available [facility] ([facility]) [address] [place], [address], 06/27/2023 08:09:02 06/26/19 24 06/26/2023 CBC WITH DIFFE RENTI AL/PL ATELE T MCV 96 fL 79-97 Not Available [facility] ([facility]) [address] [place], [address], 06/27/2023 08:09:02 06/26/19 24 06/26/2023 CBC WITH DIFFE RENTI AL/PL ATELE T MCH 33.3 pg 26.6-3 3.0 above high normal Not Available [facility] ([facility]) [address] [place], [address], 06/27/2023 08:09:02 06/26/19 24 06/26/2023 CBC WITH DIFFE RENTI AL/PL ATELE T MCHC 34.7 g/dL 31.5-3 5.7 Not Available [facility] ([facility]) [address] [place], [address], 06/27/2023 08:09:02 06/26/19 24 06/26/2023 CBC WITH DIFFE RENTI AL/PL ATELE T RDW 12.0 % 11.7-1 5.4 Not Available [facility] ([facility]) [address] [facility] [place], [address], 06/27/2023 08:09:02 06/26/19 24 06/26/2023 CBC WITH DIFFE RENTI AL/PL ATELE T platelets 217 x10e3 /uL 150-45 0 Not Available [facility] ([facility]) [address] [facility], [place], [address], 06/27/2023 08:09:02 06/26/19 24 06/26/2023 CBC WITH DIFFE RENTI AL/PL ATELE T neutrophils 64 % not estab. Not Available [facility] ([facility]) [address] [facility], [place], [address], 06/27/2023 08:09:02 06/26/19 24 06/26/2023 CBC WITH DIFFE RENTI AL/PL ATELE T lymphs 24 % not estab. Not Available [facility] ([facility]) [address] [facility], [place], [address], 06/27/2023 08:09:02 06/26/19 24 06/26/2023 CBC WITH DIFFE RENTI AL/PL ATELE T monocytes 8 % not estab. Not Available [facility] ([facility]) [address] [facility], [place], [address], 06/27/2023 08:09:02 06/26/19 24 06/26/2023 CBC WITH DIFFE RENTI AL/PL ATELE T eos 3 % not estab. Not Available [facility] ([facility]) [address] [facility], [place], [address], 06/27/2023 08:09:02 06/26/19 24 06/26/2023 CBC WITH DIFFE RENTI AL/PL ATELE T basos 1 % not estab. Not Available [facility] ([facility]) [address] [facility], [place], [address], 06/27/2023 08:09:02 06/26/19 24 06/26/2023 CBC WITH DIFFE RENTI AL/PL ATELE T immature cells FIREFIGHTER TYPE ONE Not Available [facility] ([facility]) [address] [place], [address], 06/27/2023 08:09:02 06/26/19 24 06/26/2023 CBC WITH DIFFE RENTI AL/PL ATELE T neutrophils (absolute) 2.5 x10e3 /uL 1.4-7. 0 Not Available [facility] ([facility]) [address] [place], [address], 06/27/2023 08:09:02 06/26/19 24 06/26/2023 CBC WITH DIFFE RENTI AL/PL ATELE T lymphs (absolute) 0.9 x10e3 /uL 0.7-3. 1 Not Available [facility] ([facility]) [address] [place], [address], 06/27/2023 08:09:02 06/26/19 24 06/26/2023 CBC WITH DIFFE RENTI AL/PL ATELE T monocytes(ab solute) 0.3 x10e3 /uL 0.1-0. 9 Not Available [facility] ([facility]) [address] [place], [address], 06/27/2023 08:09:02 06/26/19 24 06/26/2023 CBC WITH DIFFE RENTI AL/PL ATELE T eos (absolute) 0.1 x10e3 /uL 0.0-0. 4 Not Available [facility] ([facility]) [address] [place], [address], 06/27/2023 08:09:02 06/26/19 24 06/26/2023 CBC WITH DIFFE RENTI AL/PL ATELE T baso (absolute) 0.0 x10e3 /uL 0.0-0. 2 Not Available [facility] ([facility]) [address] [place], [address], 06/27/2023 08:09:02 06/26/19 24 06/26/2023 CBC WITH DIFFE RENTI AL/PL ATELE T immature granulocytes 0 % not estab. Not Available [facility] ([facility]) [address] [facility], [place], [address], 06/27/2023 08:09:02 06/26/19 24 06/26/2023 CBC WITH DIFFE RENTI AL/PL ATELE T immature grans (abs) 0.0 x10e3 /uL 0.0-0. 1 Not Available [facility] ([facility]) [address] [facility], [place], [address], 06/27/2023 08:09:02 06/26/19 24 06/26/2023 CBC WITH DIFFE RENTI AL/PL ATELE T NRBC FIREFIGHTER TYPE ONE Not Available [facility] ([facility]) [address] [facility], [place], [address], 06/27/2023 08:09:02 06/26/19 24 06/26/2023 CBC WITH DIFFE RENTI AL/PL ATELE T hematology comments: FIREFIGHTER TYPE ONE Not Available [facility] ([facility]) [address] [facility], [place], [address], 06/27/2023 08:09:02 06/26/19 24 06/26/2023 SEDIM ENTAT ION RATE- WESTE RGREN sedimentatio n rate-westerg johnathan 7 mm/HR 0-40 Not Available [facility] ([facility]) [address] [facility], [place], [address], 06/27/2023 08:09:03 06/26/19 24 06/27/2023 C-SUSANA CTIVE PROTE IN, QUANT C-reactive protein, quant 1 mg/L 0-10 Not Available [facility] ([facility]) [address] [facility], [place], [address], 06/27/2023 08:09:03 07/23/19 24 07/23/2023 XR, knee, 3 view [email or web address]:/ [email or web address] ?Encry pted=s hAaTro YD8dLq bEUv6g %2BXZw aYqtaq 0bqfl% 2Fg9IQ a4ajBk vP9nXo QUaueC m3YtLR FvZlgJ JJ8mAn HZtai3 7k1246 AC0Kua XWCVKP eUC8mr 84%3D INTERFACE [facility] [address], [place], [address], 07/23/2023 14:43:58 07/23/19 24 07/23/2023 XR, knee, 3 view [email or web address]:/ [email or web address] ?Encry pted=s hAaTro YD8dLq bEUv6g %2BXZw aYqtaq 0bqfl% 2Fg9IQ a4ajBk vP9nXo QUaueC m3YtLR FvZlgJ JJ8mAn HZtai3 8d3640 AC0Kua XWCVKP eUC8mr 84%3D INTERFACE [facility] [address], [place], [address], 07/23/2023 14:44:00 Result Notes None recorded. 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 Procedures Surgical History None recorded. Imaging Results Imaging Date Name Status LastModified by Organiz ation Details LastModified Time 07/23/2023 XR, knee, 3 view completed INTERFACE [facility] [address], [place], [address], 07/23/2023 14:43:58 07/23/2023 XR, knee, 3 view completed INTERFACE [facility] [address], [place], [address], 07/23/2023 14:44:00 Procedure Notes None recorded. Medical [...] SNOMED-CT Code Diagnosis ICD10 Code Diagnosis Note [id number] ARTURO Chew [address] floor [address] [facility] [place] [address] 07/23/2023 14:26:37 08/13/2023 08:20:35 History of left total knee replacement [id number] Z96.652 Health Concerns Section Related Observation LastModified by Organization Detai ls LastModified Time None Recorded Concern Status LastModified by Organization Details LastModified Time None Recorded Advance Directives Directive None Recorded Payers Encounter Date Sequence Insurance Name Policy Number Policy Chan Covered Member ID Chan Member ID Guarantor Name 07/23/2023 [facility] Irving Herrera Notes Date Note Type Note [...] program today. Patient can continue with any humu-fjq-fspwflp topical creams as-needed. Patient will avoid anti-inflammatory medications. He can follow-up with us on a p.r.n. basis. At this time all patient questions and concerns were answered today. Louie Paul PA-C [address] [facility] [address], [place], [address], [place] - [facility] 07/23/2023 15:58:27 OBGyn Episode No OBEpisode recorded.
--- OUTSIDE RECORDS SUMMARY | 2024-06-19 13:33 | XMS_ITS | Encounter Summary ---
Author Name [facility] [facility] [place] [facility] [place] Address [address] [place] [address] Care Team Providers Care Riveter Helper Name Role Phone JESUS WARREN Primary Care [...] Chan's Name Patient's Relationship to Policy Chan BERWICK [employer] [facility] [place] [facility] Apr 11, 2017 [id number] VINNYMADONNA ANTHONY PATIENT [employer] ([id number]) PRESCRIPT ION [facility] Aug 11, 2017 [id number] VINNYMADONNA ANTHONY PATIENT MEDICARE (WNR) MEDICARE (M) PART A Sep 12, 2011 PART A [id number] MADONNA CASILLAS PATIENT MEDICARE (WNR) MEDICARE (M) PART A Sep 12, 2011 PART A [id number] VINNYMADONNA ANTHONY PATIENT [employer] PREFERRED PROVIDER ORGANIZAT ION (PPO) [place] RE STATE INDEM * Aug 11, 2009 [id number] MADONNA CASILLAS PATIENT Selected Encounter This section includes the information on record at [place] for the Encounter. Date/Time Encounter Type Encounter Description Reason Pro vider Source May 21, 2024 10:14 PM Outpatient Encounter ADMIN PAT ACTIVTIES (MASNONCT) IHE Encounter Template Text not used by [place] Plan of Treatment: Future Appointments (+ 6 months) and Future Tests (+/- 45 days) The Plan of Treatment section includes future care activities for the patient from all [place] [facility]. This section includes future appointments and future orders which are active, pending or scheduled. Future Appointments This section includes appointments that were scheduled to occur 6 months from the date of the Encounter, up to a maximum of 20 appointments. The [facility] comes from [facility] Appointment Date/Time Appointment Type Appointme nt Facility Name Jun 10, 2024 03:30 PM AMBULATORY - MEDICINE [facility] [place] [facility] June 11, 2024 01:30 PM [facility] - MEDICINE [facility] June 26, 2024 08:30 AM AMBULATORY - REHAB MEDICIN E [facility] [place] [facility] Aug 17, 2024 08:30 AM AMBULATORY - MEDICINE [facility] [place] [facility] Oct 15, 2024 01:30 PM [facility] [place] [facility] [place] 2[facility] [facility] Nov 09, 2024 01:00 PM [facility] - [facility] Active, Pending, and Scheduled Orders This section includes a listing of several types of active, pending, and scheduled orders, including clinic medications orders, diagnostic test orders, procedure orders and consult orders; where the start date of the order is 45 days before the date of the Encounter or 45 days after the date of theEncounter. The data comes from [facility]. Test Date/Time Test Type Test Details Facility Name Jun 10, 2024 04:06 PM Consult Order SPEECH THERAPY/SWALLOWING EVAL OUTPT Cons Paradi Tender's Choice [facility] Social History: Smoking Status (Most current) and Tobacco Use (All prior to encounter date) This section includes the most current, and the historical, smoking and tobacco- related health factors from the [place] facility where the Encounter took place. Current Smoking Status This section includes the most current smoking, or tobacco-related health factor, from the [place] facility where the Encounter took place. Date/Time Current Smoking Status Comment Facil ity Aug 07, 2019 01:20 PM [place]-TOBACCO QUIT 15 YRS OR MORE [facility] Tobacco Use History This section includes a history of the smoking, or tobacco-related health factors, that were collected on or before the date of the Encounter. The data comes from the [place] facility where the Encounter took place. Date/Time Smoking Status/Tobacco Use Comment F acility Aug 07, 2019 01:20 PM [place]-TOBACCO QUIT 15 YRS OR MORE [facility] Encounter Notes: All associated encounter notes This section contains the clinical notes associated to the Encounter. Date/Time Encounter Note(s) Provider Source May 21, 2024 10:14 PM PHARMACY NOTE: LOCAL TITLE: PHARMACY CUSTOMER CARE MEDICATION RENEWAL STANDARD TITLE: PHARMACY NOTE DATE OF NOTE: MAY 21, 2024@22:14 ENTRY DATE: MAY 21, 2024@22:14:52 AUTHOR: KAMILLE BENAVIDES EXP COSIGNER: URGENCY: STATUS: COMPLETED Date: May Division: [place] Pt referred by Pharmacy Call Center for medication renewal: Non-controlled/maintenan ce medication Medications requested: [id number] AMMONIUM LACTATE 12% LOTION This prescription was last released 04/25/2023, but the requested to renew it. Please review. Defer to specialty clinic To be mailed . Please review and renew if appropriate. *This note was generated by [facility] Pharmacy Customer Care. If you have any questions or need assistance, do not contact this author. Please refer all questions to your local, on-site pharmacy departments. /emmett/ KAMILLE BENAVIDES CPhT Rehabilitation Counselor, [place]/Pharmacy Customer Care Signed: 05/21/2024 22:16 Receipt Acknowledged By: 05/25/2024 06:52 /emmett/ FOREIGN JAUREGUI DPM MATERIAL CUTTER KAMILLE BENAVIDES [facility]
--- OUTSIDE RECORDS SUMMARY | 2024-06-19 13:33 | XMS_ITS | Continuity of Care Document ---
Author Name [facility] Organization [facility] Care Team Providers Care Resolute Professional Name Role Phone [facility] Unavailable Unavailable Problems Combined list of problems [...] BAUTISTA Comment: with associated depression and anxiety [place] Colonoscopy Screening Active Condition Aug 11, 2019 Entered By: JESUS WARREN Comment: 01/21/19 - 5mm polyp in transverse colon, internal hemorrhoids - repeat 2023 - Dr. Whitaker [facility] Eczema Active Condition [facility] Exposure to potentially hazardous substance Active Condition Apr 24, 2023 Entered By: NAGA HOOKS EN A Comment: Connect Snomed Code to ICD 10 Code refer to note dated 11/07/22 [facility] HTN - Hypertension (SCT [id number]) Active Condition [facility] NON VA PCP Active Condition Aug 06 Entered By: JESUS WARREN Comment: Dr. 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 [place] Diagnosis: ICD-10-CM R09.81 Nasal congestion [facility] Diagnosis: ICD-10-CM G47.33 Obstructive sleep apnea (adult) (pediatric) Active Diagnosis [facility] Diagnosis: ICD-10-CM J30.0 Vasomotor rhinitis [facility] Diagnosis: ICD-10-CM I10 Essential (primary) hypertension Active Diagnosis [place] Diagnosis: ICD-10-CM J30.9 Allergic rhinitis, unspecified Active Diagnosis [place] Diagnosis: ICD-10-CM F43.12 Post-traumatic stress disorder, chronic Active Diagnosis [place] Diagnosis: ICD-10-CM Z71.89 Other specified counseling Active Diagnosis [place] Medications Combined list of outpatient medications from Department of Defense and [facility] Affairs facilities.Medications provided include 1) outpatient medications from the last 15 months, and 2) patient-reported medications. Medication Details Route Status Patient Instructions Prescription Expires Prescription Number Last Dispense Date Ordering Provider Order Date Order Qty Source AMMONIUM LACTATE 12% LOTION APPLY SMALL AMOUNT TOPICALL Y TWICE DAILY FOR DRY SKIN FOR DRY IRRITATE D SKIN TOPICA L ACTIVE 05/26/2025 [id number] 5 GHISLAINE JAUREGUI F 2024 240 [facility] IELD AMMONIUM LACTATE 12% LOTION APPLY SMALL AMOUNT TOPICALL Y TWICE DAILY FOR DRY IRRITATE D SKIN TOPICA L 04/23/2024 [id number] 4 GHISLAINE JAUREGUI F 2023 240 [facility] IELD GUAIFENESIN 200MG TAB TAKE SIX TABLETS BY MOUTH TWICE DAILY ORAL ACTIVE 07/06/2024 [id number] 5 TRENT NOGUEIRA R 2024 1080 [facility] GUAIFENESIN 200MG TAB TAKE TWO TABLETS BY MOUTH THREE TIMES A DAY FOR COUGH AND MUCUS ORAL DISCONT INUED 02/24/2025 [id number] 5 TRENT NOGUEIRA R 2024 540 [facility] IPRATROPIUM BR 0.03% SOLN,SPRAY, NASAL INSTILL 2 SPRAYS INTO EACH NOSTRIL 1-3 TIMES/DA Y FOR NASAL IRRITATI ON/CONGE STION NASAL ACTIVE 10/17/2024 [id number] 4 TRETN NOGUEIRA R 2023 90 [facility] LORATADINE 10MG TAB TAKE ONE TABLET BY MOUTH ONCE DAILY ORAL ACTIVE RYLIE WARREN SA spring IELD [place] POTASSIUM 100MG TAB TAKE ONE TABLET BY MOUTH ONCE DAILY ORAL ACTIVE RYLIE WARREN SA spring IELD METOPROLOL SUCCINATE 25MG TAB,SA TAKE ONE TABLET BY MOUTH ONCE DAILY ORAL ACTIVE RYLIE WARREN SA [facility] SINUS RINSE NEILMED PKT USE 1 PACKET IN THE NOSE ONCE DAILY FOR STUFFY NOSE (DISSOLV E CONTENTS OF PACKETS IN BOTTLE DIRECTED BY PACKAGE INSTRUCT IONS) NASAL ACTIVE 06/11/2025 [id number] 5 TRENT NOGUEIRA R 2024 100 [facility] Immunizations Combined list of available immunizations from the Department of Defense and Veterans Affairs facilities. Immunization Series Date Given Administered By Site Reaction Lot Number CVX Code Drug Sample Weaver Status Comments Source COVID-19 (MODERNA), MRNA, LNP-S, PF, 50 MCG/0.5 ML (AGES 12+ YEARS) 2023 VANESA GRUBER ON M RIGHT DELTO ID [id number] 312 complet ed Booster for Series, ADMINISTE RED AT [facility] IELD INFLUENZA, HIGH-DOSE, TRIVALENT, PF 2023 VANESA GRUBER ON M LEFT DELTO ID [id number] 135 complet ed ADMINISTE RED AT [facility] IELD TDAP 2022 JIMMY ASHTON RIGHT DELTO ID [id number] 115 complet ed ADMINISTE RED AT [facility] INFLUENZA, HIGH-DOSE, QUADRIVALENT 2022 JIMMY ASHTON RIGHT DELTO ID [id number] 197 complet ed ADMINISTE RED AT [place], [facility] PNEUMOCOCCAL POLYSACCHARID E PPV23 2022 JIMMY ASHTON AIDEN LEFT DELTO ID [id number] 33 complet ed ADMINISTE RED AT [place], [facility] COVID-19, MRNA, LNP-S, BIVALENT BOOSTER, PF, 50 MCG/0.5 ML OR 25MCG/0.25 ML DOSE 1 2021 229 complet ed [facility] INFLUENZA VACCINE, QUADRIVALENT, ADJUVANTED 2020 205 complet ed [facility] IELD COVID-19 (MODERNA), MRNA, LNP-S, PF, 100 MCG/0.5 ML DOSE 2 2020 207 complet ed [facility] COVID-19 (MODERNA), MRNA, LNP-S, PF, 100 MCG/0.5 ML DOSE 1 2020 207 complet ed [facility] ZOSTER RECOMBINANT 2 2019 187 complet ed [employer] [facility] INFLUENZA, SEASONAL, INJECTABLE 2018 141 complet ed [facility] s / Dr.James Pedersen [facility] ZOSTER RECOMBINANT 1 2018 187 complet ed [employer] [facility] FLU,3 YRS (HISTORICAL) 2014 88 complet ed Site: Left Deltoid [facility] [facility] PNEUMOCOCCAL CONJUGATE PCV 13 2014 133 complet ed yes, Dr. Fernandes Office [facility] FLU,3 YRS (HISTORICAL) 2013 88 complet ed Site: Right Deltoid [facility] Vital Signs Combined list of inpatient and outpatient Vital Signs from Department of Defense and Veterans Affairs, ranging from 12 months to all on record, depending upon the facility. Vital Sign Value Date Comments Source SYSTOLIC BLOOD PRESSURE 110 06/11/19 25 15:19:29 [facility] DIASTOLIC BLOOD PRESSURE 72 025 15:19:29 [facility] PULSE OXIMETRY 98 06/10/2024 15:19:29 [facility] WEIGHT 244 06/10/2024 15:19:29 [facility] BMI 35 kg/m2 06/10/2024 15:19:29 [facility] PAIN 0 06/10/2024 15:19:29 [facility] TEMPERATURE 97.4 06/10/2024 15:19:29 [facility] PULSE 72 06/10/2024 15:19:29 [facility] RESPIRATION 20 06/10/2024 15:19:29 [facility] SYSTOLIC BLOOD PRESSURE 147 02/23/19 25 15:00:00 [facility] DIASTOLIC BLOOD PRESSURE 95 025 15:00:00 [facility] PULSE OXIMETRY 96 02/24/2024 15:00:00 [facility] WEIGHT 241.4 02/24/2024 15:00:00 [facility] [...] included; 2) Encounters from the Department of Defense facilities going backup to 280 months. Location Location Details Encounter Type Encounter Number Reason For Visit Attending Provider ADM Date DC Date Status Disposition Source [facility] Out[facility] Encounter [id number] 12/25 [facility] Encounter [id number] 12/28 [facility] Out[facility] Encounter [id number] 01/17 [facility] Encounter [id number] 03/01 [facility] Out[facility] Encounter [id number] 04/10 [facility] OFFICE O/P EST LOW 20 MIN [id number] Diagnos is: ICD-10- CM L60.3 Nail dystrop hy NATHAN JAUREGUI ES F 04/22 [facility] IELD [facility] Out[facility] Encounter [id number] 04/22 [facility] Encounter [id number] 04/23 [facility] Out[facility] Encounter [id number] 04/28 [facility] Out[facility] Encounter [id number] 05/07 [facility] POS AIRWAY PRESSURE FILTER [id number] Diagnos is: ICD-10- CM G47.33 Obstruc tive sleep apnea (adult) ([facility]) AMBARDELPHINE PARSONS P 05/29 [facility] Out[facility] Encounter [id number] HENNA WARREN 05/29 [facility] Out[facility] Encounter [id number] 05/30 [facility] SPECIAL SUPPLIES PHYS/QHP [id number] Diagnos is: ICD-10- CM G47.33 Obstruc tive sleep apnea (adult) ([facility]) AMBARDELPHINE PARSOSN P 06/02 [facility] Out[facility] Encounter [id number] HENNA WARREN 06/11 [facility] REPLACEMEN T NASAL CUSHION [id number] Diagnos is: ICD-10- CM G47.33 Obstruc tive sleep apnea (adult) ([facility]) DELPHINE BEY P 06/12 [facility] Out[facility] Encounter [id number] HENNA WARREN 06/13 [facility] Out[facility] Encounter [id number] 06/23 [facility] Out[facility] Encounter [id number] 06/25 [facility] Out[facility] Encounter [id number] 07/01 [facility] POS AIRWAY PRESS CHINSTRAP [id number] Diagnos is: ICD-10- CM G47.33 Obstruc tive sleep apnea (adult) ([facility]) DELPHINE BEY E P 07/03 [facility] [facility] [place] OFF/OP EST JUNE X REQ PHY/QHP [id number] Diagnos is: ICD-10- CM Z71.89 Other specifi ed loan counselor OMKAR Womack 07/09 [place] [facility] Out[facility] Encounter [id number] HENNA WARREN 07/09 [facility] Out[facility] Encounter [id number] 07/15 [facility] COLLJ & INTERPJ DATA EA 30 D [id number] Diagnos is: ICD-10- CM G47.33 Obstruc tive sleep apnea (adult) ([facility] [place]) DELPHINE BEY E P 07/21 [facility] [facility] Out[facility] Encounter [id number] 08/04 [facility] [place] PSYCH DIAGNOSTIC EVALUATION [id number] Diagnos is: ICD-10- CM F43.12 Post-tr aumatic stress disorde r, chronic VINAnne-Marie GREGORIO 08/06 [place] [facility] Outpatient Encounter [id number] 08/11 [facility] TUBING WITH HEATING ELEMENT [id number] Diagnos is: ICD-10- CM G47.33 Obstruc tive sleep apnea (adult) ([facility]) [facility] STEAR[facility]DELPHINE E P 08/11 [facility] Outpatient Encounter [id number] HENNA WARREN 08/13 [facility] COLLJ & INTERPJ DATA EA 30 D [id number] Diagnos is: ICD-10- CM G47.33 Obstruc tive sleep apnea (adult) ([facility]) [facility] STEARNSDELPHINE E P 09/01 [facility] [place] [place] [facility] Outpatient Encounter [id number] 09/03 [facility] [place] [facility] [place] OFFICE O/P EST LOW 20 MIN [id number] 1BY. 35 Diagnos is: ICD-10- CM L60.3 Nail dystrop hy NATHAN JAUREGUI F 09/26 [place] [facility] OFF/OP CONSLTJ NEW/EST HI 55 [id number] Diagnos is: ICD-10- CM G47.33 Obstruc tive sleep apnea (adult) ([facility]) ENRIQUE NOGUEIRA 10/16 [facility] [place] [facility] [place] QNHP OL DIG ASSMT&MGMT 5-10 [id number] Diagnos is: ICD-10- CM J30.9 Allergi c rhiniti s, unspeci fiVANDANA Boyer 10/16 [place] [facility] Outpatient Encounter [id number] 11/06 [facility] OFFICE O/P EST LOW 20 MIN [id number] 1BY. 09 Diagnos is: ICD-10- CM I10 Essenti al (primar y) hyperte nspeter HENNA WARREN 11/06 [facility] PATIENT EDUCATION MATERIALS [id number] Diagnos is: ICD-10- CM G47.33 Obstruc tive sleep apnea (adult) ([facility]) DELPHINE BEY E P 11/26 [facility]OW 20 MIN [id number] Diagnos is: ICD-10- CM L60.3 Nail dystrop hy NATHAN JAUREGUI ES F 02/20 [facility] OFFICE O/P EST LOW 20 MIN [id number] 1. Diagnos is: ICD-10- CM J30.0 Vasomot or rhiniti s ENRIQUE NOGUEIRA 02/23 [facility] [place] COLLJ & INTERPJ DATA EA 30 D [id number] Diagnos is: ICD-10- CM G47.33 Obstruc tive sleep apnea (adult) ([facility]) DELPHINE BEY E P 03/05 [facility] [place] [facility] POS AIRWAY PRESSURE CPAP [id number] Diagnos is: ICD-10- CM G47.33 Obstruc tive sleep apnea (adult) ([facility]) DELPHINE BEY E P 05/06 [facility] [place] [place] [facility] Outpatient Encounter [id number] [facility] [place] Out[facility] Encounter [id number] 05/21 [facility] [place] [facility] OFF[facility] O/P EST MOD 30 MIN [id number] Diagnos is: ICD-10- CM R09.81 Nasal congest ENRIQUE Eldridge R 06/10 [facility] [place] [facility] [place] OFFICE O/P EST LOW 20 MIN [id number] Diagnos is: ICD-10- CM L60.3 Nail dystrop NATHAN Lucio F 06/11 [facility] IELD Social History Combined list of available smoking, tobacco, and other social history from Department of Defense and Veterans Affairs facilities. Social History Type Response Date Comment Sourc e Tobacco smoking status PRIS VA-TOBACCO FORMER USER 11/07/2023 [place] History of tobacco use AR-TOBACCO QUIT 15 YRS OR MORE 11/07/2023 [place] History of tobacco use AR-TOBACCO FORMER USER 11/07/2022 [place] History of tobacco use AR-TOBACCO QUIT 15 YRS OR MORE 11/09/2021 [place] History of tobacco use AR-TOBACCO FORMER USER 11/09/2020 [place] History of tobacco use AR-TOBACCO QUIT 15 YRS OR MORE 08/07/2019 [facility] [place] [facility] Plan of Care List of future care activities from Department of Veterans Affairs facilities. Additional future care activities may be listed in the Assessment and Plan section. Date/Time Care Activity Care Activity Detail Facili ty 06/26/2024 AMBULATORY - REHAB MEDICINE AMBULATORY - REHAB MEDICINE [facility] [place] [facility]
--- OUTSIDE RECORDS SUMMARY | 2024-06-19 13:33 | XMS_ITS | Encounter Summary ---
Author Name [facility] ([place]) Organization [facility] Address [address] [place] [address] Care Team Providers Care Production Supervisor Name Role Phone JESUS WARREN Primary [...] Name Patient's Relationship to Policy Chan [facility] RE Apr 11, 2017 [id number] VINNYMADONNA ANTHONY PATIENT EXPRESS SCRIPTS ([id number]) PRESCRIPT ION [facility] Aug 11, 2017 [id number] VINNYMADONNA ANTHONY PATIENT MEDICARE (WNR) MEDICARE (M) PART A Sep 12, 2011 PART A [id number] MADONNA CASILLAS PATIENT MEDICARE (WNR) MEDICARE (M) PART A Sep 12, 2011 PART A [id number] VINNYMADONNA ANTHONY PATIENT WELLPOINT PREFERRED PROVIDER ORGANIZAT ION (PPO) [facility] * Aug 11, 2009 [id number] MADONNA CASILLAS PATIENT Selected Encounter This section includes the information on record at VA for the Encounter. Date/Time Encounter Type Encounter Description Reason Pro vider Source IHE Encounter Template Text not used by VA
--- OUTSIDE RECORDS SUMMARY | 2024-06-19 13:33 | XMS_ITS | Encounter Summary ---
Author Name [facility] [place] [facility] [place] Address [address] [place] [address] Care Team Providers Care Swatch Checker Name Role Phone KELVINJESUS Primary Care Provider [...] Chan's Name Patient's Relationship to Policy Chan [place] [employer] [facility] Apr 11, 2017 [id number] [phone] VINNYMADONNA ANTHONY PATIENT EXPRESS SCRIPTS ([id number]) PRESCRIPT ION [facility] Aug 11, 2017 [id number] VINNYMADONNA ANTHONY PATIENT MEDICARE (WNR) MEDICARE (M) PART A Sep 12, 2011 PART A [id number] [phone] MADONNA CASILLAS PATIENT MEDICARE (WNR) MEDICARE (M) PART A Sep 12, 2011 PART A [id number] [phone] [id number] ANUPALEXANDREElvisMADONNA ANTHONY PATIENT WELLPOINT PREFERRED PROVIDER ORGANIZAT ION (PPO) [facility] * Aug 11, 2009 [id number] MADONNA CASILLAS PATIENT Selected Encounter This section includes the information on record at [place] for the Encounter. Date/Time Encounter Type Encounter Description Reason Provider Source Feb 24, 2024 03:00 PM OFFICE O/P EST LOW 20 MIN OTOLARYNGOLOGY/EN T ICD-10-CM J30.0 Vasomotor rhinitis FERNY DUPREE [facility] Encounter Template Text not used by [place] Assessments - Encounter Diagnoses This section includes the primary and secondary diagnoses documented for the Encounter. Date/Time Primary/Secondary Diagnosis Diagnosis Name Provider Source Mar 15, 2024 07:56 AM PRIMARY Vasomotor rhinitis RICARDO DUPREE [place] [facility] [place] [facility] Mar 15, 2024 07:56 AM SECONDARY Nasal valve collapse, unspecified RICARDO DUPREE [place] [facility] [place] [facility] Mar 15, 2024 07:56 AM SECONDARY Obstructive sleep apnea (adult) (pediatric) RICARDO DUPREE [place] [facility] [place] [facility] Mar 15, 2024 07:56 AM SECONDARY Sensorineural hearing loss, bilateral RICARDO DUPREE [place] [facility] [place] [facility] Plan of Treatment: Future Appointments (+ 6 months) and Future Tests (+/- 45 days) The Plan of Treatment section includes future care activities for the patient from all [place] treatmentfacilities. This section includes future appointments and future orders which are active, pending or scheduled. Future Appointments This section includes appointments that were scheduled to occur 6 months from the date of the Encounter, up to a maximum of 20 appointments. The data comes from all [place] treatment facilities. Appointment Date/Time Appointment Type Appointme nt Facility Name Jun 10, 2024 03:30 PM AMBULATORY - MEDICINE [facility] [place] [facility] June 11, 2024 01:30 PM [facility] June 26, 2024 08:30 AM AMBULATORY - REHAB MEDICIN [facility] [place] [facility] Aug 17, 2024 08:30 AM AMBULATORY - MEDICINE [place] [facility] [place] [facility] Vital Signs: All taken on the encounter date This section contains inpatient and outpatient Vital Signs collected on the date of the Encounter. Date/Time Temperature Pulse Blood Pressure Respiratory Rate SP02 Pain Height Weight Body Mass Index Source Feb 24, 2024 03:00 PM 97.8 71 147/95 18 96 0 241.4 35 [facility] Social History: Smoking Status (Most current) [...] PM [place]-TOBACCO QUIT 15 YRS OR MORE [facility] Tobacco Use History This section includes a history of the smoking, or tobacco-related health factors, that were collected on or before the date of the Encounter. The data comes from the [place] facility where the Encounter took place. Date/Time Smoking Status/Tobacco Use Comment F acility Aug 07, 2019 01:20 PM [place]-TOBACCO QUIT 15 YRS OR MORE [facility] Encounter Notes: All associated encounter notes [...] CLINIC NOTE Has ADDENDA FEB 24, 2024 VINNYEMILIE BARRETO is a 78 y/o FORMER smoker [employer], previously in [employer] FROM Dec TO Dec from PERIOD OF [...] week after 54 years working for the [employer]. PV: 78-year-old male referred [...] Allergic rhinitis 7. HTN - Hypertension ([facility] [id number]) 8. OA - Osteoarthritis ([facility] [id number]) 9. Benign prostatic hypertrophy 10. Colonoscopy Screening [...] week after 54 years working for the [employer] [facility]. Physical exam shows bilateral nasal valvular collapse with a positive Gordon maneuver. Patient has a +3 deviation to [...] I wished the patient luck in his long term. He asks to follow-up in 6 months. [...] Remote Allergy/ADR Data available for this patient [place] [facility] [place] [facility] No Known Allergies Med Recon NoGlossary [...] the patient into personal health records (i.e. [employer]) are NOT included in this list. Non-VA medications documented outside this [place], remote inpatient orders (regardless of status) and remote clinic medications are NOT included in this list. The patient and provider must always discuss medications the patient is taking, regardless of where the medication was dispensed or obtained. OUTPT AMMONIUM LACTATE 12% LOTION (Status = Active) APPLY SMALL AMOUNT TOPICALLY TWICE DAILY FOR DRY IRRITATED SKIN Rx# [id number] Last Released: 04/25/23 Qty/Days Supply: 240/30 Rx [...] NOSTRIL 1-3 TIMES/DAY FOR NASAL IRRITATION/CONGESTION Rx# [id number] Last Released: 01/20/24 Qty/Days Supply: 90/90 Rx [...] AT BEDTIME FOR NASAL VALVE COLLAPSE Rx# [id number] Last Released: 10/21/23 Qty/Days Supply: Rx Expiration [...] Dupree MD Otolaryngology Signed: 04/07/2024 17:12 [facility]UPREERL [facility]
--- OUTSIDE RECORDS SUMMARY | 2024-06-19 13:33 | XMS_ITS | Encounter Summary ---
Author Name [place] Address [address] [place] [address] Care Team Providers Care Terminal Block Assembler Name Role Phone JESUS WARREN Primary Care [...] Patient's Relationship to Policy Chan [facility] Apr 11, 2017 [id number] [phone] VINNYMADONNA ANTHONY PATIENT EXPRESS SCRIPTS ([id number]) PRESCRIPT ION [facility] Aug 11, 2017 [id number] [phone] VINNYMADONNA ANTHONY PATIENT MEDICARE (WNR) MEDICARE (M) PART A Sep 12, 2011 PART A [id number] VINNYMADONNA ANTHONY PATIENT MEDICARE (WNR) MEDICARE (M) PART A Sep 12, 2011 PART A [id number] VINNYMADONNA ANTHONY PATIENT WELLPOINT PREFERRED PROVIDER ORGANIZAT ION (PPO) [facility] * Aug 11, 2009 [id number] MADONNA CASILLAS PATIENT Selected Encounter This section includes the information on record at [place] for the Encounter. Date/Time Encounter Type Encounter Description Reason Provider Source Feb 21, 2024 01:00 PM OFFICE O/P EST LOW 20 MIN PODIATRY ICD-10-CM L60.3 Nail dystrophy FOREIGN JAUREGUI [facility] Encounter Template Text not used by [place] Assessments - Encounter Diagnoses This section includes the primary and secondary diagnoses documented for the Encounter. Date/Time Primary/Secondary Diagnosis Diagnosis Name Provider Source Mar 17, 2024 04:13 PM PRIMARY Nail dystrophy FOREIGN JAUREGUI [place] Mar 17, 2024 04:13 PM SECONDARY Corns and callosities FOREIGN JAUREGUI [place] Mar 17, 2024 04:13 PM SECONDARY Pain in left foot FOREIGN JAUREGUI [place] Mar 17, 2024 04:13 PM SECONDARY Pain in left toe(s) FOREIGN JAUREGUI [place] Mar 17, 2024 04:13 PM SECONDARY Pain in right foot FOREIGN JAUREGUI [place] Mar 17, 2024 04:13 PM SECONDARY Pain in right toe(s) FOREIGN JAUREGUI [place] Mar 17, 2024 04:13 PM SECONDARY Peripheral vascular disease, unspecified FOREIGN JAUREGUI [place] Plan of Treatment: Future Appointments (+ 6 months) and Future Tests (+/- 45 days) The Plan of Treatment section includes future care activities for the patient from all [place] treatmentfacilities. This section includes future appointments and future orders which are active, pending or scheduled. Future Appointments This section includes appointments that were scheduled to occur 6 months from the date of the Encounter, up to a maximum of 20 appointments. The data comes from all [place] treatment facilities. Appointment Date/Time Appointment Type Appointme nt Facility Name Feb 24, 2024 03:00 PM AM[place]ORY [place] [facility] [place] [facility] Jun 10, 2024 03:30 PM [place] [facility] [place] [facility] June 11, 2024 01:30 PM AM[facility]ORY - MEDICINE [facility] June 26, 2024 08:30 AM AMBULATORY - [facility]HAB MEDICIN [facility] [place] [facility] Aug 17, 2024 08:30 AM [place] [facility] Social History: Smoking Status (Most current) and Tobacco Use (All prior to encounter date) This section includes the most current, and the historical, smoking and tobacco- related health factors from the [place] facility where the Encounter took place. Current Smoking Status This section includes the most current smoking, or tobacco-related health factor, from the [place] facility where the Encounter took place. Date/Time Current Smoking Status Comment Facil ity Nov 07, 2023 01:30 PM VA-TOBACCO FORMER USER [place] Tobacco Use History This section includes a history of the smoking, or tobacco-related health factors, that were collected on or before the date of the Encounter. The data comes from the [place] facility where the Encounter took place. Date/Time Smoking Status/Tobacco Use Comment F acility Nov 07, 2023 01:30 PM VA-TOBACCO QUIT 15 YRS OR MORE [place] Nov 07, 2022 01:30 PM VA-TOBACCO FORMER USER [place] Nov 07, 2022 01:30 PM VA-TOBACCO QUIT 15 YRS OR MORE [facility] 29, 2022 09:00 AM VA-TOBACCO FORMER USER [facility] 29, 2022 09:00 AM VA-TOBACCO QUIT 15 YRS OR MORE [facility] 29, 2021 03:00 PM VA-TOBACCO FORMER USER [facility] 29, 2021 03:00 PM VA-TOBACCO QUIT 15 YRS OR MORE [facility] Encounter Notes: All associated encounter notes This section contains the clinical notes associated to the Encounter. Date/Time Encounter Note(s) Provider Source Feb 21, 2024 10:19 AM PODIATRY NOTE: LOCAL TITLE: PODIATRY NOTE STANDARD TITLE: PODIATRY NOTE DATE OF NOTE: FEB 21, 2024@10:19 ENTRY DATE: FEB 21, 2024@10:19:32 AUTHOR: FOREIGN JAUREGUI COSIGNER: URGENCY: STATUS: COMPLETED PATIENT IS A 1ST RESPONDER AND HAS RECEIVED BOTH VACCINES +2 BOOSTERS THROUGH WORK WITH THE [facility] LAST SEEN FOR TREATMENT: 09/27/2023 S: [...] present physical-medical status. Protective sensation utilizing a Russell-Juan Carlos lOg monofilament is 05/10 bilateral. NOTE: [...] this [facility] (local) and dispensed from another [place] or [place] facility (remote) as well as [...] Remote Allergy/ADR Data available for this patient [place] [facility] [place] [facility] No Known Allergies [facility] ([facility] INCLUDED IN THIS LIST: Alphabetical list of active outpatient prescriptions dispensed from this [place] (local) and dispensed from another [place] or [place] facility (remote) as well as [...] the patient into personal health records (i.e. [employer]) are NOT included in this list. Non-VA medications documented outside this [place], remote inpatient orders (regardless of status) and remote clinic medications are NOT included in this list. The patient and provider must always discuss medications the patient is taking, regardless of where the medication was dispensed or obtained. OUTPT AMMONIUM LACTATE 12% LOTION (Status = Active) APPLY SMALL AMOUNT TOPICALLY TWICE DAILY FOR DRY IRRITATED SKIN Rx# [id number] Last Released: 04/25/23 Qty/Days Supply: Rx Expiration Date: 04/23/24 Refills Remainin Indication: FOR DRY SKIN OUTPT IPRATROPIUM BR 0.03% NASAL SPRAY (Status = Active) INSTILL 2 SPRAYS INTO EACH NOSTRIL 1-3 TIMES/DAY FOR NASAL IRRITATION/CONGESTION Rx# [id number] Last Released: 01/20/24 Qty/Days Supply: 90 Rx [...] AT BEDTIME FOR NASAL VALVE COLLAPSE Rx# [id number] Last Released: 10/21/23 Qty/Days Supply: Rx Expiration Date: 10/17/24 Refills Remainin Indication: FOR NASAL VALVE COLLAPSE /es/ FOREIGN JAUREGUI DPM TRACK SWEEPER Signed: 02/21/2024 13:36 FOREIGN JAUREGUI [place]
--- OUTSIDE RECORDS SUMMARY | 2024-06-19 13:33 | XMS_ITS | Encounter Summary ---
Author Name [place] Organization [place] Address [address] [place] [address] Care Team Providers Care Vinyl Installer Name Role Phone JESUS WARREN Primary Care [...] Chan's Name Patient's Relationship to Policy Chan [facility] Apr 11, 2017 [id number] [phone] VINNYMADONNA ANTHONY PATIENT EXPRESS SCRIPTS ([id number]) PRESCRIPT ION [facility] Aug 11, 2017 [id number] VINNYMADONNA ANTHONY PATIENT MEDICARE (WNR) MEDICARE (M) PART A Sep 12, 2011 PART A [id number] VINNYMADONNA ANTHONY PATIENT MEDICARE (WNR) MEDICARE (M) PART A Sep 12, 2011 PART A [id number] [phone] VINNYMADONNA ANTHONY PATIENT WELLPOINT PREFERRED PROVIDER ORGANIZAT ION (PPO) [facility] * Aug 11, 2009 [id number] MADONNA CASILLAS PATIENT Selected Encounter This section includes the information on record at [place] for the Encounter. Date/Time Encounter Type Encounter Description Reason Provider Source June 11, 2024 01:30 PM OFFICE O/P EST LOW 20 MIN PODIATRY ICD-10-CM L60.3 Nail dystrophy FOREIGN JAUREGUI [place] Encounter Template Text not used by [place] Assessments - Encounter Diagnoses This section includes the primary and secondary diagnoses documented for the Encounter. Date/Time Primary/Secondary Diagnosis Diagnosis Name Provider Source June 11, 2024 02:01 PM PRIMARY Nail dystrophy FOREIGN JAUREGUI June 11, 2024 02:01 PM SECONDARY Corns and callosities FOREIGN JAUREGUI June 11, 2024 02:01 PM SECONDARY Pain in left foot FOREIGN JAUREGUI June 11, 2024 02:01 PM SECONDARY Pain in left toe(s) FOREIGN JAUREGUI June 11, 2024 02:01 PM SECONDARY Pain in right foot FOREIGN JAUREGUI June 11, 2024 02:01 PM SECONDARY Pain in right toe(s) FOREIGN JAUREGUI June 11, 2024 02:01 PM SECONDARY Peripheral vascular disease, unspecified FOREIGN JAUREGUI Plan of Treatment: Future Appointments (+ 6 months) and Future Tests (+/- 45 days) The Plan of Treatment section includes future care activities for the patient from all [place] treatmentfacilities. This section includes future appointments and future orders which are active, pending or scheduled. Future Appointments This section includes appointments that were scheduled to occur 6 months from the date of the Encounter, up to a maximum of 20 appointments. The data comes from all [place] treatment facilities. Appointment Date/Time Appointment Type Appointme nt Facility Name June 26, 2024 08:30 AM AMBULATORY - REHAB MEDICIN E [place] [facility] [place] [facility] Aug 17, 2024 08:30 AM AM[place]ULATORY [facility] [place]ICINE [place] [facility] [facility] Oct 15, 2024 01:30 PM AMBULATORY - MEDICINE [facility] Nov 09, 2024 01:00 PM AMBULATORY - MEDICINE [facility] Active, Pending, and Scheduled Orders This section includes a listing of several types of active, pending, and scheduled orders, including clinic medications orders, diagnostic test orders, procedure orders and consult orders; where the start date of the order is 45 days before the date of the Encounter or 45 days after the date of theEncounter. The data comes from all [place] treatment facilities. 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 Current Smoking Status This section includes the most current smoking, or tobacco-related health factor, from the [place] facility where the Encounter took place. Date/Time Current Smoking Status Comment Facil ity Nov 07, 2023 01:30 PM VA-TOBACCO FORMER USER [place] Tobacco Use History This section includes a history of the smoking, or tobacco-related health factors, that were collected on or before the date of the Encounter. The data comes from the [place] facility where the Encounter took place. Date/Time Smoking Status/Tobacco Use Comment F acility Nov 07, 2023 01:30 PM VA-TOBACCO QUIT 15 YRS OR MORE [place] Nov 07, 2022 01:30 PM VA-TOBACCO FORMER USER [place] Nov 07, 2022 01:30 PM VA-TOBACCO QUIT 15 YRS OR MORE [place] Nov 09, 2021 09:00 AM VA-TOBACCO FORMER USER [place] Nov 09, 2021 09:00 AM VA-TOBACCO QUIT 15 YRS OR MORE [place] Nov 09, 2020 03:00 PM VA-TOBACCO FORMER USER [place] Nov 09, 2020 03:00 PM VA-TOBACCO QUIT 15 YRS OR MORE [place] Encounter Notes: All associated encounter notes This section contains the clinical notes associated to the Encounter. Date/Time Encounter Note(s) Provider Source June 11, 2024 08:26 AM PODIATRY NOTE: LOCAL TITLE: PODIATRY NOTE STANDARD TITLE: PODIATRY NOTE DATE OF NOTE: JUNE 11, 2024@08:26 ENTRY DATE: JUNE 11, 2024@08:26:11 AUTHOR: FOREIGN JAUREGUI EXP COSIGNER: URGENCY: STATUS: COMPLETED PATIENT IS A 1ST RESPONDER AND HAS RECEIVED BOTH VACCINES +2 BOOSTERS THROUGH WORK WITH THE [facility] LAST SEEN FOR TREATMENT: 02/21/2024 S: Pt. is a 78 yo alert [facility] who presents for continued podiatric EVALUATION [...] present physical-medical status. Protective sensation utilizing a [place]-Juan Carlos lOg monofilament is 05/10 bilateral. NOTE: [...] conditions. *TUBE FOAM 5TH RT RTC: 24 Weeks(10/15 @ 1:30pm) *DISCUSSED NEW PROTOCOLS AND CALLED GREGORY ALBRECHT I DISCUSSED THE FINDINGS & PLAN WITH PATIENT (UNCHANGED SINCE PREVIOUS VISIT) & PATIENT AGREES AND UNDERSTANDS PLAN *DISCUSSED THE FACT THATTHERE HAVE BEEN MULTIPLE EVENTS [employer]ORING [employer] THIS MONTH WITH MANY FACILITIES PROVIDING FREE MEALS Medication Reconciliation: PERFORMED TODAY - SEE BELOW. Outpatient: Has the patient been taking medications as documented in the EMLR? YES: The patient has been taking medications as documented in the EMLR. Essential Medication List for Review used to complete this medication reconciliation. INCLUDED IN THIS LIST: Alphabetical list of active outpatient prescriptions dispensed from this VA (local) and dispensed from another [place] or [place] facility (remote) as well as [...] Remote Allergy/ADR Data available for this patient [place] [facility] [facility] [place] [facility] No Known Allergies Med Recon NoGlossary [...] the patient into personal health records (i.e. [employer]) are NOT included in this list. Non-VA [...] TWICE DAILY FOR DRY IRRITATED SKIN Rx# [id number] Last Released: 04/25/23 Qty/Days Supply: 240/30 Rx Expiration Date: 04/23/24 Refills Remainin Indication: FOR DRY SKIN OUTPT AMMONIUM LACTATE 12% LOTION (Status = Active) APPLY SMALL AMOUNT TOPICALLY TWICE DAILY FOR DRY SKIN FOR DRY IRRITATED SKIN Rx# [id number] Last Released: 05/27/24 Qty/Days Supply: 240/60 Rx Expiration Date: 05/26/25 Refills Remainin Indication: FOR DRY SKIN OUTPT GUAIFENESIN 200MG TAB (Status = Discontinued) TAKE TWO TABLETS BY MOUTH THREE TIMES A DAY FOR COUGH AND MUCUS Rx# [id number] Last Released: 02/26/24 Qty/Days Supply: 540/90 Rx Expiration Date: 02/24/25 Refills Remainin Indication: FOR COUGH OUTPT GUAIFENESIN 200MG TAB (Status = Active) TAKE SIX TABLETS BY MOUTH TWICE DAILY Rx# [id number] Last Released: 04/11/24 Qty/Days Supply: 1079/90 Rx Expiration Date: 07/06/24 Refills Remainin Indication: FOR COUGH OUTPT IPRATROPIUM BR 0.03% NASAL SPRAY (Status = Active) INSTILL 2 SPRAYS INTO EACH NOSTRIL 1-3 TIMES/DAY FOR NASAL IRRITATION/CONGESTION Rx# [id number] Last Released: 01/20/24 Qty/Days Supply: 90/90 Rx [...] TAKE ONE TABLET BY MOUTH ONCE DAILY OUTPT SINUS RINSE NEILMED PKT (Status = Active) USE 1 PACKET IN THE NOSE ONCE DAILY FOR STUFFY NOSE (DISSOLVE CONTENTS OF PACKETS IN BOTTLE DIRECTED BY PACKAGE INSTRUCTIONS) Rx# [id number] Last Released: Qt/Days Supply: Rx Expiration Date: 06/11/25 Refills Remainin Indication: FOR STUFFY NOSE SUPPLIES OUTPT BREATHE RIGHT EXTRA NASAL STRIPS (Status = Active) USE ONE NIGHTLY TOPICALLY AT BEDTIME FOR NASAL VALVE COLLAPSE Rx# [id number] Last Released: 10/21/23 Qty/Days Supply: Rx Expiration Date: 10/17/24 Refills Remainin Indication: FOR NASAL VALVE COLLAPSE /es/ FOREIGN JAUREGUI 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
--- OUTSIDE RECORDS SUMMARY | 2024-06-19 13:34 | XMS_ITS | Encounter Summary ---
Author Name [place] Address [address] [place] [address] Care Team Providers Care Trimmer Climber Name Role Phone JESUS WARREN Primary Care [...] to Policy Chan [facility] Apr 11, 2017 [id number] VINNYMADONNA ANTHONY PATIENT EXPRESS SCRIPTS ([id number]) PRESCRIPT ION [facility] Aug 11, 2017 [id number] [phone] VINNYMADONNA ANTHONY PATIENT MEDICARE (WNR) MEDICARE (M) PART A Sep 12, 2011 PART A [id number] VINNYMADONNA ANTHONY PATIENT MEDICARE (WNR) MEDICARE (M) PART A Sep 12, 2011 PART A [id number] [phone] [id number] VINNYMADONNA ANTHONY PATIENT WELLPOINT PREFERRED PROVIDER ORGANIZAT ION (PPO) [facility] * Aug 11, 2009 [id number] MADONNA CASILLAS PATIENT Selected Encounter This section includes the information on record at [place] for the Encounter. Date/Time Encounter Type Encounter Description Reason Provider Source Sep 27, 2023 01:00 PM OFFICE O/P EST LOW 20 MIN PODIATRY ICD-10-CM L60.3 Nail [address] FOREIGN JAUREGUI [facility] Encounter Template Text not used by [place] Assessments - Encounter Diagnoses This section includes the primary and secondary diagnoses documented for the Encounter. Date/Time Primary/Secondary Diagnosis Diagnosis Name Provider Source Nov 11, 2023 06:25 AM PRIMARY Nail dystrophy FOREIGN JAUREGUI [place] Nov 11, 2023 06:25 AM SECONDARY Corns and callosities FOREIGN JAUREGUI [place] Nov 11, 2023 06:25 AM SECONDARY Pain in left foot FOREIGN JAUREGUI [place] Nov 11, 2023 06:25 AM SECONDARY Pain in left toe(s) FOREIGN JAUREGUI [place] Nov 11, 2023 06:25 AM SECONDARY Pain in right foot FOREIGN JAUREGUI [place] Nov 11, 2023 06:25 AM SECONDARY Pain in right toe(s) FOREIGN JAUREGUI [place] Nov 11, 2023 06:25 AM SECONDARY Peripheral vascular disease, unspecified FOREIGN JAUREGUI [place] Plan of Treatment: Future Appointments (+ 6 [...] - MEDICINE [place] [facility] [place] [facility] Nov 07, 2023 01:30 PM AMBULATORY - MEDICINE [place] [facility] [place] [facility] Nov 27, 2023 10:00 AM AMBULATORY - NONE [place] [facility] [place] [facility] Feb 21, 2024 01:00 PM [facility]ORY - [facility]ICINE [facility] Feb 24, 2024 03:00 PM AMBULATORY - MEDICINE [place] [facility] [place] [facility] Social History: Smoking Status (Most [...] 07, 2022 01:30 PM VA-TOBACCO FORMER USER [place] Tobacco Use History This section includes a history of the smoking, or tobacco-related health factors, that were collected on or before the date of the Encounter. The data comes from the [place] facility where the Encounter took place. Date/Time Smoking Status/Tobacco Use Comment F acility Nov 07, 2022 01:30 PM VA-TOBACCO QUIT 15 YRS OR MORE [place] Nov 09, 2021 09:00 AM VA-TOBACCO FORMER USER [place] Nov 09, 2021 09:00 AM VA-TOBACCO QUIT 15 YRS OR MORE [place] Nov 09, 2020 03:00 PM VA-TOBACCO FORMER USER [place] Nov 09, 2020 03:00 PM VA-TOBACCO QUIT 15 YRS OR MORE [place] Encounter Notes: All associated encounter notes This [...] VACCINES + BOOSTER THROUGH WORK WITH THE [facility] LAST SEEN FOR TREATMENT: 04/23/2023 S: Pt. is a 77 yo alert [facility] who presents for continued podiatric EVALUATION [...] present physical-medical status. Protective sensation utilizing a [place]-Juan Carlos lOg monofilament is 05/10 bilateral. BIOMECHANICAL: [...] SWIMMING POOL PROBLEM AND HIS VACATION AT [facility] WITH [employer] *DISCUSSED NEW PROTOCOLS AND [...] [facility] No Known Allergies [facility] ([facility] INCLUDED IN THIS LIST: Alphabetical list of active outpatient prescriptions dispensed from this [place] (local) and dispensed from another [place] or [facility] facility (remote) as well as inpatient orders (local pending and active), local clinic medications, locally documented non-VA medications, and local prescriptions that have or been discontinued in the past 90 days. Non-VA Meds Last Documented On: Nov 07, 2022 NOTE The display of VA prescriptions dispensed from another [place] or [facility] facility (remote) is limited to active outpatient prescription entries matched to National Drug File at the originating site and may not include some items such as investigational drugs, compounds, etc. NOT INCLUDED IN THIS LIST: Medications self-entered by the patient into personal health records (i.e. [employer]) are NOT included in this list. 

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
--- OUTSIDE RECORDS SUMMARY | 2024-06-19 13:34 | XMS_ITS | Encounter Summary ---
Author Name [place] Address [address] [place] [address] Care Team Providers Care Supervisor Nutritional Yeast Name Role Phone HENNA WARRENA Primary Care [...] Relationship to Policy Chan [facility] Apr 11, 2017 [id number] VINNYMADONNA ANTHONY PATIENT EXPRESS SCRIPTS ([id number]) PRESCRIPT ION [facility] Aug 11, 2017 [id number] VINNYMADONNA ANTHONY PATIENT MEDICARE (WNR) MEDICARE (M) PART A Sep 12, 2011 PART A [id number] MADONNA CASILLAS PATIENT MEDICARE (WNR) MEDICARE (M) PART A Sep 12, 2011 PART A [id number] MARIA TERESAElvisMADONNA ANTHONY PATIENT WELLPOINT PREFERRED PROVIDER ORGANIZAT ION (PPO) [facility] * Aug 11, 2009 [id number] MADONNA CASILLAS PATIENT Selected Encounter This section includes the information on record at [place] for the Encounter. Date/Time Encounter Type Encounter Description Reason Provider Source July 04, 2023 02:00 PM POS [employer] CHINSTRAP SLEEP MEDICINE ICD-10-CM G47.33 Obstructive sleep apnea (adult) (pediatric) KASEY BEY IHE Encounter Template Text not used by [place] Assessments - Encounter Diagnoses This section includes the primary and secondary diagnoses documented for the Encounter. Date/Time Primary/Secondary Diagnosis Diagnosis Name Provider Source Jul 30, 2023 01:42 PM PRIMARY Obstructive sleep apnea (adult) (pediatric) KASEY BEY [facility] Plan of Treatment: Future Appointments (+ 6 months) and Future Tests (+/- 45 days) The Plan of Treatment section includes future care activities for the patient from all [place] treatmentfacilities. This section includes future appointments and future orders which are active, pending or scheduled. Future Appointments This section includes appointments that were scheduled to occur 6 months from the date of the Encounter, up to a maximum of 20 appointments. The data comes from all [place] treatment facilities. Appointment Date/Time Appointment Type Appointme nt Facility Name July 10, 2023 11:00 AM AMBULATORY - PSYCHIATRY [facility] Aug 07, 2023 01:00 PM AMBULATORY - PSYCHIATRY [facility] Sep 27, 2023 01:00 PM AMBULATORY - MEDICINE [facility] Oct 17, 2023 09:00 AM [facility] Nov 07, 2023 01:30 PM AM[place]UL[place]ORY - [facility]ICINE [place] [facility] Nov 27, 2023 10:00 AM [facility] Social History: Smoking Status (Most current) and Tobacco Use (All prior to encounter date) This section includes the most current, and the historical, smoking and tobacco- related health factors from the [place] facility where the Encounter took place. Current Smoking Status This section includes the most current smoking, or tobacco-related health factor, from the [place] facility where the Encounter took place. Date/Time Current Smoking Status E[place] Aug 07, 2019 01:20 PM [place]-TOBACCO QUIT 15 YRS OR MORE [facility] Tobacco Use History This section includes a history of the smoking, or tobacco-related health factors, that were collected on or before the date of the Encounter. The data comes from the [place] facility where the Encounter took place. Date/Time Smoking Status/Tobacco Use Comment F acility Aug 07, 2019 01:20 PM VA-TOBACCO QUIT 15 YRS OR MORE [facility] Encounter Notes: All associated encounter notes [...] Resources Only: E911 (Emergency Call Relay Center): [phone] [facility] Crisis Line - 988 then press #1. [facility] Suicide Coordinator [phone], Ext. [phone]; Back-up Ext. [phone] [place] Police, ERNST, [place] [phone] Introduction: Visit is being conducted by [place] [employer]. [place] identified with 2 identifiers: [X] Full Name [X] Date of [ ] [place] ID Card Emergency Plan: confirmed and/or provided the following information in case of emergency or technology failure. PATIENT PHONE - [phone] PHONE NUMBER [CELLULAR] - Is patient phone number correct, if not, enter below: 's phone number: EMILIE CASILLAS [address], [place], [address] [place]'s present location and address for appointment: as above 's emergency contact name and phone number: [place] [phone] reported that location is private and safe: Yes Informed Consent: informed of the risks and benefits of Telehealth video care. has the right to refuse video services. If refuses video visit, a [id number] visit will be scheduled. verbalized consent for this video visit: Yes [place] provided consent for any other persons present for visit: Yes If yes, who and relationship to patient: Secure visit: Visit was locked for security and privacy:Yes As above this is a video visit: Moe diagnosed with sleep apnea had [facility] visit after equipment was shipped to [...] 153 hours AirSense 11 AutoSet Serial number [id number] Mode AutoSet Min Pressure 5 cmH2O Max [...] RESPIRATORY THERAPIST Signed: 07/04/2023 14:55 KASEY BEY [place] CNTRL WSTR[facility]
--- OUTSIDE RECORDS SUMMARY | 2024-06-19 13:34 | XMS_ITS | Encounter Summary ---
Author Name [facility] [place] Organization [facility] [place] Address [address] [place] [address] Care Team Providers Care Supervisor Bakery Sanitation Name Role Phone JESUS WARREN Primary Care [...] Patient's Relationship to Policy Chan [facility] Apr 11, 2017 [id number] MADONNA CASILLAS PATIENT EXPRESS SCRIPTS ([id number]) PRESCRIPT ION [facility] Aug 11, 2017 [id number] MADONNA CASILLAS PATIENT MEDICARE (WNR) MEDICARE (M) PART A Sep 12, 2011 PART A [id number] MADONNA CASILLAS PATIENT MEDICARE (WNR) MEDICARE (M) PART A Sep 12, 2011 PART A [id number] [phone] MADONNA CASILLAS PATIENT WELLPOINT PREFERRED PROVIDER ORGANIZAT ION (PPO) [facility] INDEM * Aug 11, 2009 [id number] [phone] MADONNA CASILLAS PATIENT Selected Encounter This section includes the information on record at [place] for the Encounter. Date/Time Encounter Type Encounter Description Reason Provider Source Nov 27, 2023 10:00 AM PATIENT EDUCATION MATERIALS SLEEP MEDICINE ICD-10-CM G47.33 Obstructive sleep apnea (adult) (pediatric) KASEY BEY [facility] Encounter Template Text not used by [place] Assessments - Encounter Diagnoses This section includes the primary and secondary diagnoses documented for the Encounter. Date/Time Primary/Secondary Diagnosis Diagnosis Name Provider Source Mar 03, 2024 11:30 AM PRIMARY Obstructive sleep apnea (adult) (pediatric) KASEY BEY [facility] Plan of Treatment: Future Appointments (+ 6 months) and Future Tests (+/- 45 days) The Plan of Treatment section includes future care activities for the patient from all [place] treatmentfacilities. This section includes future appointments and future orders which are active, pending or scheduled. Future Appointments This section includes appointments that were scheduled to occur 6 months from the date of the Encounter, up to a maximum of 20 appointments. The data comes from all [place] treatment facilities. Appointment Date/Time Appointment Type Appointme nt Facility Name Feb 21, 2024 01:00 PM AMBULATORY - MEDICINE [facility] Feb 24, 2024 03:00 PM AMBULATORY - MEDICINE [place] [facility] Social History: Smoking Status (Most current) and Tobacco Use (All prior to encounter date) This section includes the most current, and the historical, smoking and tobacco- related health factors from the [place] facility where the Encounter took place. Current Smoking Status This section includes the most current smoking, or tobacco-related health factor, from the [place] facility where the Encounter took place. Date/Time Current Smoking Status Comment Facil ity Nov 07, 2023 01:30 PM VA-TOBACCO FORMER USER [facility] Tobacco Use History This section includes a history of the smoking, or tobacco-related health factors, that were collected on or before the date of the Encounter. The data comes from the [place] facility where the Encounter took place. Date/Time Smoking Status/Tobacco Use Comment F acility Nov 07, 2023 01:30 PM [place]-TOBACCO QUIT 15 YRS OR MORE [facility] Nov 07, 2022 01:30 PM VA-TOBACCO FORMER USER [facility] Nov 07, 2022 01:30 PM [place]-TOBACCO QUIT 15 YRS OR MORE [facility] Nov 09, 2021 09:00 AM VA-TOBACCO FORMER USER [facility] Nov 09, 2021 09:00 AM VA-TOBACCO QUIT 15 YRS OR MORE [facility] Nov 09, 2020 03:00 PM VA-TOBACCO FORMER USER [facility] Nov 09, 2020 03:00 PM VA-TOBACCO QUIT 15 YRS OR MORE [facility] Encounter Notes: All associated encounter notes This [...] follow up visit after 11/16/2023 for APAP [id number]. Kervin is doing well with use and [...] He reports he was changed to Ipratropium [place] nasal spray but states he uses more [...] reports cleaning as recommended. Supplies ordered via [facility]. [facility] ordering instructions given. He was reminded [...] 880 hours AirSense 11 AutoSet Serial number [id number] Mode AutoSet Min Pressure 8 cmH2O Max [...]
--- OUTSIDE RECORDS SUMMARY | 2024-06-19 13:34 | XMS_ITS | Clinical Summary ---
Author Organization [facility] Address [address] [place] [address] Phone Care Team Providers Care Cosmetic Surgeon Name Role Phone Louie Davila MD Primary Care Provider [phone] Allergies No known active allergies Medications metoprolol [...] 11/30/2023 Hypertension/CHF/CAD Annual BMP Blood Test 01/31/2024 COVID-19 Vaccine ( season) 2024 11/07/2023, 01/09/2023, 06/12/2022, Additional history exists Falls Risk Assessment 01/30/2025 01/31/2024 DTaP,Tdap,and Td Vaccines (2 - Td or Tdap) 11/07/2032 11/07/2022 Zoster Vaccines Completed 03/11/2019, 11/05/2018 Pneumococcal Vaccine: 50+ Years Completed 11/07/2022, 04/21/2014 RSV Immunization Adult Patients Completed 12/21/2022 Influenza Vaccine Completed 11/07/2023, , 11/27/2021, Additional [...] patient's age to complete this topic Insurance [id number] Care Teams Cosmetic Surgeon Relationship Specialty Start Date End Date Louie Davila MD [address] [place] [address] PCP - General Internal Medicine 01/30/24
--- NOTE | 2024-06-19 13:38 | A.OFFVIS_ITS ---
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 The pain primarily affects his lower back region. He describes the pain as exacerbated by activities such as walking on hard surfaces and prolonged long-standing or sitting as well as attending grandchildren's events and house chores. Patient does not experience radiation of the pain to his buttocks or legs. He experiences notable difficulties during routine activities at the [facility], underscoring the pain's limiting effect on his lifestyle. Imaging has revealed multilevel thoracolumbar spondylosis with grade 1 slippage at vertebrae L4-L5 and L2-L3, with no clear evidence of instability, as well as osteopenia versus osteoporosis and a previous L2 compression fracture with some height loss. The patient is aware of decreased bone mineral quality and currently uses vitamin D supplements, though his intake of calcium from dairy is minimal. PRIOR: The patient is a 78-year-old male presenting with chronic low back pain after completing course of physical therapy at [facility]. Over the past few months, he has experienced consistent pain localized to the lower back, with no radiation to the legs. His history suggests a gradual onset tied to occupational stressors, exacerbated by daily activities such as sitting for extended periods and walking on hard surfaces and daily activities. Physical therapy concentrating on the lower back provided partial relief. Methocarbamol taken at 500 mg twice daily as needed has reduced partial pain with certain activities. Issues sleeping have been complicated by CPAP use, although he mentions avoiding sleeping on his back helps prevent exacerbations. - Pain onset: Gradual since December 2023 - Quality: Non-radiating lower back pain - Primary location: Lower back - Radiation: None - Pain level: 2/10 currently, peaks at 4/10 - Exacerbating factors: Extended sitting, prolonged walking on hard surfaces - Relieving factors: Physical therapy, muscle relaxants - Interference with activities: Prolonged sitting or walking increases pain - Affect: Pain impacts his ability to perform extended physical activities - Analgesia: Taking methocarbamol 500 mg twice daily; current pain level 2/10 - Adverse Effects: None reported from medications - Activities of Daily Living: Engages in light exercises like chair yoga and walking; avoids excessive walking to prevent pain increase - Aberrant Drug Related Behaviors: None reported PRIOR: Patient is a pleasant 78 years old male with history of osteoarthritis, obesity, back pain, bilateral total knee replacements, LUICO with CPAP use, presents today for initial evaluation for low back pain. This is a Worker Comp case #[id number] due to poor work ergonomic chair without lumbosacral support. 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 Patient reports his low back pain has been increasing since December 2023 with increased stiffness and spasming and pain with prolonged sitting and range of motion, as well we prolonged walking or standing. He attributes this to inadequate support from his work chair. Patient states he requested a new chair from his workplace with lumbar support but this has not been arranged as of yet. Pain affects his daily activities and functioning, work, sleep, mobility, social interactions and quality of life. Pain came on gradually and currently has been intermittent with pain intensity ranging 2-4/10, with pain most severe late afternoon and morning and less severe in the late morning. Denies previous spine injections or surgery. Patient reports remote chiropractic adjustments but denies any recent formal physical therapy, TENS unit, acupuncture, massage therapy, or aqua therapy. He tried activity modifications and muscle relaxant with continued symptoms. He avoids NSAIDs and Tylenol due to adverse effects. Denies any fever or chills, abdominal or groin pain, weakness, foot drop, bladder or bowel dysfunction, or saddle anesthesia. Oswestry Low Back Pain Disability Score=12 (mild disability) Onset: 01/02/24 Location: Lower back pain, non-radiating Duration: 2 months Characteristics of symptom or complaint: Aching, dull, sore, hurting, aching, heavy Aggravating or associated factors: Prolonged sitting, bending forward, prolonged standing or walking, sleep Relieving factors: Resting, activity modifications, back support, tried muscle relaxant Treatment: None [facility] Medical History (Updated 06/19/24 @ 21:30 by JEANNINE Asher) Compression fracture of L2 LUCIO on CPAP Hx of colonic polyps History of adenomatous polyp of colon Hypertension Morbid obesity Osteoarthritis History of prostatism Contusion of rib on right side Eczema Back pain Anemia Nasal congestion Sleep apnea Surgical History H/O arthroscopic knee surgery History of knee replacement (~12/2019) Social History Alcohol intake: current Alcohol type: beer Patient Tobacco Use Status: Former Tobacco user Review of Systems Const Details: - Musculoskeletal: Reports chronic back pain exacerbated by physical activity; Denies radiation to buttocks and legs - Neurological: Reports no significant instability or loss of gait; Denies tingling or numbness in legs; denies bladder or bowel dysfunction or saddle anesthesia. All systems reviewed & are unremarkable except as noted in HPI and below Physical Exam Vital Signs: Last Vital Signs Pulse 71 06/19/24 13:41 BP 139/65 06/19/24 13:41 Pulse Ox 99 06/19/24 13:41 Oxygen Delivery Method Room Air 06/19/24 13:41 BMI result Body Mass Index 34.7 General: Appears afebrile. Alert and oriented. Mood and affect appropriate. Follows and participates in conversation appropriately. Respiratory effort is unlabored. No cough. Able to transition from sit to stand unassisted. Ambulates with bilaterally normal heel strike and toe off. General: Yes no CVA tenderness Back/Spine/Pelvis Other: Limited lumbar ROM due to pain. Non-antalgic gait with mild limping. Lumbar flexion is intact and does not reproduce significant pain, axial rotations and extension reproduce moderate pain. No midline tenderness to palpation in the thoracic or lumbar spine. Demonstrates 5/5 strength of quadriceps bilaterally as well as flexion/dorsiflexion of bilateral feet against resistance. 2+ pedal pulses bilaterally. Straight leg rise with dorsiflexion negative bilaterally. Diminished patellar and achilles reflexes bilaterally. Facet loading test positive bilaterally. Raymond sign is negative bilaterally. Valsalva maneuvr is negative. Back: no CVA tenderness Cervical Spine: cervical ROM normal, cervical muscular tenderness and No Cervical spine tenderness Thoracic/Lumbar Spine: thoracic and lumbar spine normal to inspection, No Thoracic/lumbar spine scar(s), Lasegue's sign negative, straight leg raise negative bilaterally, kyphosis, pain with thoraco-lumbar ROM, paraspinal muscle tenderness, thoraco-lumbar ROM limited, No thoracic spinal tenderness and lumbar spinal tenderness at L4 and at L5 Pelvis: no buttock tenderness Sacroiliac joints: bilaterally nontender Extrem General: Yes capillary refill normal, Yes no clubbing, cyanosis or edema and Yes no calf tenderness Results Reviewed Results Reviewed: XR LUMBOSACRAL SPINE 05/28/24 FINDINGS: Syndesmophyte formation and marginal osteophyte formation throughout the lower thoracic and upper lumbar spine. Superior endplate compression deformity resulting in 20% volume loss at L2. Grade 1 anterolisthesis L4-5 which persists during flexion and extension position. Grade 1 retrolisthesis L2-3 which persists during flexion and extension position. Facet joint hypertrophy bilaterally at L5-S1 and to a lesser extent L4-5. No acute cortical disruption. Vascular calcifications, likely aorta. Sclerosis at the articular surface of the acetabulum, bilaterally. Osteopenia versus osteoporosis. IMPRESSION: Multilevel thoracolumbar spondylosis resulting in grade 1 anterolisthesis L4-5 and grade 1 retrolisthesis L2-3 without gross instability. Old superior compression deformity at L2. Assessment & Plan Assessment & Plan (1) Lumbosacral spondylosis: Code(s): M47.817 - Spondylosis without myelopathy or radiculopathy, lumbosacral region Category: Medical (2) Low back pain: Code(s): M54.50 - Low back pain, unspecified Category: Medical (3) Muscle spasm of back: Code(s): M62.830 - Muscle spasm of back Category: Medical (4) Spondylolisthesis of lumbar region: Code(s): M43.16 - Spondylolisthesis, lumbar region Category: Medical (5) Lumbar degenerative disc disease: Code(s): M51.369 - Other intervertebral disc degeneration, lumbar region without mention of lumbar back pain or lower extremity pain Category: Medical Plan The current treatment plan includes performing bilateral diagnostic L3-L4 DR L5 medial branch blocks with local and fluoroscopy to confirm axial low back. If successful, we will consider advancing to radiofrequency ablation RFA or peripheral nerve stimulation. Expectations, risks and benefits were reviewed. Patient is aware he will be contacted to schedule this procedure. Continue usage of vitamin D supplements and consider increasing calcium intake, especially given the osteopenia vs osteoporosis findings. Follow up with PCP for potential bone scan. All questions and concerns have been answered and patient agreed with the treatment plan. Follow up after injections and sooner as needed. Patient was informed and verbally consented to the use of an ambient scribe for clinic note documentation during this visit. Patient Instructions: During the visit, I explained the findings of the imaging studies as noted above and discussed the potential treatment pathways, starting with medial branch blocks as diagnostic steps to determine patient response, proceeding to options like radiofrequency ablation or peripheral nerve stimulation depending on evaluation results. I highlighted risks such as the minimally invasive nature of RFA and stimulation therapy, and the potential outcomes including relief duration ranging from 10-12 months. We reviewed lifestyle factors contributing to bone health, encouraging vitamin D with possible calcium supplementation. Additionally, I explained reasons for monitoring slippage closely and reassured the patient regarding the non-surgic al, minimally invasive nature of proposed interventions. I noted that intravenous interventions with steroids would be exempted considering the osteopenia vs osteoporosis. I also discussed that MRI imaging might be considered if symptoms change or worsen, but for now, no new imaging is warranted. The patient received detailed procedural brochures, and we agreed to proceed following insurance approval, with initial steps taken towards the authorization for medial branch blocks. Coding Level of Care Code Est Pt Level 4 (94833) Complex EM visit Add On G2211 Diagnoses Lumbosacral spondylosis M47.817 Low back pain M54.50 Muscle spasm of back M62.830 Spondylolisthesis of lumbar region M43.16 Lumbar degenerative disc disease M51.369
[2024-06-19 13:41] VITALS: BP 139/65; PULSE 71; O2SAT 99; BMI 34.7
== END 2024-06-19 14:14 | disposition home or self-care (01) ==
LOC: HO.PMC 13:29
PROVIDERS: PCP Internal Medicine; Visit Provider Nurse Practitioner Family
DX: M47.817 Spondylosis without myelopathy or radiculopathy, lumbosacral region (principal); M54.50 Low back pain, unspecified; M62.830 Muscle spasm of back; M43.16 Spondylolisthesis, lumbar region; M51.369 Other intervertebral disc degeneration, lumbar region without mention of lumbar back pain or lower extremity pain
CPT/HCPCS: 99214; G2211

== ENCOUNTER → 2024-06-19 13:28 | Outpatient (BNVA) | payer OTHER, SELFPAY | PROVIDERS: PCP Internal Medicine; Visit Provider Nurse Practitioner Family | DX: M47.817 Spondylosis without myelopathy or radiculopathy, lumbosacral region (principal); M62.830 Muscle spasm of back; M43.16 Spondylolisthesis, lumbar region; M51.369 Other intervertebral disc degeneration, lumbar region without mention of lumbar back pain or lower extremity pain | CPT/HCPCS: 99212 ==

== ENCOUNTER 2024-08-07 10:39 | Outpatient (AMB) | payer OTHER, SELFPAY ==
--- OUTSIDE RECORDS SUMMARY | 2024-07-27 05:30 | XMS_ITS | Encounter Summary ---
Author Name [facility] [place] [facility] [place] [facility] [place] Address [address] [place] [address] Care Team Providers Care Vp Digital Marketing Name Role Phone JESUS WARREN Primary Care [...] Patient's Relationship to Policy Chan [facility] ON LICENSE OF [facility] Apr 11, 2017 [id number] VINNYMADONNA ANTHONY PATIENT [employer] ([id number]) PRESCRIPT ION [facility] Aug 11, 2017 [id number] VINNYMADONNA ANTOHNY PATIENT MEDICARE (WNR) MEDICARE (M) PART A Sep 12, 2011 PART A [id number] MADONNA CASILLAS PATIENT MEDICARE (WNR) MEDICARE (M) PART A Sep 12, 2011 PART A [id number] [phone] MARIA TERESAElvisMADONNA ANTHONY PATIENT [employer] PREFERRED PROVIDER ORGANIZAT ION (PPO) [facility] * Aug 11, 2009 [id number] MADONNA CASILLAS PATIENT Selected Encounter This section includes the information on record at [place] for the Encounter. Date/Time Encounter Type Encounter Description Reason Provider Source Jul 27, 2024 09:30 AM [place] SP LANG VOICE COMM INDIV SPEECH-LANGUAGE PATHOLOGY ICD-10-CM R05.3 Chronic cough GREGORY CORTES [place] Encounter Template Text not used by [place] Assessments - Encounter Diagnoses This section includes the primary and secondary diagnoses documented for the Encounter. Date/Time Primary/Secondary Diagnosis Diagnosis Name Provider Source Jul 27, 2024 10:19 AM PRIMARY Chronic cough GREGORY CORTES [facility] Plan of Treatment: Future Appointments (+ 6 months) and Future Tests (+/- 45 days) The Plan of Treatment section includes future care activities for the patient from all [place] treatmentfacilities. This section includes future appointments and future orders which are active, pending or scheduled. Future Appointments This section includes appointments that were scheduled to occur 6 months from the date of the Encounter, up to a maximum of 20 appointments. The data comes from all [place] treatment facilities. Appointment Date/Time Appointment Type Appointme nt Facility Name Aug 17, 2024 08:30 AM AMBULATORY - MEDICINE [facility] Aug 17, 2024 10:30 AM AMBULATORY - REHAB MEDICIN E [facility] Oct 15, 2024 01:30 PM AMBULATORY - MEDICINE [facility] Nov 09, 2024 01:00 PM AMBULATORY - MEDICINE [facility] Social History: Smoking Status (Most current) and Tobacco Use (All prior to encounter date) This section includes the most current, and the historical, smoking and tobacco- related health factors from the [place] facility where the Encounter took place. Current Smoking Status This section includes the most current smoking, or tobacco-related health factor, from the [place] facility where the Encounter took place. Date/Time Current Smoking Status Comment Sarah cary Aug 07, 2019 01:20 PM CO-TOBACCO QUIT 15 YRS OR MORE [facility] Tobacco Use History This section includes a history of the smoking, or tobacco-related health factors, that were collected on or before the date of the Encounter. The data comes from the [place] facility where the Encounter took place. Date/Time Smoking Status/Tobacco Use Comment F acility Aug 07, 2019 01:20 PM CO-TOBACCO QUIT 15 YRS OR MORE [place] [facility] [place] [facility] Encounter Notes: All associated encounter notes This section contains the clinical notes associated to the Encounter. Date/Time Encounter Note(s) Provider Source Jul 27, 2024 09:44 AM SPEECH PATHOLOGY N OTE: LOCAL TITLE: SPEECH PATHOLOGY PROGRESS NOTE STANDARD TITLE: SPEECH PATHOLOGY NOTE DATE OF NOTE: JUL 27, 2024@09:44 ENTRY DATE: JUL 27, 2024@09:45:03 AUTHOR: GREGORY CORTES EXP COSIGNER: URGENCY: STATUS: COMPLETED SPEECH PATHOLOGY PROGRESS NOTE Has ADDENDA seen for tx; note to follow /es/ GREGORY CORTES M.S.,CCC-WATER TREATMENT TECHNICIAN SPEECH-LANGUAGE PATHOLOGIST Signed: 08/03/2024 03:26 08/03/2024 ADDENDUM STATUS: COMPLETED S: seen for tx of chronic cough. Active problems - Computerized Problem List is the source for the followin. Obstructive sleep apnea 2. Exposure to potentially hazardous substance 3. Obesity 4. Tinnitus 5. Sensorineural hearing loss, bilateral 6. Allergic rhinitis 7. HTN - Hypertension ([facility] [id number]) 8. OA - Osteoarthritis ([facility] [id number]) 9. Benign prostatic hypertrophy 10. Colonoscopy Screening 11. Eczema 12. NON VA PCP 13. Chronic post-traumatic stress disorder Progress notes were reviewed. Encounter time: 60 minutes O: The following was addressed in this encounter: //MAXIMUM PHONATION TIME (MPT): Trial 1: 8.88s Trial 2: 12.01s Trial 3: 12.26s MPT: 11.04 s //S/Z RATIO: /s/ Trial 1: 17.76s /s/ Trial 2: 19.23s /s/ Trial 3: 19.65s /s/ average: 18.8s /z/ Trial 1: 16.28s /z/ Trial 2: 16.08s /z/ Trial 3: 21.00s /z/ average: 17.7s S/Z Ratio: 1.06 //SPEECH SAMPLE: first attempt: hoarse, strained vocal quality second attempt (after given verbal feedback to be more mindful of breathing and muscle tension while speaking): vocal quality still sounded hoarse, but strain and muscle tension reduced. The was provided education through a collaborative discussion about chronic cough, exercises to reduce laryngeal tension, and cough suppression techniques. Education was provided in order to support understanding and choice-making, which is linked to motivation and outcomes in treatment. The demonstrated knowledge through asking questions and completion of exercises. A: Pt. presents with chronic cough. He will benefit from continued therapy and instruction in use of cough suppression techniques. P: RTC as scheduled /es/ GREGORY CORTES M.S.,CCC-WATER TREATMENT TECHNICIAN SPEECH-LANGUAGE PATHOLOGIST Signed: 08/06/2024 16:50 GREGORY CORTES [facility]
--- NOTE | 2024-08-07 10:39 | A.OFFVIS_ITS ---
Intake Visit Reasons: Procedure Discussion Allergies No Known Allergies Allergy (Verified 06/19/24 13:41) HPI HPI Procedure Discussion: Details: History of Present Illness The patient is a 78-year-old male presenting with lumbar spinal stenosis and associated back pain. The back pain has been attributed to multiple factors, including intervertebral disc degeneration and lumbar spondylolisthesis, which have been ongoing for an extended period. The patient reports that the pain is intermittent and varies depending on activities such as walking or sitting for prolonged periods. Leans on carts; flexion relieves pain. The patient has not undergone an MRI of the lumbar spine, although he has had x- rays performed. He has not received any cortisone injections in the past and is considering this option for pain management. The patient has a history of knee replacement and is currently being treated for urological issues related to the prostate. Pain Description - Onset: Pain is intermittent and varies with activity. - Quality: Pain is exacerbated by prolonged walking or sitting. - Location: Primarily in the lumbar region. - Relieving factors: Leaning forward or using a cart while walking helps alleviate pain. Physical Exam - Televisit Results Pain Management - Affect: Pain impacts daily activities such as walking and sitting. - Analgesia: Considering cortisone injection for pain relief. - Activities of Daily Living: Pain limits ability to walk long distances and sit for extended periods. [facility] Medical History (Updated 06/19/24 @ 21:30 by JEANNINE Asher) Compression fracture of L2 LUCIO on CPAP Hx of colonic polyps History of adenomatous polyp of colon Hypertension Morbid obesity Osteoarthritis History of prostatism Contusion of rib on right side Eczema Back pain Anemia Nasal congestion Sleep apnea Surgical History H/O arthroscopic knee surgery History of knee replacement (~12/2019) Social History Alcohol intake: current Alcohol type: beer Patient Tobacco Use Status: Former Tobacco user Telehealth Telehealth Telehealth [facility] Location of provider rendering services: practice address Location of patient: address on file Patient Identification confirmed using: Name, : Yes Telehealth method: video Patient verbally consented to treatment: Yes Patient verbally consented to billing insurance company: Yes Patient informed of any privacy concerns related to visit: Yes Assessment & Plan Assessment & Plan (1) Spondylolisthesis of lumbar region: Code(s): M43.16 - Spondylolisthesis, lumbar region Category: Medical Plan Plan - Order an MRI of the lumbar spine to evaluate the extent of spinal stenosis and plan for potential CHANO for his radicular symptoms/neurogenic claudication. - Follow up with radiology to schedule the MRI and ensure coordination with workers' compensation for coverage. Patient was informed and verbally consented to the use of an ambient scribe for clinic note documentation during this visit. Discussion Notes I discussed with the patient the nature of lumbar spinal stenosis and the potential benefits of a cortisone injection, estimating a 60% chance of improvement. We also talked about the need for an MRI to better understand the condition before proceeding with any invasive procedures. The patient was informed about the coordination required with workers' compensation and the importance of scheduling the MRI promptly. Patient Instructions - Await contact from radiology to schedule your MRI. - If you do not hear from radiology within a few weeks, contact our office. - Discuss with your about the MRI and cortisone injection options. Orders: Orders MR lumbar spine wo con Today M43.16 - Spondylolisthesis, lumbar region Coding Level of Care Code Procedure Only Diagnoses Spondylolisthesis of lumbar region M43.16
== END 2024-08-07 10:40 | disposition home or self-care (01) ==
LOC: HO.PMC 10:39
PROVIDERS: PCP Internal Medicine; Visit Provider Internal Medicine
DX: M43.16 Spondylolisthesis, lumbar region (principal)
CPT/HCPCS: 99213

== ENCOUNTER 2024-08-25 07:46 | Outpatient (REF) | payer OTHER, SELFPAY ==
--- OUTSIDE RECORDS SUMMARY | 2024-08-17 06:30 | XMS_ITS | Encounter Summary ---
Author Name [facility] [place] [facility] [facility] [place] Address [address] [place] [address] Care Team Providers Care Rn Camp Name Role Phone JESUS WARREN Primary Care [...] Chan's Name Patient's Relationship to Policy Chan [facility] Apr 11, 2017 [id number] VINNYMADONNA ANTHONY PATIENT EXPRESS SCRIPTS ([id number]) PRESCRIPT ION [facility] Aug 11, 2017 [id number] VINNYMADONNA ANTHONY PATIENT MEDICARE (WNR) MEDICARE (M) PART A Sep 12, 2011 PART A [id number] MADONNA CASILLAS PATIENT MEDICARE (WNR) MEDICARE (M) PART A Sep 12, 2011 PART A [id number] MARIA TERESAElvisMADONNA ANTHONY PATIENT WELLPOINT PREFERRED PROVIDER ORGANIZAT ION (PPO) [facility] * Aug 11, 2009 [id number] MADONNA CASILLAS PATIENT Selected Encounter This section includes the information on record at [place] for the Encounter. Date/Time Encounter Type Encounter Description Reason Provider Source Aug 17, 2024 10:30 AM TX SP LANG VOICE COMM INDIV SPEECH-LANGUAGE PATHOLOGY ICD-10-CM R05.3 Chronic cough GREGORY CORTES [place] Encounter Template Text not used by [place] Assessments - Encounter Diagnoses This section includes the primary and secondary diagnoses documented for the Encounter. Date/Time Primary/Secondary Diagnosis Diagnosis Name Provider Source Aug 17, 2024 03:31 PM PRIMARY Chronic cough GREGORY CORTES [facility] Plan of Treatment: Future Appointments (+ [...] Appointment Type Appointme nt Facility Name Sep 14, 2024 09:30 AM [facility] Oct 15, 2024 01:30 PM [facility] Nov 09, 2024 01:00 PM AMBULATORY - MEDICINE [facility] [place] Feb 16, 2025 08:30 AM AMBULATORY - MEDICINE [facility] Vital Signs: All taken on the encounter date This section contains inpatient and outpatient Vital Signs collected on the date of the Encounter. Date/Time Temperature Pulse Blood Pressure Respiratory Rate SP02 Pain Height Weight Body Mass Index Source Aug 17, 2024 09:10 AM 98 F 85 /min 112/65 mm[Hg] 18 /min 91 % 0 239.6 lb 34 [facility] Social History: Smoking Status (Most current) [...] Sarah ity Aug 07, 2019 01:20 PM [place]-TOBACCO QUIT 15 YRS OR MORE [facility] Tobacco Use History This section includes a history of the smoking, or tobacco-related health factors, that were collected on or before the date of the Encounter. The data comes from the [place] facility where the Encounter took place. Date/Time Smoking Status/Tobacco Use Comment F acility Aug 07, 2019 01:20 PM AR-TOBACCO QUIT 15 YRS OR MORE [facility] Encounter Notes: All associated encounter notes This section contains the clinical notes associated to the Encounter. Date/Time Encounter Note(s) Provider Source Aug 17, 2024 10:39 AM SPEECH PATHOLOGY N OTE: LOCAL TITLE: SPEECH PATHOLOGY PROGRESS NOTE STANDARD TITLE: SPEECH PATHOLOGY NOTE DATE OF NOTE: AUG 17, 2024@10:39 ENTRY DATE: AUG 17, 2024@10:39:43 AUTHOR: GREGORY CORTES EXP COSIGNER: URGENCY: STATUS: COMPLETED S: seen for tx of chronic cough. Active problems - Computerized Problem List is the source for the followin. Obstructive sleep apnea 2. Exposure to potentially hazardous substance 3. Obesity 4. Tinnitus 5. Sensorineural hearing loss, bilateral 6. Allergic rhinitis 7. HTN - Hypertension ([facility] [id number]) 8. OA - Osteoarthritis ([facility] [id number]) 9. Benign prostatic hypertrophy 10. Colonoscopy Screening 11. Eczema 12. NON VA PCP 13. Chronic post-traumatic stress disorder Progress notes were reviewed. Encounter time: 60 minutes O: The following was addressed in this encounter: The was provided education through a collaborative discussion about chronic cough, exercises to reduce laryngeal tension, and cough suppression techniques. Additionally educated in use of FLVL310 to increase breath support. Education was provided in order to support understanding and choice-making, which is linked to motivation and outcomes in treatment. The demonstrated knowledge through asking questions and completion of exercises. A: Pt. presents with chronic cough. He will benefit from continued therapy and instruction in use of cough suppression techniques, exercises to increase breath support, and reduce laryngeal tension. P: RTC as scheduled /es/ GREGORY CORTES M.S.,CCC-CHANNEL DEVELOPMENT DIRECTOR SPEECH-LANGUAGE PATHOLOGIST Signed: 08/24/2024 08:[address] CLAIR[facility]quan [facility]
--- NOTE | ~2024-08-25 | MR_ITS ---
EXAMINATION: MR LUMBAR SPINE WITHOUT IV CONTRAST CLINICAL INFORMATION: M43.16 - Spondylolisthesis, lumbar region COMPARISON: Radiographs of the lumbar spine on May 28, 2024 TECHNIQUE: MRI of the lumbar spine was obtained using routine sequences without contrast. FINDINGS: Alignment/vertebral bodies: Mildly exaggerated lumbar lordosis. Grade 1 retrolisthesis of L1 on L2 and L2 on L3. Grade 1 anterolisthesis of L4 on L5. Mild compression fracture deformity of the superior endplate of L2 vertebral body with residual bone marrow edema involving predominantly the superior endplate and central aspect of the vertebral body; no significant retropulsion of the posterior fragments. Small areas of bony marrow edema in the anterosuperior aspect of L4 and L5 vertebral bodies appear to be degenerative in nature. Anterior marginal osteophytes are more prominent at L1-L2. Intervertebral discs: Disc desiccation changes of the included discs. Moderate loss of height of L5-S1 disc. Conus: Conus terminates at L1 level. Level by level analysis: T12-L1: Tiny central disc protrusion. No spinal canal or neuroforamina stenosis. L1-L2: Combination of mild bulging disc and facet arthropathy results in mild right neuroforaminal stenosis. No spinal canal or left neuroforamina stenosis. L2-L3: Combination of bulging disc, facet arthropathy and epidural fat contributes to mild bilateral neuroforamina stenosis and mild spinal canal stenosis. L3-L4: Combination of bulging disc, facet arthropathy and epidural fat contributes to mild bilateral neuroforaminal stenosis and moderate/severe spinal canal stenosis. L4-L5: Combination of anterolisthesis, bulging disc and prominent facet arthropathy contributes to mild bilateral neuroforaminal stenosis and severe spinal canal stenosis. L5-S1: Combination of bulging disc and facet arthropathy contributes to mild bilateral neuroforaminal stenosis. No spinal canal stenosis. Others: Partially evaluated possible parapelvic cysts and extrarenal pelvis of the left kidney. MR/MR lumbar spine wo con IMPRESSION: 1. Healing compression fracture deformity of L2 vertebral body with residual bone marrow edema. 2. Moderate multilevel degenerative changes. Severe spinal canal stenosis at L4-L5. Moderate/severe spinal canal stenosis at L4-L5. No severe neuroforaminal stenosis. Electronically signed by: Jewell Hanks MD 08/25/2024 09:54 AM EDT RP
--- OUTSIDE RECORDS SUMMARY | 2024-08-25 07:50 | XMS_ITS | Data Portability ---
Author Organization [facility] Address [address] [place] [address] Care Team Providers Care Employment Recruiter Name Role Phone ERWIN ALVAREZ Creping Machine Operator Helper Assessment No assessment recorded. Plan of Treatment Reminders Order Date Submit Date Provider Last Modified By Organization Details Last Modified Time Details Appointments None record ed. Lab None record ed. Referral None record ed. Procedures None record ed. Surgeries None record ed. Imaging XR, knee, 3 view - ROOM 315, LTKR AL 024 07/23/19 24 [facility], [address], [facility] [address], [place], [address], 4 08:20:35 Medication Orders None record ed. Patient TargetsNo targets recorded. Patient InstructionsNo instructions recorded. Reason for Referral None Reported. Results Created Date Observation Date Name Description Value Unit Range Abnormal Flag Note LastModifiedBy Organization Detail LastModifiedTime 06/26/19 24 06/26/2023 CBC WITH DIFFE RENTI AL/PL ATELE T WBC 3.9 x10e3 /uL 3.4-10 .8 Not Available [facility] ([facility]) [address] [facility], [place], [address], 06/27/2023 08:09:02 06/26/19 24 06/26/2023 CBC WITH DIFFE RENTI AL/PL ATELE T RBC 4.06 x10e6 /uL 3.77-5 .28 Not Available [facility] ([facility]) [address] [facility], [place], [address], 06/27/2023 08:09:02 06/26/19 24 06/26/2023 CBC WITH DIFFE RENTI AL/PL ATELE T hemoglobin 13.5 g/dL 11.1-1 5.9 Not Available [facility] ([facility]) [address] [facility], [place], [address], 06/27/2023 08:09:02 06/26/19 24 06/26/2023 CBC WITH DIFFE RENTI AL/PL ATELE T hematocrit 38.9 % 34.0-4 6.6 Not Available [facility] ([facility]) [address] [facility], [place], [address], 06/27/2023 08:09:02 06/26/19 24 06/26/2023 CBC WITH DIFFE RENTI AL/PL ATELE T MCV 96 fL 79-97 Not Available [facility] ([facility]) [address] [facility], [place], [address], 06/27/2023 08:09:02 06/26/19 24 06/26/2023 CBC WITH DIFFE RENTI AL/PL ATELE T MCH 33.3 pg 26.6-3 3.0 above high normal Not Available [facility] ([facility]) [address] [facility], [place], [address], 06/27/2023 08:09:02 06/26/19 24 06/26/2023 CBC WITH DIFFE RENTI AL/PL ATELE T MCHC 34.7 g/dL 31.5-3 5.7 Not Available [facility] ([facility]) [address] [facility], [place], [address], 06/27/2023 08:09:02 06/26/19 24 06/26/2023 CBC WITH DIFFE RENTI AL/PL ATELE T RDW 12.0 % 11.7-1 5.4 Not Available [facility] ([facility]) [address] [facility], [place], [address], 06/27/2023 08:09:02 06/26/19 24 06/26/2023 CBC WITH DIFFE RENTI AL/PL ATELE T platelets 217 x10e3 /uL 150-45 0 Not Available [facility] ([facility]) [address] [facility], [place], [address], 06/27/2023 08:09:02 06/26/19 24 06/26/2023 CBC WITH DIFFE RENTI AL/PL ATELE T neutrophils 64 % not estab. Not Available [facility] ([facility]) [address] [facility], [place], [address], 06/27/2023 08:09:02 06/26/19 24 06/26/2023 CBC WITH DIFFE RENTI AL/PL ATELE T lymphs 24 % not estab. Not Available [facility] ([facility]) [address] [facility], [place], [address], 06/27/2023 08:09:02 06/26/19 24 06/26/2023 CBC WITH DIFFE RENTI AL/PL ATELE T monocytes 8 % not estab. Not Available [facility] ([facility]) [address] [facility], [place], [address], 06/27/2023 08:09:02 06/26/19 24 06/26/2023 CBC WITH DIFFE RENTI AL/PL ATELE T eos 3 % not estab. Not Available [facility] ([facility]) [address] [facility], [place], [address], 06/27/2023 08:09:02 06/26/19 24 06/26/2023 CBC WITH DIFFE RENTI AL/PL ATELE T basos 1 % not estab. 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 0 Not Available [facility] ([facility]) [address] [place], [address], 06/27/2023 08:09:02 06/26/19 24 06/26/2023 CBC WITH DIFFE RENTI AL/PL ATELE T lymphs (absolute) 0.9 x10e3 /uL 0.7-3. 1 Not Available [facility] ([facility]) [address] [place], [address], 06/27/2023 08:09:02 06/26/19 24 06/26/2023 CBC WITH DIFFE RENTI AL/PL ATELE T monocytes(ab solute) 0.3 x10e3 /uL 0.1-0. 9 Not Available [facility] ([facility]) [address] [place], [address], 06/27/2023 08:09:02 06/26/19 24 06/26/2023 CBC WITH DIFFE RENTI AL/PL ATELE T eos (absolute) 0.1 x10e3 /uL 0.0-0. 4 Not Available [facility] ([facility]) [address] [place], [address], 06/27/2023 08:09:02 06/26/19 24 06/26/2023 CBC WITH DIFFE RENTI AL/PL ATELE T baso (absolute) 0.0 x10e3 /uL 0.0-0. 2 Not Available [facility] ([facility]) [address] [place], [address], 06/27/2023 08:09:02 06/26/19 24 06/26/2023 CBC WITH DIFFE RENTI AL/PL ATELE T immature granulocytes 0 % not estab. Not Available [facility] ([facility]) [address] [facility], [place], [address], 06/27/2023 08:09:02 06/26/19 24 06/26/2023 CBC WITH DIFFE RENTI AL/PL ATELE T immature grans (abs) 0.0 x10e3 /uL 0.0-0. 1 Not Available [facility] ([facility]) [address] [facility], [place], [address], 06/27/2023 08:09:02 06/26/19 24 06/26/2023 CBC WITH DIFFE RENTI AL/PL ATELE T NRBC TOOL MECHANIC Not Available [facility] ([facility]) [address] [facility], [place], [address], 06/27/2023 08:09:02 06/26/19 24 06/26/2023 CBC WITH DIFFE RENTI AL/PL ATELE T hematology comments: TOOL MECHANIC Not Available [facility] ([facility]) [address] [facility], [place], [address], 06/27/2023 08:09:02 06/26/19 24 06/26/2023 SEDIM ENTAT ION RATE- WESTE RGREN sedimentatio n rate-westerg johnathan 7 mm/HR 0-40 Not Available [facility] ([facility]) [address] [facility], [place], [address], 06/27/2023 08:09:03 06/26/19 24 06/27/2023 C-SUSANA CTIVE PROTE IN, QUANT C-reactive protein, quant 1 mg/L 0-10 Not Available [facility] ([facility]) [address] [facility], [place], [address], 06/27/2023 08:09:03 07/23/19 24 07/23/2023 XR, knee, 3 view [email or web address] ?Encry pted=s hAaTro YD8dLq bEUv6g %2BXZw aYqtaq 0bqfl% 2Fg9IQ a4ajBk vP9nXo QUaueC m3YtLR FvZlgJ JJ8mAn HZtai3 6b1096 AC0Kua XWCVKP eUC8mr 84%3D INTERFACE [facility] [address] [facility] [address], [place], [address], 07/23/2023 14:43:58 07/23/19 24 07/23/2023 XR, knee, 3 view [email or web address]:/ [email or web address] ?Encry pted=s hAaTro YD8dLq bEUv6g %2BXZw aYqtaq 0bqfl% 2Fg9IQ a4ajBk vP9nXo QUaueC m3YtLR FvZlg JJ8mAn HZtai3 6h5446 AC0Kua XWCVKP eUC8mr 84%3D INTERFACE [facility] Office [address] [facility] [address], [place], [address], 07/23/2023 14:44:00 Result Notes Documentation Provider Name and Address Organization Details Recorded Time Xr, Knee, 3 View : [email or web address] Encrypted=lbOdRaaYP9cWddV Uv6g%3OCLglTtlcq1ylmi%2Fg 8ZFf0xeLdqO9dXtUAccpBz0Uk RJZwDaqKSR9qBhUUjqw33m157 1LM5MwsJMEVAYqHL2tu21%3D Not Available [facility] 07/23/2023 14:4 3:59 Xr, Knee, 3 View : [email or web address] 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 Medical Equipment None Reported. [...] SNOMED-CT Code Diagnosis ICD10 Code Diagnosis Note [id number] [facility] [address] [facility] [place] [address] 07/23/2023 14:26:37 08/13/2023 08:20:35 History of left total knee replacement 3199281262 182879 Z96.652 Health Concerns Section Related Observation LastModified by Organization Detai ls LastModified Time None Recorded Concern Status LastModified by Organization Details LastModified Time None Recorded Advance Directives Directive None Recorded Payers Insurance Date Sequence Insurance Name Policy Number Policy Chan Covered Member ID Chan Member ID Guarantor Name 06/25/2023 [facility] Irving Herrera Notes Date Note Type Note [...] reviewed, updated and is located in the patient s chart. Examination:Well appearing 77-year-old male in [...] program today. Patient can continue with any qozt-lbq-krczlmm topical creams as-needed. Patient will avoid anti-inflammatory medications. He can follow-up with us on a p.r.n. basis. At this time all patient questions and concerns were answered today. Louie Paul PA-C [address] [facility] [address], [place], [address], [facility] - [facility] 07/23/2023 15:58:27 OBGyn Episode No OBEpisode recorded.
--- OUTSIDE RECORDS SUMMARY | 2024-08-25 07:50 | XMS_ITS | Clinical Summary ---
Author Organization [facility] Address [address] [place] [address] Phone Care Team Providers Care Co Founder And Cto Name Role Phone Louie Davila MD Primary Care Provider [phone] Allergies No known active allergies Medications metoprolol [...] 64 01/31/2024 8:29 AM EST Temperature 36.1 C (97 F) 01/31/2024 7:49 AM EST Respiratory Rate 16 [...] 2024 11/07/2023, 01/09/2023, 06/12/2022, Additional history exists Influenza Vaccine (#1) 2024 , 11/07/2022, 11/27/2021, Additional history exists Falls Risk Assessment 01/30/2025 01/31/2024 DTaP,Tdap,and Td Vaccines (2 - Td or Tdap) 11/07/2032 11/07/2022 Zoster Vaccines Completed 03/11/2019, 11/05/2018 Pneumococcal Vaccine: 50+ Years Completed 11/07/2022, 04/21/2014 RSV Immunization Adult Patients Completed 12/21/2022 HIB Vaccines Aged Out No longer eligi [...] to complete this topic Insurance [employer] [id number] Care Teams Co Founder And Cto Relationship Specialty Start Date End Date Louie Davila MD [address] [place] [address] PCP - General Internal Medicine 01/30/24
--- OUTSIDE RECORDS SUMMARY | 2024-08-25 07:50 | XMS_ITS | Patient Health Record ---
Author Organization [facility] Address [address] [place] [address] Care Team Providers Care Gas Mask Assembler Name Role Phone Bobby Pedersen MD Primary Care Provider Nacho Stoner Jr Unavailable Reason For Referral No Information Medications Medication SIG (Take, Route, Frequency, Duration) Notes Start Date End Date Status MoviPrep 100 GM as directed before colonoscopy Orally for 1 dose 06/10/2013 Active Glucosamine Chondroitin Adv Orally Active Triamterene-HCTZ 37.5-25 MG 1 capsule in the morning Orally Once a day Active Problems Problem Type SNOMED Code ICD Code Onset Dates Problem Status W/U Status Risk Notes Problem [id number] Encounter for long-term (current) use of other medications (V58.69) Active confirmed Problem 056831021 Colon cancer screening (V76.51) Active confirmed Plan Of Treatment Future Test Test Name Order Date COLONOSCOPY 06/10/2013 Insurance Providers Payer Name Payer Address Payer Phone Subscriber Number Group Number Insured Name Patient Relationship to Insured Coverage Start Date Coverage End Date [employer] [address] [place] [address] [id number] EMILIE CASILLAS Self - patient is the insured Medicare of [place] [employer] [address] [place] [address] [id number] EMILIE CASILLAS Self - patient is the insured Medical (General) History Medical History History ICD Code hypertension Denies NV,DM,CVA,Lung disease,renal dise ase Surgical History Surgery Date(Month/Year) varicose vein surgery 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
== END 2024-08-25 07:47 | disposition home or self-care (01) ==
LOC: HO.MRI 07:46
PROVIDERS: PCP Internal Medicine; Visit Provider Internal Medicine
DX: M43.16 Spondylolisthesis, lumbar region (principal)
CPT/HCPCS: 72148

== ENCOUNTER → 2024-08-25 07:46 | Outpatient (BNV) | payer OTHER, SELFPAY | PROVIDERS: PCP Internal Medicine; Visit Provider Radiology Body Imaging | DX: S32.029A Unspecified fracture of second lumbar vertebra, initial encounter for closed fracture (principal); M51.369 Other intervertebral disc degeneration, lumbar region without mention of lumbar back pain or lower extremity pain; M48.061 Spinal stenosis, lumbar region without neurogenic claudication | CPT/HCPCS: 72148 ==

== ENCOUNTER 2024-09-11 10:35 | Outpatient (AMB) | payer OTHER, SELFPAY ==
--- OUTSIDE RECORDS SUMMARY | 2024-09-09 23:59 | XMS_ITS | Continuity of Care Document ---
Author Organization [facility] Address [address] [place] [address]- Care Team Providers Care Waterside Worker Name Role Phone Louie Davila MD Primary Care Physician [id number] Date(s): 09/02/24 - 09/09/24 [facility] [address] [address] Attending Physician: Leonie Barrera MD Admitting Physician: Leonie Barrera MD Referring Physician: Louie Davila MD Encounter Type: Office Visit Allergies, Adverse Reactions, Alerts No Known Allergies Medications acetaminophen 325 mg oral tablet 650 mg, By Mouth, Every 6 hours, Maytake OTC not to exceed 3000 mg/day, Refills 0, Maintenance, 05/13/21 7:46:00 AM EDT, Partial fill upon patient request if the prescription is for a schedule II opioid drug. Start Date: 05/13/21 Status: Ordered Repeat number: 1 amoxicillin 500 mg oral capsule 4 capsule = 2,000 mg, By Mouth, TAKE 4 CAPSULES 1 HOUR PRIOR TO DENTAL PROCEDURE Start Date: 08/05/23 Status: Ordered Repeat number: 1 Aspirin Tablet 325 mg, By Mouth, 2 times a day, Refills 0, Maintenance, 05/13/21 7:46:00 AM EDT, Partial fill upon patient request if the prescription is for a schedule II opioid drug. Start Date: 05/13/21 Status: Ordered Repeat number: 1 celecoxib 200 mg oral capsule 1 capsule = 200 mg, By Mouth, Daily in AM, 0 Refills, Maintenance, 05/13/21 7:46:00 AM EDT, Capsule, Partial fill upon patient request if the prescription is for a schedule II opioid drug. Start Date: 05/13/21 Status: Ordered Repeat number: 1 Colace Capsule 100 mg, 1, capsule, By Mouth, 2 times a day, Refills 0, Maintenance, 05/13/21 7:46:00 AM EDT, Partialfill upon patient request if the prescription is for a schedule II opioid drug. Start Date: 05/13/21 Status: Ordered Repeat number: 1 Flomax 0.4 mg oral capsule 0.4 mg, 1, capsule, By Mouth, Daily, # 30 capsule, Refills 0, Maintenance, 05/12/21 7:30:00 AM EDT, Partial fill upon patient request if the prescription is for a schedule II opioid drug. Start Date: 05/12/21 Status: Ordered Quantity: 30.0 Unit: capsule Repeat number: 1 fluticasone 50 mcg/inh nasal spray 1 sprays, Nares, Both, 2 times a day, # 16 Gm, 0 Refills, Maintenance, 01/05/20 8:14:00 AM EST, [place], Partial fill upon patient request Start Date: 01/05/20 Status: Ordered Quantity: 16.0 Unit: g Repeat number: 1 Guanfacine By Mouth, Refills 0, Maintenance, 08/05/23 9:08:00 AM EDT, Partial fill upon patient request if the prescription is for a schedule II opioid drug. Start Date: 08/05/23 Status: Ordered Repeat number: 1 loratadine 10 mg oral tablet 10 mg, 1, tablet, By Mouth, Daily, # 30 tablet, Refills 0, Maintenance, 08/05/23 9:06:00 AM EDT, Partial fill upon patient request if the prescription is for a schedule II opioid drug. Start Date: 08/05/23 Status: Ordered Quantity: 30.0 Unit: tablet Repeat number: 1 losartan 100 mg oral tablet 1 tablet = 100 mg, By Mouth, Daily, # 30 tablet, 0 Refills, Maintenance, 01/05/20 8:14:00 AM EST, Tablet, Partial fill upon patient request Start Date: 01/05/20 Status: Ordered Quantity: 30.0 Unit: tablet Repeat number: 1 metoprolol 25 mg oral tablet 25 mg, 1, tablet, By Mouth, Daily at bedtime, # 60 tablet, Refills 0, Maintenance, 01/05/20 8:13:00AM EST, Partial fill upon patient request Start Date: 01/05/20 Status: Ordered Quantity: 60.0 Unit: tablet Repeat number: 1 MiraLax Powder 1 pack/packet = 17 Gm, By Mouth, Daily, PRN Constipation, 0 Refills, Maintenance, 05/13/21 7:46:00 AMEDT, Powder, Partial fill upon patient request if the prescription is for a schedule II opioid drug. Start Date: 05/13/21 Status: Ordered Repeat number: 1 pantoprazole 40 mg oral delayed release tablet = 40 mg, By Mouth, Daily in AM, 0 Refills, Maintenance, 05/13/21 7:46:00 AM EDT, EC Tablet Start Date: 05/13/21 Status: Ordered Repeat number: 1 senna 187 mg oral tablet 1 tablet = 8.6 mg, By Mouth, Daily at bedtime, PRN as needed for constipation, 0 Refills, Maintenance, 05/13/21 7:46:00 AM EDT, Tablet, Partial fill upon patient request if the prescription is for a schedule II opioid drug. Start Date: 05/13/21 Status: Ordered Repeat number: 1 Problem List Condition Confirmation Course Effective Dates Status Health St [facility] Informant Obese class I Confirmed Active Patient Care team information Care Team Personnel Name: Susanna Vinson RN Position: [facility] RN Member Role: Primary Care Nurse Name: Elver Arellano RN Position: S RN Member Role: Primary Care Nurse Name: Louie Davila MD Position: S Outreach Member Role: PCP Address: [address] [place] [address] - [address] Telecom: Name: Edvin Higuera RN Position: S RN Member Role: Primary Care Nurse Name: Maggie Ramirez RN Position: S RN Member Role: Primary Care Nurse Care Team Related Persons Name: ANUPALEXANDREElvisMARIAH Insurance Providers Guarantor name: EMILIE CASILLAS Health Plan Information #: 1 Payer: MEDICARE B Payer Identifier: NA Member Number: [id number] Group Number: NA Subscriber Identifier: [id number] Relationship to Subscriber: self Coverage Type: NA Coverage Verification Date: NA Telecom: NA Address: Health Plan Information #: 2 Payer: [facility] [employer] Payer Identifier: ALEXANDRE Member Number: [id number] Group Number: [id number] Subscriber Identifier: [id number] Relationship to Subscriber: self Coverage Type: Commercial Indemnity Coverage Verification Date: NA Telecom: NA Address:
--- OUTSIDE RECORDS SUMMARY | 2024-09-11 10:41 | XMS_ITS | Clinical Summary ---
Author Organization [facility] Address [address] [place] [address] Phone Care Team Providers Care Service Station Helper Name Role Phone Louie Davila MD Primary Care Provider [phone] Allergies No known active allergies Medications metoprolol [...] Done Comments Cholesterol Screening (Lipid Panel) 11/30/2023 Hepatitis C Screening 11/30/2023 Social Influencers of Health Screening 11/30/2023 Hypertension/CHF/CAD Annual BMP Blood Test 01/31/2024 Depression Screening 02/12/2024 COVID-19 Vaccine ( season) 2024 11/07/2023, 01/09/2023, [...] to complete this topic Insurance [employer] [id number] Care Teams Service Station Helper Relationship Specialty Start Date End Date Louie Davila MD [address] [place] [address] PCP - General Internal Medicine 01/30/24
--- OUTSIDE RECORDS SUMMARY | 2024-09-11 10:41 | XMS_ITS | Patient Health Record ---
Author Organization [facility] Address [address] [place] [address] Care Team Providers Care Human Factors Ergonomist Name Role Phone Bobby Pedersen MD Primary [...] Problem Status W/U Status Risk Notes Problem [id number] Encounter for long-term (current) use of other medications (V58.69) Active confirmed Problem [id number] Colon cancer screening (V76.51) Active confirmed Plan Of Treatment Future Test Test Name Order Date COLONOSCOPY 06/10/2013 Insurance Providers Payer Name Payer Address Payer Phone Subscriber Number Group Number Insured Name Patient Relationship to Insured Coverage Start Date Coverage End Date [employer] [address] [place] [address] [id number] EMILIE CASILLAS Self - patient is the insured Medicare of [place] [employer] [address] [place] [address] [id number] EMILIE CASILLAS Self - patient is the insured Medical (General) History Medical History History ICD Code hypertension Denies [place],DM,CVA,Lung disease,renal dise ase Surgical History Surgery Date(Month/Year) varicose vein surgery 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
--- NOTE | 2024-09-11 10:52 | A.OFFVIS_ITS ---
Vital Signs 09/11/24 10:53 Weight 230 lb BP 135/64 Blood Pressure Location Lt brachial Position Left Lateral Respiration 20 Pulse 80 Pulse Source Pulse Oximeter Pulse Oximetry (%) 99 Oxygen Delivery Method Room Air Intake Visit Reasons: MRI follow up Allergies No Known Allergies Allergy (Verified 09/11/24 10:51) HPI HPI MRI follow up: Details: History of Present Illness The patient is a 78-year-old male presenting with management of chronic lower back pain. The pain is primarily located in the lower back and is exacerbated by walking, bending, and certain positions. The patient reports that the pain is not constant but worsens with specific activities such as bending and scooping. The patient has a history of spinal stenosis and degenerative changes in the spine, which have been confirmed by imaging studies. There is also evidence of facet joint arthropathy and a thickened ligamentum flavum, contributing to the patient's symptoms. The MRI findings indicate spondylolisthesis at L4-5, which is causing nerve compression and contributing to the patient's pain. Additionally, there is an old vertebral fracture, which the patient associates with previous falls. The patient has previously received cortisone injections for knee pain, which provided temporary relief. He is considering acupuncture as a potential treatment option, influenced by the positive experiences of acquaintances. The patient is currently retired and has reduced physical activity, which may impact his condition. Pain Description - Pain primarily located in the lower back - Exacerbated by walking, bending, and certain positions - Not constant, worsens with specific activities - No radiation of pain down the legs Physical Exam - Appears afebrile. - Alert and oriented. - Mood and affect appropriate. - Follows and participates in conversation appropriately. - Respiratory effort is unlabored. Results - MRI: Spondylolisthesis at L4-5, facet joint arthropathy, thickened ligamentum flavum, spinal stenosis - X-ray: No gross instability, fixed spondylolisthesis at L4-5 Pain Management - Affect: Pain impacts daily activities and comfort, especially during walking and certain positions - Analgesia: Previous cortisone injections provided temporary relief; considering acupuncture - Activities of Daily Living: Pain limits physical activity and affects comfort during sleep [facility] Medical History (Updated 06/19/24 @ 21:30 by JEANNINE Asher) Compression fracture of L2 LUCIO on CPAP Hx of colonic polyps History of adenomatous polyp of colon Hypertension Morbid obesity Osteoarthritis History of prostatism Contusion of rib on right side Eczema Back pain Anemia Nasal congestion Sleep apnea Surgical History H/O arthroscopic knee surgery History of knee replacement (~12/2019) Social History Alcohol intake: current Alcohol type: beer Patient Tobacco Use Status: Former Tobacco user Physical Exam Vital Signs: Last Vital Signs Pulse 80 09/11/24 10:53 Resp 20 09/11/24 10:53 BP 135/64 09/11/24 10:53 Pulse Ox 99 09/11/24 10:53 Oxygen Delivery Method Room Air 09/11/24 10:53 Assessment & Plan Assessment & Plan (1) Spondylolisthesis of lumbar region: Code(s): M43.16 - Spondylolisthesis, lumbar region Category: Medical (2) Lumbosacral spondylosis: Code(s): M47.817 - Spondylosis without myelopathy or radiculopathy, lumbosacral region Category: Medical (3) Lumbar degenerative disc disease: Code(s): M51.369 - Other intervertebral disc degeneration, lumbar region without mention of lumbar back pain or lower extremity pain Category: Medical Plan Plan - Consider acupuncture as a low-risk option for pain relief. - If acupuncture is ineffective, consider facet diagnostic injections. - If facet blocks provide significant relief, proceed with radiofrequency ablation for facet pain. - Cortisone injections may be considered if pain worsens, particularly for spinal stenosis-related radicular discomfort. - Monitor for any signs of neurological deficits, such as leg weakness or loss of bladder control, which may necessitate surgical intervention. Patient was informed and verbally consented to the use of an ambient scribe for clinic note documentation during this visit. Discussion Notes We discussed the complexity of pain management and the potential benefits and limitations of various treatment options, including acupuncture, facet blocks, and cortisone injections. I explained that acupuncture is a low-risk option and may provide temporary relief, while facet blocks can help diagnose the source of pain and guide further treatment with radiofrequency ablation if effective. We also reviewed the MRI findings, which show spondylolisthesis and degenerative changes, and discussed the possibility of surgical intervention if neurological symptoms develop. Patient Instructions - Try acupuncture for pain relief and monitor its effectiveness. - If pain persists or worsens, contact the clinic to discuss further treatment options such as facet blocks or cortisone injections. - Monitor for any new symptoms such as leg weakness or changes in bladder control and report them immediately. Coding Level of Care Code Est Pt Level 4 (26913) Diagnoses Spondylolisthesis of lumbar region M43.16 Lumbosacral spondylosis M47.817 Lumbar degenerative disc disease M51.369
[2024-09-11 10:53] VITALS: BP 135/64; PULSE 80; RESP 20; O2SAT 99
== END 2024-09-11 11:31 | disposition home or self-care (01) ==
LOC: HO.PMC 10:35
PROVIDERS: PCP Internal Medicine; Visit Provider Internal Medicine
DX: M43.16 Spondylolisthesis, lumbar region (principal); M47.817 Spondylosis without myelopathy or radiculopathy, lumbosacral region; M51.369 Other intervertebral disc degeneration, lumbar region without mention of lumbar back pain or lower extremity pain
CPT/HCPCS: 99214

== ENCOUNTER → 2024-09-11 10:35 | Outpatient (BNVA) | payer OTHER, SELFPAY | PROVIDERS: PCP Internal Medicine; Visit Provider Internal Medicine | DX: Z71.2 Person consulting for explanation of examination or test findings (principal); M43.16 Spondylolisthesis, lumbar region; M47.817 Spondylosis without myelopathy or radiculopathy, lumbosacral region; M51.369 Other intervertebral disc degeneration, lumbar region without mention of lumbar back pain or lower extremity pain; G89.29 Other chronic pain | CPT/HCPCS: 99212 ==